=== PATIENT | female | born 1990 | race Caucasian/White ===

== ENCOUNTER 2016-06-07 18:05 | Emergency (ER) | payer OTHER ==
[2016-06-07 18:31] VITALS: BP 116/65
[2016-06-07] MEDS ORDERED: NAPROXEN 500 MG TABLET PO STA (19:05)
[2016-06-07] MEDS ORDERED: DIPHTH,PERTUSS(ACELL),TET TOX 0.5 ML DISP.SYRIN. VAX IM ONE (19:30)
[2016-06-07] MEDS ORDERED: HYDROCODONE/APAP 5/325MG TABLET. PO ONE (19:30)
--- NOTE | 2016-06-07 19:31 | PHYS DOC ---
Past Medical History Past Medical History: No Pertinent History Past Surgical History: Cholecystectomy, Tubal ligation Alcohol Use: None Drug Use: None Adult General Chief Complaint Chief Complaint: TOE PROBLEM HPI HPI Patient is a 25 year old female who presents with moderate pain to the right great toe after a heavy lamp fell on it 3 days ago. Patient still has black socks stuck on the toe for 3 days. Review of Systems Review of Systems Constitutional: Denies fever or chills [] Eyes: Denies change in visual acuity, redness, or eye pain [] HENT: Denies nasal congestion or sore throat [] Musculoskeletal: Right great toe pain Integument: Denies rash or skin lesions [] Neurologic: Denies headache, focal weakness or sensory changes [] Endocrine: Denies polyuria or polydipsia [] Current Medications Current Medications Current Medications Medications (Trade) Dose Ordered Sig/Jocelyne Start Time Stop Time Status Last Admin Dose Admin Acetaminophen/ Hydrocodone Bitart (Lortab 5/325) 1 tab 1X ONCE 06/07/16 19:30 06/07/16 19:31 DC 06/07/16 19:27 1 TAB Diphtheria/ Tetanus/Acell Pertussis (Boostrix) 0.5 ml ONCE ONCE 06/07/16 19:30 06/07/16 19:31 DC 06/07/16 19:28 0.5 ML Naproxen (Naprosyn) 500 mg 1X STAT 06/07/16 19:05 06/07/16 19:17 DC 06/07/16 19:27 500 MG Allergies Allergies Allergies Coded Allergies Type Severity Reaction Last Updated Verified No Known Drug Allergies 06/07/16 No Physical Exam Physical Exam Constitutional: Well developed, well nourished, no acute distress, non-toxic appearance. [] HENT: Normocephalic, atraumatic, bilateral external ears normal, oropharynx moist, no oral exudates, nose normal. [] Abdomen: Bowel sounds normal, soft, no tenderness, no masses, no pulsatile masses. [] Skin: Please see musculoskeletal Back: No tenderness, no CVA tenderness. [] Extremities: Right great toe distal and with the lack socks stuck on the skin. There is draining around the socks. Tenderness on palpation of the distal end of the right great toe. Limited range of motion to the right toe due to pain. + 2 right pedal pulse. Cap refill less than 2 seconds the right lower extremity. Sensation intact to the right lower extremity. Neurologic: Alert and oriented X 3, normal motor function, normal sensory function, no focal deficits noted. [] Psychologic: Affect normal, judgement normal, mood normal. [] Current Patient Data Vital Signs Vital Signs Date Time Temp Pulse Resp B/P Pulse Ox O2 Delivery O2 Flow Rate FiO2 06/07/16 19:27 18 Room Air 06/07/16 18:31 95.2 117 97 95.2 EKG EKG [] Radiology/Procedures Radiology/Procedures [] Course & Med Decision Making Course & Med Decision Making Pertinent Labs and Imaging studies reviewed. (See chart for details) Patient is in the ED with right great toe pain after lamp fell on it 3 days ago. She unfortunately left a piece of socks stuck on the toe for three days. There is draining yellow in color coming from underneath the nailed. I removed the socks. Patient was given tetanus in the ED. Right foot x-rays interpreted by Dr. Cosby was suspicious for fracture of the great toe. Patient was provided orthopedic shoe in the ED. Discharged on Keflex. Follow-up with orthopedic doctor on Thursday. Dragon Disclaimer Dragon Disclaimer This electronic medical record was generated, in whole or in part, using a voice recognition dictation system. Departure Departure Impression: Primary Impression: Toe fracture, right Additional Impression: Toe infection Disposition: 01 HOME, SELF-CARE Condition: STABLE Referrals: NO PCP (PCP) ASPEN AWAD II, MD Call the orthopedic doctor on Thursday and set up a follow-up appointment Patient Instructions: Skin Infections, Toe Fracture Additional Instructions: You were seen for right great toe injury. Your toe x-rays is suspicious for a fracture. Wear the orthopedic shoe. Keep the toe clean and dry. You have infection underneath the toe nail. Soak it in Epsom salts once or twice a day. Take the prescribed antibiotics until completed. Call the orthopedic doctor on Thursday and set up a follow-up appointment. Scripts Naproxen 500 Mg Tablet.dr1 Tab PO BID #60 TAB Ref 1 Prov:MUTUNGACARO LAP POLISHER 06/07/16 Hydrocodone/Apap 5-325 ([place] 5-325 Tablet)1 Each Tablet1 Tab PO Q6-8HRS PRN PAIN #20 TAB Prov:MUTUNGA,CARO LAP [employer]ER 06/07/16 Cephalexin 500 Mg Tablet1 Tab PO QID #40 TAB Prov:CARO HENDRICKS APRN 06/07/16 Problem Qualifiers Primary Impression: Toe fracture, right Encounter type: initial encounter Toe: great toe Fracture type: open Phalanx: distal Fracture alignment: nondisplaced Qualified Code: S92.424B - Nondisplaced fracture of distal phalanx of right great toe, initial encounter for open fracture CARO HENDRICKS APRN Jun 07, 2016 19:31
[2016-06-07] MEDS ORDERED: NAPR500T8 PO (19:52)
[2016-06-07] MEDS ORDERED: CEPH500T PO (19:52)
[2016-06-07] MEDS ORDERED: HYDR-971 PO (19:52)
--- NOTE | 2016-06-08 10:13 | RAD ---
Three-view right foot radiographs 06/07/2016 Clinical history: Dropped heavy item on anterior foot. AP, lateral and oblique digital radiographs of the right foot were obtained. No fracture or dislocation of the right foot is seen. No radiopaque foreign body is noted. Mild hallux valgus deformity is noted. Mild degenerative changes are seen involving the first MTP joint. Impression: No fracture or dislocation of the right foot is seen.
== END 2016-06-07 20:00 | disposition home or self-care (01) ==
LOC: ER 18:05
DX: S92.424B Nondisplaced fracture of distal phalanx of right great toe, initial encounter for open fracture (principal); L08.89 Other specified local infections of the skin and subcutaneous tissue; M20.11 Hallux valgus (acquired), right foot; W20.8XXA Other cause of strike by thrown, projected or falling object, initial encounter; Y93.89 Activity, other specified; Y99.8 Other external cause status; Y92.89 Other specified places as the place of occurrence of the external cause
CPT/HCPCS: 73630; 90471; 90715; 99284-25

== ENCOUNTER 2016-06-21 18:22 | Emergency (ER) | payer OTHER ==
[~2016-06-21 18:22] MED LIST: CEPH500T PO; HYDR-971 PO; NAPR500T8 PO
[2016-06-21 18:27] VITALS: BP 131/74
--- NOTE | 2016-06-21 18:39 | PHYS DOC ---
Past Medical History Past Medical History: No Pertinent History Past Surgical History: Cholecystectomy, Tubal ligation Alcohol Use: None Drug Use: None Adult General Chief Complaint Chief Complaint: TOE PROBLEM HPI HPI Patient is a 25 year old female presents emergency Department with complaint of ongoing right great toe pain that is been increasing since she was seen here approximately one and half weeks ago for a crush injury to her right great toe resulting in a fracture. Patient states that her toenail has been from the nail bed and is been snagging on things and causing her more pain. She states that she is completed the Keflex that was prescribed. She states that she did not follow up with an orthopedic doctor as recommended. Review of Systems Review of Systems Constitutional: Denies fever or chills [] Eyes: Denies change in visual acuity, redness, or eye pain [] HENT: Denies nasal congestion or sore throat [] Respiratory: Denies cough or shortness of breath [] Cardiovascular: No additional information not addressed in HPI [] GI: Denies abdominal pain, nausea, vomiting, bloody stools or diarrhea [] : Denies dysuria or hematuria [] Musculoskeletal: Denies back pain or joint pain [] Integument: Denies rash or skin lesions [] Neurologic: Denies headache, focal weakness or sensory changes [] Endocrine: Denies polyuria or polydipsia [] Current Medications Current Medications Current Medications Medications (Trade) Dose Ordered Sig/Jocelyne Start Time Stop Time Status Last Admin Dose Admin Bupivacaine HCl (Marcaine 0.25%) 10 ml 1X ONCE 06/21/16 18:45 06/21/16 18:46 DC 06/21/16 18:45 10 ML Allergies Allergies Allergies Coded Allergies Type Severity Reaction Last Updated Verified No Known Drug Allergies 06/07/16 No Physical Exam Physical Exam Constitutional: Well developed, well nourished, no acute distress, non-toxic appearance. [] HENT: Normocephalic, atraumatic, bilateral external ears normal, oropharynx moist, no oral exudates, nose normal. [] Eyes: PERRLA, EOMI, conjunctiva normal, no discharge. [] Neck: Normal range of motion, no tenderness, supple, no stridor. [] Cardiovascular:Heart rate regular rhythm, no murmur [] Lungs & Thorax: Bilateral breath sounds clear to auscultation [] Abdomen: Bowel sounds normal, soft, no tenderness, no masses, no pulsatile masses. [] Skin: Warm, dry, no erythema, no rash. [] Back: No tenderness, no CVA tenderness. [] Extremities: Right great toe with bruising along the dorsum over the nail matrix region. The toenail is from the nail bed except at the base were somewhat still adherent. There is a moderate amount of serous drainage. There is no gross erythema, heat to the touch, fusiform swelling or ascending lymphangitis. Neurologic: Alert and oriented X 3, normal motor function, normal sensory function, no focal deficits noted. [] Psychologic: Affect normal, judgement normal, mood normal. [] Current Patient Data Vital Signs Vital Signs Date Time Temp Pulse Resp B/P (MAP) Pulse Ox O2 Delivery O2 Flow Rate FiO2 06/21/16 18:27 97.7 90 16 99 Room Air 97.7 EKG EKG [] Radiology/Procedures Radiology/Procedures Procedure note: Digital block of right great toe was achieved with 0.25% Marcaine. The cuticle was pushed back away from the surface of the toenail. Negative traction was applied until the toenail was removed. Toenail is removed in 1 whole piece. Nail bed was already well granulated. Nail bed was cleansed with Betadine and rinsed with saline. A nonstick dressing was applied and bandaged. Patient tolerated the procedure well. Course & Med Decision Making Course & Med Decision Making Patient requested the nail removed. We discussed how this process will take place. She verbalizes understanding of the and verbalizes desire to proceed. Lanion Disclaimer Therese Disclaimer This electronic medical record was generated, in whole or in part, using a voice recognition dictation system. Departure Departure Impression: Primary Impression: Toenail avulsion Disposition: HOME, SELF-CARE Condition: IMPROVED Referrals: NO PCP (PCP) Patient Instructions: Nail Avulsion Injury, Toenail Removal Additional Instructions: 1. Review the discharge instructions provided for self-care and reasons to return to the emergency department. Keep the toenail covered during periods of activity for the next 3-4 days. Apply a thin code of antibiotic ointment 2-3 times a day. 2. Take the medication as prescribed. 3. Use the pamphlet provided for assistance in finding a primary care doctor to follow-up with if there is any questions or concerns. Scripts Hydrocodone/Apap 5-325 (NOR[place] 5-325 TABLET) 1 Each Tablet 1 TAB PO PRN Q6HRS Y for PAIN, #15 TAB 0 Refills Prov: JOSUE GONZALEZ 06/21/16 JOSUE GONZALEZ June 21, 2016 18:39
[2016-06-21] MEDS ORDERED: BUPIVACAINE 0.25% 50 ML VIAL. IJ ONE (18:45)
[2016-06-21] MEDS ORDERED: HYDR-971 PO (20:22)
== END 2016-06-21 20:30 | disposition home or self-care (01) ==
LOC: ER 18:22
DX: S91.201A Unspecified open wound of right great toe with damage to nail, initial encounter (principal); W23.0XXA Caught, crushed, jammed, or pinched between moving objects, initial encounter; Y93.89 Activity, other specified; Y92.89 Other specified places as the place of occurrence of the external cause; Y99.8 Other external cause status
CPT/HCPCS: 11730; 99284; J3490

== ENCOUNTER 2016-08-30 21:31 | Emergency (ER) | payer OTHER ==
[~2016-08-30] VITALS: Ht 172.7 cm; Wt 106.6 kg
--- NOTE | 2016-08-30 23:01 | PHYS DOC ---
Past Medical History Past Medical History: Other Additional Past Medical Histor: PCOS, uterine fibroids Past Surgical History: Cholecystectomy, Tubal ligation Alcohol Use: None Drug Use: None Adult General Chief Complaint Chief Complaint: ABDOMINAL PAIN HPI HPI Patient is a 26 year old female who presents ambulatory to the ED with her with the complaint of bilateral lower abdomen/pelvic pain since just her day. Patient states she has a history of PCOs, and states this pain is typical for ovarian cyst pain that she has experienced in the past. She has had her tubes tied. She has not missed a menstrual period. She states she is not on any hormones or other therapy to try to help her ovarian cysts. She moved to the area recently from [place]. She does not have a INCREMENT MANAGER doctor. She's had no spotting or bleeding. No UTI symptoms. No fever or chills. It hurts about the same on both sides, maybe a little worse on the right. She does still have her appendix. She states usually when she has a flareup of pain like this, she goes to the ER and she is given pain medicine and a prescription for pain pills. Previously this has been in [place] where she lived before. She has taken ibuprofen and Tylenol for the pain without much relief. Review of Systems Review of Systems Constitutional: Denies fever or chills [] Respiratory: Denies cough or shortness of breath [] Cardiovascular: Denies chest pain GI: As in history of present illness : Denies dysuria or hematuria [] Musculoskeletal: Denies back pain or joint pain [] Integument: Denies rash or skin lesions [] Current Medications Current Medications Current Medications Medications (Trade) Dose Ordered Sig/[facility] Start Time Stop Time Status Last Admin Dose Admin Morphine Sulfate 10 mg 1X ONCE 08/30/16 23:15 08/30/16 23:16 DC 08/30/16 23:07 10 MG Allergies Allergies Allergies Coded Allergies Type Severity Reaction Last Updated Verified No Known Drug Allergies 06/07/16 No Physical Exam Physical Exam Constitutional: Obese female, appears uncomfortable, moving around on the cart without difficulty however HENT: Normocephalic, atraumatic, bilateral external ears normal, nose normal. [ ] Eyes: conjunctiva normal, no discharge. [] Neck: Normal range of motion, no stridor. [] Cardiovascular:Heart rate regular rhythm, no murmur [] Lungs & Thorax: Bilateral breath sounds clear to auscultation [] Abdomen: Bowel sounds normal, soft, nondistended, no masses, no pulsatile masses. Tenderness to palpation in the lower abdomen bilaterally without rebound or guarding. The tenderness is in the low abdomen/pelvis area. There is no tenderness specifically at McBurney's point. No rebound or guarding in the right lower quadrant. No palpable masses. Skin: Warm, dry, no erythema, no rash. [] Extremities: No tenderness, no cyanosis, no clubbing, ROM intact, no edema. [] Neurologic: Alert and oriented X 3, normal motor function, normal sensory function, no focal deficits noted. [] Current Patient Data Vital Signs Vital Signs Date Time Temp Pulse Resp B/P (MAP) Pulse Ox O2 Delivery O2 Flow Rate FiO2 08/30/16 23:11 69 18 103/61 (75) 99 Room Air 08/30/16 21:40 97.7 97.7 Lab Values Laboratory Tests Test 08/30/16 20:49 POC Urine HCG, Qualitative Hcg negative (Negative) EKG EKG [] Radiology/Procedures Radiology/Procedures [] Course & Med Decision Making Course & Med Decision Making Pertinent Labs and Imaging studies reviewed. (See chart for details) Urine test negative. 26-year-old female presents with bilateral lower abdomen/pelvic pain that is typical for a exacerbation of ovarian cyst pain that she has had in the past. Status post BTL. test negative. I discussed with the patient and her that since she does still have her appendix, I caution her that if she ever has pain that is localized to the right lower quadrant to consider that that might be something different. Discussed with the patient and her that she should see a INCREMENT MANAGER doctor and see if there is any treatment that could help her chronic pain problems such as something that might control her ovarian cysts. She stated her previous INCREMENT MANAGER doctor wanted to give her hysterectomy but her insurance denied it. I encouraged her to find a new INCREMENT MANAGER doctor here since she has recently relocated to the area. I also told the patient that for this chronic, recurrent pain, I would not recommend use of opiate pain medications on a chronic basis. We gave her one injection of pain medicine here in the ED and I encouraged her to use ibuprofen on a regular basis for its prostaglandin inhibition effects as well as pain relief. [] Dragon Disclaimer Dragon Disclaimer This electronic medical record was generated, in whole or in part, using a voice recognition dictation system. Departure Departure Impression: Primary Impression: Pelvic pain Additional Impression: Ovarian cyst Disposition: HOME, SELF-CARE Condition: STABLE Referrals: NO PCP (PCP) Patient Instructions: Pelvic Pain, Female, [id number] Additional Instructions: As we discussed, the treatment usually recommended for pelvic pain is anti- inflammatory pain relievers such as ibuprofen, 800 mg every 6-8 hours. While you 're having pain, keep taking ibuprofen regularly to keep your pain under control. You had a pain shot here, no driving for 12 hours because of that medication Make a INCREMENT MANAGER appointment as soon as possible to see if there is some way to manage your pain with medications, as discussed. Problem Qualifiers ARMANI HELLER MD Aug 30, 2016 23:01
[2016-08-30 23:11] VITALS: BP 103/61
[2016-08-30] MEDS ORDERED: MORPHINE SULFATE 10 MG/ML VIAL. IM ONE (23:15)
== END 2016-08-30 23:27 | disposition home or self-care (01) ==
LOC: ER 21:31
DX: N83.209 Unspecified ovarian cyst, unspecified side (principal); R10.2 Pelvic and perineal pain; E28.2 Polycystic ovarian syndrome; Z90.49 Acquired absence of other specified parts of digestive tract; Z98.51 Tubal ligation status
CPT/HCPCS: 81025; 96372; 99283; J2270

== ENCOUNTER 2016-09-02 19:03 | Emergency (ER) | payer SELFPAY ==
[~2016-09-02] VITALS: Ht 172.7 cm; Wt 106.6 kg
[2016-09-02 19:45] LABS: BILIRUBIN,URINE NEGATIVE (NEG); GLUCOSE,URINE NEGATIVE (NEG); NITRITE,URINE NEGATIVE (NEG); PROTEIN,URINE NEGATIVE (NEG-TRACE); UROBILINOGEN,URINE 0.2 mg/dL (0.2 mg/dL)
[2016-09-02 19:50] LABS: BASO % 0 % (0-3); EOS % 4 % (0-3); HEMATOCRIT 36.5 % (36.0-47.0); HEMOGLOBIN 12.1 g/dL (12.0-15.5); LYMPH # 2.1 x10^3/uL (1.0-4.8); LYMPH % 19 % (24-48); MEAN CORPUSCULAR HEMOGLOBIN 29 pg (25-35); MEAN CORPUSCULAR HGB CONC 33 g/dL (31-37); MEAN CORPUSCULAR VOLUME 88 fL (79-100); MONO % 7 % (0-9); NEUT % 70 % (31-73); PLATELET COUNT 303 x10^3/uL (140-400); RED BLOOD COUNT 4.16 x10^6/uL (3.50-5.40); RED CELL DISTRIBUTION WIDTH 13.7 % (11.5-14.5); WHITE BLOOD COUNT 10.9 x10^3/uL (4.0-11.0)
[2016-09-02 19:56] LABS: BACTERIA,URINE 0 /HPF (0-FEW); RBC,URINE OCC /HPF (0-2); SQUAMOUS EPITHELIAL CELL,UR FEW /LPF; WBC,URINE 0 /HPF (0-4)
[2016-09-02 20:11] LABS: CALCIUM 9.3 mg/dL (8.5-10.1); CREATININE 0.7 mg/dL (0.6-1.0); GFR 99.6; POTASSIUM 3.9 mmol/L (3.5-5.1)
[2016-09-02] MEDS ORDERED: ONDANSETRON PF 4 MG/2 ML VIAL. IV ONE (20:15)
[2016-09-02] MEDS ORDERED: KETOROLAC TROMETHAMINE 30 MG/ML INJ. IV ONE (20:15)
[2016-09-02 20:16] LABS: ALBUMIN 3.5 g/dL (3.4-5.0); ALBUMIN/GLOBULIN RATIO 0.9 (1.0-1.7); TOTAL BILIRUBIN 0.1 mg/dL (0.2-1.0); TOTAL PROTEIN 7.5 g/dL (6.4-8.2)
--- NOTE | 2016-09-02 20:58 | RAD ---
Ultrasound pelvis complete and transvaginal ultrasound HISTORY: Bilateral pelvic pain, negative hCG Sonographic examination of the pelvis was performed by transabdominal and endovaginal technique and multiple static images were obtained. Ultrasound pelvis complete transabdominal: The uterus appears normal and measures 5.7 x 8.7 x 5.0 cm. The left ovary appears normal and measures 2.3 x 4.3 x 2.6 cm. The endometrium appears normal measures 13 mm in thickness. The right ovary appears normal measures 2.1 x 2.9 x 1.6 cm. Interrogation of the right lower quadrant shows no focal normality. The appendix is not identified. Transvaginal ultrasound pelvis: The uterus is better seen and appears normal. The ovaries are better seen with normal blood flow and appear normal. IMPRESSION: Negative examination. Electronically signed by: Juan Velasquez III, MD (09/02/2016 8:54 PM) [facility]
[2016-09-02] MEDS ORDERED: IOHEXOL 300 MG/ML 75 ML VIAL IV ONE (21:15)
[2016-09-02] MEDS ORDERED: fentaNYL PF VIAL 100 MCG/2 ML VIAL IV PRN (21:15)
--- NOTE | 2016-09-02 22:11 | RAD ---
CT SCAN OF THE ABDOMEN AND PELVIS WITH IV CONTRAST. History: Right lower quadrant pain Comparison:None. Procedure: Contiguous axial images of the abdomen and pelvis were performed after the administration of 75 cc of Isovue 370 IV contrast and oral contrast. CT Abdomen with contrast: Findings: Liver: Unremarkable Spleen: Unremarkable Pancreas: Unremarkable Adrenal Glands: Unremarkable Kidneys: Unremarkable There is no mass or lymphadenopathy. There is no free air. There is no free fluid. There has been prior cholecystectomy. Impression: No acute findings. End Impression CT Pelvis with Contrast: Findings: The urinary bladder appears normal. There is no free fluid. There is no lymphadenopathy. The appendix is normal. Impression: No acute findings. PQRS Compliance Statement: One or more of the following individualized dose reduction techniques were utilized for this examination: 1. Automated exposure control 2. Adjustment of the mA and/or kV according to patient size 3. Use of iterative reconstruction technique Electronically signed by: Juan Velasquez III, MD (09/02/2016 10:07 PM) [facility]
[2016-09-02 22:15] VITALS: BP 126/78
--- NOTE | 2016-09-02 22:31 | PHYS DOC ---
Past Medical History Past Medical History: Uterine Fibroids, Other Additional Past Medical Histor: PCOS Past Surgical History: Cholecystectomy, Tubal ligation Alcohol Use: None Drug Use: None Adult General Chief Complaint Chief Complaint: ABDOMINAL PAIN HPI HPI Patient is a 26 year old female who presents with abdominal pain. Patient reports onset of pain 3 days ago. She reports bilateral lower abdominal pain worse in the right lower quadrant. She denies fevers or chills, nausea or vomiting, diarrhea or constipation, dysuria or hematuria, vaginal discharge. She reports vaginal spotting today not requiring use of any pads. She reports history of ovarian cysts and states this feels similar to previous pain. History of cholecystectomy and tubal ligation. Has an appointment with a supervising nurse in 3 weeks. Review of Systems Review of Systems Constitutional: Denies fever or chills Eyes: Denies change in visual acuity HENT: Denies nasal congestion or sore throat Respiratory: Denies cough or shortness of breath Cardiovascular: Denies chest pain or edema GI: Reports abdominal pain, denies nausea, vomiting, or diarrhea : Denies dysuria or hematuria Musculoskeletal: Denies back pain or joint pain Integument: Denies rash or skin lesions Neurologic: Denies headache, focal weakness or sensory changes Current Medications Current Medications Current Medications Medications (Trade) Dose Ordered Sig/Jocelyne Start Time Stop Time Status Last Admin Dose Admin Fentanyl Citrate (Fentanyl 2ml Vial) 50 mcg PRN Q15MIN PRN 09/02/16 21:15 09/02/16 22:57 DC 09/02/16 21:18 50 MCG Iohexol (Omnipaque 300 Mg/ml) 75 ml 1X ONCE 09/02/16 21:15 09/02/16 21:16 DC 09/02/16 21:28 75 ML Ketorolac Tromethamine (Toradol) 30 mg 1X ONCE 09/02/16 20:15 09/02/16 20:16 DC 09/02/16 20:14 30 MG Ondansetron HCl (Zofran) 4 mg 1X ONCE 09/02/16 20:15 09/02/16 20:16 DC 09/02/16 20:14 4 MG Allergies Allergies Allergies Coded Allergies Type Severity Reaction Last Updated Verified No Known Drug Allergies 06/07/16 No Physical Exam Physical Exam Constitutional: Obese, no acute distress, non-toxic appearance. HENT: Normocephalic, atraumatic, bilateral external ears normal, oropharynx moist, nose normal. Eyes: PERRLA, EOMI, conjunctiva normal, no discharge. Neck: supple, no stridor. Cardiovascular: RRR, no murmurs, no edema. Lungs & Thorax: LCTAB, no wheezing, no respiratory distress. Abdomen: soft, right greater than left lower quadrant tenderness, no rebound or guarding, no masses or pulsatile masses, nondistended. : normal appearing female external genitalia, normal appearing cervix with closed os, small amount of blood, no CMT, right adnexal tenderness, no left adnexal tenderness. Skin: Warm, dry, no erythema, no rash. Back: No CVA tenderness. Extremities: No tenderness, no edema. Neurologic: Alert and oriented X 3, no focal deficits noted. Psychologic: Affect normal, judgement normal, mood normal. Current Patient Data Vital Signs Vital Signs Date Time Temp Pulse Resp B/P (MAP) Pulse Ox O2 Delivery O2 Flow Rate FiO2 09/02/16 22:15 80 18 126/78 (94) 98 Room Air 09/02/16 19:20 99.0 99.0 Lab Values Laboratory Tests Test 09/02/16 18:26 09/02/16 19:06 09/02/16 19:44 POC Urine HCG, Qualitative Hcg negative (Negative) Urine Collection Type Unknown Urine Color Yellow Urine Clarity Clear Urine pH 6.0 Urine Specific [place] >=1.030 Urine Protein Negative mg/dL (NEG-TRACE) Urine Glucose (UA) Negative mg/dL (NEG) Urine Ketones (Stick) Negative mg/dL (NEG) Urine Blood Negative (NEG) Urine Nitrite Negative (NEG) Urine Bilirubin Negative (NEG) Urine Urobilinogen Dipstick 0.2 mg/dL (0.2 mg/dL) Urine Leukocyte Esterase Negative (NEG) Urine RBC Occ /HPF (0-2) Urine WBC 0 /HPF (0-4) Urine Squamous Epithelial Cells Few /LPF Urine Bacteria 0 /HPF (0-FEW) Urine Mucus Mod /LPF White Blood Count 10.9 x10^3/uL (4.0-11.0) Red Blood Count 4.16 x10^6/uL (3.50-5.40) Hemoglobin 12.1 g/dL (12.0-15.5) Hematocrit 36.5 % (36.0-47.0) Mean Corpuscular Volume 88 fL (79-100) Mean Corpuscular Hemoglobin 29 pg (25-35) Mean Corpuscular Hemoglobin Concent 33 g/dL (31-37) Red Cell Distribution Width 13.7 % (11.5-14.5) Platelet Count 303 x10^3/uL (140-400) Neutrophils (%) (Auto) 70 % (31-73) Lymphocytes (%) (Auto) 19 % (24-48) L Monocytes (%) (Auto) 7 % (0-9) Eosinophils (%) (Auto) 4 % (0-3) H Basophils (%) (Auto) 0 % (0-3) Neutrophils # (Auto) 7.6 x10^3uL (1.8-7.7) Lymphocytes # (Auto) 2.1 x10^3/uL (1.0-4.8) Monocytes # (Auto) 0.7 x10^3/uL (0.0-1.1) Eosinophils # (Auto) 0.5 x10^3/uL (0.0-0.7) Basophils # (Auto) 0.0 x10^3/uL (0.0-0.2) Sodium Level 140 mmol/L (136-145) Potassium Level 3.9 mmol/L (3.5-5.1) Chloride Level 105 mmol/L (98-107) Carbon Dioxide Level 29 mmol/L (21-32) Anion Gap 6 (6-14) Blood Urea Nitrogen 12 mg/dL (7-20) Creatinine 0.7 mg/dL (0.6-1.0) Estimated GFR (Cockcroft-Gault) 99.6 BUN/Creatinine Ratio 17 (6-20) Glucose Level 121 mg/dL (70-99) H Calcium Level 9.3 mg/dL (8.5-10.1) Total Bilirubin 0.1 mg/dL (0.2-1.0) L Aspartate Amino Transferase (AST) 31 U/L (15-37) Alanine Aminotransferase (ALT) 100 U/L (14-59) H Alkaline Phosphatase 80 U/L (46-116) Total Protein 7.5 g/dL (6.4-8.2) Albumin 3.5 g/dL (3.4-5.0) Albumin/Globulin Ratio 0.9 (1.0-1.7) L Laboratory Tests 09/02/16 19:44 Laboratory Tests 09/02/16 19:44 Microbiology 09/02/16 Wet Prep - Final, Complete EKG EKG [] Radiology/Procedures Radiology/Procedures PROCEDURE: CT ABD PELV W/ IV CONTRST ONLY CT SCAN OF THE ABDOMEN AND PELVIS WITH IV CONTRAST. History: Right lower quadrant pain Comparison:None. Procedure: Contiguous axial images of the abdomen and pelvis were performed after the administration of 75 cc of Isovue 370 IV contrast and oral contrast. CT Abdomen with contrast: Findings: Liver: Unremarkable Spleen: Unremarkable Pancreas: Unremarkable Adrenal Glands: Unremarkable Kidneys: Unremarkable There is no mass or lymphadenopathy. There is no free air. There is no free fluid. There has been prior cholecystectomy. Impression: No acute findings. End Impression CT Pelvis with Contrast: Findings: The urinary bladder appears normal. There is no free fluid. There is no lymphadenopathy. The appendix is normal. Impression: No acute findings. PQRS Compliance Statement: One or more of the following individualized dose reduction techniques were utilized for this examination: 1. Automated exposure control 2. Adjustment of the mA and/or kV according to patient size 3. Use of iterative reconstruction technique Electronically signed by: Jose Luis Velasquez III, MD (09/02/2016 10:07 PM) [facility] DICTATED and SIGNED BY: JOSE LUIS VELASQUEZ III, MD DATE: 09/02/162202 Course & Med Decision Making Course & Med Decision Making Pertinent Labs and Imaging studies reviewed. (See chart for details) The patient presents with abdominal pain. Gave pain medication, IV fluids, antiemetics. Ultrasound shows no evidence of ovarian pathology. Given right lower quadrant pain recommended CT to evaluate for appendicitis as they were unable to visualize the appendix on ultrasound. She had ongoing pain and wished to proceed. CT showed no evidence of appendicitis or other acute process. She felt better. Workup did not demonstrate acute cause of symptoms. Recommend rest , by mouth hydration, Tylenol or ibuprofen for pain, keep follow-up appointment with gynecology. Follow-up with primary care if not improving in 2-3 days. Return to the emergency department for high fever, severe pain, uncontrolled vomiting, any otherwise worsening condition. [] Dragon Disclaimer Dragon Disclaimer This electronic medical record was generated, in whole or in part, using a voice recognition dictation system. Departure Departure Impression: Primary Impression: Abdominal pain Disposition: HOME, SELF-CARE Condition: STABLE Referrals: NO PCP (PCP) Patient Instructions: Abdominal Pain, [id number] Additional Instructions: You were seen in the emergency department today for abdominal pain. Tests did not show a serious cause of symptoms. Please rest, drink clear liquids, take Tylenol or ibuprofen for pain. Follow-up with your primary care doctor in 2-3 days if not improving. Return to the emergency department for high fever, severe pain, uncontrolled vomiting, any otherwise worsening condition. ANDRIA LEVY MD Sep 02, 2016 22:30
== END 2016-09-02 22:30 | disposition home or self-care (01) ==
LOC: ER 19:03
DX: R10.31 Right lower quadrant pain (principal); R10.32 Left lower quadrant pain; E28.2 Polycystic ovarian syndrome; Z90.49 Acquired absence of other specified parts of digestive tract; Z98.51 Tubal ligation status
CPT/HCPCS: 36415; 74177; 76856; 80053; 81001; 81025; 85027; 87491; 87591; 96374; 96375; 99285; J1885; J2405; J3010; Q0111; Q9967

== ENCOUNTER 2017-09-03 14:39 | Emergency (ER) | payer OTHER ==
[2017-09-03 15:07] LABS: URINE HCG POC HCG NEGATIVE (Negative)
[2017-09-03 15:13] LABS: ADD MAN DIFF? NO
[2017-09-03 15:15] LABS: BASO % 0 % (0-3); EOS # 0.3 x10^3/uL (0.0-0.7); EOS % 3 % (0-3); HEMATOCRIT 35.1 % (36.0-47.0); HEMOGLOBIN 11.9 g/dL (12.0-15.5); LYMPH # 0.9 x10^3/uL (1.0-4.8); LYMPH % 9 % (24-48); MEAN CORPUSCULAR HEMOGLOBIN 30 pg (25-35); MEAN CORPUSCULAR HGB CONC 34 g/dL (31-37); MEAN CORPUSCULAR VOLUME 90 fL (79-100); MONO # 0.5 x10^3/uL (0.0-1.1); MONO % 5 % (0-9); NEUT # 8.7 x10^3uL (1.8-7.7); NEUT % 83 % (31-73); PLATELET COUNT 232 x10^3/uL (140-400); RED CELL DISTRIBUTION WIDTH 13.7 % (11.5-14.5); WHITE BLOOD COUNT 10.6 x10^3/uL (4.0-11.0)
[2017-09-03 15:18] LABS: BILIRUBIN,URINE NEGATIVE (NEG); CLARITY,URINE CLEAR; COLOR,URINE YELLOW; GLUCOSE,URINE NEGATIVE (NEG); NITRITE,URINE POSITIVE (NEG); PROTEIN,URINE NEGATIVE (NEG-TRACE)
[2017-09-03 15:24] LABS: BACTERIA,URINE MOD /HPF (0-FEW); SQUAMOUS EPITHELIAL CELL,UR OCC /LPF; WBC,URINE >40 /HPF (0-4)
[2017-09-03 15:25] LABS: ANION GAP 9 (6-14); BLOOD UREA NITROGEN 7 mg/dL (7-20); BUN/CREATININE RATIO 9 (6-20); CARBON DIOXIDE 27 mmol/L (21-32); CHLORIDE 105 mmol/L (98-107); CREATININE 0.8 mg/dL (0.6-1.0); GFR 84.8; GLUCOSE 106 mg/dL (70-99); POTASSIUM 3.2 mmol/L (3.5-5.1); SODIUM 141 mmol/L (136-145)
[2017-09-03 15:30] LABS: ALBUMIN 2.9 g/dL (3.4-5.0); ALBUMIN/GLOBULIN RATIO 0.7 (1.0-1.7); ALK PHOS 105 U/L (46-116); ALT (SGPT) 93 U/L (14-59); AST (SGOT) 63 U/L (15-37); LIPASE 289 U/L (73-393); TOTAL BILIRUBIN 0.3 mg/dL (0.2-1.0); TOTAL PROTEIN 6.8 g/dL (6.4-8.2)
[2017-09-03] MEDS: KETOROLAC 30 MG/ML INJ. IV (15:32)
[2017-09-03] MEDS: fentaNYL PF VIAL 100 MCG/2 ML VIAL IV ×2 (15:33→16:30)
[2017-09-03] MEDS: IV NORMAL SALINE 1000ML BAG 1,000 ML IV (15:33)
[2017-09-03] MEDS: POTASSIUM CHLORIDE 20 MEQ TABLET.ER. PO (16:18)
== END 2017-09-03 16:53 | disposition home or self-care (01) ==
LOC: ER 16:53
DX: R10.9 Unspecified abdominal pain (principal); R30.0 Dysuria; E28.2 Polycystic ovarian syndrome; Z90.49 Acquired absence of other specified parts of digestive tract; Z98.51 Tubal ligation status
CPT/HCPCS: 36415; 74176; 80053; 81001; 81025; 83690; 85025; 96365; 96375; 96376; 99285-25; J0690; J1885; J3010; J7030

== ENCOUNTER 2017-09-04 19:17 | Inpatient (IN) | payer OTHER ==
[2017-09-04] MEDS ORDERED: IV NORMAL SALINE 500ML BAG 500 ML IV (19:45)
[2017-09-04 19:51] LABS: BILIRUBIN,URINE NEGATIVE (NEG); CLARITY,URINE CLEAR; COLOR,URINE YELLOW; GLUCOSE,URINE NEGATIVE (NEG); NITRITE,URINE NEGATIVE (NEG); PH,URINE 6.5; PROTEIN,URINE NEGATIVE (NEG-TRACE)
[2017-09-04] MEDS ORDERED: ACETAMINOPHEN 325 MG TABLET. PO (20:00)
[2017-09-04] MEDS: PIPERACILLIN/TAZOBACTAM 4.5 GM in IV NORMAL SALINE 100ML 100 ML IV (20:05)
[2017-09-04 20:06] LABS: ADD MAN DIFF? NO
[2017-09-04] MEDS: IV NORMAL SALINE 1000ML BAG 1,000 ML IV ×2 (20:06→22:39)
[2017-09-04 20:08] LABS: BASO % 0 % (0-3); EOS # 0.1 x10^3/uL (0.0-0.7); EOS % 1 % (0-3); HEMATOCRIT 34.6 % (36.0-47.0); HEMOGLOBIN 11.8 g/dL (12.0-15.5); LYMPH # 0.7 x10^3/uL (1.0-4.8); LYMPH % 10 % (24-48); MEAN CORPUSCULAR HEMOGLOBIN 30 pg (25-35); MEAN CORPUSCULAR HGB CONC 34 g/dL (31-37); MEAN CORPUSCULAR VOLUME 89 fL (79-100); MONO # 0.6 x10^3/uL (0.0-1.1); MONO % 9 % (0-9); NEUT # 5.7 x10^3uL (1.8-7.7); NEUT % 80 % (31-73); PLATELET COUNT 210 x10^3/uL (140-400); RED BLOOD COUNT 3.87 x10^6/uL (3.50-5.40); RED CELL DISTRIBUTION WIDTH 13.6 % (11.5-14.5); WHITE BLOOD COUNT 7.1 x10^3/uL (4.0-11.0)
[2017-09-04] MEDS: MORPHINE SULFATE 10 MG/ML VIAL. IV (20:14)
[2017-09-04] MEDS: ACETAMINOPHEN 500 MG TABLET PO (20:14)
[2017-09-04] MEDS: IBUPROFEN 800 MG TABLET. PO (20:14)
[2017-09-04 20:16] LABS: BACTERIA,URINE 0 /HPF (0-FEW); SQUAMOUS EPITHELIAL CELL,UR MOD /LPF; YEAST,URINE PRESENT /HPF
[2017-09-04 20:19] LABS: ANION GAP 8 (6-14); BLOOD UREA NITROGEN 5 mg/dL (7-20); BUN/CREATININE RATIO 6 (6-20); CALCIUM 8.5 mg/dL (8.5-10.1); CARBON DIOXIDE 27 mmol/L (21-32); CHLORIDE 101 mmol/L (98-107); CREATININE 0.8 mg/dL (0.6-1.0); GFR 84.8; GLUCOSE 135 mg/dL (70-99); POTASSIUM 3.8 mmol/L (3.5-5.1); SODIUM 136 mmol/L (136-145)
[2017-09-04 20:24] LABS: ALBUMIN 2.8 g/dL (3.4-5.0); ALBUMIN/GLOBULIN RATIO 0.8 (1.0-1.7); ALK PHOS 97 U/L (46-116); ALT (SGPT) 65 U/L (14-59); AST (SGOT) 28 U/L (15-37); TOTAL BILIRUBIN 0.3 mg/dL (0.2-1.0); TOTAL PROTEIN 6.4 g/dL (6.4-8.2)
[2017-09-04 20:27] LABS: LACTIC ACID 1.5 mmol/L (0.4-2.0)
[2017-09-04 20:42] LABS: PROCALCITONIN 1.53 ng/mL (0.00-0.10)
[2017-09-04] MEDS: MORPHINE SULFATE 4 MG/ML DISP.SYRIN. IV (22:40)
[2017-09-05] MEDS: PIPERACILLIN/TAZOBACTAM 4.5 GM in IV NORMAL SALINE 100ML 100 ML IV ×2 (00:21→06:08)
[2017-09-05] MEDS: IV NORMAL SALINE 1000ML BAG 1,000 ML IV ×2 (01:45→10:08)
[2017-09-05] MEDS: ONDANSETRON PF 4 MG/2 ML VIAL. IV ×3 (03:13→20:17)
[2017-09-05] MEDS: MORPHINE SULFATE 4 MG/ML DISP.SYRIN. IV (03:13)
[2017-09-05 08:31] LABS: ADD MAN DIFF? NO
[2017-09-05 08:43] LABS: BASO % 0 % (0-3); EOS # 0.1 x10^3/uL (0.0-0.7); EOS % 3 % (0-3); HEMATOCRIT 33.3 % (36.0-47.0); HEMOGLOBIN 11.4 g/dL (12.0-15.5); LYMPH # 0.6 x10^3/uL (1.0-4.8); LYMPH % 17 % (24-48); MEAN CORPUSCULAR HEMOGLOBIN 31 pg (25-35); MEAN CORPUSCULAR HGB CONC 34 g/dL (31-37); MEAN CORPUSCULAR VOLUME 90 fL (79-100); MONO # 0.5 x10^3/uL (0.0-1.1); MONO % 15 % (0-9); NEUT # 2.4 x10^3uL (1.8-7.7); NEUT % 66 % (31-73); PLATELET COUNT 193 x10^3/uL (140-400); RED BLOOD COUNT 3.69 x10^6/uL (3.50-5.40); RED CELL DISTRIBUTION WIDTH 13.8 % (11.5-14.5); WHITE BLOOD COUNT 3.7 x10^3/uL (4.0-11.0)
[2017-09-05 08:56] LABS: ANION GAP 5 (6-14); BLOOD UREA NITROGEN 5 mg/dL (7-20); CALCIUM 8.2 mg/dL (8.5-10.1); CARBON DIOXIDE 28 mmol/L (21-32); CHLORIDE 106 mmol/L (98-107); CREATININE 0.6 mg/dL (0.6-1.0); GFR 118.2; GLUCOSE 95 mg/dL (70-99); POTASSIUM 4.1 mmol/L (3.5-5.1); SODIUM 139 mmol/L (136-145)
[2017-09-05] MEDS ORDERED: hydrALAZINE 20 MG/ML VIAL. IVP (10:00)
[2017-09-05] MEDS: cefTRIAXone IV Push 1 GM VIAL. IVP (10:26)
[2017-09-05] MEDS: MORPHINE SULFATE 2 MG/ML DISP.SYRIN. IV (10:34)
[2017-09-05] MEDS: ENOXAPARIN 40 MG/0.4 ML SYRINGE. SQ (12:41)
[2017-09-05] MEDS: ACETAMINOPHEN 325 MG TABLET. PO (15:11)
[2017-09-05] MEDS: DOCUSATE SODIUM 100 MG CAPSULE. PO (19:10)
[2017-09-05] MEDS: traMADol 50 MG TABLET PO (19:10)
[2017-09-05] MEDS: LACTOBACILLUS RHAMNOSUS GG 1 CAPSULE. PO (20:11)
[2017-09-06] MEDS: IV NORMAL SALINE 1000ML BAG 1,000 ML IV (02:40)
[2017-09-06] MEDS: ACETAMINOPHEN 325 MG TABLET. PO ×2 (02:44→08:13)
[2017-09-06] MEDS: DOCUSATE SODIUM 100 MG CAPSULE. PO (08:13)
[2017-09-06] MEDS: LACTOBACILLUS RHAMNOSUS GG 1 CAPSULE. PO (08:13)
[2017-09-06 10:18] LABS: ADD MAN DIFF? NO
[2017-09-06 10:21] LABS: BASO % 0 % (0-3); EOS # 0.2 x10^3/uL (0.0-0.7); EOS % 5 % (0-3); HEMATOCRIT 34.4 % (36.0-47.0); HEMOGLOBIN 11.2 g/dL (12.0-15.5); LYMPH # 0.8 x10^3/uL (1.0-4.8); LYMPH % 21 % (24-48); MEAN CORPUSCULAR HEMOGLOBIN 30 pg (25-35); MEAN CORPUSCULAR HGB CONC 33 g/dL (31-37); MEAN CORPUSCULAR VOLUME 92 fL (79-100); MONO # 0.5 x10^3/uL (0.0-1.1); MONO % 14 % (0-9); NEUT # 2.3 x10^3uL (1.8-7.7); NEUT % 61 % (31-73); PLATELET COUNT 199 x10^3/uL (140-400); RED BLOOD COUNT 3.73 x10^6/uL (3.50-5.40); WHITE BLOOD COUNT 3.8 x10^3/uL (4.0-11.0)
[2017-09-06] MEDS: cefTRIAXone IV Push 1 GM VIAL. IVP (10:29)
[2017-09-06 10:35] LABS: ANION GAP 8 (6-14); BLOOD UREA NITROGEN 4 mg/dL (7-20); CALCIUM 8.9 mg/dL (8.5-10.1); CARBON DIOXIDE 25 mmol/L (21-32); CHLORIDE 106 mmol/L (98-107); CREATININE 0.7 mg/dL (0.6-1.0); GFR 98.9; GLUCOSE 120 mg/dL (70-99); POTASSIUM 3.9 mmol/L (3.5-5.1); SODIUM 139 mmol/L (136-145)
[2017-09-06] MEDS: CEFPODOXIME PROXETIL 100 MG TABLET. PO (11:23)
[2017-09-06] MEDS ORDERED: OXYBUTYNIN CHLORIDE 5 MG TABLET PO (14:00)
== END 2017-09-06 12:27 | disposition home or self-care (01) | DRG 872 ==
LOC: 5 SOUTH 20:40 → ER 19:17 → 5 SOUTH 19:59
DX: A41.9 Sepsis, unspecified organism (principal); N10 Acute pyelonephritis; Z98.51 Tubal ligation status; Z82.49 Family history of ischemic heart disease and other diseases of the circulatory system; Z90.49 Acquired absence of other specified parts of digestive tract; E28.2 Polycystic ovarian syndrome
CPT/HCPCS: 36415; 80048; 80053; 81001; 83605; 84145; 85025; 87040; 96365; 96375; 99285; 99285-25; 99406; J0696; J1650; J1956; J2270; J2405; J2543; J7030

== ENCOUNTER 2017-11-12 17:15 | Emergency (ER) | payer OTHER ==
[2017-09-06 11:00] VITALS: BP 98/64
[~2017-11-12 17:15] MED LIST changes: +CEFP100T PO; +CIPR500T94 PO; +OXYB5TAB7 PO
[2017-11-13] MEDS ORDERED: METH4TAB2 PO (18:14)
== END 2017-11-12 18:55 | disposition left against medical advice (07) ==
LOC: ER 17:15
DX: R22.0 Localized swelling, mass and lump, head (principal); R22.1 Localized swelling, mass and lump, neck; Z53.21 Procedure and treatment not carried out due to patient leaving prior to being seen by health care provider

== ENCOUNTER 2017-11-13 16:28 | Emergency (ER) | payer OTHER ==
[~2017-11-13] VITALS: Ht 170.2 cm; Wt 101.6 kg
[2017-11-13 17:45] VITALS: BP 136/86
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
[2017-11-13] MEDS ORDERED: METH4TAB2 PO (18:14)
[2017-11-13] MEDS ORDERED: predniSONE 20 MG TABLET PO ONE (18:15)
== END 2017-11-13 18:30 | disposition home or self-care (01) ==
LOC: ER 16:28
DX: M54.2 Cervicalgia (principal); R22.0 Localized swelling, mass and lump, head
CPT/HCPCS: 99283; J7512

== ENCOUNTER 2018-01-11 19:31 | Emergency (ER) | payer OTHER ==
[~2018-01-11] VITALS: Ht 175.3 cm; Wt 101.6 kg
[~2018-01-11 19:31] MED LIST changes: +HYDR-3164 PO; -HYDR-971 PO; +METH4TAB2 PO
--- NOTE | 2018-01-11 20:24 | PHYS DOC ---
Past Medical History Past Medical History: Uterine Fibroids, Other Additional Past Medical Histor: PCOS Past Surgical History: Cholecystectomy, Tubal ligation Alcohol Use: None Drug Use: None Adult General Chief Complaint Chief Complaint: RIB PAIN HPI HPI 27-year-old female presents to ER with complaints of left upper abdominal pain which started yesterday. Patient reports she has had intermittent nausea denying any vomiting or diarrhea episodes. She reports she's had decreased appetite. Review of Systems Review of Systems Constitutional: Denies fever or chills [] Eyes: Denies change in visual acuity, redness, or eye pain [] HENT: Denies nasal congestion or sore throat [] Respiratory: Denies cough or shortness of breath [] Cardiovascular: No additional information not addressed in HPI [] GI: Denies abdominal pain, nausea, vomiting, bloody stools or diarrhea [] : Denies dysuria or hematuria [] Musculoskeletal: Denies back pain or joint pain [] Integument: Denies rash or skin lesions [] Neurologic: Denies headache, focal weakness or sensory changes [] Endocrine: Denies polyuria or polydipsia [] All other systems were reviewed and found to be within normal limits, except as documented in this note. Current Medications Current Medications Current Medications Medications (Trade) Dose Ordered Sig/Jocelyne Start Time Stop Time Status Last Admin Dose Admin Dicyclomine HCl (Bentyl) 20 mg 1X ONCE 01/11/18 20:30 01/11/18 20:31 DC 01/11/18 20:45 20 MG Info (CONTRAST GIVEN -- Rx MONITORING) 1 each PRN DAILY PRN 01/11/18 21:45 01/13/18 21:44 Iohexol (Omnipaque 300 Mg/ml) 75 ml 1X ONCE 01/11/18 22:00 01/11/18 22:01 DC 01/11/18 21:58 75 ML Ketorolac Tromethamine (Toradol 15mg Vial) 15 mg 1X ONCE 01/11/18 22:00 01/11/18 22:01 DC 01/11/18 21:39 15 MG Sodium Chloride 1,000 ml @ 1,000 mls/hr 1X ONCE 01/11/18 20:30 01/11/18 21:29 DC 01/11/18 20:46 1,000 MLS/HR Allergies Allergies Allergies Coded Allergies Type Severity Reaction Last Updated Verified No Known Drug Allergies 06/07/16 No Physical Exam Physical Exam Constitutional: Well developed, well nourished, no acute distress, non-toxic appearance. [] HENT: Normocephalic, atraumatic, bilateral external ears normal, oropharynx moist, no oral exudates, nose normal. [] Eyes: PERRLA, EOMI, conjunctiva normal, no discharge. [] Neck: Normal range of motion, no tenderness, supple, no stridor. [] Cardiovascular:Heart rate regular rhythm, no murmur [] Lungs & Thorax: Bilateral breath sounds clear to auscultation [] Abdomen: Bowel sounds normal, soft, no tenderness, no masses, no pulsatile masses. [] Skin: Warm, dry, no erythema, no rash. [] Back: No tenderness, no CVA tenderness. [] Extremities: No tenderness, no cyanosis, no clubbing, ROM intact, no edema. [] Neurologic: Alert and oriented X 3, normal motor function, normal sensory function, no focal deficits noted. [] Psychologic: Affect normal, judgement normal, mood normal. [] Current Patient Data Vital Signs Vital Signs Date Time Temp Pulse Resp B/P (MAP) Pulse Ox O2 Delivery O2 Flow Rate FiO2 01/11/18 20:20 98.4 105 18 133/94 (107) 99 Room Air 98.4 Lab Values Laboratory Tests Test 01/11/18 20:20 01/11/18 20:30 01/11/18 20:40 Urine Collection Type Unknown Urine Color Yellow Urine Clarity Clear Urine pH 6.5 Urine Specific [place] >=1.030 Urine Protein Negative mg/dL (NEG-TRACE) Urine Glucose (UA) Negative mg/dL (NEG) Urine Ketones (Stick) Negative mg/dL (NEG) Urine Blood Negative (NEG) Urine Nitrite Negative (NEG) Urine Bilirubin Negative (NEG) Urine Urobilinogen Dipstick 1.0 mg/dL (0.2 mg/dL) Urine Leukocyte Esterase Negative (NEG) Urine RBC 0 /HPF (0-2) Urine WBC 1-4 /HPF (0-4) Urine Squamous Epithelial Cells Few /LPF Urine Bacteria Few /HPF (0-FEW) Urine Mucus Slight /LPF POC Urine HCG, Qualitative Hcg negative (Negative) White Blood Count 7.8 x10^3/uL (4.0-11.0) Red Blood Count 4.36 x10^6/uL (3.50-5.40) Hemoglobin 13.0 g/dL (12.0-15.5) Hematocrit 38.4 % (36.0-47.0) Mean Corpuscular Volume 88 fL (79-100) Mean Corpuscular Hemoglobin 30 pg (25-35) Mean Corpuscular Hemoglobin Concent 34 g/dL (31-37) Red Cell Distribution Width 13.4 % (11.5-14.5) Platelet Count 286 x10^3/uL (140-400) Neutrophils (%) (Auto) 65 % (31-73) Lymphocytes (%) (Auto) 25 % (24-48) Monocytes (%) (Auto) 7 % (0-9) Eosinophils (%) (Auto) 2 % (0-3) Basophils (%) (Auto) 0 % (0-3) Neutrophils # (Auto) 5.1 x10^3uL (1.8-7.7) Lymphocytes # (Auto) 2.0 x10^3/uL (1.0-4.8) Monocytes # (Auto) 0.5 x10^3/uL (0.0-1.1) Eosinophils # (Auto) 0.2 x10^3/uL (0.0-0.7) Basophils # (Auto) 0.0 x10^3/uL (0.0-0.2) Sodium Level 139 mmol/L (136-145) Potassium Level 4.0 mmol/L (3.5-5.1) Chloride Level 103 mmol/L (98-107) Carbon Dioxide Level 28 mmol/L (21-32) Anion Gap 8 (6-14) Blood Urea Nitrogen 14 mg/dL (7-20) Creatinine 0.8 mg/dL (0.6-1.0) Estimated GFR (Cockcroft-Gault) 84.8 BUN/Creatinine Ratio 18 (6-20) Glucose Level 103 mg/dL (70-99) H Calcium Level 9.7 mg/dL (8.5-10.1) Total Bilirubin 0.3 mg/dL (0.2-1.0) Aspartate Amino Transferase (AST) 15 U/L (15-37) Alanine Aminotransferase (ALT) 29 U/L (14-59) Alkaline Phosphatase 69 U/L (46-116) Total Protein 8.2 g/dL (6.4-8.2) Albumin 3.8 g/dL (3.4-5.0) Albumin/Globulin Ratio 0.9 (1.0-1.7) L Lipase 188 U/L (73-393) Laboratory Tests 01/11/18 20:40 Laboratory Tests 01/11/18 20:40 EKG EKG [] Radiology/Procedures Radiology/Procedures [] Course & Med Decision Making Course & Med Decision Making Pertinent Labs and Imaging studies reviewed. (See chart for details) 2249: Discussed test results with pt and her mother- Labs NL and CT abd/pelvis. Patient reports following dose of Toradol her left side pain has improved. During discussion patient reports she has been taking Tizanidine and again for the past few days due to muscle strains. Patient reports she does have young children at home so possibly left side abdomen pain could be related to muscle strain versus GI issue. Discussed if symptoms persist patient to follow-up with her primary care physician for reevaluation and further care. During discussion patient is in no visible distress remains nontoxic in appearance. Will provide patient with prescription for Bentyl and patient has prescription for Tizanidine. Education provided on signs and symptoms to return to ER for an discharge instructions were discussed. Dragon Disclaimer Dragon Disclaimer This electronic medical record was generated, in whole or in part, using a voice recognition dictation system. Departure Departure Impression: Primary Impression: Abdominal pain Additional Impression: Muscle strain Disposition: 01 HOME, SELF-CARE Condition: STABLE Referrals: RUFINO BENDER (PCP) Patient Instructions: Abdominal Pain (Nonspecific), Muscle Strain Additional Instructions: As discussed if symptoms persist follow-up with primary doctor for re- evaluation. You can take you prescribed Tizanidine as prescribed along with over the counter Ibuprofen and/or tylenol as directed on container. Warm compress to affected area every 3-4 hours for 20-30 minutes. Scripts Dicyclomine Hcl (DICYCLOMINE HCL) 10 Mg Capsule 1 CAP PO TID PRN for PAIN, #10 CAP 0 Refills Prov: DESHAUN HOGAN APRN 01/11/18 Problem Qualifiers DESHAUN HOGAN APRN Jan 11, 2018 20:24
[2018-01-11] MEDS ORDERED: IV NORMAL SALINE 1000ML BAG 1,000 ML IV ONE (20:30)
[2018-01-11] MEDS ORDERED: DICYCLOMINE 20 MG/2 ML AMPUL. IM ONE (20:30)
[2018-01-11 20:40] LABS: BILIRUBIN,URINE NEGATIVE (NEG); CLARITY,URINE CLEAR; COLOR,URINE YELLOW; NITRITE,URINE NEGATIVE (NEG); PH,URINE 6.5; PROTEIN,URINE NEGATIVE (NEG-TRACE)
[2018-01-11 20:50] LABS: BACTERIA,URINE FEW /HPF (0-FEW); RBC,URINE 0 /HPF (0-2); SQUAMOUS EPITHELIAL CELL,UR FEW /LPF
[2018-01-11 21:00] LABS: BASO % 0 % (0-3); EOS # 0.2 x10^3/uL (0.0-0.7); EOS % 2 % (0-3); HEMATOCRIT 38.4 % (36.0-47.0); LYMPH % 25 % (24-48); MEAN CORPUSCULAR HEMOGLOBIN 30 pg (25-35); MEAN CORPUSCULAR HGB CONC 34 g/dL (31-37); MEAN CORPUSCULAR VOLUME 88 fL (79-100); MONO # 0.5 x10^3/uL (0.0-1.1); MONO % 7 % (0-9); NEUT # 5.1 x10^3uL (1.8-7.7); NEUT % 65 % (31-73); PLATELET COUNT 286 x10^3/uL (140-400); RED BLOOD COUNT 4.36 x10^6/uL (3.50-5.40); RED CELL DISTRIBUTION WIDTH 13.4 % (11.5-14.5); WHITE BLOOD COUNT 7.8 x10^3/uL (4.0-11.0)
[2018-01-11 21:11] LABS: CALCIUM 9.7 mg/dL (8.5-10.1); CREATININE 0.8 mg/dL (0.6-1.0); GFR 84.8
[2018-01-11 21:15] LABS: ALBUMIN 3.8 g/dL (3.4-5.0); ALBUMIN/GLOBULIN RATIO 0.9 (1.0-1.7); TOTAL BILIRUBIN 0.3 mg/dL (0.2-1.0); TOTAL PROTEIN 8.2 g/dL (6.4-8.2)
[2018-01-11] MEDS ORDERED: CONTRAST GIVEN. MC PRN (21:45)
[2018-01-11] MEDS ORDERED: IOHEXOL 300 MG/ML 100ML VIAL. IV ONE (22:00)
[2018-01-11] MEDS ORDERED: KETOROLAC 15 MG/ML VIAL. IV ONE (22:00)
--- NOTE | 2018-01-11 22:41 | RAD ---
CT SCAN OF THE ABDOMEN AND PELVIS WITH IV CONTRAST. History: Left-sided abdominal pain Comparison: September 03, 2017. Procedure: Contiguous axial images of the abdomen and pelvis were performed after the administration of 75 cc of Isovue 370 IV contrast and without oral contrast. CT Abdomen with contrast: Findings: Liver: Unremarkable Spleen: Unremarkable Pancreas: Unremarkable Adrenal Glands: Unremarkable Kidneys: Unremarkable There is no mass or lymphadenopathy. There is no free air. There is no free fluid. Impression: No acute findings. End Impression CT Pelvis with Contrast: Findings: The appendix is normal. The urinary bladder appears normal. There is no free fluid. There are a few mildly enlarged lymph nodes along the iliac chain on the left. The uterus and ovaries appear within normal limits. Impression: Mild lymphadenopathy along the iliac chain on the left was likely present previously but is better seen with IV contrast. This could be reactive. No other findings. PQRS Compliance Statement: One or more of the following individualized dose reduction techniques were utilized for this examination: 1. Automated exposure control 2. Adjustment of the mA and/or kV according to patient size 3. Use of iterative reconstruction technique Electronically signed by: Juan Velasquez III, MD (01/11/2018 10:37 PM) [employer]
[2018-01-11 22:57] VITALS: BP 124/63
[2018-01-11] MEDS ORDERED: DICY10CA3 PO (22:59)
== END 2018-01-11 23:10 | disposition home or self-care (01) ==
LOC: ER 19:31
DX: S39.011A Strain of muscle, fascia and tendon of abdomen, initial encounter (principal); X58.XXXA Exposure to other specified factors, initial encounter; Y93.89 Activity, other specified; Y92.89 Other specified places as the place of occurrence of the external cause; Y99.8 Other external cause status
CPT/HCPCS: 36415; 74177; 80053; 81001; 81025; 83690; 85025; 96372; 96374; 99284; J0500; J1885; J7030; Q9967

== ENCOUNTER 2018-01-27 09:05 | Emergency (ER) | payer OTHER ==
[~2018-01-27] VITALS: Ht 170.2 cm; Wt 108.4 kg
[~2018-01-27 09:05] MED LIST changes: +DICY10CA3 PO
[2018-01-27 10:04] LABS: CALCIUM 8.8 mg/dL (8.5-10.1); CREATININE 0.7 mg/dL (0.6-1.0); GFR 98.9; POTASSIUM 3.9 mmol/L (3.5-5.1)
[2018-01-27 10:06] LABS: BASO % 0 % (0-3); EOS # 0.2 x10^3/uL (0.0-0.7); EOS % 1 % (0-3); HEMATOCRIT 39.1 % (36.0-47.0); HEMOGLOBIN 13.2 g/dL (12.0-15.5); LYMPH # 0.4 x10^3/uL (1.0-4.8); LYMPH % 3 % (24-48); MEAN CORPUSCULAR HEMOGLOBIN 30 pg (25-35); MEAN CORPUSCULAR HGB CONC 34 g/dL (31-37); MEAN CORPUSCULAR VOLUME 88 fL (79-100); MONO # 0.5 x10^3/uL (0.0-1.1); MONO % 4 % (0-9); NEUT # 11.6 x10^3uL (1.8-7.7); NEUT % 91 % (31-73); PLATELET COUNT 306 x10^3/uL (140-400); RED BLOOD COUNT 4.44 x10^6/uL (3.50-5.40); RED CELL DISTRIBUTION WIDTH 13.6 % (11.5-14.5); WHITE BLOOD COUNT 12.7 x10^3/uL (4.0-11.0)
[2018-01-27 10:09] LABS: BILIRUBIN,URINE NEGATIVE (NEG); CLARITY,URINE CLEAR; COLOR,URINE YELLOW; NITRITE,URINE NEGATIVE (NEG); PH,URINE 6.5; PROTEIN,URINE NEGATIVE (NEG-TRACE); UROBILINOGEN,URINE 0.2 mg/dL (0.2 mg/dL)
[2018-01-27 10:09] LABS: ALBUMIN 3.9 g/dL (3.4-5.0); ALBUMIN/GLOBULIN RATIO 0.9 (1.0-1.7); MAGNESIUM 1.4 mg/dL (1.8-2.4); TOTAL BILIRUBIN 0.4 mg/dL (0.2-1.0); TOTAL PROTEIN 8.3 g/dL (6.4-8.2)
[2018-01-27] MEDS: IV NORMAL SALINE 1000ML BAG 1,000 ML IV ONE (10:11)
[2018-01-27] MEDS: ONDANSETRON PF 4 MG/2 ML VIAL. IV ONE (10:12)
[2018-01-27 10:19] LABS: SQUAMOUS EPITHELIAL CELL,UR OCC /LPF
[2018-01-27 10:20] LABS: BACTERIA,URINE FEW /HPF (0-FEW); RBC,URINE OCC /HPF (0-2); WBC,URINE OCC /HPF (0-4)
[2018-01-27 10:57] LABS: % BANDS 3 % (0-9); % LYMPHS 2 % (24-48); % MONOS 4 % (0-10); % SEGS 91 % (35-66); PLT ESTIMATE ADEQUATE (ADEQUATE)
[2018-01-27] MEDS: MORPHINE SULFATE 4 MG/ML VIAL. IV ONE (11:09)
[2018-01-27] MEDS ORDERED: ONDA4TAB12 PO (11:46)
--- NOTE | 2018-01-27 11:47 | PHYS DOC ---
Past Medical History Past Medical History: Depression, Uterine Fibroids, Other Additional Past Medical Histor: PCOS, ADD, Past Surgical History: Cholecystectomy, Tubal ligation Alcohol Use: None Drug Use: None Adult General Chief Complaint Chief Complaint: NAUSEA/VOMITING/DIARRHA HPI HPI Patient is a 27 year old female who presents to the emergency room with complaints of nausea and vomiting since 1:00 this morning. She states that she finished antibiotics for a recent urinary tract infection 4 days ago. The last time she felt like this she had become septic from a urinary tract infection. Patient denies any diarrhea or measured fever, states that she has felt hot and had cold chills. She complains of left upper abdominal pain and left flank pain that also started this morning. PT states she has lost track of how many times she has vomited. Review of Systems Review of Systems Constitutional: Denies fever or chills [] HENT: Denies nasal congestion or sore throat [] Respiratory: Denies cough or shortness of breath [] GI: See history of present illness : Denies dysuria or hematuria; see history of present illness [] Musculoskeletal: Reports left lower back pain Integument: Denies rash or skin lesions [] Neurologic: Denies headache, focal weakness or sensory changes [] Complete systems were reviewed and found to be within normal limits, except as documented in this note. Current Medications Current Medications Current Medications Medications (Trade) Dose Ordered Sig/Jocelyne Start Time Stop Time Status Last Admin Dose Admin Morphine Sulfate (Morphine Sulfate) 4 mg 1X ONCE 01/27/18 10:45 01/27/18 10:46 DC 01/27/18 11:09 4 MG Ondansetron HCl (Zofran) 4 mg 1X ONCE 01/27/18 09:45 01/27/18 09:55 DC 01/27/18 10:12 4 MG Sodium Chloride 1,000 ml @ 1,000 mls/hr 1X ONCE 01/27/18 09:45 01/27/18 10:44 DC 01/27/18 10:11 1,000 MLS/HR Allergies Allergies Allergies Coded Allergies Type Severity Reaction Last Updated Verified No Known Drug Allergies 06/07/16 No Physical Exam Physical Exam Constitutional: Well developed, well nourished, no acute distress, ill appearing. [] HENT: Normocephalic, atraumatic, bilateral external ears normal, oropharynx moist, no oral exudates, nose normal. [] Eyes: conjunctiva normal, no discharge. [] Neck: Normal range of motion, no tenderness, supple, no stridor. [] Cardiovascular:Heart rate regular rhythm, no murmur [] Lungs & Thorax: Bilateral breath sounds clear to auscultation [] Abdomen: Bowel sounds normal, soft, LUQ tenderness, no masses, no pulsatile masses. [] Skin: Warm, dry, no erythema, no rash. [] Back: No bony tenderness L CVA tenderness. [] Extremities: No cyanosis, ROM intact, no edema. [] Neurologic: Alert and oriented X 3, normal motor function, normal sensory function, no focal deficits noted. [] Psychologic: Affect normal, judgement normal, mood normal. [] Current Patient Data Vital Signs Vital Signs Date Time Temp Pulse Resp B/P (MAP) Pulse Ox O2 Delivery O2 Flow Rate FiO2 01/27/18 12:11 97 96/55 (69) 99 Room Air 01/27/18 11:45 12 01/27/18 09:24 98.0 98.0 Lab Values Laboratory Tests Test 01/27/18 09:25 01/27/18 09:33 01/27/18 09:45 Urine Collection Type Unknown Urine Color Yellow Urine Clarity Clear Urine pH 6.5 Urine Specific [place] 1.025 Urine Protein Negative mg/dL (NEG-TRACE) Urine Glucose (UA) Negative mg/dL (NEG) Urine Ketones (Stick) Negative mg/dL (NEG) Urine Blood Trace (NEG) Urine Nitrite Negative (NEG) Urine Bilirubin Negative (NEG) Urine Urobilinogen Dipstick 0.2 mg/dL (0.2 mg/dL) Urine Leukocyte Esterase Negative (NEG) Urine RBC Occ /HPF (0-2) Urine WBC Occ /HPF (0-4) Urine Squamous Epithelial Cells Occ /LPF Urine Bacteria Few /HPF (0-FEW) POC Urine HCG, Qualitative Hcg negative (Negative) White Blood Count 12.7 x10^3/uL (4.0-11.0) H Red Blood Count 4.44 x10^6/uL (3.50-5.40) Hemoglobin 13.2 g/dL (12.0-15.5) Hematocrit 39.1 % (36.0-47.0) Mean Corpuscular Volume 88 fL (79-100) Mean Corpuscular Hemoglobin 30 pg (25-35) Mean Corpuscular Hemoglobin Concent 34 g/dL (31-37) Red Cell Distribution Width 13.6 % (11.5-14.5) Platelet Count 306 x10^3/uL (140-400) Neutrophils (%) (Auto) 91 % (31-73) H Lymphocytes (%) (Auto) 3 % (24-48) L Monocytes (%) (Auto) 4 % (0-9) Eosinophils (%) (Auto) 1 % (0-3) Basophils (%) (Auto) 0 % (0-3) Neutrophils # (Auto) 11.6 x10^3uL (1.8-7.7) H Lymphocytes # (Auto) 0.4 x10^3/uL (1.0-4.8) L Monocytes # (Auto) 0.5 x10^3/uL (0.0-1.1) Eosinophils # (Auto) 0.2 x10^3/uL (0.0-0.7) Basophils # (Auto) 0.0 x10^3/uL (0.0-0.2) Segmented Neutrophils % 91 % (35-66) H Band Neutrophils % 3 % (0-9) Lymphocytes % 2 % (24-48) L Monocytes % 4 % (0-10) Platelet Estimate Adequate (ADEQUATE) Sodium Level 135 mmol/L (136-145) L Potassium Level 3.9 mmol/L (3.5-5.1) Chloride Level 101 mmol/L (98-107) Carbon Dioxide Level 25 mmol/L (21-32) Anion Gap 9 (6-14) Blood Urea Nitrogen 11 mg/dL (7-20) Creatinine 0.7 mg/dL (0.6-1.0) Estimated GFR (Cockcroft-Gault) 98.9 BUN/Creatinine Ratio 16 (6-20) Glucose Level 111 mg/dL (70-99) H Lactic Acid Level 2.0 mmol/L (0.4-2.0) Calcium Level 8.8 mg/dL (8.5-10.1) Magnesium Level 1.4 mg/dL (1.8-2.4) L Total Bilirubin 0.4 mg/dL (0.2-1.0) Aspartate Amino Transferase (AST) 28 U/L (15-37) Alanine Aminotransferase (ALT) 50 U/L (14-59) Alkaline Phosphatase 67 U/L (46-116) Total Protein 8.3 g/dL (6.4-8.2) H Albumin 3.9 g/dL (3.4-5.0) Albumin/Globulin Ratio 0.9 (1.0-1.7) L Amylase Level 51 U/L (25-115) Lipase 195 U/L (73-393) Laboratory Tests 01/27/18 09:45 Laboratory Tests 01/27/18 09:45 EKG EKG [] Radiology/Procedures Radiology/Procedures [] Course & Med Decision Making Course & Med Decision Making Pertinent Labs and Imaging studies reviewed. (See chart for details) Dx: gastroenteritis, nausea and vomiting UA negative for UTI, Na 135, Mg 1.4, WBC 12.7. lactic acid 2.0. laboratory findings not concerning for acute infection, sepsis, or severe dehydration. Pt was given 1L NS, 4 mg of zofran, and 4 mg of morphine in the ER. Reports feeling better after these medications. Prescription written for zofran. Diet recommendations given. Patient verbalized an understanding of home care, medications, follow-up, and return to ED instructions and was in agreement with the plan of care. Staff Physician Addendum: I was working in the ER during the course of this patient's visit. I was available for consultation as needed, but I was not directly involved in the care of this patient. Dragon Disclaimer Dragon Disclaimer This electronic medical record was generated, in whole or in part, using a voice recognition dictation system. Departure Departure Impression: Primary Impression: Gastroenteritis Additional Impression: Nausea & vomiting Disposition: 01 HOME, SELF-CARE Condition: IMPROVED Referrals: RUFINO BENDER (PCP) Patient Instructions: Viral Gastroenteritis, [id number] Additional Instructions: Fill prescriptions and use them as directed. Recommend clear fluids for the next 24 hours. Then you may advance to bland foods such as bananas, rice, applesauce, and dry toast. Follow-up with your primary care doctor in the next 1 -2 days. Return to the emergency room if your symptoms worsen. Scripts Ondansetron (ONDANSETRON ODT) 4 Mg Tab.rapdis 1 TAB PO PRN Q6-8HRS PRN for NAUSEA/VOMITING for 4 Days, #16 TAB 0 Refills Prov: RUFINO BURNS APRN 01/27/18 Problem Qualifiers Additional Impression: Nausea & vomiting Vomiting type: unspecified Vomiting Intractability: non-intractable Qualified Codes: R11.2 - Nausea with vomiting, unspecified RUFINO BURNS APRN Jan 27, 2018 11:47 KATY CASANOVA MD Jan 27, 2018 18:06
[2018-01-27 12:11] VITALS: BP 96/55
== END 2018-01-27 12:30 | disposition home or self-care (01) ==
LOC: ER 09:05
DX: K52.9 Noninfective gastroenteritis and colitis, unspecified (principal); N39.0 Urinary tract infection, site not specified; E28.2 Polycystic ovarian syndrome; Z98.51 Tubal ligation status; Z90.49 Acquired absence of other specified parts of digestive tract
CPT/HCPCS: 36415; 80053; 81001; 81025; 82150; 83605; 83690; 83735; 85007; 85025; 96361; 96374; 96375; 99283; J2270; J2405; J7030

== ENCOUNTER 2018-03-30 20:12 | Inpatient (IN) | payer OTHER ==
[~2018-03-30] VITALS: Ht 172.7 cm; Wt 116.6 kg
[~2018-03-30 20:12] MED LIST changes: +ONDA4TAB12 PO
[2018-03-30] MEDS ORDERED: MORPHINE SULFATE 4 MG/ML VIAL. IV ONE ×2 (21:30→23:15)
[2018-03-30] MEDS ORDERED: ONDANSETRON PF 4 MG/2 ML VIAL. IV ONE (21:30)
[2018-03-30 21:36] LABS: BASO % 0 % (0-3); EOS # 0.3 x10^3/uL (0.0-0.7); EOS % 4 % (0-3); HEMATOCRIT 39.2 % (36.0-47.0); HEMOGLOBIN 12.8 g/dL (12.0-15.5); LYMPH % 24 % (24-48); MEAN CORPUSCULAR HEMOGLOBIN 29 pg (25-35); MEAN CORPUSCULAR HGB CONC 33 g/dL (31-37); MEAN CORPUSCULAR VOLUME 88 fL (79-100); MONO # 0.6 x10^3/uL (0.0-1.1); MONO % 7 % (0-9); NEUT # 5.4 x10^3uL (1.8-7.7); NEUT % 65 % (31-73); PLATELET COUNT 332 x10^3/uL (140-400); RED BLOOD COUNT 4.44 x10^6/uL (3.50-5.40); WHITE BLOOD COUNT 8.4 x10^3/uL (4.0-11.0)
[2018-03-30 21:38] LABS: BILIRUBIN,URINE NEGATIVE (NEG); CLARITY,URINE CLEAR; COLOR,URINE YELLOW; NITRITE,URINE NEGATIVE (NEG); PROTEIN,URINE NEGATIVE (NEG-TRACE); UROBILINOGEN,URINE 0.2 mg/dL (0.2 mg/dL)
[2018-03-30 21:44] LABS: BACTERIA,URINE FEW /HPF (0-FEW); SQUAMOUS EPITHELIAL CELL,UR MOD /LPF
[2018-03-30 21:45] LABS: RBC,URINE >40 /HPF (0-2)
[2018-03-30 21:48] LABS: CALCIUM 9.4 mg/dL (8.5-10.1); CREATININE 0.6 mg/dL (0.6-1.0); GFR 118.2; POTASSIUM 3.9 mmol/L (3.5-5.1)
--- NOTE | 2018-03-30 21:51 | PHYS DOC ---
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 Pain is unchanged and is described as dull and cramping. It is not worse with position change or palpation. It is not associated with diarrhea or constipation. No urinary frequency urgency or burning. Patient scheduled to follow-up with her GI specialist tomorrow. However, patient developed left lower lumbar back pain starting this evening radiating around to left groin prompting her to visit the emergency department today. She is unsure of the pain is related to cramping since time of biopsy. Does report history of pyelonephritis and is concerned she may be developing an upper earache tract infection. No fever, chills, sweats. No nausea or vomiting. Patient is currently on her menstrual period. History of tubal ligation.[] Review of Systems Review of Systems ROS as per HPI. All other systems were reviewed and found to be within normal limits, except as documented in this note. Current Medications Current Medications Current Medications Medications (Trade) Dose Ordered Sig/Jocelyne Start Time Stop Time Status Last Admin Dose Admin Morphine Sulfate (Morphine Sulfate) 4 mg 1X ONCE 03/30/18 21:30 03/30/18 21:32 DC Ondansetron HCl (Zofran) 4 mg 1X ONCE 03/30/18 21:30 03/30/18 21:32 DC Allergies Allergies Allergies Coded Allergies Type Severity Reaction Last Updated Verified No Known Drug Allergies 06/07/16 No Physical Exam Physical Exam Constitutional: Well developed, well nourished, no acute distress, non-toxic appearance. [] HENT: Normocephalic, atraumatic, bilateral external ears normal, oropharynx moist, nose normal. [] Eyes: PERRLA, EOMI, conjunctiva normal. [] Neck: Normal range of motion, no tenderness. [] Cardiovascular:Heart rate regular rhythm, no murmur [] Lungs & Thorax: Bilateral breath sounds clear to auscultation [] Abdomen: Bowel sounds normal, soft, LLQ pain, mild TTP, . [] Skin: Warm, dry, no erythema. [] Back: No midlines tenderness. Left CVA, lower lumbar paravertebral TTP. [] Extremities: No tenderness, no edema. [] Neurologic: Alert and oriented X 3, normal motor function, normal sensory function, no focal deficits noted. [] Psychologic: Affect normal, judgement normal, mood normal. [] Current Patient Data Vital Signs Vital Signs Date Time Temp Pulse Resp B/P (MAP) Pulse Ox O2 Delivery O2 Flow Rate FiO2 03/30/18 21:00 98.3 82 20 119/68 (85) 98 Room Air 98.3 Lab Values Laboratory Tests Test 03/30/18 21:10 03/30/18 21:25 POC Urine HCG, Qualitative Hcg negative (Negative) White Blood Count 8.4 x10^3/uL (4.0-11.0) Red Blood Count 4.44 x10^6/uL (3.50-5.40) Hemoglobin 12.8 g/dL (12.0-15.5) Hematocrit 39.2 % (36.0-47.0) Mean Corpuscular Volume 88 fL (79-100) Mean Corpuscular Hemoglobin 29 pg (25-35) Mean Corpuscular Hemoglobin Concent 33 g/dL (31-37) Red Cell Distribution Width 14.0 % (11.5-14.5) Platelet Count 332 x10^3/uL (140-400) Neutrophils (%) (Auto) 65 % (31-73) Lymphocytes (%) (Auto) 24 % (24-48) Monocytes (%) (Auto) 7 % (0-9) Eosinophils (%) (Auto) 4 % (0-3) H Basophils (%) (Auto) 0 % (0-3) Neutrophils # (Auto) 5.4 x10^3uL (1.8-7.7) Lymphocytes # (Auto) 2.0 x10^3/uL (1.0-4.8) Monocytes # (Auto) 0.6 x10^3/uL (0.0-1.1) Eosinophils # (Auto) 0.3 x10^3/uL (0.0-0.7) Basophils # (Auto) 0.0 x10^3/uL (0.0-0.2) Laboratory Tests 03/30/18 21:25 EKG EKG [] Radiology/Procedures Radiology/Procedures [] Course & Med Decision Making Course & Med Decision Making Pertinent Labs and Imaging studies reviewed. (See chart for details) [] Dragon Disclaimer Dragon Disclaimer This electronic medical record was generated, in whole or in part, using a voice recognition dictation system. Departure Departure Referrals: UNKNOWN PCP NAME (PCP) SILVA ROOT DO Mar 30, 2018 21:51
[2018-03-30] MEDS ORDERED: IV NORMAL SALINE 1000ML BAG 1,000 ML IV ONE (23:15)
--- NOTE | 2018-03-30 23:45 | RAD ---
CT scan of the abdomen and pelvis without contrast 03/30/2018 CLINICAL HISTORY: Left flank pain. TECHNIQUE: Unenhanced, contiguous, 2 mm axial sections were obtained through abdomen and pelvis. One or more of the following individualized dose reduction techniques were utilized for this study: 1. Automated exposure control. 2. Adjustment of the mA and/or kV according to patient size. 3. Use of iterative reconstruction technique. FINDINGS: Comparison study is dated 01/11/2018. The absence of oral and intravenous contrast limits the study for the detection of solid organ and bowel pathology. Images through the lung bases demonstrate minimal dependent subsegmental atelectasis bilaterally. The liver, spleen, pancreas, and adrenal glands are within normal limits. No renal or ureteral calculus is seen. There is no evidence of obstruction of either collecting system. The abdominal aorta tapers normally. Surgical clips are seen within the gallbladder fossa consistent with a cholecystectomy. Air and stool is seen throughout the colon. The appendix is well-visualized and is within normal limits. Dilated fluid-filled jejunal loops are seen within the left mid abdomen which could reflect a focal ileus versus a partial small bowel obstruction. Images through the pelvis demonstrate the urinary bladder distended with urine. No adnexal mass is seen. No free fluid is noted. Minimal S-shaped curvature of the thoracolumbar spine is seen. IMPRESSION: Dilated fluid-filled jejunal loops are seen within the left mid abdomen which could reflect a focal ileus versus a partial small bowel obstruction. Electronically signed by: Roge Juarez MD (03/30/2018 11:42 PM) [facility]
[2018-03-31] MEDS ORDERED: ONDANSETRON PF 4 MG/2 ML VIAL. IV PRN (01:00)
[2018-03-31 01:45] VITALS: BP 110/59
[2018-03-31] MEDS: IV NORMAL SALINE 1000ML BAG 1,000 ML IV SCH ×4 (02:28→22:12)
--- NOTE | 2018-03-31 03:00 | NUR ---
Received report from Ayanna NAVAS, in the Emergency Department. Patient arrived to [address] [place] [address] 550 @ 0120 hours via wheelchair and by herself. 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 Patient primary complaint of abdominal pain in the LLQ and at admission she rates it to be 7/10 on the pain scale. Patient pleasant and positive throughout admission process. Conducted head to toe assessment of patient and documented. Patients bed placed into the lowest position, bed locked and call light placed within reach. Will continue to monitor the patient.
[2018-03-31] MEDS ORDERED: SPIR25TA PO (03:16)
[2018-03-31] MEDS ORDERED: NORE-88 PO (03:16)
[2018-03-31] MEDS ORDERED: SERT50TA PO (03:16)
[2018-03-31] MEDS ORDERED: ATOM80CA PO (03:16)
[2018-03-31] MEDS: MORPHINE SULFATE 4 MG/ML VIAL. IV PRN ×5 (05:15→18:35)
[2018-03-31 07:00] VITALS: BP 99/68
[2018-03-31] MEDS ORDERED: NON FORMULARY ITEM (Atomoxetine Hcl (Strattera) 1 CAP) PO PRN (08:45)
[2018-03-31] MEDS: NORETH A ET ESTRA PO SCH (09:00)
[2018-03-31] MEDS: OXYBUTYNIN CHLORIDE 5 MG TABLET PO SCH ×3 (09:00→21:00)
[2018-03-31] MEDS: SPIRONOLACTONE 25 MG TABLET PO SCH (09:00)
[2018-03-31] MEDS: NAPROXEN 500 MG TABLET PO SCH ×2 (09:00→17:00)
[2018-03-31] MEDS: HYDROcodone/APAP 5/325MG 1 TAB TABLET PO SCH ×2 (09:00→22:12)
[2018-03-31] MEDS: SERTRALINE 50 MG TABLET. PO SCH (09:00)
[2018-03-31] MEDS: FE FUMARATE PO SCH (09:00)
--- NOTE | 2018-03-31 10:19 | PDOC1 ---
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 Imaging at the ER shows ileus versus partial SBO and has been admitted henceforth. Nothing by mouth and IV fluids running. Blood pressure on the low side hence, normal saline running at 1 50 mL an hour. I have provided a copy of the CAT scan and discussed the diagnosis and treatment. GS has also been consulted. Agrees with nothing by mouth IV fluid. Once SBO/ileus has resolved then we'll follow up with for her PCO S and multiple endocrine neoplasia. She is still having significant abdominal pain and requiring pain medicines every 2 hours. dw fam member too at bedside Claims ever since she had the endoscopic removal of her colon cancer some 2 -3 weeks ago at , she has been having abdominal pain and issues with her abdomen So far no flatness and belching yet. is kaplan of her abd pain post cscope Past Medical History Endocrine: Other (multiple endocrine neoplasia and PCO S) Past Surgical History Past Surgical History: Cholecystectomy, Tubal Ligation Family History Family History: Hypertension Social History Smoke: No ALCOHOL: none Drugs: None Current Medications Current Medications Current Medications Morphine Sulfate (Morphine Sulfate) 4 mg 1X ONCE IV Last administered on at 21:50; Start 03/30/18 at 21:30; Stop 03/30/18 at 21:32; Status DC Ondansetron HCl (Zofran) 4 mg 1X ONCE IV Last administered on 03/30/18at 21:50 ; Start 03/30/18 at 21:30; Stop 03/30/18 at 21:32; Status DC Morphine Sulfate (Morphine Sulfate) 4 mg 1X ONCE IV Last administered on at 23:09; Start 03/30/18 at 23:15; Stop 03/30/18 at 23:16; Status DC Sodium Chloride 1,000 ml @ 1,000 mls/hr 1X ONCE IV Last administered on at 23:09; Start 03/30/18 at 23:15; Stop 03/31/18 at 00:14; Status DC Ondansetron HCl (Zofran) 4 mg PRN Q8HRS PRN IV NAUSEA/VOMITING; Start 03/31/18 at 01:00; Stop 03/31/18 at 08:44; Status DC Morphine Sulfate (Morphine Sulfate) 2 mg PRN Q2HR PRN IV PAIN Last administered on 03/31/18at 08:43; Start 03/31/18 at 01:00; Stop 04/01/18 at 00:59 Sodium Chloride 1,000 ml @ 150 mls/hr Q6H40M IV Last administered on at 08:44; Start 03/31/18 at 01:00; Stop 04/01/18 at 00:59 Ondansetron HCl (Zofran) 4 mg PRN Q6HRS PRN IV NAUSEA/VOMITING; Start 03/31/18 at 08:45 Acetaminophen/ Hydrocodone Bitart (Lortab 5/325) 1 tab PRN Q4HRS PRN PO PAIN; Start 03/31/18 at 08:45 Famotidine (Pepcid Vial) 20 mg QHS IVP ; Start 03/31/18 at 21:00 Dicyclomine HCl (Bentyl) 10 mg PRN TID PRN PO CRAMPS; Start 03/31/18 at 08:45 Acetaminophen/ Hydrocodone Bitart (Lortab 5/325) 1 tab BID PO ; Start 03/31/18 at 09:00 Ondansetron HCl (Zofran Odt) 4 mg PRN Q6HRS PRN PO NAUSEA/VOMITING; Start 03/31 at 08:45 Oxybutynin Chloride (Ditropan) 5 mg [id number] PO ; Start 03/31/18 at 09:00 Sertraline HCl (Zoloft) 50 mg DAILY PO ; Start 03/31/18 at 09:00 Non-Formulary Medication (Atomoxetine Hcl (Strattera)) 1 cap DAILYWBKFT PRN PO ADHD; Start 03/31/18 at 08:45; Status UNV Naproxen (Naprosyn) 500 mg BIDWMEALS PO ; Start 03/31/18 at 09:00 Non-Formulary Medication (Noreth A-Et Estra/Fe Fumarate (Loestrin Fe 1.5-30 Tablet)) 1 tab DAILY PO ; Start 03/31/18 at 09:00; Status UNV Spironolactone (Aldactone) 25 mg DAILY PO ; Start 03/31/18 at 09:00 Active Scripts Active Ondansetron Odt (Ondansetron) 4 Mg Tab.rapdis 1 Tab PO PRN Q6-8HRS PRN 4 Days Dicyclomine Hcl 10 Mg Capsule 1 Cap PO TID PRN Medrol (Methylprednisolone) 4 Mg Tab.ds.pk 1 Pkg PO UD Oxybutynin Chloride 5 Mg Tablet 5 Mg PO [id number] Cefpodoxime Proxetil 100 Mg Tablet 200 Mg PO BID 7 Days [place] 5-325 Tablet (Acetaminophen/Hydrocodone Bitart) 1 Each Tablet 1 Tab PO BID Naproxen 500 Mg Tablet.dr 1 Tab PO BID Reported Loestrin Fe 1.5-30 Tablet (Noreth A-Et Estra/Fe Fumarate) 1 Each Tablet 1 Tab PO DAILY Aldactone (Spironolactone) 25 Mg Tablet 25 Mg PO DAILY Strattera (Atomoxetine Hcl) 80 Mg Capsule 1 Cap PO DAILYWBKFT PRN Zoloft (Sertraline Hcl) 50 Mg Tablet 1 Tab PO DAILY PRN Allergies Allergies: Coded Allergies: No Known Drug Allergies (Unverified , 06/07/16) ROS Review of System abd pain otherwise the rest of ROS 14 point negative Physical Exam General: Alert, Oriented X3, Cooperative, No acute distress HEENT: Atraumatic, PERRLA Lungs: Clear to auscultation, Normal air movement Heart: S1S2, RRR, no thrills, no rubs, no gallops, no murmurs Cardiovascular: S1, S2 Breasts: Normal, Rt breast nml w/o mass, Lt breast nml w/o mass, Nipples normal Abdomen: Soft, Other (hypoactive bowel sounds, tenderness left lower quadrant area mostly) Rectal Exam: not examined PELVIC: Nml ext genitalia Extremities: No clubbing, No cyanosis, No edema, Normal pulses, No tenderness/ swelling Skin: No rashes, No breakdown, No significant lesion Neuro: Normal gait, Normal speech, Strength at 5/5 X4 ext, Normal tone, Sensation intact, Cranial nerves 3-12 NL, Reflexes 2+ Psych/Mental Status: Mental status NL, Mood NL Vitals Vitals Vital Signs Date Time Temp Pulse Resp B/P (MAP) Pulse Ox O2 Delivery O2 Flow Rate FiO2 03/31/18 08:43 20 93 Room Air 03/31/18 07:00 98.3 72 99/68 (78) 98.3 Labs Labs Laboratory Tests Test 03/30/18 20:20 03/30/18 21:10 03/30/18 21:25 Urine Collection Type Unknown Urine Color Yellow Urine Clarity Clear Urine pH 7.0 Urine Specific [place] 1.020 Urine Protein Negative mg/dL (NEG-TRACE) Urine Glucose (UA) Negative mg/dL (NEG) Urine Ketones (Stick) Negative mg/dL (NEG) Urine Blood Large (NEG) Urine Nitrite Negative (NEG) Urine Bilirubin Negative (NEG) Urine Urobilinogen Dipstick 0.2 mg/dL (0.2 mg/dL) Urine Leukocyte Esterase Small (NEG) Urine RBC >40 /HPF (0-2) Urine WBC 1-4 /HPF (0-4) Urine Squamous Epithelial Cells Mod /LPF Urine Bacteria Few /HPF (0-FEW) Urine Mucus Mod /LPF Bedside Urine HCG, Qualitative Hcg negative (Negative) White Blood Count 8.4 x10^3/uL (4.0-11.0) Red Blood Count 4.44 x10^6/uL (3.50-5.40) Hemoglobin 12.8 g/dL (12.0-15.5) Hematocrit 39.2 % (36.0-47.0) Mean Corpuscular Volume 88 fL (79-100) Mean Corpuscular Hemoglobin 29 pg (25-35) Mean Corpuscular Hemoglobin Concent 33 g/dL (31-37) Red Cell Distribution Width 14.0 % (11.5-14.5) Platelet Count 332 x10^3/uL (140-400) Neutrophils (%) (Auto) 65 % (31-73) Lymphocytes (%) (Auto) 24 % (24-48) Monocytes (%) (Auto) 7 % (0-9) Eosinophils (%) (Auto) 4 % (0-3) Basophils (%) (Auto) 0 % (0-3) Neutrophils # (Auto) 5.4 x10^3uL (1.8-7.7) Lymphocytes # (Auto) 2.0 x10^3/uL (1.0-4.8) Monocytes # (Auto) 0.6 x10^3/uL (0.0-1.1) Eosinophils # (Auto) 0.3 x10^3/uL (0.0-0.7) Basophils # (Auto) 0.0 x10^3/uL (0.0-0.2) Sodium Level 139 mmol/L (136-145) Potassium Level 3.9 mmol/L (3.5-5.1) Chloride Level 102 mmol/L (98-107) Carbon Dioxide Level 29 mmol/L (21-32) Anion Gap 8 (6-14) Blood Urea Nitrogen 12 mg/dL (7-20) Creatinine 0.6 mg/dL (0.6-1.0) Estimated GFR (Cockcroft-Gault) 118.2 Glucose Level 98 mg/dL (70-99) Calcium Level 9.4 mg/dL (8.5-10.1) Laboratory Tests Test 03/30/18 20:20 03/30/18 21:10 03/30/18 21:25 Urine Collection Type Unknown Urine Color Yellow Urine Clarity Clear Urine pH 7.0 Urine Specific [place] 1.020 Urine Protein Negative mg/dL (NEG-TRACE) Urine Glucose (UA) Negative mg/dL (NEG) Urine Ketones (Stick) Negative mg/dL (NEG) Urine Blood Large (NEG) Urine Nitrite Negative (NEG) Urine Bilirubin Negative (NEG) Urine Urobilinogen Dipstick 0.2 mg/dL (0.2 mg/dL) Urine Leukocyte Esterase Small (NEG) Urine RBC >40 /HPF (0-2) Urine WBC 1-4 /HPF (0-4) Urine Squamous Epithelial Cells Mod /LPF Urine Bacteria Few /HPF (0-FEW) Urine Mucus Mod /LPF Bedside Urine HCG, Qualitative Hcg negative (Negative) White Blood Count 8.4 x10^3/uL (4.0-11.0) Red Blood Count 4.44 x10^6/uL (3.50-5.40) Hemoglobin 12.8 g/dL (12.0-15.5) Hematocrit 39.2 % (36.0-47.0) Mean Corpuscular Volume 88 fL (79-100) Mean Corpuscular Hemoglobin 29 pg (25-35) Mean Corpuscular Hemoglobin Concent 33 g/dL (31-37) Red Cell Distribution Width 14.0 % (11.5-14.5) Platelet Count 332 x10^3/uL (140-400) Neutrophils (%) (Auto) 65 % (31-73) Lymphocytes (%) (Auto) 24 % (24-48) Monocytes (%) (Auto) 7 % (0-9) Eosinophils (%) (Auto) 4 % (0-3) Basophils (%) (Auto) 0 % (0-3) Neutrophils # (Auto) 5.4 x10^3uL (1.8-7.7) Lymphocytes # (Auto) 2.0 x10^3/uL (1.0-4.8) Monocytes # (Auto) 0.6 x10^3/uL (0.0-1.1) Eosinophils # (Auto) 0.3 x10^3/uL (0.0-0.7) Basophils # (Auto) 0.0 x10^3/uL (0.0-0.2) Sodium Level 139 mmol/L (136-145) Potassium Level 3.9 mmol/L (3.5-5.1) Chloride Level 102 mmol/L (98-107) Carbon Dioxide Level 29 mmol/L (21-32) Anion Gap 8 (6-14) Blood Urea Nitrogen 12 mg/dL (7-20) Creatinine 0.6 mg/dL (0.6-1.0) Estimated GFR (Cockcroft-Gault) 118.2 Glucose Level 98 mg/dL (70-99) Calcium Level 9.4 mg/dL (8.5-10.1) VTE Prophylaxis Ordered VTE Prophylaxis Devices: Yes VTE Pharmacological Prophylaxi: Yes Assessment/Plan Assessment/Plan Ileus versus partial SBO, dilated jejunal loops, left lower quadrant pain 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
--- NOTE | 2018-03-31 10:53 | PDOC2 ---
CONSULT Date of Consult Date of Consult DATE: 03/31/18 TIME: 10:48 Reason for Consult Reason for Consult: Abdominal pain Referring Physician Referring Physician: Adrianna Identification/Chief Complaint Chief Complaint Abdominal pain left lower quadrant Source Source: Patient History of Present Illness Reason for Visit: 27-year-old female with a history of colon polyps multiple colonoscopies last colonoscopy was January 2018 which was found to have a large polyp which was incompletely removed. She subsequently had endoscopic ultrasound and further removal of polyp proximally 2 weeks ago at since that time she has had left lower quadrant abdominal pain described as crampy in nature most of the time has been having some blood per rectum. Denies any nausea or vomiting. She came to the emergency department due to worsening pain last bowel movement was 2 days ago denies passing any gas. CT scan shows dilated loops of small bowel consistent with ileus or obstruction no free air Past Medical History Cardiovascular: No pertinent hx Pulmonary: No pertinent hx GI: Other (colon polyps) Heme/Onc: No pertinent hx Hepatobiliary: No pertinent hx Psych: No pertinent hx Rheumatologic: No pertinent hx Infectious disease: No pertinent hx ENT: No pertinent hx Renal/: No pertinent hx Endocrine: No pertinent hx, Other (multiple endocrine neoplasia and PCO S) Dermatology: No pertinent hx Past Surgical History Past Surgical History: Cholecystectomy, Tubal Ligation, Other Family History Family History: Hypertension Social History No ALCOHOL: none Drugs: None Current Medications Current Medications Current Medications Morphine Sulfate (Morphine Sulfate) 4 mg 1X ONCE IV Last administered on at 21:50; Start 03/30/18 at 21:30; Stop 03/30/18 at 21:32; Status DC Ondansetron HCl (Zofran) 4 mg 1X ONCE IV Last administered on 03/30/18at 21:50 ; Start 03/30/18 at 21:30; Stop 03/30/18 at 21:32; Status DC Morphine Sulfate (Morphine Sulfate) 4 mg 1X ONCE IV Last administered on at 23:09; Start 03/30/18 at 23:15; Stop 03/30/18 at 23:16; Status DC Sodium Chloride 1,000 ml @ 1,000 mls/hr 1X ONCE IV Last administered on at 23:09; Start 03/30/18 at 23:15; Stop 03/31/18 at 00:14; Status DC Ondansetron HCl (Zofran) 4 mg PRN Q8HRS PRN IV NAUSEA/VOMITING; Start 03/31/18 at 01:00; Stop 03/31/18 at 08:44; Status DC Morphine Sulfate (Morphine Sulfate) 2 mg PRN Q2HR PRN IV PAIN Last administered on 03/31/18at 08:43; Start 03/31/18 at 01:00; Stop 04/01/18 at 00:59 Sodium Chloride 1,000 ml @ 150 mls/hr Q6H40M IV Last administered on at 08:44; Start 03/31/18 at 01:00; Stop 04/01/18 at 00:59 Ondansetron HCl (Zofran) 4 mg PRN Q6HRS PRN IV NAUSEA/VOMITING; Start 03/31/18 at 08:45 Acetaminophen/ Hydrocodone Bitart (Lortab 5/325) 1 tab PRN Q4HRS PRN PO PAIN; Start 03/31/18 at 08:45 Famotidine (Pepcid Vial) 20 mg QHS IVP ; Start 03/31/18 at 21:00 Dicyclomine HCl (Bentyl) 10 mg PRN TID PRN PO CRAMPS; Start 03/31/18 at 08:45 Acetaminophen/ Hydrocodone Bitart (Lortab 5/325) 1 tab BID PO ; Start 03/31/18 at 09:00 Ondansetron HCl (Zofran Odt) 4 mg PRN Q6HRS PRN PO NAUSEA/VOMITING; Start 03/31 at 08:45 Oxybutynin Chloride (Ditropan) 5 mg [id number] PO ; Start 03/31/18 at 09:00 Sertraline HCl (Zoloft) 50 mg DAILY PO ; Start 03/31/18 at 09:00 Non-Formulary Medication (Atomoxetine Hcl (Strattera)) 1 cap DAILYWBKFT PRN PO ADHD; Start 03/31/18 at 08:45; Status UNV Naproxen (Naprosyn) 500 mg BIDWMEALS PO ; Start 03/31/18 at 09:00 Non-Formulary Medication (Noreth A-Et Estra/Fe Fumarate (Loestrin Fe 1.5-30 Tablet)) 1 tab DAILY PO ; Start 03/31/18 at 09:00; Status UNV Spironolactone (Aldactone) 25 mg DAILY PO ; Start 03/31/18 at 09:00 Active Scripts Active Ondansetron Odt (Ondansetron) 4 Mg Tab.rapdis 1 Tab PO PRN Q6-8HRS PRN 4 Days Dicyclomine Hcl 10 Mg Capsule 1 Cap PO TID PRN Medrol (Methylprednisolone) 4 Mg Tab.ds.pk 1 Pkg PO UD Oxybutynin Chloride 5 Mg Tablet 5 Mg PO [id number] Cefpodoxime Proxetil 100 Mg Tablet 200 Mg PO BID 7 Days [place] 5-325 Tablet (Acetaminophen/Hydrocodone Bitart) 1 Each Tablet 1 Tab PO BID Naproxen 500 Mg Tablet.dr 1 Tab PO BID Reported Loestrin Fe 1.5-30 Tablet (Noreth A-Et Estra/Fe Fumarate) 1 Each Tablet 1 Tab PO DAILY Aldactone (Spironolactone) 25 Mg Tablet 25 Mg PO DAILY Strattera (Atomoxetine Hcl) 80 Mg Capsule 1 Cap PO DAILYWBKFT PRN Zoloft (Sertraline Hcl) 50 Mg Tablet 1 Tab PO DAILY PRN Allergies Allergies: Coded Allergies: No Known Drug Allergies (Unverified , 06/07/16) ROS Genitourinary: YES Pain Physical Exam General: Alert, Oriented X3, Cooperative, mild distress HEENT: Atraumatic, PERRLA, EOMI Lungs: Clear to auscultation, Normal air movement Heart: Regular rate, No murmurs Abdomen: Normal bowel sounds, Soft, Other (tender palpation left lower quadrant ) Extremities: No edema Skin: No significant lesion Neuro: Normal speech Psych/Mental Status: Mental status NL Vitals VITALS Vital Signs Date Time Temp Pulse Resp B/P (MAP) Pulse Ox O2 Delivery O2 Flow Rate FiO2 03/31/18 08:43 20 93 Room Air 03/31/18 07:00 98.3 72 99/68 (78) 98.3 Labs Labs Laboratory Tests Test 03/30/18 20:20 03/30/18 21:10 03/30/18 21:25 Urine Collection Type Unknown Urine Color Yellow Urine Clarity Clear Urine pH 7.0 Urine Specific [place] 1.020 Urine Protein Negative mg/dL (NEG-TRACE) Urine Glucose (UA) Negative mg/dL (NEG) Urine Ketones (Stick) Negative mg/dL (NEG) Urine Blood Large (NEG) Urine Nitrite Negative (NEG) Urine Bilirubin Negative (NEG) Urine Urobilinogen Dipstick 0.2 mg/dL (0.2 mg/dL) Urine Leukocyte Esterase Small (NEG) Urine RBC >40 /HPF (0-2) Urine WBC 1-4 /HPF (0-4) Urine Squamous Epithelial Cells Mod /LPF Urine Bacteria Few /HPF (0-FEW) Urine Mucus Mod /LPF Bedside Urine HCG, Qualitative Hcg negative (Negative) White Blood Count 8.4 x10^3/uL (4.0-11.0) Red Blood Count 4.44 x10^6/uL (3.50-5.40) Hemoglobin 12.8 g/dL (12.0-15.5) Hematocrit 39.2 % (36.0-47.0) Mean Corpuscular Volume 88 fL (79-100) Mean Corpuscular Hemoglobin 29 pg (25-35) Mean Corpuscular Hemoglobin Concent 33 g/dL (31-37) Red Cell Distribution Width 14.0 % (11.5-14.5) Platelet Count 332 x10^3/uL (140-400) Neutrophils (%) (Auto) 65 % (31-73) Lymphocytes (%) (Auto) 24 % (24-48) Monocytes (%) (Auto) 7 % (0-9) Eosinophils (%) (Auto) 4 % (0-3) Basophils (%) (Auto) 0 % (0-3) Neutrophils # (Auto) 5.4 x10^3uL (1.8-7.7) Lymphocytes # (Auto) 2.0 x10^3/uL (1.0-4.8) Monocytes # (Auto) 0.6 x10^3/uL (0.0-1.1) Eosinophils # (Auto) 0.3 x10^3/uL (0.0-0.7) Basophils # (Auto) 0.0 x10^3/uL (0.0-0.2) Sodium Level 139 mmol/L (136-145) Potassium Level 3.9 mmol/L (3.5-5.1) Chloride Level 102 mmol/L (98-107) Carbon Dioxide Level 29 mmol/L (21-32) Anion Gap 8 (6-14) Blood Urea Nitrogen 12 mg/dL (7-20) Creatinine 0.6 mg/dL (0.6-1.0) Estimated GFR (Cockcroft-Gault) 118.2 Glucose Level 98 mg/dL (70-99) Calcium Level 9.4 mg/dL (8.5-10.1) Laboratory Tests Test 03/30/18 20:20 03/30/18 21:10 03/30/18 21:25 Urine Collection Type Unknown Urine Color Yellow Urine Clarity Clear Urine pH 7.0 Urine Specific [place] 1.020 Urine Protein Negative mg/dL (NEG-TRACE) Urine Glucose (UA) Negative mg/dL (NEG) Urine Ketones (Stick) Negative mg/dL (NEG) Urine Blood Large (NEG) Urine Nitrite Negative (NEG) Urine Bilirubin Negative (NEG) Urine Urobilinogen Dipstick 0.2 mg/dL (0.2 mg/dL) Urine Leukocyte Esterase Small (NEG) Urine RBC >40 /HPF (0-2) Urine WBC 1-4 /HPF (0-4) Urine Squamous Epithelial Cells Mod /LPF Urine Bacteria Few /HPF (0-FEW) Urine Mucus Mod /LPF Bedside Urine HCG, Qualitative Hcg negative (Negative) White Blood Count 8.4 x10^3/uL (4.0-11.0) Red Blood Count 4.44 x10^6/uL (3.50-5.40) Hemoglobin 12.8 g/dL (12.0-15.5) Hematocrit 39.2 % (36.0-47.0) Mean Corpuscular Volume 88 fL (79-100) Mean Corpuscular Hemoglobin 29 pg (25-35) Mean Corpuscular Hemoglobin Concent 33 g/dL (31-37) Red Cell Distribution Width 14.0 % (11.5-14.5) Platelet Count 332 x10^3/uL (140-400) Neutrophils (%) (Auto) 65 % (31-73) Lymphocytes (%) (Auto) 24 % (24-48) Monocytes (%) (Auto) 7 % (0-9) Eosinophils (%) (Auto) 4 % (0-3) Basophils (%) (Auto) 0 % (0-3) Neutrophils # (Auto) 5.4 x10^3uL (1.8-7.7) Lymphocytes # (Auto) 2.0 x10^3/uL (1.0-4.8) Monocytes # (Auto) 0.6 x10^3/uL (0.0-1.1) Eosinophils # (Auto) 0.3 x10^3/uL (0.0-0.7) Basophils # (Auto) 0.0 x10^3/uL (0.0-0.2) Sodium Level 139 mmol/L (136-145) Potassium Level 3.9 mmol/L (3.5-5.1) Chloride Level 102 mmol/L (98-107) Carbon Dioxide Level 29 mmol/L (21-32) Anion Gap 8 (6-14) Blood Urea Nitrogen 12 mg/dL (7-20) Creatinine 0.6 mg/dL (0.6-1.0) Estimated GFR (Cockcroft-Gault) 118.2 Glucose Level 98 mg/dL (70-99) Calcium Level 9.4 mg/dL (8.5-10.1) Images Images CT as in history of present illness Assessment/Plan Assessment/Plan Left lower quadrant abdominal pain with ileus possibly secondary to colon procedure Agree with conservative therapy nothing by mouth monitor Requesting consult from ADAN CLEVELAND MD Mar 31, 2018 10:53
[2018-03-31 11:00] VITALS: BP 99/54
--- NOTE | 2018-03-31 11:01 | PDOC2 ---
GI CONSULT Reason For Consult: abd pain, colon polyp HPI: HPI: 27 y/o female - case d/w Dr. Zelaya. Reportedly had colonoscopy @ [facility] in 2017 and then EUS/endoscopic resection of neuroendocrine tumor on 03/12/18. Came to [facility] w/ LLQ/mid abd pain (cramping, pressure, stabbing) that wraps around to left back. Pain present since procedure on 03/12 - worse yesterday. Last stooled on Thursday - says has seen red blood with each stool since procedure. Not passing gas today. Denies reflux/heartburn, dysphagia, n/v, diarrhea, constipation, and melena. Some decreased appetite. No previous EGD. Also had a colonoscopy in 2010 for bleeding - thinks probably normal except hemorrhoids. S/p cholecystectomy for stone. No liver, pancreas, or PUD history. Lab unrevealing except UA +blood. On CT report: dilated fluid-filled jejunal loops within the left mid abdomen. PMH: PMH: depression, anxiety, ADD tubal ligation, cholecystectomy, endoscopic resection of neuroendocrine tumor FH: Family History: No pertinent hx (denies GI cancers, PUD, or GB disease) Social History: Smoke: No ALCOHOL: none Drugs: None ROS: GEN: Denies fevers, chills, sweats HEENT: Denies blurred vision, sore throat CV: Denies chest pain RESP: Denies shortness of air, cough GI: Per HPI : Denies hematuria, dysuria ENDO: Denies weight changes NEURO: Denies confusion, dizziness MSK: Denies weakness, joint pain/swelling SKIN: Denies jaundice, pruritus Vitals: Vitals: Vital Signs Date Time Temp Pulse Resp B/P (MAP) Pulse Ox O2 Delivery O2 Flow Rate FiO2 03/31/18 08:43 20 93 Room Air 03/31/18 07:00 98.3 72 99/68 (78) 98.3 Labs: Labs: Laboratory Tests Test 03/30/18 20:20 03/30/18 21:10 03/30/18 21:25 Urine Collection Type Unknown Urine Color Yellow Urine Clarity Clear Urine pH 7.0 Urine Specific [place] 1.020 Urine Protein Negative mg/dL (NEG-TRACE) Urine Glucose (UA) Negative mg/dL (NEG) Urine Ketones (Stick) Negative mg/dL (NEG) Urine Blood Large (NEG) Urine Nitrite Negative (NEG) Urine Bilirubin Negative (NEG) Urine Urobilinogen Dipstick 0.2 mg/dL (0.2 mg/dL) Urine Leukocyte Esterase Small (NEG) Urine RBC >40 /HPF (0-2) Urine WBC 1-4 /HPF (0-4) Urine Squamous Epithelial Cells Mod /LPF Urine Bacteria Few /HPF (0-FEW) Urine Mucus Mod /LPF Bedside Urine HCG, Qualitative Hcg negative (Negative) White Blood Count 8.4 x10^3/uL (4.0-11.0) Red Blood Count 4.44 x10^6/uL (3.50-5.40) Hemoglobin 12.8 g/dL (12.0-15.5) Hematocrit 39.2 % (36.0-47.0) Mean Corpuscular Volume 88 fL (79-100) Mean Corpuscular Hemoglobin 29 pg (25-35) Mean Corpuscular Hemoglobin Concent 33 g/dL (31-37) Red Cell Distribution Width 14.0 % (11.5-14.5) Platelet Count 332 x10^3/uL (140-400) Neutrophils (%) (Auto) 65 % (31-73) Lymphocytes (%) (Auto) 24 % (24-48) Monocytes (%) (Auto) 7 % (0-9) Eosinophils (%) (Auto) 4 % (0-3) Basophils (%) (Auto) 0 % (0-3) Neutrophils # (Auto) 5.4 x10^3uL (1.8-7.7) Lymphocytes # (Auto) 2.0 x10^3/uL (1.0-4.8) Monocytes # (Auto) 0.6 x10^3/uL (0.0-1.1) Eosinophils # (Auto) 0.3 x10^3/uL (0.0-0.7) Basophils # (Auto) 0.0 x10^3/uL (0.0-0.2) Sodium Level 139 mmol/L (136-145) Potassium Level 3.9 mmol/L (3.5-5.1) Chloride Level 102 mmol/L (98-107) Carbon Dioxide Level 29 mmol/L (21-32) Anion Gap 8 (6-14) Blood Urea Nitrogen 12 mg/dL (7-20) Creatinine 0.6 mg/dL (0.6-1.0) Estimated GFR (Cockcroft-Gault) 118.2 Glucose Level 98 mg/dL (70-99) Calcium Level 9.4 mg/dL (8.5-10.1) Allergies: Coded Allergies: No Known Drug Allergies (Unverified , 06/07/16) Medications: Current Medications Medications (Trade) Dose Ordered Sig/Jocelyne Route PRN Reason Start Time Stop Time Status Last Admin Dose Admin Morphine Sulfate (Morphine Sulfate) 4 mg 1X ONCE IV 03/30/18 21:30 03/30/18 21:32 DC 03/30/18 21:50 Ondansetron HCl (Zofran) 4 mg 1X ONCE IV 03/30/18 21:30 03/30/18 21:32 DC 03/30/18 21:50 Morphine Sulfate (Morphine Sulfate) 4 mg 1X ONCE IV 03/30/18 23:15 03/30/18 23:16 DC 03/30/18 23:09 Sodium Chloride 1,000 ml @ 1,000 mls/hr 1X ONCE IV 03/30/18 23:15 03/31/18 00:14 DC 03/30/18 23:09 Morphine Sulfate (Morphine Sulfate) 2 mg PRN Q2HR PRN IV PAIN 03/31/18 01:00 04/01/18 00:59 03/31/18 08:43 Sodium Chloride 1,000 ml @ 150 mls/hr Q6H40M IV 03/31/18 01:00 04/01/18 00:59 03/31/18 08:44 Imaging: Imaging: CT A/P IMPRESSION: Dilated fluid-filled jejunal loops are seen within the left mid abdomen which could reflect a focal ileus versus a partial small bowel obstruction. PE: GEN: NAD HEENT: Atraumatic, PERRL LUNGS: CTAB HEART: RRR ABD: occasional gurgle, S/ND, tenderness left mid suprapubic area EXTREMITY: No edema SKIN: No rashes, no jaundice NEURO/PSYCH: A & O 3 A/P: A/P: Lower abd pain, blood in stools Recent endoscopic resection of neuroendocrine tumor @ (?rectum) Abnormal CT CRC screen - recent colonoscopy @ [facility] S/p cholecystectomy -- Will review CT w/ Dr. Montes - remain NPO for now. Family bringing records. DONAVON [place] Mar 31, 2018 11:01
--- NOTE | 2018-03-31 12:56 | NUR ---
SW following for discharge planning. Discussed with RN, RN advised no SW needs at this time. SW will continue to follow.
--- NOTE | 2018-03-31 14:32 | NUR ---
DISCHARGE INSTRUCTIONS GIVEN TO PATIENT AND AT THE BEDSIDE, QUESTIONS AND CONCERNS ANSWERED, PATIENT/ VERBALIZED UNDERSTANDING OF DISCHARGE INFORMATION INCLUDING TAKING ALL MEDICATIONS INSTRUCTED, PRESCRIPTION GIVEN TO PATIENT FOR CIPRO. PATIENT ENCOURAGED TO FOLLOW UP WITH HIS PRIMARY PROVIDER AND DR. SANTOS INSTRUCTED, PATIENT AGREED. Addendum: 04/05/18 at 0804 by ELLIE ROGERS RN PLEASE DISREGARD THE NOTE ABOVE, IT WAS ENTERED IN ERROR ON THE WRONG PATIENT.
[2018-03-31 15:00] VITALS: BP 100/45
[2018-03-31] MEDS: ONDANSETRON PF 4 MG/2 ML VIAL. IV PRN ×2 (16:06→22:12)
[2018-03-31 19:00] VITALS: BP 107/77
[2018-03-31] MEDS: FAMOTIDINE 20 MG/2 ML VIAL IVP SCH (20:07)
[2018-03-31] MEDS: ONDANSETRON ODT 4 MG TAB.RAPDIS. PO PRN (21:05)
[2018-03-31 23:00] VITALS: BP 121/64
[2018-04-01 03:00] VITALS: BP 124/52
[2018-04-01] MEDS: ONDANSETRON PF 4 MG/2 ML VIAL. IV PRN ×2 (04:12→10:58)
[2018-04-01] MEDS: HYDROcodone/APAP 5/325MG 1 TAB TABLET PO PRN ×3 (04:20→17:30)
[2018-04-01 06:16] LABS: BASO % 0 % (0-3); EOS # 0.1 x10^3/uL (0.0-0.7); EOS % 2 % (0-3); HEMATOCRIT 34.4 % (36.0-47.0); HEMOGLOBIN 11.3 g/dL (12.0-15.5); LYMPH # 0.9 x10^3/uL (1.0-4.8); LYMPH % 21 % (24-48); MEAN CORPUSCULAR HEMOGLOBIN 29 pg (25-35); MEAN CORPUSCULAR HGB CONC 33 g/dL (31-37); MEAN CORPUSCULAR VOLUME 89 fL (79-100); MONO # 0.4 x10^3/uL (0.0-1.1); MONO % 10 % (0-9); NEUT # 2.9 x10^3uL (1.8-7.7); NEUT % 67 % (31-73); PLATELET COUNT 259 x10^3/uL (140-400); RED BLOOD COUNT 3.88 x10^6/uL (3.50-5.40); WHITE BLOOD COUNT 4.3 x10^3/uL (4.0-11.0)
[2018-04-01 06:20] LABS: CALCIUM 8.3 mg/dL (8.5-10.1); CREATININE 0.6 mg/dL (0.6-1.0); GFR 118.2; POTASSIUM 3.9 mmol/L (3.5-5.1)
[2018-04-01 07:00] VITALS: BP 111/88
[2018-04-01] MEDS: HYDROcodone/APAP 5/325MG 1 TAB TABLET PO SCH ×2 (07:56→20:05)
[2018-04-01] MEDS: IV NORMAL SALINE 1000ML BAG 1,000 ML IV SCH ×2 (08:00→13:35)
[2018-04-01] MEDS: NAPROXEN 500 MG TABLET PO SCH (08:00)
[2018-04-01] MEDS: NORETH A ET ESTRA PO SCH (09:00)
[2018-04-01] MEDS: OXYBUTYNIN CHLORIDE 5 MG TABLET PO SCH ×3 (09:00→20:04)
[2018-04-01] MEDS: SERTRALINE 50 MG TABLET. PO SCH (09:00)
[2018-04-01] MEDS: FE FUMARATE PO SCH (09:00)
[2018-04-01] MEDS: SPIRONOLACTONE 25 MG TABLET PO SCH (09:00)
--- NOTE | 2018-04-01 09:29 | PDOC ---
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 Obesity, BMI 39.5 History of Present Illness History of Present Illness Still abdominal pain lower quadrant or left lower side, needing pain medicines every 2 hours Pain medicine is working though Emesis last night No fever, no white count no flatus, no belching yet Ambulating but is causing some pain on left lower quadrant side Plan: maintain nothing by mouth, so for elective lytes okay Maintain IV fluids since nothing by mouth Continue present pain management Appreciate GI and GS Vitals Vitals Vital Signs Date Time Temp Pulse Resp B/P (MAP) Pulse Ox O2 Delivery O2 Flow Rate FiO2 04/01/18 09:08 99 Room Air 04/01/18 07:00 98.3 70 17 111/88 (96) 98.3 Physical Exam General: Alert, Oriented X3, Cooperative, mild distress Heart: Regular rate, No murmurs Abdomen: Normal bowel sounds, Soft, Other (tender palpation left lower quadrant ) Extremities: No edema Skin: No significant lesion Labs LABS Laboratory Tests Test 04/01/18 05:20 White Blood Count 4.3 x10^3/uL (4.0-11.0) Red Blood Count 3.88 x10^6/uL (3.50-5.40) Hemoglobin 11.3 g/dL (12.0-15.5) Hematocrit 34.4 % (36.0-47.0) Mean Corpuscular Volume 89 fL (79-100) Mean Corpuscular Hemoglobin 29 pg (25-35) Mean Corpuscular Hemoglobin Concent 33 g/dL (31-37) Red Cell Distribution Width 14.0 % (11.5-14.5) Platelet Count 259 x10^3/uL (140-400) Neutrophils (%) (Auto) 67 % (31-73) Lymphocytes (%) (Auto) 21 % (24-48) Monocytes (%) (Auto) 10 % (0-9) Eosinophils (%) (Auto) 2 % (0-3) Basophils (%) (Auto) 0 % (0-3) Neutrophils # (Auto) 2.9 x10^3uL (1.8-7.7) Lymphocytes # (Auto) 0.9 x10^3/uL (1.0-4.8) Monocytes # (Auto) 0.4 x10^3/uL (0.0-1.1) Eosinophils # (Auto) 0.1 x10^3/uL (0.0-0.7) Basophils # (Auto) 0.0 x10^3/uL (0.0-0.2) Sodium Level 139 mmol/L (136-145) Potassium Level 3.9 mmol/L (3.5-5.1) Chloride Level 105 mmol/L (98-107) Carbon Dioxide Level 24 mmol/L (21-32) Anion Gap 10 (6-14) Blood Urea Nitrogen 6 mg/dL (7-20) Creatinine 0.6 mg/dL (0.6-1.0) Estimated GFR (Cockcroft-Gault) 118.2 Glucose Level 93 mg/dL (70-99) Calcium Level 8.3 mg/dL (8.5-10.1) Review of Systems Review of Systems Abdominal pain, emesis, the rest of ROS 14 point negative Comment Review of Relevant I have reviewed the following items stacy (where applicable) has been applied. Labs Laboratory Tests Test 03/30/18 20:20 03/30/18 21:10 03/30/18 21:25 04/01/18 05:20 Urine Collection Type Unknown Urine Color Yellow Urine Clarity Clear Urine pH 7.0 Urine Specific [place] 1.020 Urine Protein Negative mg/dL (NEG-TRACE) Urine Glucose (UA) Negative mg/dL (NEG) Urine Ketones (Stick) Negative mg/dL (NEG) Urine Blood Large (NEG) Urine Nitrite Negative (NEG) Urine Bilirubin Negative (NEG) Urine Urobilinogen Dipstick 0.2 mg/dL (0.2 mg/dL) Urine Leukocyte Esterase Small (NEG) Urine RBC >40 /HPF (0-2) Urine WBC 1-4 /HPF (0-4) Urine Squamous Epithelial Cells Mod /LPF Urine Bacteria Few /HPF (0-FEW) Urine Mucus Mod /LPF Bedside Urine HCG, Qualitative Hcg negative (Negative) White Blood Count 8.4 x10^3/uL (4.0-11.0) 4.3 x10^3/uL (4.0-11.0) Red Blood Count 4.44 x10^6/uL (3.50-5.40) 3.88 x10^6/uL (3.50-5.40) Hemoglobin 12.8 g/dL (12.0-15.5) 11.3 g/dL (12.0-15.5) Hematocrit 39.2 % (36.0-47.0) 34.4 % (36.0-47.0) Mean Corpuscular Volume 88 fL (79-100) 89 fL (79-100) Mean Corpuscular Hemoglobin 29 pg (25-35) 29 pg (25-35) Mean Corpuscular Hemoglobin Concent 33 g/dL (31-37) 33 g/dL (31-37) Red Cell Distribution Width 14.0 % (11.5-14.5) 14.0 % (11.5-14.5) Platelet Count 332 x10^3/uL (140-400) 259 x10^3/uL (140-400) Neutrophils (%) (Auto) 65 % (31-73) 67 % (31-73) Lymphocytes (%) (Auto) 24 % (24-48) 21 % (24-48) Monocytes (%) (Auto) 7 % (0-9) 10 % (0-9) Eosinophils (%) (Auto) 4 % (0-3) 2 % (0-3) Basophils (%) (Auto) 0 % (0-3) 0 % (0-3) Neutrophils # (Auto) 5.4 x10^3uL (1.8-7.7) 2.9 x10^3uL (1.8-7.7) Lymphocytes # (Auto) 2.0 x10^3/uL (1.0-4.8) 0.9 x10^3/uL (1.0-4.8) Monocytes # (Auto) 0.6 x10^3/uL (0.0-1.1) 0.4 x10^3/uL (0.0-1.1) Eosinophils # (Auto) 0.3 x10^3/uL (0.0-0.7) 0.1 x10^3/uL (0.0-0.7) Basophils # (Auto) 0.0 x10^3/uL (0.0-0.2) 0.0 x10^3/uL (0.0-0.2) Sodium Level 139 mmol/L (136-145) 139 mmol/L (136-145) Potassium Level 3.9 mmol/L (3.5-5.1) 3.9 mmol/L (3.5-5.1) Chloride Level 102 mmol/L (98-107) 105 mmol/L (98-107) Carbon Dioxide Level 29 mmol/L (21-32) 24 mmol/L (21-32) Anion Gap 8 (6-14) 10 (6-14) Blood Urea Nitrogen 12 mg/dL (7-20) 6 mg/dL (7-20) Creatinine 0.6 mg/dL (0.6-1.0) 0.6 mg/dL (0.6-1.0) Estimated GFR (Cockcroft-Gault) 118.2 118.2 Glucose Level 98 mg/dL (70-99) 93 mg/dL (70-99) Calcium Level 9.4 mg/dL (8.5-10.1) 8.3 mg/dL (8.5-10.1) Laboratory Tests Test 04/01/18 05:20 White Blood Count 4.3 x10^3/uL (4.0-11.0) Red Blood Count 3.88 x10^6/uL (3.50-5.40) Hemoglobin 11.3 g/dL (12.0-15.5) Hematocrit 34.4 % (36.0-47.0) Mean Corpuscular Volume 89 fL (79-100) Mean Corpuscular Hemoglobin 29 pg (25-35) Mean Corpuscular Hemoglobin Concent 33 g/dL (31-37) Red Cell Distribution Width 14.0 % (11.5-14.5) Platelet Count 259 x10^3/uL (140-400) Neutrophils (%) (Auto) 67 % (31-73) Lymphocytes (%) (Auto) 21 % (24-48) Monocytes (%) (Auto) 10 % (0-9) Eosinophils (%) (Auto) 2 % (0-3) Basophils (%) (Auto) 0 % (0-3) Neutrophils # (Auto) 2.9 x10^3uL (1.8-7.7) Lymphocytes # (Auto) 0.9 x10^3/uL (1.0-4.8) Monocytes # (Auto) 0.4 x10^3/uL (0.0-1.1) Eosinophils # (Auto) 0.1 x10^3/uL (0.0-0.7) Basophils # (Auto) 0.0 x10^3/uL (0.0-0.2) Sodium Level 139 mmol/L (136-145) Potassium Level 3.9 mmol/L (3.5-5.1) Chloride Level 105 mmol/L (98-107) Carbon Dioxide Level 24 mmol/L (21-32) Anion Gap 10 (6-14) Blood Urea Nitrogen 6 mg/dL (7-20) Creatinine 0.6 mg/dL (0.6-1.0) Estimated GFR (Cockcroft-Gault) 118.2 Glucose Level 93 mg/dL (70-99) Calcium Level 8.3 mg/dL (8.5-10.1) Medications Current Medications Morphine Sulfate (Morphine Sulfate) 4 mg 1X ONCE IV Last administered on at 21:50; Start 03/30/18 at 21:30; Stop 03/30/18 at 21:32; Status DC Ondansetron HCl (Zofran) 4 mg 1X ONCE IV Last administered on 03/30/18at 21:50 ; Start 03/30/18 at 21:30; Stop 03/30/18 at 21:32; Status DC Morphine Sulfate (Morphine Sulfate) 4 mg 1X ONCE IV Last administered on at 23:09; Start 03/30/18 at 23:15; Stop 03/30/18 at 23:16; Status DC Sodium Chloride 1,000 ml @ 1,000 mls/hr 1X ONCE IV Last administered on at 23:09; Start 03/30/18 at 23:15; Stop 03/31/18 at 00:14; Status DC Ondansetron HCl (Zofran) 4 mg PRN Q8HRS PRN IV NAUSEA/VOMITING; Start 03/31/18 at 01:00; Stop 03/31/18 at 08:44; Status DC Morphine Sulfate (Morphine Sulfate) 2 mg PRN Q2HR PRN IV PAIN Last administered on 03/31/18at 18:35; Start 03/31/18 at 01:00; Stop 04/01/18 at 00:59 ; Status DC Sodium Chloride 1,000 ml @ 150 mls/hr Q6H40M IV Last administered on at 22:12; Start 03/31/18 at 01:00; Stop 04/01/18 at 00:59; Status DC Ondansetron HCl (Zofran) 4 mg PRN Q6HRS PRN IV NAUSEA/VOMITING Last administered on 04/01/18at 04:12; Start 03/31/18 at 08:45 Acetaminophen/ Hydrocodone Bitart (Lortab 5/325) 1 tab PRN Q4HRS PRN PO PAIN Last administered on 04/01/18at 04:20; Start 03/31/18 at 08:45 Famotidine (Pepcid Vial) 20 mg QHS IVP Last administered on 03/31/18at 20:07; Start 03/31/18 at 21:00 Dicyclomine HCl (Bentyl) 10 mg PRN TID PRN PO CRAMPS; Start 03/31/18 at 08:45 Acetaminophen/ Hydrocodone Bitart (Lortab 5/325) 1 tab BID PO Last administered on 04/01/18at 07:56; Start 03/31/18 at 09:00 Ondansetron HCl (Zofran Odt) 4 mg PRN Q6HRS PRN PO NAUSEA/VOMITING Last administered on 03/31/18at 21:05; Start 03/31/18 at 08:45 Oxybutynin Chloride (Ditropan) 5 mg [id number] PO ; Start 03/31/18 at 09:00 Sertraline HCl (Zoloft) 50 mg DAILY PO ; Start 03/31/18 at 09:00 Non-Formulary Medication (Atomoxetine Hcl (Strattera)) 1 cap DAILYWBKFT PRN PO ADHD; Start 03/31/18 at 08:45; Status UNV Naproxen (Naprosyn) 500 mg BIDWMEALS PO ; Start 03/31/18 at 09:00 Non-Formulary Medication (Noreth A-Et Estra/Fe Fumarate (Loestrin Fe 1.5-30 Tablet)) 1 tab DAILY PO ; Start 03/31/18 at 09:00; Status UNV Spironolactone (Aldactone) 25 mg DAILY PO ; Start 03/31/18 at 09:00 Sodium Chloride 1,000 ml @ 100 mls/hr Q10H IV ; Start 04/01/18 at 08:00 Active Scripts Active Ondansetron Odt (Ondansetron) 4 Mg Tab.rapdis 1 Tab PO PRN Q6-8HRS PRN 4 Days Dicyclomine Hcl 10 Mg Capsule 1 Cap PO TID PRN Medrol (Methylprednisolone) 4 Mg Tab.ds.pk 1 Pkg PO UD Oxybutynin Chloride 5 Mg Tablet 5 Mg PO [id number] Cefpodoxime Proxetil 100 Mg Tablet 200 Mg PO BID 7 Days Delta 5-325 Tablet (Acetaminophen/Hydrocodone Bitart) 1 Each Tablet 1 Tab PO BID Naproxen 500 Mg Tablet.dr 1 Tab PO BID Reported Loestrin Fe 1.5-30 Tablet (Noreth A-Et Estra/Fe Fumarate) 1 Each Tablet 1 Tab PO DAILY Aldactone (Spironolactone) 25 Mg Tablet 25 Mg PO DAILY Strattera (Atomoxetine Hcl) 80 Mg Capsule 1 Cap PO DAILYWBKFT PRN Zoloft (Sertraline Hcl) 50 Mg Tablet 1 Tab PO DAILY PRN Vitals/I & O Vital Sign - Last 24 Hours 03/31/18 03/31/18 03/31/18 03/31/18 11:00 11:27 14:15 15:00 Temp 98.1 98.0 98.1 98.0 Pulse 71 77 Resp 17 20 20 16 B/P (MAP) 99/54 (69) 100/45 (63) Pulse Ox 98 98 94 98 O2 Delivery Room Air Room Air Room Air Room Air 03/31/18 03/31/18 03/31/18 03/31/18 18:35 19:00 19:15 20:00 Temp 98.6 98.6 Pulse 83 Resp 18 18 15 B/P (MAP) 107/77 (87) Pulse Ox 96 98 O2 Delivery Room Air Room Air Room Air Room Air 03/31/18 03/31/18 03/31/18 04/01/18 22:12 23:00 23:22 03:00 Temp 98.4 98.4 98.4 98.4 Pulse 83 80 Resp 17 18 14 18 B/P (MAP) 121/64 (83) 124/52 (76) Pulse Ox 98 99 99 O2 Delivery Room Air Room Air Room Air 04/01/18 04/01/18 04/01/18 04/01/18 04:20 05:29 07:00 07:56 Temp 98.3 98.3 Pulse 70 Resp 17 15 17 B/P (MAP) 111/88 (96) Pulse Ox 99 99 99 O2 Delivery Room Air Room Air Room Air Room Air 04/01/18 09:08 Pulse Ox 99 O2 Delivery Room Air Intake and Output 03/31/18 03/31/18 04/01/18 15:00 23:00 07:00 Intake Total 250 ml 0 ml Output Total 800 ml 1400 ml Balance -550 ml 0 ml -1400 ml ZOYA GRAVES MD Apr 01, 2018 09:29
--- NOTE | 2018-04-01 09:52 | PDOC ---
Subjective: Subjective: Mid abd pain is better w/ Lortab. Bilious emesis last night - most recently around 12:30 a.m. No flatus, stools, or bleeding. Objective: Objective: No records received from . Vital Signs: Vital Signs Date Time Temp Pulse Resp B/P (MAP) Pulse Ox O2 Delivery O2 Flow Rate FiO2 04/01/18 09:08 99 Room Air 04/01/18 07:00 98.3 70 17 111/88 (96) 98.3 Labs: Laboratory Tests Test 04/01/18 05:20 White Blood Count 4.3 x10^3/uL Red Blood Count 3.88 x10^6/uL Hemoglobin 11.3 g/dL Hematocrit 34.4 % Mean Corpuscular Volume 89 fL Mean Corpuscular Hemoglobin 29 pg Mean Corpuscular Hemoglobin Concent 33 g/dL Red Cell Distribution Width 14.0 % Platelet Count 259 x10^3/uL Neutrophils (%) (Auto) 67 % Lymphocytes (%) (Auto) 21 % Monocytes (%) (Auto) 10 % Eosinophils (%) (Auto) 2 % Basophils (%) (Auto) 0 % Neutrophils # (Auto) 2.9 x10^3uL Lymphocytes # (Auto) 0.9 x10^3/uL Monocytes # (Auto) 0.4 x10^3/uL Eosinophils # (Auto) 0.1 x10^3/uL Basophils # (Auto) 0.0 x10^3/uL Sodium Level 139 mmol/L Potassium Level 3.9 mmol/L Chloride Level 105 mmol/L Carbon Dioxide Level 24 mmol/L Anion Gap 10 Blood Urea Nitrogen 6 mg/dL Creatinine 0.6 mg/dL Estimated GFR (Cockcroft-Gault) 118.2 Glucose Level 93 mg/dL Calcium Level 8.3 mg/dL PE: GEN: NAD LUNGS: CTAB HEART: RRR ABD: quiet, tender mostly just to lower left of umbilicus NEURO/PSYCH: A & O 3 A/P: Mid abd pain, vomiting 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 Montes. DONAVON B[place]ING[place]AM Apr 01, 2018 09:52
[2018-04-01 11:00] VITALS: BP 110/71
--- NOTE | 2018-04-01 11:04 | RAD ---
Single view of the abdomen 04/01/2018 INDICATION: Follow-up small bowel obstruction COMPARISON STUDY: CT of the abdomen March 30, 2018. FINDINGS: The bowel gas pattern is nonobstructive. No gross pneumoperitoneum is identified. Prior cholecystectomy noted. Probable small clip noted in the pelvis. No acute osseous changes are seen. IMPRESSION: Nonobstructive bowel gas pattern Electronically signed by: Marco Sim MD (04/01/2018 11:01 AM) [id number]
[2018-04-01] MEDS ORDERED: BISACODYL 10 MG SUPP.RECT. PR ONE (11:15)
[2018-04-01] MEDS: fentaNYL PF VIAL 100 MCG/2 ML VIAL IV PRN ×4 (11:33→21:31)
--- NOTE | 2018-04-01 11:54 | NUR ---
SW following. Discussed with RN, RN advised no SW needs. Pt is independent. SW will continue to follow.
--- NOTE | 2018-04-01 12:16 | PDOC ---
SURGICAL PROGRESS NOTE Subjective Asleep, did not wake Vital Signs Vital Signs Date Time Temp Pulse Resp B/P (MAP) Pulse Ox O2 Delivery O2 Flow Rate FiO2 04/01/18 11:33 Room Air 04/01/18 11:00 98.3 76 16 110/71 (84) 98 98.3 I&O Intake and Output 04/01/18 07:00 Intake Total 250 ml Output Total 2200 ml Balance -1950 ml Intake Oral 250 ml Output Urine Total 2200 ml # Voids 4 PATIENT HAS A PATTERSON: No Labs Laboratory Tests Test 03/30/18 20:20 03/30/18 21:10 03/30/18 21:25 04/01/18 05:20 Urine Collection Type Unknown Urine Color Yellow Urine Clarity Clear Urine pH 7.0 Urine Specific [place] 1.020 Urine Protein Negative mg/dL (NEG-TRACE) Urine Glucose (UA) Negative mg/dL (NEG) Urine Ketones (Stick) Negative mg/dL (NEG) Urine Blood Large (NEG) Urine Nitrite Negative (NEG) Urine Bilirubin Negative (NEG) Urine Urobilinogen Dipstick 0.2 mg/dL (0.2 mg/dL) Urine Leukocyte Esterase Small (NEG) Urine RBC >40 /HPF (0-2) Urine WBC 1-4 /HPF (0-4) Urine Squamous Epithelial Cells Mod /LPF Urine Bacteria Few /HPF (0-FEW) Urine Mucus Mod /LPF Bedside Urine HCG, Qualitative Hcg negative (Negative) White Blood Count 8.4 x10^3/uL (4.0-11.0) 4.3 x10^3/uL (4.0-11.0) Red Blood Count 4.44 x10^6/uL (3.50-5.40) 3.88 x10^6/uL (3.50-5.40) Hemoglobin 12.8 g/dL (12.0-15.5) 11.3 g/dL (12.0-15.5) Hematocrit 39.2 % (36.0-47.0) 34.4 % (36.0-47.0) Mean Corpuscular Volume 88 fL (79-100) 89 fL (79-100) Mean Corpuscular Hemoglobin 29 pg (25-35) 29 pg (25-35) Mean Corpuscular Hemoglobin Concent 33 g/dL (31-37) 33 g/dL (31-37) Red Cell Distribution Width 14.0 % (11.5-14.5) 14.0 % (11.5-14.5) Platelet Count 332 x10^3/uL (140-400) 259 x10^3/uL (140-400) Neutrophils (%) (Auto) 65 % (31-73) 67 % (31-73) Lymphocytes (%) (Auto) 24 % (24-48) 21 % (24-48) Monocytes (%) (Auto) 7 % (0-9) 10 % (0-9) Eosinophils (%) (Auto) 4 % (0-3) 2 % (0-3) Basophils (%) (Auto) 0 % (0-3) 0 % (0-3) Neutrophils # (Auto) 5.4 x10^3uL (1.8-7.7) 2.9 x10^3uL (1.8-7.7) Lymphocytes # (Auto) 2.0 x10^3/uL (1.0-4.8) 0.9 x10^3/uL (1.0-4.8) Monocytes # (Auto) 0.6 x10^3/uL (0.0-1.1) 0.4 x10^3/uL (0.0-1.1) Eosinophils # (Auto) 0.3 x10^3/uL (0.0-0.7) 0.1 x10^3/uL (0.0-0.7) Basophils # (Auto) 0.0 x10^3/uL (0.0-0.2) 0.0 x10^3/uL (0.0-0.2) Sodium Level 139 mmol/L (136-145) 139 mmol/L (136-145) Potassium Level 3.9 mmol/L (3.5-5.1) 3.9 mmol/L (3.5-5.1) Chloride Level 102 mmol/L (98-107) 105 mmol/L (98-107) Carbon Dioxide Level 29 mmol/L (21-32) 24 mmol/L (21-32) Anion Gap 8 (6-14) 10 (6-14) Blood Urea Nitrogen 12 mg/dL (7-20) 6 mg/dL (7-20) Creatinine 0.6 mg/dL (0.6-1.0) 0.6 mg/dL (0.6-1.0) Estimated GFR (Cockcroft-Gault) 118.2 118.2 Glucose Level 98 mg/dL (70-99) 93 mg/dL (70-99) Calcium Level 9.4 mg/dL (8.5-10.1) 8.3 mg/dL (8.5-10.1) Laboratory Tests Test 04/01/18 05:20 White Blood Count 4.3 x10^3/uL (4.0-11.0) Red Blood Count 3.88 x10^6/uL (3.50-5.40) Hemoglobin 11.3 g/dL (12.0-15.5) Hematocrit 34.4 % (36.0-47.0) Mean Corpuscular Volume 89 fL (79-100) Mean Corpuscular Hemoglobin 29 pg (25-35) Mean Corpuscular Hemoglobin Concent 33 g/dL (31-37) Red Cell Distribution Width 14.0 % (11.5-14.5) Platelet Count 259 x10^3/uL (140-400) Neutrophils (%) (Auto) 67 % (31-73) Lymphocytes (%) (Auto) 21 % (24-48) Monocytes (%) (Auto) 10 % (0-9) Eosinophils (%) (Auto) 2 % (0-3) Basophils (%) (Auto) 0 % (0-3) Neutrophils # (Auto) 2.9 x10^3uL (1.8-7.7) Lymphocytes # (Auto) 0.9 x10^3/uL (1.0-4.8) Monocytes # (Auto) 0.4 x10^3/uL (0.0-1.1) Eosinophils # (Auto) 0.1 x10^3/uL (0.0-0.7) Basophils # (Auto) 0.0 x10^3/uL (0.0-0.2) Sodium Level 139 mmol/L (136-145) Potassium Level 3.9 mmol/L (3.5-5.1) Chloride Level 105 mmol/L (98-107) Carbon Dioxide Level 24 mmol/L (21-32) Anion Gap 10 (6-14) Blood Urea Nitrogen 6 mg/dL (7-20) Creatinine 0.6 mg/dL (0.6-1.0) Estimated GFR (Cockcroft-Gault) 118.2 Glucose Level 93 mg/dL (70-99) Calcium Level 8.3 mg/dL (8.5-10.1) Assessment/Plan Noted episode of vomiting last night Abd films are improved with non specific bowel gas pattern If patient feels like taking liquids would advance to clear liquids ADAN MICHELE MD Apr 01, 2018 12:16
--- NOTE | 2018-04-01 13:28 | PDOC ---
G I PROGRESS NOTE Subjective Pain better with pain meds; recurs when they wear off. Some emesis earlier. Relates no other family members with MEN; this was mentioned to her by [facility] oncologist. Objective Brought in copies of last procedure given to her; reviewed these. Had band- assisted EMR (variceal band around lesion creating pseudopolyp, then snare). Clipped after. Physical Exam Lungs clear. RRR Abdomen soft. Remains tender left suprapubic tending toward LLQ, but not getting there. Bowel sounds present. Review of Relevant I have reviewed the following items stacy (where applicable) has been applied. Labs Laboratory Tests Test 03/30/18 20:20 03/30/18 21:10 03/30/18 21:25 04/01/18 05:20 Urine Collection Type Unknown Urine Color Yellow Urine Clarity Clear Urine pH 7.0 Urine Specific [place] 1.020 Urine Protein Negative mg/dL (NEG-TRACE) Urine Glucose (UA) Negative mg/dL (NEG) Urine Ketones (Stick) Negative mg/dL (NEG) Urine Blood Large (NEG) Urine Nitrite Negative (NEG) Urine Bilirubin Negative (NEG) Urine Urobilinogen Dipstick 0.2 mg/dL (0.2 mg/dL) Urine Leukocyte Esterase Small (NEG) Urine RBC >40 /HPF (0-2) Urine WBC 1-4 /HPF (0-4) Urine Squamous Epithelial Cells Mod /LPF Urine Bacteria Few /HPF (0-FEW) Urine Mucus Mod /LPF Bedside Urine HCG, Qualitative Hcg negative (Negative) White Blood Count 8.4 x10^3/uL (4.0-11.0) 4.3 x10^3/uL (4.0-11.0) Red Blood Count 4.44 x10^6/uL (3.50-5.40) 3.88 x10^6/uL (3.50-5.40) Hemoglobin 12.8 g/dL (12.0-15.5) 11.3 g/dL (12.0-15.5) Hematocrit 39.2 % (36.0-47.0) 34.4 % (36.0-47.0) Mean Corpuscular Volume 88 fL (79-100) 89 fL (79-100) Mean Corpuscular Hemoglobin 29 pg (25-35) 29 pg (25-35) Mean Corpuscular Hemoglobin Concent 33 g/dL (31-37) 33 g/dL (31-37) Red Cell Distribution Width 14.0 % (11.5-14.5) 14.0 % (11.5-14.5) Platelet Count 332 x10^3/uL (140-400) 259 x10^3/uL (140-400) Neutrophils (%) (Auto) 65 % (31-73) 67 % (31-73) Lymphocytes (%) (Auto) 24 % (24-48) 21 % (24-48) Monocytes (%) (Auto) 7 % (0-9) 10 % (0-9) Eosinophils (%) (Auto) 4 % (0-3) 2 % (0-3) Basophils (%) (Auto) 0 % (0-3) 0 % (0-3) Neutrophils # (Auto) 5.4 x10^3uL (1.8-7.7) 2.9 x10^3uL (1.8-7.7) Lymphocytes # (Auto) 2.0 x10^3/uL (1.0-4.8) 0.9 x10^3/uL (1.0-4.8) Monocytes # (Auto) 0.6 x10^3/uL (0.0-1.1) 0.4 x10^3/uL (0.0-1.1) Eosinophils # (Auto) 0.3 x10^3/uL (0.0-0.7) 0.1 x10^3/uL (0.0-0.7) Basophils # (Auto) 0.0 x10^3/uL (0.0-0.2) 0.0 x10^3/uL (0.0-0.2) Sodium Level 139 mmol/L (136-145) 139 mmol/L (136-145) Potassium Level 3.9 mmol/L (3.5-5.1) 3.9 mmol/L (3.5-5.1) Chloride Level 102 mmol/L (98-107) 105 mmol/L (98-107) Carbon Dioxide Level 29 mmol/L (21-32) 24 mmol/L (21-32) Anion Gap 8 (6-14) 10 (6-14) Blood Urea Nitrogen 12 mg/dL (7-20) 6 mg/dL (7-20) Creatinine 0.6 mg/dL (0.6-1.0) 0.6 mg/dL (0.6-1.0) Estimated GFR (Cockcroft-Gault) 118.2 118.2 Glucose Level 98 mg/dL (70-99) 93 mg/dL (70-99) Calcium Level 9.4 mg/dL (8.5-10.1) 8.3 mg/dL (8.5-10.1) Laboratory Tests Test 04/01/18 05:20 White Blood Count 4.3 x10^3/uL (4.0-11.0) Red Blood Count 3.88 x10^6/uL (3.50-5.40) Hemoglobin 11.3 g/dL (12.0-15.5) Hematocrit 34.4 % (36.0-47.0) Mean Corpuscular Volume 89 fL (79-100) Mean Corpuscular Hemoglobin 29 pg (25-35) Mean Corpuscular Hemoglobin Concent 33 g/dL (31-37) Red Cell Distribution Width 14.0 % (11.5-14.5) Platelet Count 259 x10^3/uL (140-400) Neutrophils (%) (Auto) 67 % (31-73) Lymphocytes (%) (Auto) 21 % (24-48) Monocytes (%) (Auto) 10 % (0-9) Eosinophils (%) (Auto) 2 % (0-3) Basophils (%) (Auto) 0 % (0-3) Neutrophils # (Auto) 2.9 x10^3uL (1.8-7.7) Lymphocytes # (Auto) 0.9 x10^3/uL (1.0-4.8) Monocytes # (Auto) 0.4 x10^3/uL (0.0-1.1) Eosinophils # (Auto) 0.1 x10^3/uL (0.0-0.7) Basophils # (Auto) 0.0 x10^3/uL (0.0-0.2) Sodium Level 139 mmol/L (136-145) Potassium Level 3.9 mmol/L (3.5-5.1) Chloride Level 105 mmol/L (98-107) Carbon Dioxide Level 24 mmol/L (21-32) Anion Gap 10 (6-14) Blood Urea Nitrogen 6 mg/dL (7-20) Creatinine 0.6 mg/dL (0.6-1.0) Estimated GFR (Cockcroft-Gault) 118.2 Glucose Level 93 mg/dL (70-99) Calcium Level 8.3 mg/dL (8.5-10.1) Vitals/I & O Vital Sign - Last 24 Hours 03/31/18 03/31/18 03/31/18 03/31/18 14:15 15:00 18:35 19:00 Temp 98.0 98.6 98.0 98.6 Pulse 77 83 Resp 20 16 18 18 B/P (MAP) 100/45 (63) 107/77 (87) Pulse Ox 94 98 96 O2 Delivery Room Air Room Air Room Air Room Air 03/31/18 03/31/18 03/31/18 03/31/18 19:15 20:00 22:12 23:00 Temp 98.4 98.4 Pulse 83 Resp 15 17 18 B/P (MAP) 121/64 (83) Pulse Ox 98 98 99 O2 Delivery Room Air Room Air Room Air Room Air 03/31/18 04/01/18 04/01/18 04/01/18 23:22 03:00 04:20 05:29 Temp 98.4 98.4 Pulse 80 Resp 14 18 17 15 B/P (MAP) 124/52 (76) Pulse Ox 99 99 99 O2 Delivery Room Air Room Air Room Air 04/01/18 04/01/18 04/01/18 04/01/18 07:00 07:56 08:00 09:08 Temp 98.3 98.3 Pulse 70 Resp 17 B/P (MAP) 111/88 (96) Pulse Ox 99 99 O2 Delivery Room Air Room Air Room Air Room Air 04/01/18 04/01/18 04/01/18 11:00 11:33 12:17 Temp 98.3 98.3 Pulse 76 Resp 16 B/P (MAP) 110/71 (84) Pulse Ox 98 O2 Delivery Room Air Room Air Room Air Intake and Output 03/31/18 03/31/18 04/01/18 15:00 23:00 07:00 Intake Total 250 ml 0 ml Output Total 800 ml 1400 ml Balance -550 ml 0 ml -1400 ml Images Todays abdominal films: Single view of the abdomen 04/01/2018 INDICATION: Follow-up small bowel obstruction COMPARISON STUDY: CT of the abdomen March 30, 2018. FINDINGS: The bowel gas pattern is nonobstructive. No gross pneumoperitoneum is identified. Prior cholecystectomy noted. Probable small clip noted in the pelvis. No acute osseous changes are seen. IMPRESSION: Nonobstructive bowel gas pattern Assessment Abdominal pain, etc. 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 Suspect pain due to full thickness injury w/o overt perf. Conceivable a tiny amount of air may have entered the peritoneal cavity; this is generally irritating and may have provoked an ileus. Seems some better. Plan of Care: Continue current Tx, Mgmt Plan of Care Note Try clears; advance if tolerated. If tolerates diet, oral pain meds and home? KRANTHI MARTÍNEZ MD Apr 01, 2018 13:28
[2018-04-01 15:00] VITALS: BP 109/67
[2018-04-01 19:00] VITALS: BP 107/66
[2018-04-01] MEDS: FAMOTIDINE 20 MG/2 ML VIAL IVP SCH (20:05)
[2018-04-01 23:00] VITALS: BP 105/57
[2018-04-02] MEDS: IV NORMAL SALINE 1000ML BAG 1,000 ML IV SCH ×3 (00:46→23:02)
[2018-04-02] MEDS: fentaNYL PF VIAL 100 MCG/2 ML VIAL IV PRN ×8 (00:46→23:02)
[2018-04-02 03:00] VITALS: BP 113/69
[2018-04-02] MEDS: HYDROcodone/APAP 5/325MG 1 TAB TABLET PO PRN ×2 (05:44→13:13)
[2018-04-02 07:00] VITALS: BP 105/70
[2018-04-02] MEDS: SERTRALINE 50 MG TABLET. PO SCH (08:20)
[2018-04-02] MEDS: OXYBUTYNIN CHLORIDE 5 MG TABLET PO SCH ×3 (08:20→20:30)
[2018-04-02] MEDS: SPIRONOLACTONE 25 MG TABLET PO SCH (08:20)
[2018-04-02] MEDS: FE FUMARATE PO SCH (08:21)
[2018-04-02] MEDS: NORETH A ET ESTRA PO SCH (08:21)
--- NOTE | 2018-04-02 09:18 | PDOC ---
SURGICAL PROGRESS NOTE Subjective Patient in the shower. Nurse states that her pain is improved and she is tolerating clears Vital Signs Vital Signs Date Time Temp Pulse Resp B/P (MAP) Pulse Ox O2 Delivery O2 Flow Rate FiO2 04/02/18 08:21 Room Air 04/02/18 07:00 97.8 71 16 105/70 (82) 98 97.8 I&O Intake and Output 04/02/18 07:00 Intake Total 1795 ml Output Total 0 ml Balance 1795 ml Intake Oral 1300 ml IV Total 495 ml Output Urine Total 0 ml # Voids 7 PATIENT HAS A PATTERSON: No Labs Laboratory Tests Test 04/01/18 05:20 White Blood Count 4.3 x10^3/uL (4.0-11.0) Red Blood Count 3.88 x10^6/uL (3.50-5.40) Hemoglobin 11.3 g/dL (12.0-15.5) Hematocrit 34.4 % (36.0-47.0) Mean Corpuscular Volume 89 fL (79-100) Mean Corpuscular Hemoglobin 29 pg (25-35) Mean Corpuscular Hemoglobin Concent 33 g/dL (31-37) Red Cell Distribution Width 14.0 % (11.5-14.5) Platelet Count 259 x10^3/uL (140-400) Neutrophils (%) (Auto) 67 % (31-73) Lymphocytes (%) (Auto) 21 % (24-48) Monocytes (%) (Auto) 10 % (0-9) Eosinophils (%) (Auto) 2 % (0-3) Basophils (%) (Auto) 0 % (0-3) Neutrophils # (Auto) 2.9 x10^3uL (1.8-7.7) Lymphocytes # (Auto) 0.9 x10^3/uL (1.0-4.8) Monocytes # (Auto) 0.4 x10^3/uL (0.0-1.1) Eosinophils # (Auto) 0.1 x10^3/uL (0.0-0.7) Basophils # (Auto) 0.0 x10^3/uL (0.0-0.2) Sodium Level 139 mmol/L (136-145) Potassium Level 3.9 mmol/L (3.5-5.1) Chloride Level 105 mmol/L (98-107) Carbon Dioxide Level 24 mmol/L (21-32) Anion Gap 10 (6-14) Blood Urea Nitrogen 6 mg/dL (7-20) Creatinine 0.6 mg/dL (0.6-1.0) Estimated GFR (Cockcroft-Gault) 118.2 Glucose Level 93 mg/dL (70-99) Calcium Level 8.3 mg/dL (8.5-10.1) Assessment/Plan Status post rectal polypectomy postprocedural ileus appears to be resolving KUBs improved No surgical plans at this time ADAN MICHELE MD Apr 02, 2018 09:18
[2018-04-02] MEDS: BISACODYL 10 MG SUPP.RECT. PR PRN (09:29)
[2018-04-02] MEDS: HYDROcodone/APAP 5/325MG 1 TAB TABLET PO SCH ×2 (09:29→20:30)
--- NOTE | 2018-04-02 10:49 | NUR ---
SW following. Discussed with RN, RN advised no SW needs.
[2018-04-02 10:59] VITALS: BP 102/61
--- NOTE | 2018-04-02 11:01 | PDOC ---
G I PROGRESS NOTE Subjective Tolerated clears well. Denies N or V. Pain better. Does complain of pc LQ cramping and urge to stool, but no stool. Physical Exam Lungs clear. RRR Abdomen soft, not distended. Less tender than yesterday in left suprapubic/LLQ area. Review of Relevant I have reviewed the following items stacy (where applicable) has been applied. Labs Laboratory Tests Test 04/01/18 05:20 White Blood Count 4.3 x10^3/uL (4.0-11.0) Red Blood Count 3.88 x10^6/uL (3.50-5.40) Hemoglobin 11.3 g/dL (12.0-15.5) Hematocrit 34.4 % (36.0-47.0) Mean Corpuscular Volume 89 fL (79-100) Mean Corpuscular Hemoglobin 29 pg (25-35) Mean Corpuscular Hemoglobin Concent 33 g/dL (31-37) Red Cell Distribution Width 14.0 % (11.5-14.5) Platelet Count 259 x10^3/uL (140-400) Neutrophils (%) (Auto) 67 % (31-73) Lymphocytes (%) (Auto) 21 % (24-48) Monocytes (%) (Auto) 10 % (0-9) Eosinophils (%) (Auto) 2 % (0-3) Basophils (%) (Auto) 0 % (0-3) Neutrophils # (Auto) 2.9 x10^3uL (1.8-7.7) Lymphocytes # (Auto) 0.9 x10^3/uL (1.0-4.8) Monocytes # (Auto) 0.4 x10^3/uL (0.0-1.1) Eosinophils # (Auto) 0.1 x10^3/uL (0.0-0.7) Basophils # (Auto) 0.0 x10^3/uL (0.0-0.2) Sodium Level 139 mmol/L (136-145) Potassium Level 3.9 mmol/L (3.5-5.1) Chloride Level 105 mmol/L (98-107) Carbon Dioxide Level 24 mmol/L (21-32) Anion Gap 10 (6-14) Blood Urea Nitrogen 6 mg/dL (7-20) Creatinine 0.6 mg/dL (0.6-1.0) Estimated GFR (Cockcroft-Gault) 118.2 Glucose Level 93 mg/dL (70-99) Calcium Level 8.3 mg/dL (8.5-10.1) Microbiology 03/30/18 Urine Culture - Final, Complete 03/30/18 Urine Culture Result 1 (PATRIZIA) - Final, Complete Vitals/I & O Vital Sign - Last 24 Hours 04/01/18 04/01/18 04/01/18 04/01/18 11:00 11:33 13:35 15:00 Temp 98.3 98.2 98.3 98.2 Pulse 76 74 Resp 16 18 B/P (MAP) 110/71 (84) 109/67 (81) Pulse Ox 98 97 O2 Delivery Room Air Room Air Room Air Room Air 04/01/18 04/01/18 04/01/18 04/01/18 15:21 15:28 17:30 18:46 Pulse Ox 98 98 O2 Delivery Room Air Room Air Room Air 04/01/18 04/01/18 04/01/18 04/01/18 19:00 20:04 20:05 21:31 Temp 98.8 98.8 Pulse 62 Resp 20 20 20 B/P (MAP) 107/66 (80) Pulse Ox 97 O2 Delivery Room Air Room Air Room Air Room Air 04/01/18 04/01/18 04/02/18 04/02/18 21:32 23:00 00:46 03:00 Temp 98.6 98.2 98.6 98.2 Pulse 69 80 Resp 20 20 20 20 B/P (MAP) 105/57 (73) 113/69 (84) Pulse Ox 99 98 O2 Delivery Room Air Room Air Room Air Room Air 04/02/18 04/02/18 04/02/18 04/02/18 03:51 04:25 05:44 07:00 Temp 97.8 97.8 Pulse 71 Resp 20 20 20 16 B/P (MAP) 105/70 (82) Pulse Ox 98 O2 Delivery Room Air Room Air Room Air 04/02/18 04/02/18 04/02/18 04/02/18 08:00 08:19 08:21 09:28 O2 Delivery Room Air Room Air Room Air Room Air 04/02/18 09:29 O2 Delivery Room Air Intake and Output 04/01/18 04/01/18 04/02/18 15:00 23:00 07:00 Intake Total 800 ml 995 ml Output Total 0 ml Balance 0 ml 800 ml 995 ml Assessment Pain after therapeutic rectal intervention; believe current issues related to procedure, but not specific intervention needed. Current pc complaints may be related to some degree of rectal irritation from procedure. Likely had full thickness injury to rectum w/o overt perf from procedure. Plan of Care: Continue current Tx, Mgmt Plan of Care Note If can advance diet and take oral pain meds, no objection to considering for discharge and f/u at . KRANTHI MARTÍNEZ MD Apr 02, 2018 11:01
--- NOTE | 2018-04-02 11:19 | PDOC ---
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 History of Present Illness History of Present Illness Still abdominal pain lower quadrant or left lower side, needing pain medicines every 2 hours Pain medicine is working though Emesis last night No fever, no white count no flatus, no belching yet Ambulating but is causing some pain on left lower quadrant side Plan: maintain nothing by mouth, so for elective lytes okay Maintain IV fluids since nothing by mouth Continue present pain management Appreciate GI and GS Vitals Vitals Vital Signs Date Time Temp Pulse Resp B/P (MAP) Pulse Ox O2 Delivery O2 Flow Rate FiO2 04/02/18 10:59 98.9 63 18 102/61 (75) 100 Room Air 98.9 Physical Exam General: Alert, Oriented X3, Cooperative, mild distress Heart: Regular rate, Normal S1, Normal S2, No murmurs Lungs: Clear Abdomen: Normal bowel sounds, Soft, Other (tender palpation left lower quadrant ) Extremities: No cyanosis, No edema Skin: No breakdown, No significant lesion Labs LABS CLINICAL HISTORY: Left flank pain. TECHNIQUE: Unenhanced, contiguous, 2 mm axial sections were obtained through abdomen and pelvis. One or more of the following individualized dose reduction techniques were utilized for this study: 1. Automated exposure control. 2. Adjustment of the mA and/or kV according to patient size. 3. Use of iterative reconstruction technique. FINDINGS: Comparison study is dated 01/11/2018. The absence of oral and intravenous contrast limits the study for the detection of solid organ and bowel pathology. Images through the lung bases demonstrate minimal dependent subsegmental atelectasis bilaterally. The liver, spleen, pancreas, and adrenal glands are within normal limits. No renal or ureteral calculus is seen. There is no evidence of obstruction of either collecting system. The abdominal aorta tapers normally. Surgical clips are seen within the gallbladder fossa consistent with a cholecystectomy. Air and stool is seen throughout the colon. The appendix is well-visualized and is within normal limits. Dilated fluid-filled jejunal loops are seen within the left mid abdomen which could reflect a focal ileus versus a partial small bowel obstruction. Images through the pelvis demonstrate the urinary bladder distended with urine. No adnexal mass is seen. No free fluid is noted. Minimal S-shaped curvature of the thoracolumbar spine is seen. IMPRESSION: Dilated fluid-filled jejunal loops are seen within the left mid abdomen which could reflect a focal ileus versus a partial small bowel obstruction. Electronically signed by: Roge Grewal MD (03/30/2018 11:42 PM) [facility] DICTATED and SIGNED BY: ROGE GREWAL MD DATE: 03/30/18 8896 Comment Review of Relevant I have reviewed the following items stacy (where applicable) has been applied. Labs Laboratory Tests Test 04/01/18 05:20 White Blood Count 4.3 x10^3/uL (4.0-11.0) Red Blood Count 3.88 x10^6/uL (3.50-5.40) Hemoglobin 11.3 g/dL (12.0-15.5) Hematocrit 34.4 % (36.0-47.0) Mean Corpuscular Volume 89 fL (79-100) Mean Corpuscular Hemoglobin 29 pg (25-35) Mean Corpuscular Hemoglobin Concent 33 g/dL (31-37) Red Cell Distribution Width 14.0 % (11.5-14.5) Platelet Count 259 x10^3/uL (140-400) Neutrophils (%) (Auto) 67 % (31-73) Lymphocytes (%) (Auto) 21 % (24-48) Monocytes (%) (Auto) 10 % (0-9) Eosinophils (%) (Auto) 2 % (0-3) Basophils (%) (Auto) 0 % (0-3) Neutrophils # (Auto) 2.9 x10^3uL (1.8-7.7) Lymphocytes # (Auto) 0.9 x10^3/uL (1.0-4.8) Monocytes # (Auto) 0.4 x10^3/uL (0.0-1.1) Eosinophils # (Auto) 0.1 x10^3/uL (0.0-0.7) Basophils # (Auto) 0.0 x10^3/uL (0.0-0.2) Sodium Level 139 mmol/L (136-145) Potassium Level 3.9 mmol/L (3.5-5.1) Chloride Level 105 mmol/L (98-107) Carbon Dioxide Level 24 mmol/L (21-32) Anion Gap 10 (6-14) Blood Urea Nitrogen 6 mg/dL (7-20) Creatinine 0.6 mg/dL (0.6-1.0) Estimated GFR (Cockcroft-Gault) 118.2 Glucose Level 93 mg/dL (70-99) Calcium Level 8.3 mg/dL (8.5-10.1) Microbiology 03/30/18 Urine Culture - Final, Complete 03/30/18 Urine Culture Result 1 (PATRIZIA) - Final, Complete Medications Current Medications Morphine Sulfate (Morphine Sulfate) 4 mg 1X ONCE IV Last administered on at 21:50; Start 03/30/18 at 21:30; Stop 03/30/18 at 21:32; Status DC Ondansetron HCl (Zofran) 4 mg 1X ONCE IV Last administered on 03/30/18at 21:50 ; Start 03/30/18 at 21:30; Stop 03/30/18 at 21:32; Status DC Morphine Sulfate (Morphine Sulfate) 4 mg 1X ONCE IV Last administered on at 23:09; Start 03/30/18 at 23:15; Stop 03/30/18 at 23:16; Status DC Sodium Chloride 1,000 ml @ 1,000 mls/hr 1X ONCE IV Last administered on at 23:09; Start 03/30/18 at 23:15; Stop 03/31/18 at 00:14; Status DC Ondansetron HCl (Zofran) 4 mg PRN Q8HRS PRN IV NAUSEA/VOMITING; Start 03/31/18 at 01:00; Stop 03/31/18 at 08:44; Status DC Morphine Sulfate (Morphine Sulfate) 2 mg PRN Q2HR PRN IV PAIN Last administered on 03/31/18at 18:35; Start 03/31/18 at 01:00; Stop 04/01/18 at 00:59 ; Status DC Sodium Chloride 1,000 ml @ 150 mls/hr Q6H40M IV Last administered on at 22:12; Start 03/31/18 at 01:00; Stop 04/01/18 at 00:59; Status DC Ondansetron HCl (Zofran) 4 mg PRN Q6HRS PRN IV NAUSEA/VOMITING Last administered on 04/01/18 10:58; Start 03/31/18 at 08:45 Acetaminophen/ Hydrocodone Bitart (Lortab 5/325) 1 tab PRN Q4HRS PRN PO PAIN Last administered on 04/02/18 05:44; Start 03/31/18 at 08:45 Famotidine (Pepcid Vial) 20 mg QHS IVP Last administered on 04/01/18 20:05; Start 03/31/18 at 21:00 Dicyclomine HCl (Bentyl) 10 mg PRN TID PRN PO CRAMPS; Start 03/31/18 at 08:45 Acetaminophen/ Hydrocodone Bitart (Lortab 5/325) 1 tab BID PO Last administered on 04/02/18 09:29; Start 03/31/18 at 09:00 Ondansetron HCl (Zofran Odt) 4 mg PRN Q6HRS PRN PO NAUSEA/VOMITING Last administered on 03/31/18 21:05; Start 03/31/18 at 08:45 Oxybutynin Chloride (Ditropan) 5 mg PQS250 PO Last administered on 04/02/18 08 :20; Start 03/31/18 at 09:00 Sertraline HCl (Zoloft) 50 mg DAILY PO Last administered on 04/02/18 08:20; Start 03/31/18 at 09:00 Non-Formulary Medication (Atomoxetine Hcl (Strattera)) 1 cap DAILYWBKFT PRN PO ADHD; Start 03/31/18 at 08:45; Status UNV Naproxen (Naprosyn) 500 mg BIDWMEALS PO ; Start 03/31/18 at 09:00; Stop at 11:07; Status DC Non-Formulary Medication (Noreth A-Et Estra/Fe Fumarate (Loestrin Fe 1.5-30 Tablet)) 1 tab DAILY PO ; Start 03/31/18 at 09:00; Status UNV Spironolactone (Aldactone) 25 mg DAILY PO Last administered on 04/02/18 08:20 ; Start 03/31/18 at 09:00 Sodium Chloride 1,000 ml @ 100 mls/hr Q10H IV Last administered on 04/02/18at 00:46; Start 04/01/18 at 08:00 Fentanyl Citrate (Fentanyl 2ml Vial) 50 mcg PRN Q2HR PRN IV PAIN Last administered on 04/02/18at 10:55; Start 04/01/18 at 11:15 Bisacodyl (Dulcolax Supp) 10 mg 1X ONCE NC Last administered on 04/01/18at 11: 33; Start 04/01/18 at 11:15; Stop 04/01/18 at 11:16; Status DC Bisacodyl (Dulcolax Supp) 10 mg PRN DAILY PRN NC CONSTIPATION Last administered on 04/02/18at 09:29; Start 04/01/18 at 11:15 Active Scripts Active Ondansetron Odt (Ondansetron) 4 Mg Tab.rapdis 1 Tab PO PRN Q6-8HRS PRN 4 Days Dicyclomine Hcl 10 Mg Capsule 1 Cap PO TID PRN Medrol (Methylprednisolone) 4 Mg Tab.ds.pk 1 Pkg PO UD Oxybutynin Chloride 5 Mg Tablet 5 Mg PO [id number] Cefpodoxime Proxetil 100 Mg Tablet 200 Mg PO BID 7 Days [place] 5-325 Tablet (Acetaminophen/Hydrocodone Bitart) 1 Each Tablet 1 Tab PO BID Naproxen 500 Mg Tablet.dr 1 Tab PO BID Reported Loestrin Fe 1.5-30 Tablet (Noreth A-Et Estra/Fe Fumarate) 1 Each Tablet 1 Tab PO DAILY Aldactone (Spironolactone) 25 Mg Tablet 25 Mg PO DAILY Strattera (Atomoxetine Hcl) 80 Mg Capsule 1 Cap PO DAILYWBKFT PRN Zoloft (Sertraline Hcl) 50 Mg Tablet 1 Tab PO DAILY PRN Vitals/I & O Vital Sign - Last 24 Hours 04/01/18 04/01/18 04/01/18 04/01/18 11:33 13:35 15:00 15:21 Temp 98.2 98.2 Pulse 74 Resp 18 B/P (MAP) 109/67 (81) Pulse Ox 97 98 O2 Delivery Room Air Room Air Room Air 04/01/18 04/01/18 04/01/18 04/01/18 15:28 17:30 18:46 19:00 Temp 98.8 98.8 Pulse 62 Resp 20 B/P (MAP) 107/66 (80) Pulse Ox 98 97 O2 Delivery Room Air Room Air Room Air Room Air 04/01/18 04/01/18 04/01/18 04/01/18 20:04 20:05 21:31 21:32 Resp 20 20 20 O2 Delivery Room Air Room Air Room Air 04/01/18 04/02/18 04/02/18 04/02/18 23:00 00:46 03:00 03:51 Temp 98.6 98.2 98.6 98.2 Pulse 69 80 Resp 20 20 20 20 B/P (MAP) 105/57 (73) 113/69 (84) Pulse Ox 99 98 O2 Delivery Room Air Room Air Room Air Room Air 04/02/18 04/02/18 04/02/18 04/02/18 04:25 05:44 07:00 08:00 Temp 97.8 97.8 Pulse 71 Resp 20 20 16 B/P (MAP) 105/70 (82) Pulse Ox 98 O2 Delivery Room Air Room Air Room Air 04/02/18 04/02/18 04/02/18 04/02/18 08:19 08:21 09:28 09:29 O2 Delivery Room Air Room Air Room Air Room Air 04/02/18 04/02/18 04/02/18 10:55 10:58 10:59 Temp 98.9 98.9 Pulse 63 Resp 18 B/P (MAP) 102/61 (75) Pulse Ox 100 O2 Delivery Room Air Room Air Room Air Intake and Output 04/01/18 04/01/18 04/02/18 15:00 23:00 07:00 Intake Total 800 ml 995 ml Output Total 0 ml Balance 0 ml 800 ml 995 ml ADAN MORILLO MD Apr 02, 2018 11:19
[2018-04-02] MEDS: ONDANSETRON PF 4 MG/2 ML VIAL. IV PRN (13:13)
[2018-04-02] MEDS: CIPROFLOXACIN 0.3% OPHTH SOLUTION 5ML BOTTLE. OD SCH ×4 (14:22→23:04)
[2018-04-02 15:00] VITALS: BP 124/84
[2018-04-02] MEDS: PANTOPRAZOLE IV PUSH 40 MG VIAL. IVP SCH (16:54)
[2018-04-02 19:00] VITALS: BP 114/58
[2018-04-02 23:00] VITALS: BP 109/70
[2018-04-03] MEDS: fentaNYL PF VIAL 100 MCG/2 ML VIAL IV PRN ×9 (02:10→21:15)
[2018-04-03] MEDS: CIPROFLOXACIN 0.3% OPHTH SOLUTION 5ML BOTTLE. OD SCH ×7 (02:12→20:29)
[2018-04-03 03:00] VITALS: BP 91/61
[2018-04-03 04:14] LABS: BASO % 1 % (0-3); EOS # 0.4 x10^3/uL (0.0-0.7); EOS % 8 % (0-3); HEMATOCRIT 33.5 % (36.0-47.0); HEMOGLOBIN 10.9 g/dL (12.0-15.5); LYMPH # 1.6 x10^3/uL (1.0-4.8); LYMPH % 29 % (24-48); MEAN CORPUSCULAR HEMOGLOBIN 29 pg (25-35); MEAN CORPUSCULAR HGB CONC 33 g/dL (31-37); MEAN CORPUSCULAR VOLUME 90 fL (79-100); MONO # 0.4 x10^3/uL (0.0-1.1); MONO % 7 % (0-9); NEUT % 56 % (31-73); PLATELET COUNT 240 x10^3/uL (140-400); RED BLOOD COUNT 3.74 x10^6/uL (3.50-5.40); RED CELL DISTRIBUTION WIDTH 13.7 % (11.5-14.5); WHITE BLOOD COUNT 5.4 x10^3/uL (4.0-11.0)
[2018-04-03 05:13] LABS: CALCIUM 8.7 mg/dL (8.5-10.1); CREATININE 0.6 mg/dL (0.6-1.0); GFR 118.2; POTASSIUM 3.9 mmol/L (3.5-5.1)
[2018-04-03] MEDS: PANTOPRAZOLE IV PUSH 40 MG VIAL. IVP SCH (06:08)
[2018-04-03 07:00] VITALS: BP 108/40
[2018-04-03] MEDS: NORETH A ET ESTRA PO SCH (07:33)
[2018-04-03] MEDS: FE FUMARATE PO SCH (07:33)
[2018-04-03] MEDS: OXYBUTYNIN CHLORIDE 5 MG TABLET PO SCH ×3 (07:34→20:35)
[2018-04-03] MEDS: SERTRALINE 50 MG TABLET. PO SCH (07:34)
[2018-04-03] MEDS: SPIRONOLACTONE 25 MG TABLET PO SCH (07:34)
[2018-04-03] MEDS: HYDROcodone/APAP 5/325MG 1 TAB TABLET PO SCH ×2 (07:34→20:29)
[2018-04-03] MEDS: IV NORMAL SALINE 1000ML BAG 1,000 ML IV SCH ×2 (09:42→20:30)
--- NOTE | 2018-04-03 09:42 | PDOC ---
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 History of Present Illness History of Present Illness Still abdominal pain lower quadrant or left lower side, Poor by mouth intake NO emesis but nauseated No fever, no white count no flatus, no belching yet Ambulating but is causing some pain on left lower quadrant side Plan: so for elective lytes okay Maintain IV fluids since poor pO Continue present pain management Appreciate GI and GS NO GS needs Liquid diet then ADAT Vitals Vitals Vital Signs Date Time Temp Pulse Resp B/P (MAP) Pulse Ox O2 Delivery O2 Flow Rate FiO2 04/03/18 08:59 Room Air 04/03/18 07:00 98.3 69 18 108/40 (62) 96 98.3 Physical Exam General: Alert, Oriented X3, Cooperative, mild distress Heart: Regular rate, Normal S1, Normal S2, No murmurs Lungs: Clear Abdomen: Normal bowel sounds, Soft, Other (tender palpation left lower quadrant ) Extremities: No cyanosis, No edema Skin: No breakdown, No significant lesion Labs LABS Laboratory Tests Test 04/03/18 03:25 White Blood Count 5.4 x10^3/uL (4.0-11.0) Red Blood Count 3.74 x10^6/uL (3.50-5.40) Hemoglobin 10.9 g/dL (12.0-15.5) Hematocrit 33.5 % (36.0-47.0) Mean Corpuscular Volume 90 fL (79-100) Mean Corpuscular Hemoglobin 29 pg (25-35) Mean Corpuscular Hemoglobin Concent 33 g/dL (31-37) Red Cell Distribution Width 13.7 % (11.5-14.5) Platelet Count 240 x10^3/uL (140-400) Neutrophils (%) (Auto) 56 % (31-73) Lymphocytes (%) (Auto) 29 % (24-48) Monocytes (%) (Auto) 7 % (0-9) Eosinophils (%) (Auto) 8 % (0-3) Basophils (%) (Auto) 1 % (0-3) Neutrophils # (Auto) 3.0 x10^3uL (1.8-7.7) Lymphocytes # (Auto) 1.6 x10^3/uL (1.0-4.8) Monocytes # (Auto) 0.4 x10^3/uL (0.0-1.1) Eosinophils # (Auto) 0.4 x10^3/uL (0.0-0.7) Basophils # (Auto) 0.0 x10^3/uL (0.0-0.2) Sodium Level 139 mmol/L (136-145) Potassium Level 3.9 mmol/L (3.5-5.1) Chloride Level 106 mmol/L (98-107) Carbon Dioxide Level 24 mmol/L (21-32) Anion Gap 9 (6-14) Blood Urea Nitrogen 6 mg/dL (7-20) Creatinine 0.6 mg/dL (0.6-1.0) Estimated GFR (Cockcroft-Gault) 118.2 Glucose Level 96 mg/dL (70-99) Calcium Level 8.7 mg/dL (8.5-10.1) Review of Systems Review of Systems abd Pain, nausea, the rest of ROS 14 point negative Comment Review of Relevant I have reviewed the following items stacy (where applicable) has been applied. Labs Laboratory Tests Test 04/03/18 03:25 White Blood Count 5.4 x10^3/uL (4.0-11.0) Red Blood Count 3.74 x10^6/uL (3.50-5.40) Hemoglobin 10.9 g/dL (12.0-15.5) Hematocrit 33.5 % (36.0-47.0) Mean Corpuscular Volume 90 fL (79-100) Mean Corpuscular Hemoglobin 29 pg (25-35) Mean Corpuscular Hemoglobin Concent 33 g/dL (31-37) Red Cell Distribution Width 13.7 % (11.5-14.5) Platelet Count 240 x10^3/uL (140-400) Neutrophils (%) (Auto) 56 % (31-73) Lymphocytes (%) (Auto) 29 % (24-48) Monocytes (%) (Auto) 7 % (0-9) Eosinophils (%) (Auto) 8 % (0-3) Basophils (%) (Auto) 1 % (0-3) Neutrophils # (Auto) 3.0 x10^3uL (1.8-7.7) Lymphocytes # (Auto) 1.6 x10^3/uL (1.0-4.8) Monocytes # (Auto) 0.4 x10^3/uL (0.0-1.1) Eosinophils # (Auto) 0.4 x10^3/uL (0.0-0.7) Basophils # (Auto) 0.0 x10^3/uL (0.0-0.2) Sodium Level 139 mmol/L (136-145) Potassium Level 3.9 mmol/L (3.5-5.1) Chloride Level 106 mmol/L (98-107) Carbon Dioxide Level 24 mmol/L (21-32) Anion Gap 9 (6-14) Blood Urea Nitrogen 6 mg/dL (7-20) Creatinine 0.6 mg/dL (0.6-1.0) Estimated GFR (Cockcroft-Gault) 118.2 Glucose Level 96 mg/dL (70-99) Calcium Level 8.7 mg/dL (8.5-10.1) Laboratory Tests Test 04/03/18 03:25 White Blood Count 5.4 x10^3/uL (4.0-11.0) Red Blood Count 3.74 x10^6/uL (3.50-5.40) Hemoglobin 10.9 g/dL (12.0-15.5) Hematocrit 33.5 % (36.0-47.0) Mean Corpuscular Volume 90 fL (79-100) Mean Corpuscular Hemoglobin 29 pg (25-35) Mean Corpuscular Hemoglobin Concent 33 g/dL (31-37) Red Cell Distribution Width 13.7 % (11.5-14.5) Platelet Count 240 x10^3/uL (140-400) Neutrophils (%) (Auto) 56 % (31-73) Lymphocytes (%) (Auto) 29 % (24-48) Monocytes (%) (Auto) 7 % (0-9) Eosinophils (%) (Auto) 8 % (0-3) Basophils (%) (Auto) 1 % (0-3) Neutrophils # (Auto) 3.0 x10^3uL (1.8-7.7) Lymphocytes # (Auto) 1.6 x10^3/uL (1.0-4.8) Monocytes # (Auto) 0.4 x10^3/uL (0.0-1.1) Eosinophils # (Auto) 0.4 x10^3/uL (0.0-0.7) Basophils # (Auto) 0.0 x10^3/uL (0.0-0.2) Sodium Level 139 mmol/L (136-145) Potassium Level 3.9 mmol/L (3.5-5.1) Chloride Level 106 mmol/L (98-107) Carbon Dioxide Level 24 mmol/L (21-32) Anion Gap 9 (6-14) Blood Urea Nitrogen 6 mg/dL (7-20) Creatinine 0.6 mg/dL (0.6-1.0) Estimated GFR (Cockcroft-Gault) 118.2 Glucose Level 96 mg/dL (70-99) Calcium Level 8.7 mg/dL (8.5-10.1) Microbiology 03/30/18 Urine Culture - Final, Complete 03/30/18 Urine Culture Result 1 (PATRIZIA) - Final, Complete Medications Current Medications Morphine Sulfate (Morphine Sulfate) 4 mg 1X ONCE IV Last administered on at 21:50; Start 03/30/18 at 21:30; Stop 03/30/18 at 21:32; Status DC Ondansetron HCl (Zofran) 4 mg 1X ONCE IV Last administered on 03/30/18at 21:50 ; Start 03/30/18 at 21:30; Stop 03/30/18 at 21:32; Status DC Morphine Sulfate (Morphine Sulfate) 4 mg 1X ONCE IV Last administered on at 23:09; Start 03/30/18 at 23:15; Stop 03/30/18 at 23:16; Status DC Sodium Chloride 1,000 ml @ 1,000 mls/hr 1X ONCE IV Last administered on at 23:09; Start 03/30/18 at 23:15; Stop 03/31/18 at 00:14; Status DC Ondansetron HCl (Zofran) 4 mg PRN Q8HRS PRN IV NAUSEA/VOMITING; Start 03/31/18 at 01:00; Stop 03/31/18 at 08:44; Status DC Morphine Sulfate (Morphine Sulfate) 2 mg PRN Q2HR PRN IV PAIN Last administered on 03/31/18 18:35; Start 03/31/18 at 01:00; Stop 04/01/18 at 00:59 ; Status DC Sodium Chloride 1,000 ml @ 150 mls/hr Q6H40M IV Last administered on 22:12; Start 03/31/18 at 01:00; Stop 04/01/18 at 00:59; Status DC Ondansetron HCl (Zofran) 4 mg PRN Q6HRS PRN IV NAUSEA/VOMITING Last administered on 04/02/18 13:13; Start 03/31/18 at 08:45 Acetaminophen/ Hydrocodone Bitart (Lortab 5/325) 1 tab PRN Q4HRS PRN PO PAIN Last administered on 04/02/18 13:13; Start 03/31/18 at 08:45 Famotidine (Pepcid Vial) 20 mg QHS IVP Last administered on 04/01/18 20:05; Start 03/31/18 at 21:00; Stop 04/02/18 at 17:17; Status DC Dicyclomine HCl (Bentyl) 10 mg PRN TID PRN PO CRAMPS; Start 03/31/18 at 08:45 Acetaminophen/ Hydrocodone Bitart (Lortab 5/325) 1 tab BID PO Last administered on 04/02/18 09:29; Start 03/31/18 at 09:00 Ondansetron HCl (Zofran Odt) 4 mg PRN Q6HRS PRN PO NAUSEA/VOMITING Last administered on 03/31/18 21:05; Start 03/31/18 at 08:45 Oxybutynin Chloride (Ditropan) 5 mg [id number] PO Last administered on 04/02/18 14 :21; Start 03/31/18 at 09:00 Sertraline HCl (Zoloft) 50 mg DAILY PO Last administered on 04/02/18 08:20; Start 03/31/18 at 09:00 Non-Formulary Medication (Atomoxetine Hcl (Strattera)) 1 cap DAILYWBKFT PRN PO ADHD; Start 03/31/18 at 08:45; Status UNV Naproxen (Naprosyn) 500 mg BIDWMEALS PO ; Start 03/31/18 at 09:00; Stop at 11:07; Status DC Non-Formulary Medication (Noreth A-Et Estra/Fe Fumarate (Loestrin Fe 1.5-30 Tablet)) 1 tab DAILY PO ; Start 03/31/18 at 09:00; Status UNV Spironolactone (Aldactone) 25 mg DAILY PO Last administered on 04/02/18at 08:20 ; Start 03/31/18 at 09:00 Sodium Chloride 1,000 ml @ 100 mls/hr Q10H IV Last administered on 04/02/18at 23:02; Start 04/01/18 at 08:00 Fentanyl Citrate (Fentanyl 2ml Vial) 50 mcg PRN Q2HR PRN IV PAIN Last administered on 04/03/18at 06:31; Start 04/01/18 at 11:15 Bisacodyl (Dulcolax Supp) 10 mg 1X ONCE AL Last administered on 04/01/18at 11: 33; Start 04/01/18 at 11:15; Stop 04/01/18 at 11:16; Status DC Bisacodyl (Dulcolax Supp) 10 mg PRN DAILY PRN [place] CONSTIPATION Last administered on 04/02/18at 09:29; Start 04/01/18 at 11:15 Ciprofloxacin (Ciloxan Ophth) 2 drop Q3HRS OD Last administered on 04/03/18at 06 :11; Start 04/02/18 at 15:00 Pantoprazole Sodium (PROTONIX VIAL for IV PUSH) 40 mg DAILYAC IVP Last administered on 04/03/18at 06:08; Start 04/02/18 at 16:30 Active Scripts Active Ondansetron Odt (Ondansetron) 4 Mg Tab.rapdis 1 Tab PO PRN Q6-8HRS PRN 4 Days Dicyclomine Hcl 10 Mg Capsule 1 Cap PO TID PRN Medrol (Methylprednisolone) 4 Mg Tab.ds.pk 1 Pkg PO UD Oxybutynin Chloride 5 Mg Tablet 5 Mg PO [id number] Cefpodoxime Proxetil 100 Mg Tablet 200 Mg PO BID 7 Days [place] 5-325 Tablet (Acetaminophen/Hydrocodone Bitart) 1 Each Tablet 1 Tab PO BID Naproxen 500 Mg Tablet.dr 1 Tab PO BID Reported Loestrin Fe 1.5-30 Tablet (Noreth A-Et Estra/Fe Fumarate) 1 Each Tablet 1 Tab PO DAILY Aldactone (Spironolactone) 25 Mg Tablet 25 Mg PO DAILY Strattera (Atomoxetine Hcl) 80 Mg Capsule 1 Cap PO DAILYWBKFT PRN Zoloft (Sertraline Hcl) 50 Mg Tablet 1 Tab PO DAILY PRN Vitals/I & O Vital Sign - Last 24 Hours 04/02/18 04/02/18 04/02/18 04/02/18 10:55 10:58 10:59 13:13 Temp 98.9 98.9 Pulse 63 Resp 18 B/P (MAP) 102/61 (75) Pulse Ox 100 O2 Delivery Room Air Room Air Room Air Room Air 04/02/18 04/02/18 04/02/18 04/02/18 14:23 14:58 15:00 18:10 Temp 98.1 98.1 Pulse 64 Resp 18 B/P (MAP) 124/84 (97) Pulse Ox 98 O2 Delivery Room Air Room Air Room Air Room Air 04/02/18 04/02/18 04/02/18 04/02/18 19:00 20:00 20:21 23:00 Temp 98.1 98.1 98.1 98.1 Pulse 61 76 Resp 18 20 19 B/P (MAP) 114/58 (76) 109/70 (83) Pulse Ox 98 98 97 O2 Delivery Room Air Room Air Room Air Room Air 04/02/18 04/03/18 04/03/18 04/03/18 23:02 02:10 03:00 04:13 Temp 98.0 98.0 Pulse 85 Resp 20 20 17 20 B/P (MAP) 91/61 (71) Pulse Ox 98 98 98 98 O2 Delivery Room Air Room Air Room Air Room Air 04/03/18 04/03/18 04/03/18 04/03/18 04:43 06:31 07:00 08:59 Temp 98.3 98.3 Pulse 69 Resp 20 18 18 B/P (MAP) 108/40 (62) Pulse Ox 98 98 96 O2 Delivery Room Air Room Air Room Air Intake and Output 204/02/18 04/03/18 14:59 22:59 06:59 Intake Total 1470 ml 1100 ml Output Total 0 ml Balance 1470 ml 1100 ml ZOYA GRAVES MD Apr 03, 2018 09:42
[2018-04-03 10:46] VITALS: BP 107/44
[2018-04-03] MEDS: BISACODYL 10 MG SUPP.RECT. PR PRN (11:29)
--- NOTE | 2018-04-03 11:57 | PDOC ---
SURGICAL PROGRESS NOTE Subjective Khari for Dr Garcia Crowder had some stomach upset with clear liquids last stool was six days ago Vital Signs Vital Signs Date Time Temp Pulse Resp B/P (MAP) Pulse Ox O2 Delivery O2 Flow Rate FiO2 04/03/18 11:29 Room Air 04/03/18 10:46 98.4 71 18 107/44 (65) 96 98.4 I&O Intake and Output 04/03/18 07:00 Intake Total 2570 ml Output Total 0 ml Balance 2570 ml Intake Oral 470 ml IV Total 2100 ml Output Urine Total 0 ml # Voids 2 PATIENT HAS A PATTERSON: No General: Alert, Oriented X3, Cooperative, No acute distress Abdomen: Soft Labs Laboratory Tests Test 04/03/18 03:25 White Blood Count 5.4 x10^3/uL (4.0-11.0) Red Blood Count 3.74 x10^6/uL (3.50-5.40) Hemoglobin 10.9 g/dL (12.0-15.5) Hematocrit 33.5 % (36.0-47.0) Mean Corpuscular Volume 90 fL (79-100) Mean Corpuscular Hemoglobin 29 pg (25-35) Mean Corpuscular Hemoglobin Concent 33 g/dL (31-37) Red Cell Distribution Width 13.7 % (11.5-14.5) Platelet Count 240 x10^3/uL (140-400) Neutrophils (%) (Auto) 56 % (31-73) Lymphocytes (%) (Auto) 29 % (24-48) Monocytes (%) (Auto) 7 % (0-9) Eosinophils (%) (Auto) 8 % (0-3) Basophils (%) (Auto) 1 % (0-3) Neutrophils # (Auto) 3.0 x10^3uL (1.8-7.7) Lymphocytes # (Auto) 1.6 x10^3/uL (1.0-4.8) Monocytes # (Auto) 0.4 x10^3/uL (0.0-1.1) Eosinophils # (Auto) 0.4 x10^3/uL (0.0-0.7) Basophils # (Auto) 0.0 x10^3/uL (0.0-0.2) Sodium Level 139 mmol/L (136-145) Potassium Level 3.9 mmol/L (3.5-5.1) Chloride Level 106 mmol/L (98-107) Carbon Dioxide Level 24 mmol/L (21-32) Anion Gap 9 (6-14) Blood Urea Nitrogen 6 mg/dL (7-20) Creatinine 0.6 mg/dL (0.6-1.0) Estimated GFR (Cockcroft-Gault) 118.2 Glucose Level 96 mg/dL (70-99) Calcium Level 8.7 mg/dL (8.5-10.1) Laboratory Tests Test 04/03/18 03:25 White Blood Count 5.4 x10^3/uL (4.0-11.0) Red Blood Count 3.74 x10^6/uL (3.50-5.40) Hemoglobin 10.9 g/dL (12.0-15.5) Hematocrit 33.5 % (36.0-47.0) Mean Corpuscular Volume 90 fL (79-100) Mean Corpuscular Hemoglobin 29 pg (25-35) Mean Corpuscular Hemoglobin Concent 33 g/dL (31-37) Red Cell Distribution Width 13.7 % (11.5-14.5) Platelet Count 240 x10^3/uL (140-400) Neutrophils (%) (Auto) 56 % (31-73) Lymphocytes (%) (Auto) 29 % (24-48) Monocytes (%) (Auto) 7 % (0-9) Eosinophils (%) (Auto) 8 % (0-3) Basophils (%) (Auto) 1 % (0-3) Neutrophils # (Auto) 3.0 x10^3uL (1.8-7.7) Lymphocytes # (Auto) 1.6 x10^3/uL (1.0-4.8) Monocytes # (Auto) 0.4 x10^3/uL (0.0-1.1) Eosinophils # (Auto) 0.4 x10^3/uL (0.0-0.7) Basophils # (Auto) 0.0 x10^3/uL (0.0-0.2) Sodium Level 139 mmol/L (136-145) Potassium Level 3.9 mmol/L (3.5-5.1) Chloride Level 106 mmol/L (98-107) Carbon Dioxide Level 24 mmol/L (21-32) Anion Gap 9 (6-14) Blood Urea Nitrogen 6 mg/dL (7-20) Creatinine 0.6 mg/dL (0.6-1.0) Estimated GFR (Cockcroft-Gault) 118.2 Glucose Level 96 mg/dL (70-99) Calcium Level 8.7 mg/dL (8.5-10.1) Assessment/Plan ileus/SBO s/p endoscopic rectal polypectomy no new surg recs ZACHERY ESPINAL MD Apr 03, 2018 11:57
[2018-04-03 14:54] VITALS: BP 110/71
[2018-04-03] MEDS: DOCUSATE SODIUM 100 MG CAPSULE. PO SCH (16:40)
[2018-04-03 19:00] VITALS: BP 103/51
[2018-04-03] MEDS: ONDANSETRON PF 4 MG/2 ML VIAL. IV PRN (19:01)
[2018-04-03 23:00] VITALS: BP 97/45
[2018-04-04] MEDS: CIPROFLOXACIN 0.3% OPHTH SOLUTION 5ML BOTTLE. OD SCH ×8 (00:05→21:31)
[2018-04-04] MEDS: fentaNYL PF VIAL 100 MCG/2 ML VIAL IV PRN ×8 (00:33→23:14)
[2018-04-04 03:00] VITALS: BP 107/67
[2018-04-04] MEDS: DICYCLOMINE HCL 10 MG CAPSULE PO PRN ×2 (06:09→14:30)
[2018-04-04 07:00] VITALS: BP 112/67
[2018-04-04] MEDS: HYDROcodone/APAP 5/325MG 1 TAB TABLET PO SCH ×2 (08:24→21:31)
[2018-04-04] MEDS: SPIRONOLACTONE 25 MG TABLET PO SCH (08:25)
[2018-04-04] MEDS: SERTRALINE 50 MG TABLET. PO SCH (08:25)
[2018-04-04] MEDS: ONDANSETRON ODT 4 MG TAB.RAPDIS. PO PRN (08:25)
[2018-04-04] MEDS: PANTOPRAZOLE IV PUSH 40 MG VIAL. IVP SCH (08:26)
[2018-04-04] MEDS: OXYBUTYNIN CHLORIDE 5 MG TABLET PO SCH ×3 (08:26→21:30)
[2018-04-04] MEDS: DOCUSATE SODIUM 100 MG CAPSULE. PO SCH (08:26)
[2018-04-04] MEDS: IV NORMAL SALINE 1000ML BAG 1,000 ML IV SCH (08:42)
--- NOTE | 2018-04-04 08:42 | NUR ---
Fluids NS started at this time, due to previous bag still remaining.
[2018-04-04] MEDS: NORETH A ET ESTRA PO SCH (08:44)
[2018-04-04] MEDS: FE FUMARATE PO SCH (08:44)
--- NOTE | 2018-04-04 09:05 | PDOC ---
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 History of Present Illness History of Present Illness Still no BM-last BM 6 days ago - (claims not narc dependent) Still abdominal pain lower quadrant or left lower side, Poor by mouth intake on liq diet NO emesis but nauseated No fever, no white count HAs flatus now Ambulating but is causing some pain on left lower quadrant side Plan: so for elective lytes okay Fleet enema now Current IVF to consume Possibly home tomorrow when eating more and moves a BM, and pain much more tolerable Dw RN at bedside Vitals Vitals Vital Signs Date Time Temp Pulse Resp B/P (MAP) Pulse Ox O2 Delivery O2 Flow Rate FiO2 04/04/18 08:24 99 Room Air 04/04/18 07:00 97.8 61 16 112/67 (82) 97.8 Physical Exam General: Alert, Oriented X3, Cooperative, No acute distress Heart: Regular rate, Normal S1, Normal S2, No murmurs Lungs: Clear Abdomen: Soft Extremities: No cyanosis, No edema Skin: No breakdown, No significant lesion Review of Systems Review of Systems Constipated, lower abdominal pain, nausea, the rest of ROS negative, poor by mouth Comment Review of Relevant I have reviewed the following items stacy (where applicable) has been applied. Labs Laboratory Tests Test 04/03/18 03:25 White Blood Count 5.4 x10^3/uL (4.0-11.0) Red Blood Count 3.74 x10^6/uL (3.50-5.40) Hemoglobin 10.9 g/dL (12.0-15.5) Hematocrit 33.5 % (36.0-47.0) Mean Corpuscular Volume 90 fL (79-100) Mean Corpuscular Hemoglobin 29 pg (25-35) Mean Corpuscular Hemoglobin Concent 33 g/dL (31-37) Red Cell Distribution Width 13.7 % (11.5-14.5) Platelet Count 240 x10^3/uL (140-400) Neutrophils (%) (Auto) 56 % (31-73) Lymphocytes (%) (Auto) 29 % (24-48) Monocytes (%) (Auto) 7 % (0-9) Eosinophils (%) (Auto) 8 % (0-3) Basophils (%) (Auto) 1 % (0-3) Neutrophils # (Auto) 3.0 x10^3uL (1.8-7.7) Lymphocytes # (Auto) 1.6 x10^3/uL (1.0-4.8) Monocytes # (Auto) 0.4 x10^3/uL (0.0-1.1) Eosinophils # (Auto) 0.4 x10^3/uL (0.0-0.7) Basophils # (Auto) 0.0 x10^3/uL (0.0-0.2) Sodium Level 139 mmol/L (136-145) Potassium Level 3.9 mmol/L (3.5-5.1) Chloride Level 106 mmol/L (98-107) Carbon Dioxide Level 24 mmol/L (21-32) Anion Gap 9 (6-14) Blood Urea Nitrogen 6 mg/dL (7-20) Creatinine 0.6 mg/dL (0.6-1.0) Estimated GFR (Cockcroft-Gault) 118.2 Glucose Level 96 mg/dL (70-99) Calcium Level 8.7 mg/dL (8.5-10.1) Microbiology 03/30/18 Urine Culture - Final, Complete 03/30/18 Urine Culture Result 1 (PATRIZIA) - Final, Complete Medications Current Medications Morphine Sulfate (Morphine Sulfate) 4 mg 1X ONCE IV Last administered on at 21:50; Start 03/30/18 at 21:30; Stop 03/30/18 at 21:32; Status DC Ondansetron HCl (Zofran) 4 mg 1X ONCE IV Last administered on 03/30/18at 21:50 ; Start 03/30/18 at 21:30; Stop 03/30/18 at 21:32; Status DC Morphine Sulfate (Morphine Sulfate) 4 mg 1X ONCE IV Last administered on at 23:09; Start 03/30/18 at 23:15; Stop 03/30/18 at 23:16; Status DC Sodium Chloride 1,000 ml @ 1,000 mls/hr 1X ONCE IV Last administered on 23:09; Start 03/30/18 at 23:15; Stop 03/31/18 at 00:14; Status DC Ondansetron HCl (Zofran) 4 mg PRN Q8HRS PRN IV NAUSEA/VOMITING; Start 03/31/18 at 01:00; Stop 03/31/18 at 08:44; Status DC Morphine Sulfate (Morphine Sulfate) 2 mg PRN Q2HR PRN IV PAIN Last administered on 03/31/18 18:35; Start 03/31/18 at 01:00; Stop 04/01/18 at 00:59 ; Status DC Sodium Chloride 1,000 ml @ 150 mls/hr Q6H40M IV Last administered on 22:12; Start 03/31/18 at 01:00; Stop 04/01/18 at 00:59; Status DC Ondansetron HCl (Zofran) 4 mg PRN Q6HRS PRN IV NAUSEA/VOMITING Last administered on 04/03/18at 19:01; Start 03/31/18 at 08:45 Acetaminophen/ Hydrocodone Bitart (Lortab 5/325) 1 tab PRN Q4HRS PRN PO PAIN Last administered on 04/02/18 13:13; Start 03/31/18 at 08:45 Famotidine (Pepcid Vial) 20 mg QHS IVP Last administered on 04/01/18 20:05; Start 03/31/18 at 21:00; Stop 04/02/18 at 17:17; Status DC Dicyclomine HCl (Bentyl) 10 mg PRN TID PRN PO CRAMPS Last administered on 06:09; Start 03/31/18 at 08:45 Acetaminophen/ Hydrocodone Bitart (Lortab 5/325) 1 tab BID PO Last administered on 04/04/18 08:24; Start 03/31/18 at 09:00 Ondansetron HCl (Zofran Odt) 4 mg PRN Q6HRS PRN PO NAUSEA/VOMITING Last administered on 04/04/18 08:25; Start 03/31/18 at 08:45 Oxybutynin Chloride (Ditropan) 5 mg [id number] PO Last administered on 04/04/18 08 :26; Start 03/31/18 at 09:00 Sertraline HCl (Zoloft) 50 mg DAILY PO Last administered on 04/04/18 08:25; Start 03/31/18 at 09:00 Non-Formulary Medication (Atomoxetine Hcl (Strattera)) 1 cap DAILYWBKFT PRN PO ADHD; Start 03/31/18 at 08:45; Status UNV Naproxen (Naprosyn) 500 mg BIDWMEALS PO ; Start 03/31/18 at 09:00; Stop at 11:07; Status DC Non-Formulary Medication (Noreth A-Et Estra/Fe Fumarate (Loestrin Fe 1.5-30 Tablet)) 1 tab DAILY PO ; Start 03/31/18 at 09:00; Status UNV Spironolactone (Aldactone) 25 mg DAILY PO Last administered on 04/04/18 08:25 ; Start 03/31/18 at 09:00 Sodium Chloride 1,000 ml @ 100 mls/hr Q10H IV Last administered on 04/04/18 08:42; Start 04/01/18 at 08:00 Fentanyl Citrate (Fentanyl 2ml Vial) 50 mcg PRN Q2HR PRN IV PAIN Last administered on 04/04/18 05:41; Start 04/01/18 at 11:15 Bisacodyl (Dulcolax Supp) 10 mg 1X ONCE [place] Last administered on 04/01/18 11: 33; Start 04/01/18 at 11:15; Stop 04/01/18 at 11:16; Status DC Bisacodyl (Dulcolax Supp) 10 mg PRN DAILY PRN [place] CONSTIPATION Last administered on 04/03/18 11:29; Start 04/01/18 at 11:15 Ciprofloxacin (Ciloxan Ophth) 2 drop Q3HRS OD Last administered on 04/04/18 08 :27; Start 04/02/18 at 15:00 Pantoprazole Sodium (PROTONIX VIAL for IV PUSH) 40 mg DAILYAC IVP Last administered on 04/04/18 08:26; Start 04/02/18 at 16:30 Docusate Sodium (Colace) 100 mg DAILY PO Last administered on 2/17/19at 08:26; Start 04/03/18 at 16:30 Simethicone (Gas-X) 80 mg PRN AFTMEALHC PRN PO GAS / BLOATING; Start 04/03/18 at 15:15 Active Scripts Active Ondansetron Odt (Ondansetron) 4 Mg Tab.rapdis 1 Tab PO PRN Q6-8HRS PRN 4 Days Dicyclomine Hcl 10 Mg Capsule 1 Cap PO TID PRN Medrol (Methylprednisolone) 4 Mg Tab.ds.pk 1 Pkg PO UD Oxybutynin Chloride 5 Mg Tablet 5 Mg PO [id number] Cefpodoxime Proxetil 100 Mg Tablet 200 Mg PO BID 7 Days [place] 5-325 Tablet (Acetaminophen/Hydrocodone Bitart) 1 Each Tablet 1 Tab PO BID Naproxen 500 Mg Tablet. 1 Tab PO BID Reported Loestrin Fe 1.5-30 Tablet (Noreth A-Et Estra/Fe Fumarate) 1 Each Tablet 1 Tab PO DAILY Aldactone (Spironolactone) 25 Mg Tablet 25 Mg PO DAILY Strattera (Atomoxetine Hcl) 80 Mg Capsule 1 Cap PO DAILYWBKFT PRN Zoloft (Sertraline Hcl) 50 Mg Tablet 1 Tab PO DAILY PRN Vitals/I & O Vital Sign - Last 24 Hours 04/03/18 04/03/18 04/03/18 04/03/18 09:43 10:46 12:22 14:30 Temp 98.4 98.4 Pulse 71 Resp 18 B/P (MAP) 107/44 (65) Pulse Ox 96 O2 Delivery Room Air Room Air Room Air Room Air 04/03/18 04/03/18 04/03/18 04/03/18 14:54 16:42 18:56 19:00 Temp 98.4 98.4 98.4 98.4 Pulse 66 67 Resp 18 18 B/P (MAP) 110/71 (84) 103/51 (68) Pulse Ox 96 97 O2 Delivery Room Air Room Air Room Air 04/03/18 04/03/18 04/03/18 04/03/18 20:00 20:29 21:15 21:34 Resp 15 16 15 Pulse Ox 96 96 96 O2 Delivery Room Air Room Air Room Air Room Air 04/03/18 04/04/18 04/04/18 04/04/18 23:00 00:33 03:00 03:02 Temp 98.2 97.9 98.2 97.9 Pulse 61 58 Resp 18 17 18 15 B/P (MAP) 97/45 (62) 107/67 (80) Pulse Ox 99 96 94 96 O2 Delivery Room Air Room Air 04/04/18 04/04/18 04/04/18 04/04/18 05:41 06:09 07:00 08:24 Temp 97.8 97.8 Pulse 61 Resp 17 17 16 B/P (MAP) 112/67 (82) Pulse Ox 96 96 99 99 O2 Delivery Room Air Room Air Room Air Room Air Intake and Output 04/03/18 04/03/18 04/04/18 15:00 23:00 07:00 Intake Total 1000 ml 120 ml Balance 1000 ml 120 ml ZOYA GRAVES MD Apr 04, 2018 09:05
[2018-04-04] MEDS ORDERED: SODIUM PHOSPHATES 19/7GM 133 ML ENEMA. PR ONE (09:15)
--- NOTE | 2018-04-04 10:57 | PDOC ---
SURGICAL PROGRESS NOTE Subjective Khari for Dr Zelaya feels better tolerating full liquids Vital Signs Vital Signs Date Time Temp Pulse Resp B/P (MAP) Pulse Ox O2 Delivery O2 Flow Rate FiO2 04/04/18 09:51 99 Room Air 04/04/18 07:00 97.8 61 16 112/67 (82) 97.8 I&O Intake and Output 04/04/18 06:59 Intake Total 1120 ml Balance 1120 ml Intake Oral 120 ml IV Total 1000 ml # Voids 2 PATIENT HAS A PATTERSON: No General: Alert, Oriented X3, No acute distress Labs Laboratory Tests Test 04/03/18 03:25 White Blood Count 5.4 x10^3/uL (4.0-11.0) Red Blood Count 3.74 x10^6/uL (3.50-5.40) Hemoglobin 10.9 g/dL (12.0-15.5) Hematocrit 33.5 % (36.0-47.0) Mean Corpuscular Volume 90 fL (79-100) Mean Corpuscular Hemoglobin 29 pg (25-35) Mean Corpuscular Hemoglobin Concent 33 g/dL (31-37) Red Cell Distribution Width 13.7 % (11.5-14.5) Platelet Count 240 x10^3/uL (140-400) Neutrophils (%) (Auto) 56 % (31-73) Lymphocytes (%) (Auto) 29 % (24-48) Monocytes (%) (Auto) 7 % (0-9) Eosinophils (%) (Auto) 8 % (0-3) Basophils (%) (Auto) 1 % (0-3) Neutrophils # (Auto) 3.0 x10^3uL (1.8-7.7) Lymphocytes # (Auto) 1.6 x10^3/uL (1.0-4.8) Monocytes # (Auto) 0.4 x10^3/uL (0.0-1.1) Eosinophils # (Auto) 0.4 x10^3/uL (0.0-0.7) Basophils # (Auto) 0.0 x10^3/uL (0.0-0.2) Sodium Level 139 mmol/L (136-145) Potassium Level 3.9 mmol/L (3.5-5.1) Chloride Level 106 mmol/L (98-107) Carbon Dioxide Level 24 mmol/L (21-32) Anion Gap 9 (6-14) Blood Urea Nitrogen 6 mg/dL (7-20) Creatinine 0.6 mg/dL (0.6-1.0) Estimated GFR (Cockcroft-Gault) 118.2 Glucose Level 96 mg/dL (70-99) Calcium Level 8.7 mg/dL (8.5-10.1) Assessment/Plan s/p rectal polypectomy no new surgical recs ZACHERY ESPINAL MD Apr 04, 2018 10:57
[2018-04-04 11:00] VITALS: BP 104/59
[2018-04-04 15:00] VITALS: BP 106/57
--- NOTE | 2018-04-04 15:01 | NUR ---
Patient diet attempted to advance to GI Soft diet; however, patient did not tolerate the GI Soft diet and complained of severe abdominal cramping. See eMar for pain medication history. Diet back to clear liquid, as tolerated.
[2018-04-04] MEDS: HYDROcodone/APAP 5/325MG 1 TAB TABLET PO PRN (17:47)
[2018-04-04 19:00] VITALS: BP 104/60
[2018-04-04 22:40] VITALS: BP 109/73
[2018-04-05] MEDS: fentaNYL PF VIAL 100 MCG/2 ML VIAL IV PRN ×2 (02:45→05:39)
[2018-04-05] MEDS: CIPROFLOXACIN 0.3% OPHTH SOLUTION 5ML BOTTLE. OD SCH ×8 (02:45→21:11)
[2018-04-05 02:55] VITALS: BP 112/65
[2018-04-05 07:00] VITALS: BP 102/60
[2018-04-05] MEDS: PANTOPRAZOLE IV PUSH 40 MG VIAL. IVP SCH (07:55)
--- NOTE | 2018-04-05 08:42 | PDOC ---
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 History of Present Illness History of Present Illness 04/04: Still abdominal pain lower quadrant or left lower side, poor by mouth intake on liq diet. No emesis but nauseated. No fever, no white count. Has flatus now. Ambulating but is causing some pain on left lower quadrant side Advanced diet yesterday to GI soft with pain. Had a small liquid BM. Had an appetite, so this morning advanced to full liquid from clear liquid. Pain is all LLQ with radiation to the back. No GI labs ordered Plan: Labs today Current IVF Dw RN at bedside If can advance diet and take oral pain meds, no objection to considering for discharge and f/u at [facility]. Vitals Vitals Vital Signs Date Time Temp Pulse Resp B/P (MAP) Pulse Ox O2 Delivery O2 Flow Rate FiO2 04/05/18 07:00 97.5 65 16 102/60 (74) 97 Room Air 97.5 Physical Exam General: Alert, Oriented X3, No acute distress Heart: Regular rate, Normal S1, Normal S2, No murmurs Lungs: Clear Abdomen: Soft, Other (LLQ pain) Extremities: No cyanosis, No edema Skin: No breakdown, No significant lesion Comment Review of Relevant I have reviewed the following items stacy (where applicable) has been applied. Labs Microbiology 03/30/18 Urine Culture - Final, Complete 03/30/18 Urine Culture Result 1 (PATRIZIA) - Final, Complete Medications Current Medications Morphine Sulfate (Morphine Sulfate) 4 mg 1X ONCE IV Last administered on at 21:50; Start 03/30/18 at 21:30; Stop 03/30/18 at 21:32; Status DC Ondansetron HCl (Zofran) 4 mg 1X ONCE IV Last administered on 03/30/18at 21:50 ; Start 03/30/18 at 21:30; Stop 03/30/18 at 21:32; Status DC Morphine Sulfate (Morphine Sulfate) 4 mg 1X ONCE IV Last administered on 23:09; Start 03/30/18 at 23:15; Stop 03/30/18 at 23:16; Status DC Sodium Chloride 1,000 ml @ 1,000 mls/hr 1X ONCE IV Last administered on 23:09; Start 03/30/18 at 23:15; Stop 03/31/18 at 00:14; Status DC Ondansetron HCl (Zofran) 4 mg PRN Q8HRS PRN IV NAUSEA/VOMITING; Start 03/31/18 at 01:00; Stop 03/31/18 at 08:44; Status DC Morphine Sulfate (Morphine Sulfate) 2 mg PRN Q2HR PRN IV PAIN Last administered on 03/31/18 18:35; Start 03/31/18 at 01:00; Stop 04/01/18 at 00:59 ; Status DC Sodium Chloride 1,000 ml @ 150 mls/hr Q6H40M IV Last administered on 22:12; Start 03/31/18 at 01:00; Stop 04/01/18 at 00:59; Status DC Ondansetron HCl (Zofran) 4 mg PRN Q6HRS PRN IV NAUSEA/VOMITING Last administered on 04/03/18 19:01; Start 03/31/18 at 08:45 Acetaminophen/ Hydrocodone Bitart (Lortab 5/325) 1 tab PRN Q4HRS PRN PO PAIN Last administered on 04/04/18 17:47; Start 03/31/18 at 08:45 Famotidine (Pepcid Vial) 20 mg QHS IVP Last administered on 04/01/18at 20:05; Start 03/31/18 at 21:00; Stop 04/02/18 at 17:17; Status DC Dicyclomine HCl (Bentyl) 10 mg PRN TID PRN PO CRAMPS Last administered on 14:30; Start 03/31/18 at 08:45 Acetaminophen/ Hydrocodone Bitart (Lortab 5/325) 1 tab BID PO Last administered on 04/04/18 21:31; Start 03/31/18 at 09:00 Ondansetron HCl (Zofran Odt) 4 mg PRN Q6HRS PRN PO NAUSEA/VOMITING Last administered on 04/04/18 08:25; Start 03/31/18 at 08:45 Oxybutynin Chloride (Ditropan) 5 mg [id number] PO Last administered on 04/04/18 21 :30; Start 03/31/18 at 09:00 Sertraline HCl (Zoloft) 50 mg DAILY PO Last administered on 04/04/18 08:25; Start 03/31/18 at 09:00 Non-Formulary Medication (Atomoxetine Hcl (Strattera)) 1 cap DAILYWBKFT PRN PO ADHD; Start 03/31/18 at 08:45; Status UNV Naproxen (Naprosyn) 500 mg BIDWMEALS PO ; Start 03/31/18 at 09:00; Stop at 11:07; Status DC Non-Formulary Medication (Noreth A-Et Estra/Fe Fumarate (Loestrin Fe 1.5-30 Tablet)) 1 tab DAILY PO ; Start 03/31/18 at 09:00; Status UNV Spironolactone (Aldactone) 25 mg DAILY PO Last administered on 04/04/18 08:25 ; Start 03/31/18 at 09:00 Sodium Chloride 1,000 ml @ 100 mls/hr Q10H IV Last administered on 04/04/18 08:42; Start 04/01/18 at 08:00; Stop 04/04/18 at 09:04; Status DC Fentanyl Citrate (Fentanyl 2ml Vial) 50 mcg PRN Q2HR PRN IV PAIN Last administered on 04/05/18 05:39; Start 04/01/18 at 11:15 Bisacodyl (Dulcolax Supp) 10 mg 1X ONCE MI Last administered on 04/01/18 11: 33; Start 04/01/18 at 11:15; Stop 04/01/18 at 11:16; Status DC Bisacodyl (Dulcolax Supp) 10 mg PRN DAILY PRN MI CONSTIPATION Last administered on 04/03/18 11:29; Start 04/01/18 at 11:15 Ciprofloxacin (Ciloxan Ophth) 2 drop Q3HRS OD Last administered on 04/05/18 05 :39; Start 04/02/18 at 15:00 Pantoprazole Sodium (PROTONIX VIAL for IV PUSH) 40 mg DAILYAC IVP Last administered on 04/05/18at 07:55; Start 04/02/18 at 16:30 Docusate Sodium (Colace) 100 mg DAILY PO Last administered on 04/04/18at 08:26; Start 04/03/18 at 16:30 Simethicone (Gas-X) 80 mg PRN AFTMEALHC PRN PO GAS / BLOATING; Start 04/03/18 at 15:15 Sodium Monofluorophosphate (Fleet Adult) 133 ml 1X ONCE MI Last administered on 04/04/18at 10:39; Start 04/04/18 at 09:15; Stop 04/04/18 at 09:16; Status DC Active Scripts Active Ondansetron Odt (Ondansetron) 4 Mg Tab.rapdis 1 Tab PO PRN Q6-8HRS PRN 4 Days Dicyclomine Hcl 10 Mg Capsule 1 Cap PO TID PRN Medrol (Methylprednisolone) 4 Mg Tab.ds.pk 1 Pkg PO UD Oxybutynin Chloride 5 Mg Tablet 5 Mg PO [id number] Cefpodoxime Proxetil 100 Mg Tablet 200 Mg PO BID 7 Days Martinez 5-325 Tablet (Acetaminophen/Hydrocodone Bitart) 1 Each Tablet 1 Tab PO BID Naproxen 500 Mg Tablet. 1 Tab PO BID Reported Loestrin Fe 1.5-30 Tablet (Noreth A-Et Estra/Fe Fumarate) 1 Each Tablet 1 Tab PO DAILY Aldactone (Spironolactone) 25 Mg Tablet 25 Mg PO DAILY Strattera (Atomoxetine Hcl) 80 Mg Capsule 1 Cap PO DAILYWBKFT PRN Zoloft (Sertraline Hcl) 50 Mg Tablet 1 Tab PO DAILY PRN Vitals/I & O Vital Sign - Last 24 Hours 04/04/18 04/04/18 04/04/18 04/04/18 09:24 09:51 11:00 13:08 Temp 98.2 98.2 Pulse 62 Resp 16 B/P (MAP) 104/59 (74) Pulse Ox 99 99 95 O2 Delivery Room Air Room Air Room Air 04/04/18 04/04/18 04/04/18 04/04/18 15:00 16:51 17:21 17:47 Temp 97.9 97.9 Pulse 62 B/P (MAP) 106/57 (73) Pulse Ox 98 98 98 98 O2 Delivery Room Air Room Air Room Air 04/04/18 04/04/18 04/04/18 04/04/18 18:47 19:00 20:30 20:33 Temp 98.0 98.0 Pulse 63 Resp 18 20 B/P (MAP) 104/60 (75) Pulse Ox 98 96 O2 Delivery Room Air Room Air Room Air Room Air 04/04/18 04/04/18 04/04/18 04/04/18 21:31 22:31 22:40 23:14 Temp 98.4 98.4 Pulse 73 Resp 20 20 17 20 B/P (MAP) 109/73 (85) Pulse Ox 98 O2 Delivery Room Air Room Air Room Air Room Air 04/05/18 04/05/18 04/05/18 04/05/18 02:45 02:55 05:39 06:09 Temp 97.9 97.9 Pulse 63 Resp 20 18 20 18 B/P (MAP) 112/65 (81) Pulse Ox 97 O2 Delivery Room Air Room Air Room Air Room Air 04/05/18 07:00 Temp 97.5 97.5 Pulse 65 Resp 16 B/P (MAP) 102/60 (74) Pulse Ox 97 O2 Delivery Room Air Intake and Output 04/04/18 04/04/18 04/05/18 14:59 22:59 06:59 Intake Total 50 ml 120 ml Output Total 0 ml Balance 50 ml 120 ml GINI OCHOA MD Apr 05, 2018 08:42
[2018-04-05] MEDS: NORETH A ET ESTRA PO SCH (09:00)
[2018-04-05] MEDS: FE FUMARATE PO SCH (09:00)
[2018-04-05] MEDS: HYDROcodone/APAP 5/325MG 1 TAB TABLET PO PRN ×2 (09:03→13:15)
[2018-04-05] MEDS: DICYCLOMINE HCL 10 MG CAPSULE PO PRN (09:03)
--- NOTE | 2018-04-05 09:30 | PDOC ---
SURGICAL PROGRESS NOTE Subjective significant LLQ pain + nausea no stool, had some liquid return after enema yesterday Vital Signs Vital Signs Date Time Temp Pulse Resp B/P (MAP) Pulse Ox O2 Delivery O2 Flow Rate FiO2 04/05/18 09:03 20 97 Room Air 04/05/18 07:00 97.5 65 102/60 (74) 97.5 I&O Intake and Output 04/05/18 06:59 Intake Total 170 ml Output Total 0 ml Balance 170 ml Intake Oral 120 ml IV Total 50 ml Output Urine Total 0 ml # Voids 4 # Bowel Movements 1 General: Alert, Oriented X3, Cooperative, No acute distress Abdomen: Soft, Other (moderate LLQ TTP) Assessment/Plan will check xrays JESSICA BOWLES APRN Apr 05, 2018 09:30
[2018-04-05] MEDS ORDERED: fentaNYL PF VIAL 100 MCG/2 ML VIAL IV ONE (10:00)
--- NOTE | 2018-04-05 10:53 | RAD ---
Acute abdomen series with chest, 3 views, 04/05/2018: HISTORY: Worsening pain, ileus Comparison is made to a study from 04/01/2018. There are surgical clips in the right upper quadrant compatible with a prior cholecystectomy. There is a persistent linear radiopacity projected over the rectum which may also be a surgical clip. Correlation with the patient's interventional history is suggested. There is a moderate amount gas in the right colon. There is a moderate amount of stool in the rectum. Several small air-fluid levels in the left upper quadrant probably lie in small bowel. These bowel loops do not appear to be significantly dilated. No free air is present in the abdomen. There is no evidence organomegaly. The heart size is normal. The lungs are clear. There is no evidence of pleural fluid. IMPRESSION: Several left upper abdominal air-fluid levels probably lie in small bowel, suggesting a mild localized ileus. Partial obstruction cannot be excluded. Electronically signed by: Mason Godwin MD (04/05/2018 10:50 AM) [facility]
[2018-04-05 11:00] VITALS: BP 89/50
[2018-04-05] MEDS: DOCUSATE SODIUM 100 MG CAPSULE. PO SCH (11:08)
[2018-04-05] MEDS: SPIRONOLACTONE 25 MG TABLET PO SCH (11:09)
[2018-04-05] MEDS: SERTRALINE 50 MG TABLET. PO SCH (11:09)
[2018-04-05] MEDS: OXYBUTYNIN CHLORIDE 5 MG TABLET PO SCH ×3 (11:12→21:09)
[2018-04-05 11:15] LABS: ALBUMIN 3.4 g/dL (3.4-5.0); ALBUMIN/GLOBULIN RATIO 0.9 (1.0-1.7); CALCIUM 9.6 mg/dL (8.5-10.1); CREATININE 0.6 mg/dL (0.6-1.0); GFR 118.2; TOTAL BILIRUBIN 0.4 mg/dL (0.2-1.0); TOTAL PROTEIN 7.1 g/dL (6.4-8.2)
--- NOTE | 2018-04-05 13:35 | NUR ---
SW following. Discussed with RN, RN advised no SW needs.
[2018-04-05 15:00] VITALS: BP 105/72
[2018-04-05] MEDS: MORPHINE SULFATE 4 MG/ML VIAL. IV PRN ×2 (15:17→19:46)
--- NOTE | 2018-04-05 16:40 | PDOC ---
G I PROGRESS NOTE Subjective Did not tolerate attempts to advance diet. Constipated w/o response to enema. Physical Exam Lungs clear. RRR Abdomen soft, moisture machine tender left suprapubic. Review of Relevant I have reviewed the following items stacy (where applicable) has been applied. Labs Laboratory Tests Test 04/05/18 10:50 Sodium Level 140 mmol/L (136-145) Potassium Level 4.0 mmol/L (3.5-5.1) Chloride Level 103 mmol/L (98-107) Carbon Dioxide Level 27 mmol/L (21-32) Anion Gap 10 (6-14) Blood Urea Nitrogen 7 mg/dL (7-20) Creatinine 0.6 mg/dL (0.6-1.0) Estimated GFR (Cockcroft-Gault) 118.2 BUN/Creatinine Ratio 12 (6-20) Glucose Level 91 mg/dL (70-99) Calcium Level 9.6 mg/dL (8.5-10.1) Total Bilirubin 0.4 mg/dL (0.2-1.0) Aspartate Amino Transf (AST/SGOT) 33 U/L (15-37) Alanine Aminotransferase (ALT/SGPT) 148 U/L (14-59) Alkaline Phosphatase 81 U/L (46-116) Total Protein 7.1 g/dL (6.4-8.2) Albumin 3.4 g/dL (3.4-5.0) Albumin/Globulin Ratio 0.9 (1.0-1.7) Lipase 171 U/L (73-393) Thyroid Stimulating Hormone (TSH) 1.532 uIU/mL (0.358-3.74) Laboratory Tests Test 04/05/18 10:50 Sodium Level 140 mmol/L (136-145) Potassium Level 4.0 mmol/L (3.5-5.1) Chloride Level 103 mmol/L (98-107) Carbon Dioxide Level 27 mmol/L (21-32) Anion Gap 10 (6-14) Blood Urea Nitrogen 7 mg/dL (7-20) Creatinine 0.6 mg/dL (0.6-1.0) Estimated GFR (Cockcroft-Gault) 118.2 BUN/Creatinine Ratio 12 (6-20) Glucose Level 91 mg/dL (70-99) Calcium Level 9.6 mg/dL (8.5-10.1) Total Bilirubin 0.4 mg/dL (0.2-1.0) Aspartate Amino Transf (AST/SGOT) 33 U/L (15-37) Alanine Aminotransferase (ALT/SGPT) 148 U/L (14-59) Alkaline Phosphatase 81 U/L (46-116) Total Protein 7.1 g/dL (6.4-8.2) Albumin 3.4 g/dL (3.4-5.0) Albumin/Globulin Ratio 0.9 (1.0-1.7) Lipase 171 U/L (73-393) Thyroid Stimulating Hormone (TSH) 1.532 uIU/mL (0.358-3.74) Microbiology 03/30/18 Urine Culture - Final, Complete 03/30/18 Urine Culture Result 1 (PATRIZIA) - Final, Complete Vitals/I & O Vital Sign - Last 24 Hours 04/04/18 04/04/18 04/04/18 04/04/18 16:51 17:21 17:47 18:47 Pulse Ox 98 98 98 98 O2 Delivery Room Air Room Air 04/04/18 04/04/18 04/04/18 04/04/18 19:00 20:30 20:33 21:31 Temp 98.0 98.0 Pulse 63 Resp 18 20 20 B/P (MAP) 104/60 (75) Pulse Ox 96 O2 Delivery Room Air Room Air Room Air Room Air 04/04/18 04/04/18 04/04/18 04/05/18 22:31 22:40 23:14 02:45 Temp 98.4 98.4 Pulse 73 Resp 20 17 20 20 B/P (MAP) 109/73 (85) Pulse Ox 98 O2 Delivery Room Air Room Air Room Air Room Air 04/05/18 04/05/18 04/05/18 04/05/18 02:55 05:39 06:09 07:00 Temp 97.9 97.5 97.9 97.5 Pulse 63 65 Resp 18 20 18 16 B/P (MAP) 112/65 (81) 102/60 (74) Pulse Ox 97 97 O2 Delivery Room Air Room Air Room Air Room Air 04/05/18 04/05/18 04/05/18 04/05/18 08:00 09:03 09:54 10:03 Resp 20 16 Pulse Ox 97 O2 Delivery Room Air Room Air Room Air Room Air 04/05/18 04/05/18 04/05/18 04/05/18 10:24 11:00 13:15 14:15 Temp 98.2 98.2 Pulse 54 Resp 16 15 12 16 B/P (MAP) 89/50 (63) Pulse Ox 96 O2 Delivery Room Air Room Air Room Air 04/05/18 04/05/18 04/05/18 15:00 15:17 15:47 Pulse 66 Resp 18 14 14 B/P (MAP) 105/72 (83) Pulse Ox 95 O2 Delivery Room Air Room Air Intake and Output 04/04/18 04/04/18 04/05/18 15:00 23:00 07:00 Intake Total 50 ml 120 ml Output Total 0 ml Balance 50 ml 120 ml Images Stool in rectum on KUB. Assessment Pain after rectal cap-assisted EMR; likely full-thickness burn but no free perf on imaging. Secondary ileus as well. Plan of Care: Continue current Tx, Mgmt Plan of Care Note Try rectal suppository. KRANTHI MARTÍNEZ MD Apr 05, 2018 16:40
[2018-04-05] MEDS ORDERED: BISACODYL 10 MG SUPP.RECT. PR ONE (16:45)
[2018-04-05] MEDS ORDERED: METHYLNALTREXONE 12 MG/0.6 ML VIAL. SQ ONE (16:45)
[2018-04-05 19:00] VITALS: BP 109/70
[2018-04-05] MEDS ORDERED: IBUPROFEN 400 MG TABLET. PO PRN (21:00)
[2018-04-05] MEDS: POLYETHYLENE GLYCOL 3350 17 GM PACKET. PO PRN (21:22)
[2018-04-05] MEDS: SIMETHICONE 80 MG TAB.CHEW PO PRN (21:42)
[2018-04-05] MEDS: HYDROcodone/APAP 7.5/325MG 1 TAB TABLET PO PRN (22:54)
[2018-04-05 23:00] VITALS: BP 92/44
[2018-04-06] VITALS (8 sets, daily range): BP systolic 91–100; BP diastolic 43–61
[2018-04-06] MEDS: CIPROFLOXACIN 0.3% OPHTH SOLUTION 5ML BOTTLE. OD SCH ×8 (00:42→20:37)
[2018-04-06] MEDS: MORPHINE SULFATE 4 MG/ML VIAL. IV PRN ×5 (00:42→21:44)
[2018-04-06] MEDS: HYDROcodone/APAP 7.5/325MG 1 TAB TABLET PO PRN ×4 (03:00→19:48)
[2018-04-06] MEDS: ONDANSETRON PF 4 MG/2 ML VIAL. IV PRN ×2 (05:14→16:13)
[2018-04-06] MEDS: POLYETHYLENE GLYCOL 3350 17 GM PACKET. PO PRN (05:14)
--- NOTE | 2018-04-06 07:55 | PDOC ---
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 History of Present Illness History of Present Illness 04/04: Still abdominal pain lower quadrant or left lower side, poor by mouth intake on liq diet. No emesis but nauseated. No fever, no white count. Has flatus now. Ambulating but is causing some pain on left lower quadrant side 04/05:Advanced diet yesterday to GI soft with pain. Had a small liquid BM. Had an appetite, so this morning advanced to full liquid from clear liquid, but did not tolerate it well. Pain is all LLQ with radiation to the back. No GI labs ordered. Relistor last night helped her feel like a BM and this plus miralax and suppository did not help. She wishes to advance diet today. ALT was up just a bit. Now she has not had a BM for some time and with her pain this constipation is the most likely culprit, needs BM for discharge home. Discussed trying tramadol and upping her hydrocodone for pain rather than IV morphine and fentanyl as well. Plan: Labs today Current IVF Dw RN at bedside If can advance diet and take oral pain meds, no objection to considering for discharge and f/u at [facility]. Vitals Vitals Vital Signs Date Time Temp Pulse Resp B/P (MAP) Pulse Ox O2 Delivery O2 Flow Rate FiO2 04/06/18 07:00 98.1 75 17 99/61 (74) 97 Room Air 98.1 Physical Exam General: Alert, Oriented X3, Cooperative, No acute distress Heart: Regular rate, Normal S1, Normal S2, No murmurs Lungs: Clear Abdomen: Soft, Other (moderate LLQ TTP) Extremities: No cyanosis, No edema Skin: No breakdown, No significant lesion Labs LABS Laboratory Tests Test 04/05/18 10:50 04/05/18 16:20 Sodium Level 140 mmol/L (136-145) Potassium Level 4.0 mmol/L (3.5-5.1) Chloride Level 103 mmol/L (98-107) Carbon Dioxide Level 27 mmol/L (21-32) Anion Gap 10 (6-14) Blood Urea Nitrogen 7 mg/dL (7-20) Creatinine 0.6 mg/dL (0.6-1.0) Estimated GFR (Cockcroft-Gault) 118.2 BUN/Creatinine Ratio 12 (6-20) Glucose Level 91 mg/dL (70-99) Calcium Level 9.6 mg/dL (8.5-10.1) Total Bilirubin 0.4 mg/dL (0.2-1.0) Aspartate Amino Transf (AST/SGOT) 33 U/L (15-37) Alanine Aminotransferase (ALT/SGPT) 148 U/L (14-59) Alkaline Phosphatase 81 U/L (46-116) Total Protein 7.1 g/dL (6.4-8.2) Albumin 3.4 g/dL (3.4-5.0) Albumin/Globulin Ratio 0.9 (1.0-1.7) Lipase 171 U/L (73-393) Thyroid Stimulating Hormone (TSH) 1.532 uIU/mL (0.358-3.74) Hepatitis A IgM Antibody Nonreactive (Nonreactive) Hepatitis B Surface Antigen Nonreactive (Nonreactive) Hepatitis B Core IgM Antibody Nonreactive (Nonreactive) Hepatitis C IgG Antibody Nonreactive (Nonreactive) Ferritin 46 ng/mL (8-252) Comment Review of Relevant I have reviewed the following items stacy (where applicable) has been applied. Labs Laboratory Tests Test 04/05/18 10:50 04/05/18 16:20 Sodium Level 140 mmol/L (136-145) Potassium Level 4.0 mmol/L (3.5-5.1) Chloride Level 103 mmol/L (98-107) Carbon Dioxide Level 27 mmol/L (21-32) Anion Gap 10 (6-14) Blood Urea Nitrogen 7 mg/dL (7-20) Creatinine 0.6 mg/dL (0.6-1.0) Estimated GFR (Cockcroft-Gault) 118.2 BUN/Creatinine Ratio 12 (6-20) Glucose Level 91 mg/dL (70-99) Calcium Level 9.6 mg/dL (8.5-10.1) Total Bilirubin 0.4 mg/dL (0.2-1.0) Aspartate Amino Transf (AST/SGOT) 33 U/L (15-37) Alanine Aminotransferase (ALT/SGPT) 148 U/L (14-59) Alkaline Phosphatase 81 U/L (46-116) Total Protein 7.1 g/dL (6.4-8.2) Albumin 3.4 g/dL (3.4-5.0) Albumin/Globulin Ratio 0.9 (1.0-1.7) Lipase 171 U/L (73-393) Thyroid Stimulating Hormone (TSH) 1.532 uIU/mL (0.358-3.74) Hepatitis A IgM Antibody Nonreactive (Nonreactive) Hepatitis B Surface Antigen Nonreactive (Nonreactive) Hepatitis B Core IgM Antibody Nonreactive (Nonreactive) Hepatitis C IgG Antibody Nonreactive (Nonreactive) Ferritin 46 ng/mL (8-252) Laboratory Tests Test 04/05/18 10:50 04/05/18 16:20 Sodium Level 140 mmol/L (136-145) Potassium Level 4.0 mmol/L (3.5-5.1) Chloride Level 103 mmol/L (98-107) Carbon Dioxide Level 27 mmol/L (21-32) Anion Gap 10 (6-14) Blood Urea Nitrogen 7 mg/dL (7-20) Creatinine 0.6 mg/dL (0.6-1.0) Estimated GFR (Cockcroft-Gault) 118.2 BUN/Creatinine Ratio 12 (6-20) Glucose Level 91 mg/dL (70-99) Calcium Level 9.6 mg/dL (8.5-10.1) Total Bilirubin 0.4 mg/dL (0.2-1.0) Aspartate Amino Transf (AST/SGOT) 33 U/L (15-37) Alanine Aminotransferase (ALT/SGPT) 148 U/L (14-59) Alkaline Phosphatase 81 U/L (46-116) Total Protein 7.1 g/dL (6.4-8.2) Albumin 3.4 g/dL (3.4-5.0) Albumin/Globulin Ratio 0.9 (1.0-1.7) Lipase 171 U/L (73-393) Thyroid Stimulating Hormone (TSH) 1.532 uIU/mL (0.358-3.74) Hepatitis A IgM Antibody Nonreactive (Nonreactive) Hepatitis B Surface Antigen Nonreactive (Nonreactive) Hepatitis B Core IgM Antibody Nonreactive (Nonreactive) Hepatitis C IgG Antibody Nonreactive (Nonreactive) Ferritin 46 ng/mL (8-252) Microbiology 03/30/18 Urine Culture - Final, Complete 03/30/18 Urine Culture Result 1 (PATRIZIA) - Final, Complete Medications Current Medications Morphine Sulfate (Morphine Sulfate) 4 mg 1X ONCE IV Last administered on 21:50; Start 03/30/18 at 21:30; Stop 03/30/18 at 21:32; Status DC Ondansetron HCl (Zofran) 4 mg 1X ONCE IV Last administered on 03/30/18at 21:50 ; Start 03/30/18 at 21:30; Stop 03/30/18 at 21:32; Status DC Morphine Sulfate (Morphine Sulfate) 4 mg 1X ONCE IV Last administered on at 23:09; Start 03/30/18 at 23:15; Stop 03/30/18 at 23:16; Status DC Sodium Chloride 1,000 ml @ 1,000 mls/hr 1X ONCE IV Last administered on at 23:09; Start 03/30/18 at 23:15; Stop 03/31/18 at 00:14; Status DC Ondansetron HCl (Zofran) 4 mg PRN Q8HRS PRN IV NAUSEA/VOMITING; Start 03/31/18 at 01:00; Stop 03/31/18 at 08:44; Status DC Morphine Sulfate (Morphine Sulfate) 2 mg PRN Q2HR PRN IV PAIN Last administered on 03/31/18at 18:35; Start 03/31/18 at 01:00; Stop 04/01/18 at 00:59 ; Status DC Sodium Chloride 1,000 ml @ 150 mls/hr Q6H40M IV Last administered on 22:12; Start 03/31/18 at 01:00; Stop 04/01/18 at 00:59; Status DC Ondansetron HCl (Zofran) 4 mg PRN Q6HRS PRN IV NAUSEA/VOMITING Last administered on 04/06/18at 05:14; Start 03/31/18 at 08:45 Acetaminophen/ Hydrocodone Bitart (Lortab 5/325) 1 tab PRN Q4HRS PRN PO PAIN Last administered on 04/05/18at 13:15; Start 03/31/18 at 08:45; Stop 04/05/18 at 22:43; Status DC Famotidine (Pepcid Vial) 20 mg QHS IVP Last administered on 04/01/18at 20:05; Start 03/31/18 at 21:00; Stop 04/02/18 at 17:17; Status DC Dicyclomine HCl (Bentyl) 10 mg PRN TID PRN PO CRAMPS Last administered on 09:03; Start 03/31/18 at 08:45 Acetaminophen/ Hydrocodone Bitart (Lortab 5/325) 1 tab BID PO Last administered on 04/04/18 21:31; Start 03/31/18 at 09:00; Stop 04/05/18 at 08:50 ; Status DC Ondansetron HCl (Zofran Odt) 4 mg PRN Q6HRS PRN PO NAUSEA/VOMITING Last administered on 04/04/18 08:25; Start 03/31/18 at 08:45 Oxybutynin Chloride (Ditropan) 5 mg [id number] PO Last administered on 04/05/18 21 :09; Start 03/31/18 at 09:00 Sertraline HCl (Zoloft) 50 mg DAILY PO Last administered on 04/05/18 11:09; Start 03/31/18 at 09:00 Non-Formulary Medication (Atomoxetine Hcl (Strattera)) 1 cap DAILYWBKFT PRN PO ADHD; Start 03/31/18 at 08:45; Status UNV Naproxen (Naprosyn) 500 mg BIDWMEALS PO ; Start 03/31/18 at 09:00; Stop at 11:07; Status DC Non-Formulary Medication (Noreth A-Et Estra/Fe Fumarate (Loestrin Fe 1.5-30 Tablet)) 1 tab DAILY PO ; Start 03/31/18 at 09:00; Stop 04/06/18 at 07:16; Status DC Spironolactone (Aldactone) 25 mg DAILY PO Last administered on 04/05/18 11:09 ; Start 03/31/18 at 09:00 Sodium Chloride 1,000 ml @ 100 mls/hr Q10H IV Last administered on 04/04/18at 08:42; Start 04/01/18 at 08:00; Stop 04/04/18 at 09:04; Status DC Fentanyl Citrate (Fentanyl 2ml Vial) 50 mcg PRN Q2HR PRN IV PAIN Last administered on 04/05/18 05:39; Start 04/01/18 at 11:15; Stop 04/05/18 at 08:50 ; Status DC Bisacodyl (Dulcolax Supp) 10 mg 1X ONCE [place] Last administered on 04/01/18 11: 33; Start 04/01/18 at 11:15; Stop 04/01/18 at 11:16; Status DC Bisacodyl (Dulcolax Supp) 10 mg PRN DAILY PRN [place] CONSTIPATION Last administered on 04/03/18 11:29; Start 04/01/18 at 11:15 Ciprofloxacin (Ciloxan Ophth) 2 drop Q3HRS OD Last administered on 04/06/18 05 :15; Start 04/02/18 at 15:00 Pantoprazole Sodium (PROTONIX VIAL for IV PUSH) 40 mg DAILYAC IVP Last administered on 04/05/18 07:55; Start 04/02/18 at 16:30 Docusate Sodium (Colace) 100 mg DAILY PO Last administered on 04/05/18 11:08; Start 04/03/18 at 16:30 Simethicone (Gas-X) 80 mg PRN AFTMEALHC PRN PO GAS / BLOATING Last administered on 04/05/18 21:42; Start 04/03/18 at 15:15 Sodium Monofluorophosphate (Fleet Adult) 133 ml 1X ONCE [place] Last administered on 04/04/18 10:39; Start 04/04/18 at 09:15; Stop 04/04/18 at 09:16; Status DC Fentanyl Citrate (Fentanyl 2ml Vial) 50 mcg 1X ONCE IV Last administered on 09:54; Start 04/05/18 at 10:00; Stop 04/05/18 at 10:01; Status DC Morphine Sulfate (Morphine Sulfate) 4 mg PRN Q4HRS PRN IV PAIN Last administered on 04/05/18 19:46; Start 04/05/18 at 14:30; Stop 04/05/18 at 22:43 ; Status DC Methylnaltrexone [place] (Relistor) 12 mg 1X ONCE SQ Last administered on 04/05 17:29; Start 04/05/18 at 16:45; Stop 04/05/18 at 16:52; Status DC Bisacodyl (Dulcolax Supp) 10 mg 1X ONCE [place] Last administered on 04/05/18 17: 30; Start 04/05/18 at 16:45; Stop 04/05/18 at 16:52; Status DC Ibuprofen (Motrin) 400 mg PRN Q6HRS PRN PO INFLAMMATION Last administered on 21:09; Start 04/05/18 at 21:00 Polyethylene Glycol (miraLAX PACKET) 17 gm PRN DAILY PRN PO CONSTIPATION 1ST CHOICE Last administered on 04/06/18 05:14; Start 04/05/18 at 21:00 Morphine Sulfate (Morphine Sulfate) 4 mg PRN Q2HR PRN IV SEVERE PAIN Last administered on 04/06/18 05:16; Start 04/05/18 at 22:45 Acetaminophen/ Hydrocodone Bitart (Lortab 7.5/325) 1 tab PRN Q4HRS PRN PO MODERATE PAIN Last administered on 04/06/18 03:00; Start 04/05/18 at 22:45 Active Scripts Active Ondansetron Odt (Ondansetron) 4 Mg Tab.rapdis 1 Tab PO PRN Q6-8HRS PRN 4 Days Dicyclomine Hcl 10 Mg Capsule 1 Cap PO TID PRN Medrol (Methylprednisolone) 4 Mg Tab.ds.pk 1 Pkg PO UD Oxybutynin Chloride 5 Mg Tablet 5 Mg PO [id number] Cefpodoxime Proxetil 100 Mg Tablet 200 Mg PO BID 7 Days Dora 5-325 Tablet (Acetaminophen/Hydrocodone Bitart) 1 Each Tablet 1 Tab PO BID Naproxen 500 Mg Tablet.dr 1 Tab PO BID Reported Loestrin Fe 1.5-30 Tablet (Noreth A-Et Estra/Fe Fumarate) 1 Each Tablet 1 Tab PO DAILY Aldactone (Spironolactone) 25 Mg Tablet 25 Mg PO DAILY Strattera (Atomoxetine Hcl) 80 Mg Capsule 1 Cap PO DAILYWBKFT PRN Zoloft (Sertraline Hcl) 50 Mg Tablet 1 Tab PO DAILY PRN Vitals/I & O Vital Sign - Last 24 Hours 04/05/18 04/05/18 04/05/18 04/05/18 08:00 09:03 09:54 10:03 Resp 20 16 Pulse Ox 97 O2 Delivery Room Air Room Air Room Air Room Air 04/05/18 04/05/18 04/05/18 04/05/18 10:24 11:00 13:15 14:15 Temp 98.2 98.2 Pulse 54 Resp 16 15 12 16 B/P (MAP) 89/50 (63) Pulse Ox 96 O2 Delivery Room Air Room Air Room Air 04/05/18 04/05/18 04/05/18 04/05/18 15:00 15:17 19:00 19:46 Temp 98.0 98.0 Pulse 66 61 Resp 18 14 16 17 B/P (MAP) 105/72 (83) 109/70 (83) Pulse Ox 95 98 95 O2 Delivery Room Air Room Air Room Air Room Air 04/05/18 04/05/18 04/05/18 04/05/18 20:00 20:30 22:54 23:00 Temp 98.2 98.2 Pulse 61 Resp 15 15 18 B/P (MAP) 92/44 (60) Pulse Ox 95 95 96 O2 Delivery Room Air Room Air Room Air Room Air 04/06/18 04/06/18 04/06/18 04/06/18 00:40 00:42 03:00 03:02 Temp 98.1 98.1 Pulse 80 61 Resp 15 16 17 B/P (MAP) 91/51 (64) 98/59 (72) Pulse Ox 96 96 98 O2 Delivery Room Air Room Air Room Air 04/06/18 04/06/18 04/06/18 04/06/18 04:00 05:15 05:16 05:48 Pulse 72 Resp 15 18 15 B/P (MAP) 100/60 (73) Pulse Ox 98 98 98 O2 Delivery Room Air Room Air Room Air 04/06/18 07:00 Temp 98.1 98.1 Pulse 75 Resp 17 B/P (MAP) 99/61 (74) Pulse Ox 97 O2 Delivery Room Air Intake and Output 04/05/18 04/05/18 04/06/18 15:00 23:00 07:00 Intake Total 240 ml 350 ml Balance 240 ml 350 ml GINI OCHOA MD Apr 06, 2018 07:55
[2018-04-06] MEDS: PANTOPRAZOLE IV PUSH 40 MG VIAL. IVP SCH (07:57)
[2018-04-06] MEDS: DOCUSATE SODIUM 100 MG CAPSULE. PO SCH (08:30)
[2018-04-06] MEDS: DICYCLOMINE HCL 10 MG CAPSULE PO PRN (08:30)
[2018-04-06] MEDS: OXYBUTYNIN CHLORIDE 5 MG TABLET PO SCH ×3 (08:30→20:37)
[2018-04-06] MEDS: SPIRONOLACTONE 25 MG TABLET PO SCH (08:30)
[2018-04-06] MEDS: SERTRALINE 50 MG TABLET. PO SCH (08:30)
--- NOTE | 2018-04-06 09:53 | PDOC ---
JESSICA BOWLES BOILER/CHILLER TECHNICIAN 04/06/18 0953: SURGICAL PROGRESS NOTE Subjective feels better today + flatus, no stool tolerating diet, would like to advance diet Vital Signs Vital Signs Date Time Temp Pulse Resp B/P (MAP) Pulse Ox O2 Delivery O2 Flow Rate FiO2 04/06/18 08:30 18 Room Air 04/06/18 07:00 98.1 75 99/61 (74) 97 98.1 I&O Intake and Output 04/06/18 07:00 Intake Total 590 ml Balance 590 ml Intake Oral 590 ml # Voids 2 General: Alert, Oriented X3, Cooperative, No acute distress Abdomen: Soft, No tenderness Labs Laboratory Tests Test 04/05/18 10:50 04/05/18 16:20 Sodium Level 140 mmol/L (136-145) Potassium Level 4.0 mmol/L (3.5-5.1) Chloride Level 103 mmol/L (98-107) Carbon Dioxide Level 27 mmol/L (21-32) Anion Gap 10 (6-14) Blood Urea Nitrogen 7 mg/dL (7-20) Creatinine 0.6 mg/dL (0.6-1.0) Estimated GFR (Cockcroft-Gault) 118.2 BUN/Creatinine Ratio 12 (6-20) Glucose Level 91 mg/dL (70-99) Calcium Level 9.6 mg/dL (8.5-10.1) Total Bilirubin 0.4 mg/dL (0.2-1.0) Aspartate Amino Transf (AST/SGOT) 33 U/L (15-37) Alanine Aminotransferase (ALT/SGPT) 148 U/L (14-59) Alkaline Phosphatase 81 U/L (46-116) Total Protein 7.1 g/dL (6.4-8.2) Albumin 3.4 g/dL (3.4-5.0) Albumin/Globulin Ratio 0.9 (1.0-1.7) Lipase 171 U/L (73-393) Thyroid Stimulating Hormone (TSH) 1.532 uIU/mL (0.358-3.74) Hepatitis A IgM Antibody Nonreactive (Nonreactive) Hepatitis B Surface Antigen Nonreactive (Nonreactive) Hepatitis B Core IgM Antibody Nonreactive (Nonreactive) Hepatitis C IgG Antibody Nonreactive (Nonreactive) Ferritin 46 ng/mL (8-252) Laboratory Tests Test 04/05/18 10:50 04/05/18 16:20 Sodium Level 140 mmol/L (136-145) Potassium Level 4.0 mmol/L (3.5-5.1) Chloride Level 103 mmol/L (98-107) Carbon Dioxide Level 27 mmol/L (21-32) Anion Gap 10 (6-14) Blood Urea Nitrogen 7 mg/dL (7-20) Creatinine 0.6 mg/dL (0.6-1.0) Estimated GFR (Cockcroft-Gault) 118.2 BUN/Creatinine Ratio 12 (6-20) Glucose Level 91 mg/dL (70-99) Calcium Level 9.6 mg/dL (8.5-10.1) Total Bilirubin 0.4 mg/dL (0.2-1.0) Aspartate Amino Transf (AST/SGOT) 33 U/L (15-37) Alanine Aminotransferase (ALT/SGPT) 148 U/L (14-59) Alkaline Phosphatase 81 U/L (46-116) Total Protein 7.1 g/dL (6.4-8.2) Albumin 3.4 g/dL (3.4-5.0) Albumin/Globulin Ratio 0.9 (1.0-1.7) Lipase 171 U/L (73-393) Thyroid Stimulating Hormone (TSH) 1.532 uIU/mL (0.358-3.74) Hepatitis A IgM Antibody Nonreactive (Nonreactive) Hepatitis B Surface Antigen Nonreactive (Nonreactive) Hepatitis B Core IgM Antibody Nonreactive (Nonreactive) Hepatitis C IgG Antibody Nonreactive (Nonreactive) Ferritin 46 ng/mL (8-252) Assessment/Plan xray stable gi following no surgical recs, available as needed ADAN MICHELE MD 04/06/18 1021: SURGICAL PROGRESS NOTE Assessment/Plan Agree with Ely's assessment and plan. JESSICA BOWLES APRN Apr 06, 2018 09:53 ADAN MICHELE MD Apr 06, 2018 10:21
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
[2018-04-06] MEDS ORDERED: METHYLNALTREXONE 12 MG/0.6 ML VIAL. SQ ONE (13:30)
[2018-04-06] MEDS ORDERED: MAGNESIUM CITRATE 296 ML SOLUTION. PO ONE (13:30)
--- NOTE | 2018-04-06 14:17 | NUR ---
SW following. Discussed with RN, RN advised no SW needs at this time. SW will continue to follow.
[2018-04-07] MEDS: HYDROcodone/APAP 7.5/325MG 1 TAB TABLET PO PRN ×5 (01:04→20:42)
[2018-04-07 03:00] VITALS: BP 98/52
[2018-04-07] MEDS: MORPHINE SULFATE 4 MG/ML VIAL. IV PRN ×4 (03:50→22:44)
[2018-04-07] MEDS: CIPROFLOXACIN 0.3% OPHTH SOLUTION 5ML BOTTLE. OD SCH ×3 (03:50→06:00)
[2018-04-07 07:00] VITALS: BP 103/63
--- NOTE | 2018-04-07 07:25 | PDOC ---
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 History of Present Illness History of Present Illness 04/04: Still abdominal pain lower quadrant or left lower side, poor by mouth intake on liq diet. No emesis but nauseated. No fever, no white count. Has flatus now. Ambulating but is causing some pain on left lower quadrant side 04/05:Advanced diet yesterday to GI soft with pain. Had a small liquid BM. Had an appetite, so this morning advanced to full liquid from clear liquid, but did not tolerate it well. Pain is all LLQ with radiation to the back. No GI labs ordered. 04/06: Relistor last night helped her feel like a BM and this plus miralax and suppository did not help. She wishes to advance diet today. ALT was up just a bit. Now she has not had a BM for some time and with her pain this constipation is the most likely culprit, needs BM for discharge home. Discussed trying tramadol and upping her hydrocodone for pain rather than IV morphine and fentanyl as well. Overnight no BM, now has had relistor x2, mag citrate x2, dulcolax and enema daily. Bentyl, lortab and morphine improve her LLQ pain. Amitiza and Lactulose on order this morning. Her pain is still 8/10 in LLQ 30 minutes after eating. No nausea after diet yesterday. Plan: BM prior to d/c home likely today Nausea control Transaminitis - TSH, Ferritin, hepatitis serology all negative. Likely this is 2 /2 NAFLD/PAEZ - needs GI f/u PCOS - I have recommended starting metformin if she can tolerate in addition to her aldactone Current IVF Yan RN and her boyfriend at bedside If can advance diet and take oral pain meds, no objection to considering for discharge and f/u at . Vitals Vitals Vital Signs Date Time Temp Pulse Resp B/P (MAP) Pulse Ox O2 Delivery O2 Flow Rate FiO2 04/07/18 07:00 98.3 73 18 103/63 (76) 94 Room Air 98.3 Physical Exam General: Alert, Oriented X3, Cooperative, No acute distress Heart: Regular rate, Normal S1, Normal S2, No murmurs Lungs: Clear Abdomen: Soft, No tenderness Extremities: No cyanosis, No edema Skin: No breakdown, No significant lesion Comment Review of Relevant I have reviewed the following items stacy (where applicable) has been applied. Labs Laboratory Tests Test 04/05/18 10:50 04/05/18 16:20 Sodium Level 140 mmol/L (136-145) Potassium Level 4.0 mmol/L (3.5-5.1) Chloride Level 103 mmol/L (98-107) Carbon Dioxide Level 27 mmol/L (21-32) Anion Gap 10 (6-14) Blood Urea Nitrogen 7 mg/dL (7-20) Creatinine 0.6 mg/dL (0.6-1.0) Estimated GFR (Cockcroft-Gault) 118.2 BUN/Creatinine Ratio 12 (6-20) Glucose Level 91 mg/dL (70-99) Calcium Level 9.6 mg/dL (8.5-10.1) Total Bilirubin 0.4 mg/dL (0.2-1.0) Aspartate Amino Transf (AST/SGOT) 33 U/L (15-37) Alanine Aminotransferase (ALT/SGPT) 148 U/L (14-59) Alkaline Phosphatase 81 U/L (46-116) Total Protein 7.1 g/dL (6.4-8.2) Albumin 3.4 g/dL (3.4-5.0) Albumin/Globulin Ratio 0.9 (1.0-1.7) Lipase 171 U/L (73-393) Thyroid Stimulating Hormone (TSH) 1.532 uIU/mL (0.358-3.74) Hepatitis A IgM Antibody Nonreactive (Nonreactive) Hepatitis B Surface Antigen Nonreactive (Nonreactive) Hepatitis B Core IgM Antibody Nonreactive (Nonreactive) Hepatitis C IgG Antibody Nonreactive (Nonreactive) Ferritin 46 ng/mL (8-252) Microbiology 03/30/18 Urine Culture - Final, Complete 03/30/18 Urine Culture Result 1 (PATRIZIA) - Final, Complete Medications Current Medications Morphine Sulfate (Morphine Sulfate) 4 mg 1X ONCE IV Last administered on at 21:50; Start 03/30/18 at 21:30; Stop 03/30/18 at 21:32; Status DC Ondansetron HCl (Zofran) 4 mg 1X ONCE IV Last administered on 03/30/18at 21:50 ; Start 03/30/18 at 21:30; Stop 03/30/18 at 21:32; Status DC Morphine Sulfate (Morphine Sulfate) 4 mg 1X ONCE IV Last administered on at 23:09; Start 03/30/18 at 23:15; Stop 03/30/18 at 23:16; Status DC Sodium Chloride 1,000 ml @ 1,000 mls/hr 1X ONCE IV Last administered on at 23:09; Start 03/30/18 at 23:15; Stop 03/31/18 at 00:14; Status DC Ondansetron HCl (Zofran) 4 mg PRN Q8HRS PRN IV NAUSEA/VOMITING; Start 03/31/18 at 01:00; Stop 03/31/18 at 08:44; Status DC Morphine Sulfate (Morphine Sulfate) 2 mg PRN Q2HR PRN IV PAIN Last administered on 03/31/18 18:35; Start 03/31/18 at 01:00; Stop 04/01/18 at 00:59 ; Status DC Sodium Chloride 1,000 ml @ 150 mls/hr Q6H40M IV Last administered on 22:12; Start 03/31/18 at 01:00; Stop 04/01/18 at 00:59; Status DC Ondansetron HCl (Zofran) 4 mg PRN Q6HRS PRN IV NAUSEA/VOMITING Last administered on 04/06/18at 16:13; Start 03/31/18 at 08:45 Acetaminophen/ Hydrocodone Bitart (Lortab 5/325) 1 tab PRN Q4HRS PRN PO PAIN Last administered on 04/05/18 13:15; Start 03/31/18 at 08:45; Stop 04/05/18 at 22:43; Status DC Famotidine (Pepcid Vial) 20 mg QHS IVP Last administered on 04/01/18at 20:05; Start 03/31/18 at 21:00; Stop 04/02/18 at 17:17; Status DC Dicyclomine HCl (Bentyl) 10 mg PRN TID PRN PO CRAMPS Last administered on 08:30; Start 03/31/18 at 08:45 Acetaminophen/ Hydrocodone Bitart (Lortab 5/325) 1 tab BID PO Last administered on 04/04/18at 21:31; Start 03/31/18 at 09:00; Stop 04/05/18 at 08:50 ; Status DC Ondansetron HCl (Zofran Odt) 4 mg PRN Q6HRS PRN PO NAUSEA/VOMITING Last administered on 04/04/18 08:25; Start 03/31/18 at 08:45 Oxybutynin Chloride (Ditropan) 5 mg [id number] PO Last administered on 04/06/18 20 :37; Start 03/31/18 at 09:00 Sertraline HCl (Zoloft) 50 mg DAILY PO Last administered on 04/06/18 08:30; Start 03/31/18 at 09:00 Non-Formulary Medication (Atomoxetine Hcl (Strattera)) 1 cap DAILYWBKFT PRN PO ADHD; Start 03/31/18 at 08:45; Status UNV Naproxen (Naprosyn) 500 mg BIDWMEALS PO ; Start 03/31/18 at 09:00; Stop at 11:07; Status DC Non-Formulary Medication (Noreth A-Et Estra/Fe Fumarate (Loestrin Fe 1.5-30 Tablet)) 1 tab DAILY PO ; Start 03/31/18 at 09:00; Stop 04/06/18 at 07:16; Status DC Spironolactone (Aldactone) 25 mg DAILY PO Last administered on 04/06/18 08:30 ; Start 03/31/18 at 09:00 Sodium Chloride 1,000 ml @ 100 mls/hr Q10H IV Last administered on 04/04/18 08:42; Start 04/01/18 at 08:00; Stop 04/04/18 at 09:04; Status DC Fentanyl Citrate (Fentanyl 2ml Vial) 50 mcg PRN Q2HR PRN IV PAIN Last administered on 04/05/18 05:39; Start 04/01/18 at 11:15; Stop 04/05/18 at 08:50 ; Status DC Bisacodyl (Dulcolax Supp) 10 mg 1X ONCE VA Last administered on 04/01/18 11: 33; Start 04/01/18 at 11:15; Stop 04/01/18 at 11:16; Status DC Bisacodyl (Dulcolax Supp) 10 mg PRN DAILY PRN VA CONSTIPATION Last administered on 04/03/18 11:29; Start 04/01/18 at 11:15 Ciprofloxacin (Ciloxan Ophth) 2 drop Q3HRS OD Last administered on 04/07/18 03 :50; Start 04/02/18 at 15:00 Pantoprazole Sodium (PROTONIX VIAL for IV PUSH) 40 mg DAILYAC IVP Last administered on 04/06/18 07:57; Start 04/02/18 at 16:30; Stop 04/06/18 at 11:19 ; Status DC Docusate Sodium (Colace) 100 mg DAILY PO Last administered on 04/06/18 08:30; Start 04/03/18 at 16:30 Simethicone (Gas-X) 80 mg PRN AFTMEALHC PRN PO GAS / BLOATING Last administered on 04/05/18 21:42; Start 04/03/18 at 15:15 Sodium Monofluorophosphate (Fleet Adult) 133 ml 1X ONCE VA Last administered on 04/04/18 10:39; Start 04/04/18 at 09:15; Stop 04/04/18 at 09:16; Status DC Fentanyl Citrate (Fentanyl 2ml Vial) 50 mcg 1X ONCE IV Last administered on 09:54; Start 04/05/18 at 10:00; Stop 04/05/18 at 10:01; Status DC Morphine Sulfate (Morphine Sulfate) 4 mg PRN Q4HRS PRN IV PAIN Last administered on 04/05/18 19:46; Start 04/05/18 at 14:30; Stop 04/05/18 at 22:43 ; Status DC Methylnaltrexone [place] (Relistor) 12 mg 1X ONCE SQ Last administered on 04/05 17:29; Start 04/05/18 at 16:45; Stop 04/05/18 at 16:52; Status DC Bisacodyl (Dulcolax Supp) 10 mg 1X ONCE VA Last administered on 04/05/18 17: 30; Start 04/05/18 at 16:45; Stop 04/05/18 at 16:52; Status DC Ibuprofen (Motrin) 400 mg PRN Q6HRS PRN PO INFLAMMATION Last administered on 21:09; Start 04/05/18 at 21:00 Polyethylene Glycol (miraLAX PACKET) 17 gm PRN DAILY PRN PO CONSTIPATION 1ST CHOICE Last administered on 04/06/18 05:14; Start 04/05/18 at 21:00 Morphine Sulfate (Morphine Sulfate) 4 mg PRN Q2HR PRN IV SEVERE PAIN Last administered on 04/07/18 03:50; Start 04/05/18 at 22:45 Acetaminophen/ Hydrocodone Bitart (Lortab 7.5/325) 1 tab PRN Q4HRS PRN PO MODERATE PAIN Last administered on 04/07/18 01:04; Start 04/05/18 at 22:45 Pantoprazole Sodium (Protonix) 40 mg DAILYAC PO ; Start 04/07/18 at 07:30 Methylnaltrexone [place] (Relistor) 12 mg 1X ONCE SQ Last administered on 04/06 13:51; Start 04/06/18 at 13:30; Stop 04/06/18 at 13:31; Status DC Magnesium Citrate (Citroma) 296 ml 1X ONCE PO Last administered on 04/06/18 13:50; Start 04/06/18 at 13:30; Stop 04/06/18 at 13:31; Status DC Active Scripts Active Ondansetron Odt (Ondansetron) 4 Mg Tab.rapdis 1 Tab PO PRN Q6-8HRS PRN 4 Days Dicyclomine Hcl 10 Mg Capsule 1 Cap PO TID PRN Medrol (Methylprednisolone) 4 Mg Tab.ds.pk 1 Pkg PO UD Oxybutynin Chloride 5 Mg Tablet 5 Mg PO [id number] Cefpodoxime Proxetil 100 Mg Tablet 200 Mg PO BID 7 Days [place] 5-325 Tablet (Acetaminophen/Hydrocodone Bitart) 1 Each Tablet 1 Tab PO BID Naproxen 500 Mg Tablet. 1 Tab PO BID Reported Loestrin Fe 1.5-30 Tablet (Noreth A-Et Estra/Fe Fumarate) 1 Each Tablet 1 Tab PO DAILY Aldactone (Spironolactone) 25 Mg Tablet 25 Mg PO DAILY Strattera (Atomoxetine Hcl) 80 Mg Capsule 1 Cap PO DAILYWBKFT PRN Zoloft (Sertraline Hcl) 50 Mg Tablet 1 Tab PO DAILY PRN Vitals/I & O Vital Sign - Last 24 Hours 04/06/18 04/06/18 04/06/18 04/06/18 08:00 08:30 09:30 10:28 Resp 18 20 18 Pulse Ox 97 O2 Delivery Room Air Room Air Room Air 04/06/18 04/06/18 04/06/18 04/06/18 10:53 11:01 12:41 14:49 Temp 98.0 98.0 98.0 98.0 Pulse 66 64 Resp 18 16 18 B/P (MAP) 98/43 (61) 91/51 (64) Pulse Ox 95 95 98 O2 Delivery Room Air Room Air Room Air Room Air 04/06/18 04/06/18 04/06/18 04/06/18 17:19 17:49 19:00 19:48 Temp 98.1 98.1 Pulse 74 Resp 18 14 18 B/P (MAP) 100/ Pulse Ox 92 98 O2 Delivery Room Air Room Air Room Air Room Air 04/06/18 04/06/18 04/06/18 04/06/18 20:00 20:49 21:44 22:37 Temp 98.2 98.2 Pulse 68 Resp 18 B/P (MAP) 95/46 (62) Pulse Ox 98 98 94 O2 Delivery Room Air Room Air Room Air Room Air 04/07/18 04/07/18 04/07/18 04/07/18 01:04 03:00 03:50 07:00 Temp 98.2 98.3 98.2 98.3 Pulse 89 73 Resp 18 18 B/P (MAP) 98/52 (67) 103/63 (76) Pulse Ox 94 95 94 94 O2 Delivery Room Air Room Air Room Air Room Air Intake and Output 04/06/18 04/06/18 04/07/18 14:59 22:59 06:59 Intake Total 300 ml 350 ml 300 ml Balance 300 ml 350 ml 300 ml GINI OCHOA MD Apr 07, 2018 07:25
[2018-04-07] MEDS: LUBIPROSTONE 8 MCG CAPSULE PO SCH ×2 (07:40→17:13)
[2018-04-07] MEDS: POLYETHYLENE GLYCOL 3350 17 GM PACKET. PO PRN (07:40)
[2018-04-07] MEDS: PANTOPRAZOLE 40 MG TABLET.DR. PO SCH (07:40)
[2018-04-07] MEDS: OXYBUTYNIN CHLORIDE 5 MG TABLET PO SCH ×3 (07:41→20:42)
[2018-04-07] MEDS: DICYCLOMINE HCL 10 MG CAPSULE PO PRN ×2 (07:41→16:18)
[2018-04-07] MEDS: SERTRALINE 50 MG TABLET. PO SCH (07:41)
[2018-04-07] MEDS: DOCUSATE SODIUM 100 MG CAPSULE. PO SCH (07:41)
[2018-04-07] MEDS: SPIRONOLACTONE 25 MG TABLET PO SCH (07:41)
[2018-04-07] MEDS: ONDANSETRON ODT 4 MG TAB.RAPDIS. PO PRN (07:49)
[2018-04-07] MEDS ORDERED: MAGNESIUM CITRATE 296 ML SOLUTION. PO ONE (08:00)
[2018-04-07] MEDS ORDERED: LACTULOSE 20 GM/30 ML SOLUTION. PO PRN (09:30)
[2018-04-07 10:27] VITALS: BP 94/52
--- NOTE | 2018-04-07 11:21 | PDOC ---
Subjective: Subjective: Still no stools after multiple meds (including Mag Citrate x 2, Relistor x 2, enema, suppository). Recurrence of lower abd pain now - "cramping" - similar to previous. Flatus yesterday, none today. Nausea, no vomiting - ate breakfast. Objective: Vital Signs: Vital Signs Date Time Temp Pulse Resp B/P (MAP) Pulse Ox O2 Delivery O2 Flow Rate FiO2 04/07/18 10:27 98.1 68 18 94/52 (66) 96 Room Air 98.1 PE: GEN: uncomfortable - rocking back and forth in bed, heating pad on abd LUNGS: CTAB HEART: RRR ABD: quiet, tender to left below umbilicus as before NEURO/PSYCH: A & O 3 A/P: Lower abd pain after rectal cap-assisted EMR Ileus -- Recheck abd series. DONAVON B[place] Apr 07, 2018 11:21
--- NOTE | 2018-04-07 12:33 | RAD ---
Acute abdomen series with chest, 3 views, 04/07/2018: HISTORY: Abdominal pain, constipation, colon cancer Comparison is made to a study from 04/05/2018. There is a moderate amount of stool in the left colon. There is a moderate amount of gas with associated air-fluid levels in the right colon and small bowel. No free air seen in the abdomen. There is no evidence organomegaly. A radiopacity compatible with a surgical clip is again noted projected over the rectal region. The heart size is normal. The lungs are clear. There is no evidence of pleural fluid. IMPRESSION: Air-fluid levels in the right colon and small bowel suggest left colonic obstruction which may be due to inspissated stool or the history of colonic neoplasm, versus an ileus. Electronically signed by: Mason Godwin MD (04/07/2018 12:30 PM) [facility]
[2018-04-07] MEDS ORDERED: CONTRAST GIVEN. MC PRN (13:30)
[2018-04-07] MEDS ORDERED: IOHEXOL 300 MG/ML 100ML VIAL. IV ONE (13:30)
[2018-04-07] MEDS ORDERED: IOHEXOL 240 MG/ML 50ML VIAL. PO ONE (13:30)
--- NOTE | 2018-04-07 13:47 | NUR ---
SW following for discharge planning. Discussed with RN, awaiting bowel movement so pt can discharge. No SW needs.
[2018-04-07] MEDS: SIMETHICONE 80 MG TAB.CHEW PO PRN ×2 (13:59→16:19)
[2018-04-07] MEDS ORDERED: MORPHINE SULFATE 4 MG/ML VIAL. IV ONE (14:30)
[2018-04-07 15:00] VITALS: BP 104/64
--- NOTE | 2018-04-07 15:02 | NUR ---
Pt started drinking contrast material @ 1430 as directed, instructed and voiced understanding of need to stop at line for additional drink prior to test.
--- NOTE | 2018-04-07 16:31 | RAD ---
CT study of the abdomen and pelvis with contrast Clinical indications: Obstipation. Status post rectal carcinoid removal. TECHNIQUE: After IV infusion of 75 cc of Omnipaque 300, helical CT scanning of the abdomen and pelvis was performed. GI contrast was administered per mouth. PQRS compliance Statement One or more of the following individualized dose reduction techniques were utilized for this study: 1. Automated exposure control 2. Adjustment of the mA and/or kV according to patient size 3. Use of iterative reconstruction technique COMPARISON: 03/30/2018. FINDINGS: No focal hepatic mass is seen. The spleen is not enlarged. The pancreas is homogeneous in appearance on this noncontrast study. The gallbladder is surgically absent. No extrahepatic biliary ductal dilatation is seen. No adrenal mass is evident. Both kidneys are normal without hydronephrosis or hydroureter. Urinary bladder wall is smooth. There is a large amount of fecal retention within the rectum and distal sigmoid colon. The rectum is distended to 9 cm transversely. There is a surgical clip in this area. No rectal wall thickening or perirectal abscess or fluid is seen. There is mild perirectal inflammation. The colon is mildly dilated proximal to the sigmoid colon. The appendix is normal. The terminal ileum is unremarkable. No small bowel dilatation is seen today. The previously seen proximal jejunal small bowel dilatation has resolved. No mesenteric edema or free intraperitoneal fluid or free intraperitoneal air is seen. No focal aneurysmal dilatation of the abdominal aorta is seen. No enlarged abdominal or pelvic lymphadenopathy is evident. Uterus and both ovaries are unremarkable. Mild atelectasis of both lung bases is seen. No lytic process is evident. IMPRESSION: Surgical clip is now present within the rectum. There is a large amount of fecal retention within the rectum and sigmoid colon. There is mild perirectal inflammation. No perirectal abscess or fluid collection or significant rectal wall thickening is evident. Electronically signed by: Romel Zendejas MD (04/07/2018 4:28 PM) [id number]
[2018-04-07] MEDS: IV RINGERS,LACTATED 1000ML 1,000 ML IV SCH (17:13)
[2018-04-07 19:00] VITALS: BP 104/64
[2018-04-07 22:42] VITALS: BP 91/51
[2018-04-07] MEDS ORDERED: diphenhydrAMINE HCL 25 MG CAPSULE PO ONE (23:30)
[2018-04-08] MEDS: HYDROcodone/APAP 7.5/325MG 1 TAB TABLET PO PRN ×4 (02:55→20:56)
[2018-04-08 03:00] VITALS: BP 104/44
[2018-04-08] MEDS: IV RINGERS,LACTATED 1000ML 1,000 ML IV SCH ×4 (03:55→19:37)
[2018-04-08] MEDS: fentaNYL PF VIAL 100 MCG/2 ML VIAL IV PRN ×6 (05:30→23:01)
[2018-04-08 07:00] VITALS: BP 95/38
[2018-04-08] MEDS: PANTOPRAZOLE 40 MG TABLET.DR. PO SCH (07:30)
[2018-04-08] MEDS: DICYCLOMINE HCL 10 MG CAPSULE PO PRN (07:41)
[2018-04-08] MEDS: LUBIPROSTONE 8 MCG CAPSULE PO SCH ×2 (08:00→16:31)
[2018-04-08] MEDS ORDERED: MIDAZOLAM HCL/PF 2 MG/2 ML VIAL. IV PRN (08:45)
[2018-04-08] MEDS ORDERED: LIDOCAINE 1% PF 2 ML VIAL. ID PRN (08:45)
[2018-04-08] MEDS ORDERED: fentaNYL PF VIAL 100 MCG/2 ML VIAL IV PRN ×2 (08:45)
[2018-04-08] MEDS: DOCUSATE SODIUM 100 MG CAPSULE. PO SCH (09:00)
[2018-04-08] MEDS: SPIRONOLACTONE 25 MG TABLET PO SCH (09:00)
[2018-04-08] MEDS: OXYBUTYNIN CHLORIDE 5 MG TABLET PO SCH ×3 (09:00→20:52)
[2018-04-08] MEDS: SIMETHICONE 80 MG TAB.CHEW PO PRN (09:08)
[2018-04-08 11:00] VITALS: BP 112/62
[2018-04-08] MEDS ORDERED: KETOROLAC 15 MG/ML VIAL. IM ONE (11:15)
[2018-04-08] MEDS ORDERED: KETOROLAC 30 MG/ML VIAL. IV PRN (11:15)
[2018-04-08 11:45] LABS: BASO % 0 % (0-3); EOS # 0.3 x10^3/uL (0.0-0.7); EOS % 7 % (0-3); HEMATOCRIT 36.3 % (36.0-47.0); HEMOGLOBIN 11.8 g/dL (12.0-15.5); LYMPH # 1.5 x10^3/uL (1.0-4.8); LYMPH % 30 % (24-48); MEAN CORPUSCULAR HEMOGLOBIN 29 pg (25-35); MEAN CORPUSCULAR HGB CONC 32 g/dL (31-37); MEAN CORPUSCULAR VOLUME 89 fL (79-100); MONO # 0.4 x10^3/uL (0.0-1.1); MONO % 8 % (0-9); NEUT # 2.8 x10^3uL (1.8-7.7); NEUT % 56 % (31-73); PLATELET COUNT 276 x10^3/uL (140-400); RED BLOOD COUNT 4.08 x10^6/uL (3.50-5.40); RED CELL DISTRIBUTION WIDTH 14.1 % (11.5-14.5)
[2018-04-08] MEDS ORDERED: KETOROLAC 15 MG/ML VIAL. IV ONE (11:45)
--- NOTE | 2018-04-08 11:52 | NUR ---
Pt fluids stopped for shower, restarted at this time. 500mL approximately remaining, non-admin current administration, will hang new bag when time.
[2018-04-08 11:58] LABS: CALCIUM 9.3 mg/dL (8.5-10.1); CREATININE 0.8 mg/dL (0.6-1.0); GFR 84.8; POTASSIUM 4.3 mmol/L (3.5-5.1)
[2018-04-08 12:04] LABS: ALBUMIN 3.5 g/dL (3.4-5.0); ALBUMIN/GLOBULIN RATIO 0.9 (1.0-1.7); TOTAL BILIRUBIN 0.3 mg/dL (0.2-1.0); TOTAL PROTEIN 7.4 g/dL (6.4-8.2)
--- NOTE | 2018-04-08 12:15 | PDOC ---
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 History of Present Illness History of Present Illness 04/04: Still abdominal pain lower quadrant or left lower side, poor by mouth intake on liq diet. No emesis but nauseated. No fever, no white count. Has flatus now. Ambulating but is causing some pain on left lower quadrant side 04/05:Advanced diet yesterday to GI soft with pain. Had a small liquid BM. Had an appetite, so this morning advanced to full liquid from clear liquid, but did not tolerate it well. Pain is all LLQ with radiation to the back. No GI labs ordered. 04/06: Relistor last night helped her feel like a BM and this plus miralax and suppository did not help. She wishes to advance diet today. ALT was up just a bit. Now she has not had a BM for some time and with her pain this constipation is the most likely culprit, needs BM for discharge home. Discussed trying tramadol and upping her hydrocodone for pain rather than IV morphine and fentanyl as well. 04/07: Overnight no BM, now has had relistor x2, mag citrate x2, dulcolax and enema daily. Bentyl, lortab and morphine improve her LLQ pain. Amitiza and Lactulose on order this morning. Her pain is still 8/10 in LLQ 30 minutes after eating. No nausea after diet yesterday. Yesterday with small bowel series showing likely left colonic obstruction. CT - Surgical clip is now present within the rectum. There is a large amount of fecal retention within the rectum and sigmoid colon. There is mild perirectal inflammation. No perirectal abscess or fluid collection or significant rectal wall thickening is evident. She is now having sharp pain in LLQ, LUQ and lower back, the last two of which are new and she is still 7/10 after lortab 7.5mg and fentanyl 25mcg. Plan: BM prior to d/c home Plan for flex sig with GI Add toradol for pain. Labs daily Nausea control Transaminitis - TSH, Ferritin, hepatitis serology all negative. Likely this is 2 /2 NAFLD/PAEZ - needs GI f/u PCOS - I have recommended starting metformin if she can tolerate in addition to her aldactone Surgical consultation [facility] records Current IVF Dw RN and her boyfriend at bedside After BM there could be a plan for discharge and f/u at [facility]. Vitals Vitals Vital Signs Date Time Temp Pulse Resp B/P (MAP) Pulse Ox O2 Delivery O2 Flow Rate FiO2 04/08/18 11:00 98.3 67 19 112/62 (79) 96 Room Air 98.3 Physical Exam General: Alert, Oriented X3, Cooperative, No acute distress Heart: Regular rate, Normal S1, Normal S2, No murmurs Lungs: Clear Abdomen: Soft, No tenderness Extremities: No cyanosis, No edema Skin: No breakdown, No significant lesion Labs LABS Laboratory Tests Test 04/08/18 11:35 White Blood Count 5.0 x10^3/uL (4.0-11.0) Red Blood Count 4.08 x10^6/uL (3.50-5.40) Hemoglobin 11.8 g/dL (12.0-15.5) Hematocrit 36.3 % (36.0-47.0) Mean Corpuscular Volume 89 fL (79-100) Mean Corpuscular Hemoglobin 29 pg (25-35) Mean Corpuscular Hemoglobin Concent 32 g/dL (31-37) Red Cell Distribution Width 14.1 % (11.5-14.5) Platelet Count 276 x10^3/uL (140-400) Neutrophils (%) (Auto) 56 % (31-73) Lymphocytes (%) (Auto) 30 % (24-48) Monocytes (%) (Auto) 8 % (0-9) Eosinophils (%) (Auto) 7 % (0-3) Basophils (%) (Auto) 0 % (0-3) Neutrophils # (Auto) 2.8 x10^3uL (1.8-7.7) Lymphocytes # (Auto) 1.5 x10^3/uL (1.0-4.8) Monocytes # (Auto) 0.4 x10^3/uL (0.0-1.1) Eosinophils # (Auto) 0.3 x10^3/uL (0.0-0.7) Basophils # (Auto) 0.0 x10^3/uL (0.0-0.2) Comment Review of Relevant I have reviewed the following items stacy (where applicable) has been applied. Labs Laboratory Tests Test 04/08/18 11:35 White Blood Count 5.0 x10^3/uL (4.0-11.0) Red Blood Count 4.08 x10^6/uL (3.50-5.40) Hemoglobin 11.8 g/dL (12.0-15.5) Hematocrit 36.3 % (36.0-47.0) Mean Corpuscular Volume 89 fL (79-100) Mean Corpuscular Hemoglobin 29 pg (25-35) Mean Corpuscular Hemoglobin Concent 32 g/dL (31-37) Red Cell Distribution Width 14.1 % (11.5-14.5) Platelet Count 276 x10^3/uL (140-400) Neutrophils (%) (Auto) 56 % (31-73) Lymphocytes (%) (Auto) 30 % (24-48) Monocytes (%) (Auto) 8 % (0-9) Eosinophils (%) (Auto) 7 % (0-3) Basophils (%) (Auto) 0 % (0-3) Neutrophils # (Auto) 2.8 x10^3uL (1.8-7.7) Lymphocytes # (Auto) 1.5 x10^3/uL (1.0-4.8) Monocytes # (Auto) 0.4 x10^3/uL (0.0-1.1) Eosinophils # (Auto) 0.3 x10^3/uL (0.0-0.7) Basophils # (Auto) 0.0 x10^3/uL (0.0-0.2) Laboratory Tests Test 04/08/18 11:35 White Blood Count 5.0 x10^3/uL (4.0-11.0) Red Blood Count 4.08 x10^6/uL (3.50-5.40) Hemoglobin 11.8 g/dL (12.0-15.5) Hematocrit 36.3 % (36.0-47.0) Mean Corpuscular Volume 89 fL (79-100) Mean Corpuscular Hemoglobin 29 pg (25-35) Mean Corpuscular Hemoglobin Concent 32 g/dL (31-37) Red Cell Distribution Width 14.1 % (11.5-14.5) Platelet Count 276 x10^3/uL (140-400) Neutrophils (%) (Auto) 56 % (31-73) Lymphocytes (%) (Auto) 30 % (24-48) Monocytes (%) (Auto) 8 % (0-9) Eosinophils (%) (Auto) 7 % (0-3) Basophils (%) (Auto) 0 % (0-3) Neutrophils # (Auto) 2.8 x10^3uL (1.8-7.7) Lymphocytes # (Auto) 1.5 x10^3/uL (1.0-4.8) Monocytes # (Auto) 0.4 x10^3/uL (0.0-1.1) Eosinophils # (Auto) 0.3 x10^3/uL (0.0-0.7) Basophils # (Auto) 0.0 x10^3/uL (0.0-0.2) Microbiology 03/30/18 Urine Culture - Final, Complete 03/30/18 Urine Culture Result 1 (PATRIZIA) - Final, Complete Medications Current Medications Morphine Sulfate (Morphine Sulfate) 4 mg 1X ONCE IV Last administered on at 21:50; Start 03/30/18 at 21:30; Stop 03/30/18 at 21:32; Status DC Ondansetron HCl (Zofran) 4 mg 1X ONCE IV Last administered on 03/30/18at 21:50 ; Start 03/30/18 at 21:30; Stop 03/30/18 at 21:32; Status DC Morphine Sulfate (Morphine Sulfate) 4 mg 1X ONCE IV Last administered on at 23:09; Start 03/30/18 at 23:15; Stop 03/30/18 at 23:16; Status DC Sodium Chloride 1,000 ml @ 1,000 mls/hr 1X ONCE IV Last administered on at 23:09; Start 03/30/18 at 23:15; Stop 03/31/18 at 00:14; Status DC Ondansetron HCl (Zofran) 4 mg PRN Q8HRS PRN IV NAUSEA/VOMITING; Start 03/31/18 at 01:00; Stop 03/31/18 at 08:44; Status DC Morphine Sulfate (Morphine Sulfate) 2 mg PRN Q2HR PRN IV PAIN Last administered on 03/31/18 18:35; Start 03/31/18 at 01:00; Stop 04/01/18 at 00:59 ; Status DC Sodium Chloride 1,000 ml @ 150 mls/hr Q6H40M IV Last administered on 22:12; Start 03/31/18 at 01:00; Stop 04/01/18 at 00:59; Status DC Ondansetron HCl (Zofran) 4 mg PRN Q6HRS PRN IV NAUSEA/VOMITING Last administered on 04/06/18 16:13; Start 03/31/18 at 08:45 Acetaminophen/ Hydrocodone Bitart (Lortab 5/325) 1 tab PRN Q4HRS PRN PO PAIN Last administered on 04/05/18 13:15; Start 03/31/18 at 08:45; Stop 04/05/18 at 22:43; Status DC Famotidine (Pepcid Vial) 20 mg QHS IVP Last administered on 04/01/18 20:05; Start 03/31/18 at 21:00; Stop 04/02/18 at 17:17; Status DC Dicyclomine HCl (Bentyl) 10 mg PRN TID PRN PO CRAMPS Last administered on 07:41; Start 03/31/18 at 08:45 Acetaminophen/ Hydrocodone Bitart (Lortab 5/325) 1 tab BID PO Last administered on 04/04/18 21:31; Start 03/31/18 at 09:00; Stop 04/05/18 at 08:50 ; Status DC Ondansetron HCl (Zofran Odt) 4 mg PRN Q6HRS PRN PO NAUSEA/VOMITING Last administered on 04/07/18 07:49; Start 03/31/18 at 08:45 Oxybutynin Chloride (Ditropan) 5 mg [id number] PO Last administered on 04/07/18 20 :42; Start 03/31/18 at 09:00 Sertraline HCl (Zoloft) 50 mg DAILY PO Last administered on 2/20/19at 07:41; Start 03/31/18 at 09:00 Non-Formulary Medication (Atomoxetine Hcl (Strattera)) 1 cap DAILYWBKFT PRN PO ADHD; Start 03/31/18 at 08:45; Status UNV Naproxen (Naprosyn) 500 mg BIDWMEALS PO ; Start 03/31/18 at 09:00; Stop at 11:07; Status DC Non-Formulary Medication (Noreth A-Et Estra/Fe Fumarate (Loestrin Fe 1.5-30 Tablet)) 1 tab DAILY PO ; Start 03/31/18 at 09:00; Stop 04/06/18 at 07:16; Status DC Spironolactone (Aldactone) 25 mg DAILY PO Last administered on 04/07/18at 07:41 ; Start 03/31/18 at 09:00 Sodium Chloride 1,000 ml @ 100 mls/hr Q10H IV Last administered on 04/04/18at 08:42; Start 04/01/18 at 08:00; Stop 04/04/18 at 09:04; Status DC Fentanyl Citrate (Fentanyl 2ml Vial) 50 mcg PRN Q2HR PRN IV PAIN Last administered on 04/05/18at 05:39; Start 04/01/18 at 11:15; Stop 04/05/18 at 08:50 ; Status DC Bisacodyl (Dulcolax Supp) 10 mg 1X ONCE RI Last administered on 04/01/18at 11: 33; Start 04/01/18 at 11:15; Stop 04/01/18 at 11:16; Status DC Bisacodyl (Dulcolax Supp) 10 mg PRN DAILY PRN RI CONSTIPATION Last administered on 04/03/18at 11:29; Start 04/01/18 at 11:15 Ciprofloxacin (Ciloxan Ophth) 2 drop Q3HRS OD Last administered on 04/07/18at 03 :50; Start 04/02/18 at 15:00; Stop 04/07/18 at 09:17; Status DC Pantoprazole Sodium (PROTONIX VIAL for IV PUSH) 40 mg DAILYAC IVP Last administered on 04/06/18at 07:57; Start 04/02/18 at 16:30; Stop 04/06/18 at 11:19 ; Status DC Docusate Sodium (Colace) 100 mg DAILY PO Last administered on 04/07/18 07:41; Start 04/03/18 at 16:30 Simethicone (Gas-X) 80 mg PRN AFTMEALHC PRN PO GAS / BLOATING Last administered on 04/08/18 09:08; Start 04/03/18 at 15:15 Sodium Monofluorophosphate (Fleet Adult) 133 ml 1X ONCE RI Last administered on 04/04/18 10:39; Start 04/04/18 at 09:15; Stop 04/04/18 at 09:16; Status DC Fentanyl Citrate (Fentanyl 2ml Vial) 50 mcg 1X ONCE IV Last administered on 09:54; Start 04/05/18 at 10:00; Stop 04/05/18 at 10:01; Status DC Morphine Sulfate (Morphine Sulfate) 4 mg PRN Q4HRS PRN IV PAIN Last administered on 04/05/18 19:46; Start 04/05/18 at 14:30; Stop 04/05/18 at 22:43 ; Status DC Methylnaltrexone [place] (Relistor) 12 mg 1X ONCE SQ Last administered on 04/05 17:29; Start 04/05/18 at 16:45; Stop 04/05/18 at 16:52; Status DC Bisacodyl (Dulcolax Supp) 10 mg 1X ONCE RI Last administered on 04/05/18 17: 30; Start 04/05/18 at 16:45; Stop 04/05/18 at 16:52; Status DC Ibuprofen (Motrin) 400 mg PRN Q6HRS PRN PO INFLAMMATION Last administered on 21:09; Start 04/05/18 at 21:00 Polyethylene Glycol (miraLAX PACKET) 17 gm PRN DAILY PRN PO CONSTIPATION 1ST CHOICE Last administered on 04/07/18 07:40; Start 04/05/18 at 21:00 Morphine Sulfate (Morphine Sulfate) 4 mg PRN Q2HR PRN IV SEVERE PAIN Last administered on 04/07/18 22:44; Start 04/05/18 at 22:45; Stop 04/07/18 at 23:15 ; Status DC Acetaminophen/ Hydrocodone Bitart (Lortab 7.5/325) 1 tab PRN Q4HRS PRN PO MODERATE PAIN Last administered on 04/08/18 07:42; Start 04/05/18 at 22:45 Pantoprazole Sodium (Protonix) 40 mg DAILYAC PO Last administered on 04/07/18 07:40; Start 04/07/18 at 07:30 Methylnaltrexone [place] (Relistor) 12 mg 1X ONCE SQ Last administered on 04/06 13:51; Start 04/06/18 at 13:30; Stop 04/06/18 at 13:31; Status DC Magnesium Citrate (Citroma) 296 ml 1X ONCE PO Last administered on 04/06/18 13:50; Start 04/06/18 at 13:30; Stop 04/06/18 at 13:31; Status DC Lubiprostone (Amitiza) 8 mcg BIDWMEALS PO Last administered on 04/07/18 17:13 ; Start 04/07/18 at 08:00 Magnesium Citrate (Citroma) 296 ml 1X ONCE PO Last administered on 04/07/18 07:41; Start 04/07/18 at 08:00; Stop 04/07/18 at 08:01; Status DC Lactulose (Lactulose) 20 gm PRN DAILY PRN PO CONSTIPATION 2ND CHOICE Last administered on 04/07/18 09:37; Start 04/07/18 at 09:30 Iohexol (Omnipaque 240 Mg/ml) 30 ml 1X ONCE PO Last administered on 04/07/18 13:30; Start 04/07/18 at 13:30; Stop 04/07/18 at 13:31; Status DC Iohexol (Omnipaque 300 Mg/ml) 75 ml 1X ONCE IV Last administered on 04/07/18 13:30; Start 04/07/18 at 13:30; Stop 04/07/18 at 13:31; Status DC Info (CONTRAST GIVEN -- Rx MONITORING) 1 each PRN DAILY PRN MC SEE COMMENTS; Start 04/07/18 at 13:30; Stop 04/09/18 at 13:29 Morphine Sulfate (Morphine Sulfate) 4 mg 1X ONCE IV Last administered on 14:33; Start 04/07/18 at 14:30; Stop 04/07/18 at 14:38; Status DC Ringer's Solution 1,000 ml @ 100 mls/hr Q10H IV Last administered on at 03:55; Start 04/07/18 at 16:45 Fentanyl Citrate (Fentanyl 2ml Vial) 25 mcg PRN Q3HRS PRN IV PAIN Last administered on 04/08/18at 09:09; Start 04/07/18 at 23:30 Diphenhydramine HCl (Benadryl) 25 mg 1X ONCE PO Last administered on at 23:28; Start 04/07/18 at 23:30; Stop 04/07/18 at 23:31; Status DC Midazolam HCl (Versed) 2 mg PRN 1X PRN IV PRIOR TO PROCEDURE; Start 04/08/18 at 08:45; Stop 04/09/18 at 08:44 Fentanyl Citrate (Fentanyl 2ml Vial) 25 mcg PRN Q5MIN PRN IV X 2 DOSES FOR PAIN ; Start 04/08/18 at 08:45; Stop 04/09/18 at 08:44 Fentanyl Citrate (Fentanyl 2ml Vial) 50 mcg PRN Q5MIN PRN IV X 2 DOSES FOR PAIN ; Start 04/08/18 at 08:45; Stop 04/09/18 at 08:44 Ringer's Solution 1,000 ml @ 125 mls/hr Q8H IV ; Start 04/08/18 at 08:44; Stop 04/08/18 at 20:43 Lidocaine HCl (Xylocaine-Mpf 1% 2ml Vial) 2 ml 1X PRN PRN ID IV START; Start at 08:45; Stop 04/09/18 at 08:44 Ketorolac Tromethamine (Toradol 15mg Vial) 15 mg 1X ONCE IM ; Start 04/08/18 at 11:15; Stop 04/08/18 at 11:16; Status Cancel Ketorolac Tromethamine (Toradol 30mg Vial) 30 mg PRN Q6HRS PRN IV PAIN; Start 04/08/18 at 11:15; Stop 04/13/18 at 11:14 Ketorolac Tromethamine (Toradol 15mg Vial) 15 mg 1X ONCE IV Last administered on 04/08/18at 11:39; Start 04/08/18 at 11:45; Stop 04/08/18 at 11:46; Status DC Active Scripts Active Ondansetron Odt (Ondansetron) 4 Mg Tab.rapdis 1 Tab PO PRN Q6-8HRS PRN 4 Days Dicyclomine Hcl 10 Mg Capsule 1 Cap PO TID PRN Medrol (Methylprednisolone) 4 Mg Tab.ds.pk 1 Pkg PO UD Oxybutynin Chloride 5 Mg Tablet 5 Mg PO [id number] Cefpodoxime Proxetil 100 Mg Tablet 200 Mg PO BID 7 Days [place] 5-325 Tablet (Acetaminophen/Hydrocodone Bitart) 1 Each Tablet 1 Tab PO BID Naproxen 500 Mg Tablet.dr 1 Tab PO BID Reported Loestrin Fe 1.5-30 Tablet (Noreth A-Et Estra/Fe Fumarate) 1 Each Tablet 1 Tab PO DAILY Aldactone (Spironolactone) 25 Mg Tablet 25 Mg PO DAILY Strattera (Atomoxetine Hcl) 80 Mg Capsule 1 Cap PO DAILYWBKFT PRN Zoloft (Sertraline Hcl) 50 Mg Tablet 1 Tab PO DAILY PRN Vitals/I & O Vital Sign - Last 24 Hours 04/07/18 04/07/18 04/07/18 04/07/18 14:33 15:00 15:03 16:19 Temp 97.8 97.8 Pulse 71 Resp 18 18 18 18 B/P (MAP) 104/64 (77) Pulse Ox 97 O2 Delivery Room Air Room Air Room Air Room Air 04/07/18 04/07/18 04/07/18 04/07/18 18:39 19:00 19:09 20:00 Temp 97.8 97.8 Pulse 71 Resp 18 18 18 B/P (MAP) 104/64 (77) Pulse Ox 97 97 O2 Delivery Room Air Room Air Room Air 04/07/18 04/07/18 04/07/18 04/07/18 20:42 22:42 22:44 23:14 Temp 98.4 98.4 Pulse 77 Resp 18 B/P (MAP) 91/51 (64) Pulse Ox 97 100 100 100 O2 Delivery Room Air Room Air Room Air Room Air 04/08/18 04/08/18 04/08/18 04/08/18 03:00 03:56 07:00 07:42 Temp 98.4 98.4 98.4 98.4 Pulse 70 72 Resp 18 16 18 B/P (MAP) 104/44 (64) 95/38 (57) Pulse Ox 99 99 94 99 O2 Delivery Room Air Room Air Room Air 04/08/18 04/08/18 04/08/18 04/08/18 08:08 08:42 09:09 09:39 Resp 18 18 18 Pulse Ox 99 O2 Delivery Room Air Room Air Room Air Room Air 04/08/18 11:00 Temp 98.3 98.3 Pulse 67 Resp 19 B/P (MAP) 112/62 (79) Pulse Ox 96 O2 Delivery Room Air Intake and Output 04/07/18 04/07/18 04/08/18 14:59 22:59 06:59 Intake Total 970 ml 300 ml Balance 970 ml 300 ml GINI OCHOA MD Apr 08, 2018 12:15
[2018-04-08] MEDS ORDERED: PROPOFOL 20 ML IV ONE ×4 (14:46→15:32)
[2018-04-08] MEDS ORDERED: SODIUM PHOSPHATES 19/7GM 133 ML ENEMA. PR ONE (15:30)
--- NOTE | 2018-04-08 15:47 | PDOC4 ---
PROCEDURE Procedure Flex sig/irrigation Indication: obstipation post-rectal cap-assisted EMR Meds: per anesthesia. Findings: NEL: lots of soft stool in rectum. --able to advance to ~splenic flexure ultimately. Soft stool distally; attempted to irrigate/fragment/aspirate as much as possible. --what mucosa seen normal. Able to identify site of EMR with clip still in place. Appeared to be healing well. --No other lesions encountered. Small amounts of formed stool remain in the distal sigmoid, but should be passable. --no retroflex. Rakan. well. IMP: fecal impaction, improved. post-EMR of rectal carcinoid, healing. REC: Golytely prep tonight. OK to feed. Thanks. KRANTHI MARTÍNEZ MD Apr 08, 2018 15:47
[2018-04-08] MEDS: SERTRALINE 50 MG TABLET. PO SCH (16:26)
[2018-04-08] MEDS ORDERED: PEG 3350/NA SULF,BICARB,CL/KCL 4,000 ML SOLUTION. PO ONE (17:00)
[2018-04-08 19:00] VITALS: BP 103/60
[2018-04-08 23:00] VITALS: BP 93/52
[2018-04-09] MEDS: HYDROcodone/APAP 7.5/325MG 1 TAB TABLET PO PRN ×4 (01:36→14:04)
[2018-04-09] MEDS: fentaNYL PF VIAL 100 MCG/2 ML VIAL IV PRN ×2 (03:13→08:05)
[2018-04-09] MEDS: IV RINGERS,LACTATED 1000ML 1,000 ML IV SCH ×2 (05:30→08:45)
[2018-04-09 07:00] VITALS: BP 89/44
[2018-04-09] MEDS: SERTRALINE 50 MG TABLET. PO SCH (08:18)
[2018-04-09] MEDS: LUBIPROSTONE 8 MCG CAPSULE PO SCH (08:18)
[2018-04-09] MEDS: SPIRONOLACTONE 25 MG TABLET PO SCH (08:18)
[2018-04-09] MEDS: DOCUSATE SODIUM 100 MG CAPSULE. PO SCH (08:20)
[2018-04-09] MEDS: PANTOPRAZOLE 40 MG TABLET.DR. PO SCH (08:20)
[2018-04-09] MEDS: OXYBUTYNIN CHLORIDE 5 MG TABLET PO SCH (08:20)
[2018-04-09 10:57] VITALS: BP 95/59
--- NOTE | 2018-04-09 11:31 | PDOC ---
Subjective: Subjective: Feels better. Still has intermittent lower abd cramping - maybe related to stooling - has had several large watery stools w/ GoLytely. Still has "sharp" LLQ pain (present since procedure @ [facility]) - also better. Tolerating PO - would like to advance. Significant other asks if she can have a banana. Objective: Vital Signs: Vital Signs Date Time Temp Pulse Resp B/P (MAP) Pulse Ox O2 Delivery O2 Flow Rate FiO2 04/09/18 10:57 98.0 61 18 95/59 (71) 96 Room Air 98.0 Imaging: Flex sig 04/08/18 NEL: lots of soft stool in rectum. --able to advance to ~splenic flexure ultimately. Soft stool distally; attempted to irrigate/fragment/aspirate as much as possible. --what mucosa seen normal. Able to identify site of EMR with clip still in place. Appeared to be healing well. --No other lesions encountered. Small amounts of formed stool remain in the distal sigmoid, but should be passable. --no retroflex. IMP: fecal impaction, improved. post-EMR of rectal carcinoid, healing. PE: GEN: NAD LUNGS: CTAB HEART: RRR ABD: NABS, S/ND, much less tender NEURO/PSYCH: A & O 3 A/P: Fecal impaction - resolved s/p felx sig and GoLytely Post-EMR of rectal carcinoid, healing -- D/w Dr. Andersen. ADAT, consider DC if tolerates. Follow-up w/ [facility]. DONAVON BIRMINGHAM Apr 09, 2018 11:31
[2018-04-09] MEDS ORDERED: CELE100C PO (12:00)
[2018-04-09] MEDS ORDERED: HYDR-2765 PO (12:00)
--- NOTE | 2018-04-09 12:02 | PDOC ---
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 History of Present Illness History of Present Illness 04/04: Still abdominal pain lower quadrant or left lower side, poor by mouth intake on liq diet. No emesis but nauseated. No fever, no white count. Has flatus now. Ambulating but is causing some pain on left lower quadrant side 04/05:Advanced diet yesterday to GI soft with pain. Had a small liquid BM. Had an appetite, so this morning advanced to full liquid from clear liquid, but did not tolerate it well. Pain is all LLQ with radiation to the back. No GI labs ordered. 04/06: Relistor last night helped her feel like a BM and this plus miralax and suppository did not help. She wishes to advance diet today. ALT was up just a bit. Now she has not had a BM for some time and with her pain this constipation is the most likely culprit, needs BM for discharge home. Discussed trying tramadol and upping her hydrocodone for pain rather than IV morphine and fentanyl as well. 04/07: Overnight no BM, now has had relistor x2, mag citrate x2, dulcolax and enema daily. Bentyl, lortab and morphine improve her LLQ pain. Amitiza and Lactulose on order this morning. Her pain is still 8/10 in LLQ 30 minutes after eating. No nausea after diet yesterday. 04/08: Yesterday with small bowel series showing likely left colonic obstruction. CT - Surgical clip is now present within the rectum. There is a large amount of fecal retention within the rectum and sigmoid colon. There is mild perirectal inflammation. No perirectal abscess or fluid collection or significant rectal wall thickening is evident. She is now having sharp pain in LLQ, LUQ and lower back, the last two of which are new and she is still 7/10 after lortab 7.5mg and fentanyl 25mcg. Had sigmoidoscopy with good stool output and miralax with more stool output. Had BM this morning. She notes still with sharp pain now, but her cramping is resolved now that she has finally had a BM. Plan: BM prior to d/c home S/p flex sig with GI Added toradol for pain. Labs daily Nausea control Transaminitis - TSH, Ferritin, hepatitis serology all negative. Likely this is 2 /2 NAFLD/PAEZ - needs GI f/u PCOS - I have recommended starting metformin if she can tolerate in addition to her aldactone Surgical consultation [facility] records Current IVF Dw RN and her boyfriend at bedside After BM there could be a plan for discharge and f/u at . Vitals Vitals Vital Signs Date Time Temp Pulse Resp B/P (MAP) Pulse Ox O2 Delivery O2 Flow Rate FiO2 04/09/18 10:57 98.0 61 18 95/59 (71) 96 Room Air 98.0 Physical Exam General: Alert, Oriented X3, Cooperative, No acute distress Heart: Regular rate, Normal S1, Normal S2, No murmurs Lungs: Clear Abdomen: Soft, No tenderness Extremities: No cyanosis, No edema Skin: No breakdown, No significant lesion Comment Review of Relevant I have reviewed the following items stacy (where applicable) has been applied. Labs Laboratory Tests Test 04/08/18 11:35 White Blood Count 5.0 x10^3/uL (4.0-11.0) Red Blood Count 4.08 x10^6/uL (3.50-5.40) Hemoglobin 11.8 g/dL (12.0-15.5) Hematocrit 36.3 % (36.0-47.0) Mean Corpuscular Volume 89 fL (79-100) Mean Corpuscular Hemoglobin 29 pg (25-35) Mean Corpuscular Hemoglobin Concent 32 g/dL (31-37) Red Cell Distribution Width 14.1 % (11.5-14.5) Platelet Count 276 x10^3/uL (140-400) Neutrophils (%) (Auto) 56 % (31-73) Lymphocytes (%) (Auto) 30 % (24-48) Monocytes (%) (Auto) 8 % (0-9) Eosinophils (%) (Auto) 7 % (0-3) Basophils (%) (Auto) 0 % (0-3) Neutrophils # (Auto) 2.8 x10^3uL (1.8-7.7) Lymphocytes # (Auto) 1.5 x10^3/uL (1.0-4.8) Monocytes # (Auto) 0.4 x10^3/uL (0.0-1.1) Eosinophils # (Auto) 0.3 x10^3/uL (0.0-0.7) Basophils # (Auto) 0.0 x10^3/uL (0.0-0.2) Sodium Level 139 mmol/L (136-145) Potassium Level 4.3 mmol/L (3.5-5.1) Chloride Level 101 mmol/L (98-107) Carbon Dioxide Level 28 mmol/L (21-32) Anion Gap 10 (6-14) Blood Urea Nitrogen 7 mg/dL (7-20) Creatinine 0.8 mg/dL (0.6-1.0) Estimated GFR (Cockcroft-Gault) 84.8 BUN/Creatinine Ratio 9 (6-20) Glucose Level 94 mg/dL (70-99) Calcium Level 9.3 mg/dL (8.5-10.1) Total Bilirubin 0.3 mg/dL (0.2-1.0) Aspartate Amino Transf (AST/SGOT) 52 U/L (15-37) Alanine Aminotransferase (ALT/SGPT) 174 U/L (14-59) Alkaline Phosphatase 101 U/L (46-116) Total Protein 7.4 g/dL (6.4-8.2) Albumin 3.5 g/dL (3.4-5.0) Albumin/Globulin Ratio 0.9 (1.0-1.7) Microbiology 03/30/18 Urine Culture - Final, Complete 03/30/18 Urine Culture Result 1 (PATRIZIA) - Final, Complete Medications Current Medications Morphine Sulfate (Morphine Sulfate) 4 mg 1X ONCE IV Last administered on at 21:50; Start 03/30/18 at 21:30; Stop 03/30/18 at 21:32; Status DC Ondansetron HCl (Zofran) 4 mg 1X ONCE IV Last administered on 03/30/18at 21:50 ; Start 03/30/18 at 21:30; Stop 03/30/18 at 21:32; Status DC Morphine Sulfate (Morphine Sulfate) 4 mg 1X ONCE IV Last administered on 23:09; Start 03/30/18 at 23:15; Stop 03/30/18 at 23:16; Status DC Sodium Chloride 1,000 ml @ 1,000 mls/hr 1X ONCE IV Last administered on at 23:09; Start 03/30/18 at 23:15; Stop 03/31/18 at 00:14; Status DC Ondansetron HCl (Zofran) 4 mg PRN Q8HRS PRN IV NAUSEA/VOMITING; Start 03/31/18 at 01:00; Stop 03/31/18 at 08:44; Status DC Morphine Sulfate (Morphine Sulfate) 2 mg PRN Q2HR PRN IV PAIN Last administered on 03/31/18 18:35; Start 03/31/18 at 01:00; Stop 04/01/18 at 00:59 ; Status DC Sodium Chloride 1,000 ml @ 150 mls/hr Q6H40M IV Last administered on 22:12; Start 03/31/18 at 01:00; Stop 04/01/18 at 00:59; Status DC Ondansetron HCl (Zofran) 4 mg PRN Q6HRS PRN IV NAUSEA/VOMITING Last administered on 04/06/18 16:13; Start 03/31/18 at 08:45 Acetaminophen/ Hydrocodone Bitart (Lortab 5/325) 1 tab PRN Q4HRS PRN PO PAIN Last administered on 04/05/18 13:15; Start 03/31/18 at 08:45; Stop 04/05/18 at 22:43; Status DC Famotidine (Pepcid Vial) 20 mg QHS IVP Last administered on 04/01/18at 20:05; Start 03/31/18 at 21:00; Stop 04/02/18 at 17:17; Status DC Dicyclomine HCl (Bentyl) 10 mg PRN TID PRN PO CRAMPS Last administered on at 07:41; Start 03/31/18 at 08:45 Acetaminophen/ Hydrocodone Bitart (Lortab 5/325) 1 tab BID PO Last administered on 04/04/18 21:31; Start 03/31/18 at 09:00; Stop 04/05/18 at 08:50 ; Status DC Ondansetron HCl (Zofran Odt) 4 mg PRN Q6HRS PRN PO NAUSEA/VOMITING Last administered on 04/07/18 07:49; Start 03/31/18 at 08:45 Oxybutynin Chloride (Ditropan) 5 mg [id number] PO Last administered on 04/09/18 08 :20; Start 03/31/18 at 09:00 Sertraline HCl (Zoloft) 50 mg DAILY PO Last administered on 04/09/18 08:18; Start 03/31/18 at 09:00 Non-Formulary Medication (Atomoxetine Hcl (Strattera)) 1 cap DAILYWBKFT PRN PO ADHD; Start 03/31/18 at 08:45; Status UNV Naproxen (Naprosyn) 500 mg BIDWMEALS PO ; Start 03/31/18 at 09:00; Stop at 11:07; Status DC Non-Formulary Medication (Noreth A-Et Estra/Fe Fumarate (Loestrin Fe 1.5-30 Tablet)) 1 tab DAILY PO ; Start 03/31/18 at 09:00; Stop 04/06/18 at 07:16; Status DC Spironolactone (Aldactone) 25 mg DAILY PO Last administered on 04/09/18 08:18 ; Start 03/31/18 at 09:00 Sodium Chloride 1,000 ml @ 100 mls/hr Q10H IV Last administered on 04/04/18 08:42; Start 04/01/18 at 08:00; Stop 04/04/18 at 09:04; Status DC Fentanyl Citrate (Fentanyl 2ml Vial) 50 mcg PRN Q2HR PRN IV PAIN Last administered on 04/05/18 05:39; Start 04/01/18 at 11:15; Stop 04/05/18 at 08:50 ; Status DC Bisacodyl (Dulcolax Supp) 10 mg 1X ONCE ND Last administered on 04/01/18 11: 33; Start 04/01/18 at 11:15; Stop 04/01/18 at 11:16; Status DC Bisacodyl (Dulcolax Supp) 10 mg PRN DAILY PRN ND CONSTIPATION Last administered on 04/03/18at 11:29; Start 04/01/18 at 11:15 Ciprofloxacin (Ciloxan Ophth) 2 drop Q3HRS OD Last administered on 04/07/18 03 :50; Start 04/02/18 at 15:00; Stop 04/07/18 at 09:17; Status DC Pantoprazole Sodium (PROTONIX VIAL for IV PUSH) 40 mg DAILYAC IVP Last administered on 04/06/18at 07:57; Start 04/02/18 at 16:30; Stop 04/06/18 at 11:19 ; Status DC Docusate Sodium (Colace) 100 mg DAILY PO Last administered on 04/07/18at 07:41; Start 04/03/18 at 16:30 Simethicone (Gas-X) 80 mg PRN AFTMEALHC PRN PO GAS / BLOATING Last administered on 04/08/18 09:08; Start 04/03/18 at 15:15 Sodium Monofluorophosphate (Fleet Adult) 133 ml 1X ONCE ND Last administered on 04/04/18at 10:39; Start 04/04/18 at 09:15; Stop 04/04/18 at 09:16; Status DC Fentanyl Citrate (Fentanyl 2ml Vial) 50 mcg 1X ONCE IV Last administered on at 09:54; Start 04/05/18 at 10:00; Stop 04/05/18 at 10:01; Status DC Morphine Sulfate (Morphine Sulfate) 4 mg PRN Q4HRS PRN IV PAIN Last administered on 04/05/18at 19:46; Start 04/05/18 at 14:30; Stop 04/05/18 at 22:43 ; Status DC Methylnaltrexone [place] (Relistor) 12 mg 1X ONCE SQ Last administered on 04/05at 17:29; Start 04/05/18 at 16:45; Stop 04/05/18 at 16:52; Status DC Bisacodyl (Dulcolax Supp) 10 mg 1X ONCE ND Last administered on 04/05/18at 17: 30; Start 04/05/18 at 16:45; Stop 04/05/18 at 16:52; Status DC Ibuprofen (Motrin) 400 mg PRN Q6HRS PRN PO INFLAMMATION Last administered on 21:09; Start 04/05/18 at 21:00 Polyethylene Glycol (miraLAX PACKET) 17 gm PRN DAILY PRN PO CONSTIPATION 1ST CHOICE Last administered on 04/07/18 07:40; Start 04/05/18 at 21:00 Morphine Sulfate (Morphine Sulfate) 4 mg PRN Q2HR PRN IV SEVERE PAIN Last administered on 04/07/18 22:44; Start 04/05/18 at 22:45; Stop 04/07/18 at 23:15 ; Status DC Acetaminophen/ Hydrocodone Bitart (Lortab 7.5/325) 1 tab PRN Q4HRS PRN PO MODERATE PAIN Last administered on 04/09/18 09:45; Start 04/05/18 at 22:45 Pantoprazole Sodium (Protonix) 40 mg DAILYAC PO Last administered on 04/09/18 08:20; Start 04/07/18 at 07:30 Methylnaltrexone [place] (Relistor) 12 mg 1X ONCE SQ Last administered on 04/06 13:51; Start 04/06/18 at 13:30; Stop 04/06/18 at 13:31; Status DC Magnesium Citrate (Citroma) 296 ml 1X ONCE PO Last administered on 04/06/18 13:50; Start 04/06/18 at 13:30; Stop 04/06/18 at 13:31; Status DC Lubiprostone (Amitiza) 8 mcg BIDWMEALS PO Last administered on 04/09/18 08:18 ; Start 04/07/18 at 08:00 Magnesium Citrate (Citroma) 296 ml 1X ONCE PO Last administered on 04/07/18 07:41; Start 04/07/18 at 08:00; Stop 04/07/18 at 08:01; Status DC Lactulose (Lactulose) 20 gm PRN DAILY PRN PO CONSTIPATION 2ND CHOICE Last administered on 04/07/18 09:37; Start 04/07/18 at 09:30 Iohexol (Omnipaque 240 Mg/ml) 30 ml 1X ONCE PO Last administered on 04/07/18 13:30; Start 04/07/18 at 13:30; Stop 04/07/18 at 13:31; Status DC Iohexol (Omnipaque 300 Mg/ml) 75 ml 1X ONCE IV Last administered on 04/07/18 13:30; Start 04/07/18 at 13:30; Stop 04/07/18 at 13:31; Status DC Info (CONTRAST GIVEN -- Rx MONITORING) 1 each PRN DAILY PRN MC SEE COMMENTS; Start 04/07/18 at 13:30; Stop 04/09/18 at 13:29 Morphine Sulfate (Morphine Sulfate) 4 mg 1X ONCE IV Last administered on at 14:33; Start 04/07/18 at 14:30; Stop 04/07/18 at 14:38; Status DC Ringer's Solution 1,000 ml @ 100 mls/hr Q10H IV Last administered on at 05:30; Start 04/07/18 at 16:45 Fentanyl Citrate (Fentanyl 2ml Vial) 25 mcg PRN Q3HRS PRN IV PAIN Last administered on 04/09/18at 08:05; Start 04/07/18 at 23:30 Diphenhydramine HCl (Benadryl) 25 mg 1X ONCE PO Last administered on at 23:28; Start 04/07/18 at 23:30; Stop 04/07/18 at 23:31; Status DC Midazolam HCl (Versed) 2 mg PRN 1X PRN IV PRIOR TO PROCEDURE; Start 04/08/18 at 08:45; Stop 04/09/18 at 08:44; Status DC Fentanyl Citrate (Fentanyl 2ml Vial) 25 mcg PRN Q5MIN PRN IV X 2 DOSES FOR PAIN ; Start 04/08/18 at 08:45; Stop 04/09/18 at 08:44; Status DC Fentanyl Citrate (Fentanyl 2ml Vial) 50 mcg PRN Q5MIN PRN IV X 2 DOSES FOR PAIN ; Start 04/08/18 at 08:45; Stop 04/09/18 at 08:44; Status DC Ringer's Solution 1,000 ml @ 125 mls/hr Q8H IV Last administered on 04/08/18at 19:37; Start 04/08/18 at 08:44; Stop 04/08/18 at 20:43; Status DC Lidocaine HCl (Xylocaine-Mpf 1% 2ml Vial) 2 ml 1X PRN PRN ID IV START; Start at 08:45; Stop 04/09/18 at 08:44; Status DC Ketorolac Tromethamine (Toradol 15mg Vial) 15 mg 1X ONCE IM ; Start 04/08/18 at 11:15; Stop 04/08/18 at 11:16; Status Cancel Ketorolac Tromethamine (Toradol 30mg Vial) 30 mg PRN Q6HRS PRN IV PAIN Last administered on 04/08/18at 22:20; Start 04/08/18 at 11:15; Stop 04/13/18 at 11:14 Ketorolac Tromethamine (Toradol 15mg Vial) 15 mg 1X ONCE IV Last administered on 04/08/18at 11:39; Start 04/08/18 at 11:45; Stop 04/08/18 at 11:46; Status DC Propofol 20 ml @ As Directed STK-MED ONCE IV ; Start 04/08/18 at 14:46; Stop at 14:47; Status DC Propofol 20 ml @ As Directed STK-MED ONCE IV ; Start 04/08/18 at 14:57; Stop at 14:58; Status DC Propofol 20 ml @ As Directed STK-MED ONCE IV ; Start 04/08/18 at 15:20; Stop at 15:21; Status DC Sodium Monofluorophosphate (Fleet Adult) 133 ml 1X ONCE ND Last administered on 04/08/18at 15:25; Start 04/08/18 at 15:30; Stop 04/08/18 at 15:31; Status DC Propofol 20 ml @ As Directed STK-MED ONCE IV ; Start 04/08/18 at 15:32; Stop at 15:33; Status DC Sodium Cl/Sod Bicarb/Potass Cl/ PEG (Golytely) 4,000 ml 1X ONCE PO Last administered on 04/08/18at 20:52; Start 04/08/18 at 17:00; Stop 04/08/18 at 17:01 ; Status DC Active Scripts Active Ondansetron Odt (Ondansetron) 4 Mg Tab.rapdis 1 Tab PO PRN Q6-8HRS PRN 4 Days Dicyclomine Hcl 10 Mg Capsule 1 Cap PO TID PRN Medrol (Methylprednisolone) 4 Mg Tab.ds.pk 1 Pkg PO UD Oxybutynin Chloride 5 Mg Tablet 5 Mg PO [id number] Cefpodoxime Proxetil 100 Mg Tablet 200 Mg PO BID 7 Days [place] 5-325 Tablet (Acetaminophen/Hydrocodone Bitart) 1 Each Tablet 1 Tab PO BID Naproxen 500 Mg Tablet.dr 1 Tab PO BID Reported Loestrin Fe 1.5-30 Tablet (Noreth A-Et Estra/Fe Fumarate) 1 Each Tablet 1 Tab PO DAILY Aldactone (Spironolactone) 25 Mg Tablet 25 Mg PO DAILY Strattera (Atomoxetine Hcl) 80 Mg Capsule 1 Cap PO DAILYWBKFT PRN Zoloft (Sertraline Hcl) 50 Mg Tablet 1 Tab PO DAILY PRN Vitals/I & O Vital Sign - Last 24 Hours 04/08/18 04/08/18 04/08/18 04/08/18 12:14 13:42 13:44 15:40 Temp 97.8 97.0 97.8 97.0 Pulse 66 70 Resp 18 20 20 B/P (MAP) 115/85 Pulse Ox 96 98 97 O2 Delivery Room Air Room Air Room Air 04/08/18 04/08/18 04/08/18 04/08/18 15:55 16:01 16:10 16:26 Pulse 78 79 Resp 16 16 16 18 B/P (MAP) 120/65 141/69 Pulse Ox 97 97 97 O2 Delivery Room Air Room Air Room Air Room Air 04/08/18 04/08/18 04/08/18 04/09/18 19:00 20:00 23:00 01:36 Temp 97.9 98.3 97.9 98.3 Pulse 58 67 Resp 18 18 20 B/P (MAP) 103/60 (74) 93/52 (66) Pulse Ox 100 100 96 O2 Delivery Room Air Room Air Room Air Room Air 04/09/18 04/09/18 04/09/18 04/09/18 03:00 03:13 03:43 05:32 Resp 20 18 20 Pulse Ox 96 O2 Delivery Room Air Room Air Room Air 04/09/18 04/09/18 04/09/18 04/09/18 06:31 07:00 08:00 08:05 Temp 98.4 98.4 Pulse 61 Resp 18 18 B/P (MAP) 89/44 (59) Pulse Ox 95 96 O2 Delivery Room Air Room Air Room Air Room Air 04/09/18 04/09/18 04/09/18 08:35 09:45 10:57 Temp 98.0 98.0 Pulse 61 Resp 18 B/P (MAP) 95/59 (71) Pulse Ox 96 O2 Delivery Room Air Room Air Room Air Intake and Output 04/08/18 04/08/18 04/09/18 15:00 23:00 07:00 Intake Total 200 ml Balance 200 ml GINI OCHOA MD Apr 09, 2018 12:02
--- NOTE | 2018-04-09 14:00 | NUR ---
Discharge Note: SUE ERNST [address] Discharge instructions and discharge home medications reviewed with Spouse and a copy given. All questions have been answered and understanding verbalized. The following instructions and handouts were given: Abdominal Pain, SBO Discontinued lines and drains: L hand peripheral IV discontinued, no bleeding or bruising,catheter tip intact. Patient discharged to home for self-care.
--- NOTE | 2018-04-25 14:33 | PDOC3 ---
Discharge Summary Visit Information Date of Admission: Mar 31, 2018 Date of Discharge: May 07, 2008 Admitting Diagnosis: SBO Final Diagnosis SBO Brief Hospital Course Allergies Allergies Coded Allergies Type Severity Reaction Last Updated Verified morphine Allergy Intermediate itching, swelling of arm proximal to IV site Yes Uncoded Allergies Type Severity Reaction Last Updated Verified adhesive/tele pads Adverse Reaction Intermediate redness and severe itching/ burning 04/09/18 Brief Hospital Course 27 y/o female - case d/w Dr. Zelaya. Reportedly had colonoscopy @ [facility] in 2017 and then EUS/endoscopic resection of neuroendocrine tumor on 03/12/18. Came to [facility] w/ LLQ/mid abd pain (cramping, pressure, stabbing) that wraps around to left back. Pain present since procedure on 03/12 - worse yesterday. Last stooled on Thursday prior to admit - says has seen red blood with each stool since procedure. Denies reflux/heartburn, dysphagia, n/v, diarrhea, constipation, and melena. Some decreased appetite. No previous EGD. Also had a colonoscopy in 2010 for bleeding - thinks probably normal except hemorrhoids. S/p cholecystectomy for stone. No liver, pancreas, or PUD history. Lab unrevealing except UA +blood. On CT report: dilated fluid-filled jejunal loops within the left mid abdomen. 04/04: Still abdominal pain lower quadrant or left lower side, poor by mouth intake on liq diet. No emesis but nauseated. No fever, no white count. Has flatus now. Ambulating but is causing some pain on left lower quadrant side 04/05:Advanced diet yesterday to GI soft with pain. Had a small liquid BM. Had an appetite, so this morning advanced to full liquid from clear liquid, but did not tolerate it well. Pain is all LLQ with radiation to the back. No GI labs ordered. 04/06: Relistor last night helped her feel like a BM and this plus miralax and suppository did not help. She wishes to advance diet today. ALT was up just a bit. Now she has not had a BM for some time and with her pain this constipation is the most likely culprit, needs BM for discharge home. Discussed trying tramadol and upping her hydrocodone for pain rather than IV morphine and fentanyl as well. 04/07: Overnight no BM, now has had relistor x2, mag citrate x2, dulcolax and enema daily. Bentyl, lortab and morphine improve her LLQ pain. Amitiza and Lactulose on order this morning. Her pain is still 8/10 in LLQ 30 minutes after eating. No nausea after diet yesterday. 04/08: Yesterday with small bowel series showing likely left colonic obstruction. CT - Surgical clip is now present within the rectum. There is a large amount of fecal retention within the rectum and sigmoid colon. There is mild perirectal inflammation. No perirectal abscess or fluid collection or significant rectal wall thickening is evident. She is now having sharp pain in LLQ, LUQ and lower back, the last two of which are new and she is still 7/10 after lortab 7.5mg and fentanyl 25mcg. Had sigmoidoscopy with good stool output and miralax with more stool output. Had BM this morning. She notes still with sharp pain now, but her cramping is resolved now that she has finally had a BM. 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 Plan: BM prior to d/c home S/p flex sig with GI Added toradol for pain. Labs daily Nausea control Transaminitis - TSH, Ferritin, hepatitis serology all negative. Likely this is 2 /2 NAFLD/PAEZ - needs GI f/u PCOS - I have recommended starting metformin if she can tolerate in addition to her aldactone Surgical consultation [facility] records Current IVF Dw RN and her boyfriend at bedside After BM there could be a plan for discharge and f/u at . Greater than 30 minutes spent on discharge including follow up Discharge Information Condition at Discharge: Improved Follow Up: Weeks (2) Disposition/Orders: D/C to Home Scheduled Celecoxib (Celebrex) 100 Mg Capsule, 100 MG PO BID for rectal pain for 30 Days, #60 Ref 0 Prescribed by: GINI OCHOA MD on 04/09/18 1200 Hydrocodone/[place]ap 5-325 ([place] 5-325 Tablet) 1 Each Tablet, 1 TAB PO BID, #15 Prescribed by: ERMELINDA SNIDER MD on 09/06/17 1038 Last Action: Continued on 03/31/18844 by ZOYA GRAVES Naproxen (Naproxen) 500 Mg Tablet.dr, 1 TAB PO BID, #60 Ref 1 Prescribed by: Yari Su APRN on 06/07/161951 Last Action: Converted on 03/31/18844 by ZOYA GRAVES Noreth A-Et Estra/Fe Fumarate (Loestrin Fe 1.5-30 Tablet) 1 Each Tablet, 1 TAB PO DAILY for CONTROL, #28 Ref 11 (Reported) Entered as Reported by: PEPE FINCH RN on 03/31/18315 Last Action: Converted on 03/31/18844 by ZOYA GRAVES Oxybutynin Chloride (Oxybutynin Chloride) 5 Mg Tablet, 5 MG PO [id number], #15 Prescribed by: ERMELINDA SNIDER MD on 09/06/17 1038 Last Action: Continued on 03/31/18844 by ZOYA GRAVES Spironolactone (Aldactone) 25 Mg Tablet, 25 MG PO DAILY for HYPERTENSION, ( Reported) Entered as Reported by: PEPE FINCH RN on 03/31/18315 Last Action: Converted on 03/31/18844 by ZOYA GRAVES Scheduled PRN Atomoxetine Hcl (Strattera) 80 Mg Capsule, 1 CAP PO DAILYWBKFT PRN for ADHD, # 30 Ref 2 (Reported) Entered as Reported by: PEPE FINCH RN on 03/31/18315 Last Action: Converted on 03/31/18844 by ZOYA GRAVES Dicyclomine Hcl (Dicyclomine Hcl) 10 Mg Capsule, 1 CAP PO TID PRN for PAIN, #10 Ref 0 Prescribed by: DESHAUN HOGAN APRN on 01/11/18 7730 Last Action: Continued on 03/31/18844 by ZOYA GRAVES Hydrocodone Bit/Acetaminophen (Hydrocodone-Apap 7.5-325 ) 1 Tab Tablet, 1 TAB PO PRN Q6HRS PRN for PAIN for 6 Days, #18 Ref 0 Prescribed by: GINI OCHOA MD on 04/09/18 1200 Ondansetron (Ondansetron Odt) 4 Mg Tab.rapdis, 1 TAB PO PRN Q6-8HRS PRN for NAUSEA/VOMITING for 4 Days, #16 Ref 0 Prescribed by: RUFINO BURNS APRN on 01/27/18 1146 Last Action: Continued on 03/31/18844 by ZOYA GRAVES Sertraline Hcl (Zoloft) 50 Mg Tablet, 1 TAB PO DAILY PRN for DEPRESSION, #30 Ref 2 (Reported) Entered as Reported by: PEPE FINCH, RN on 03/31/18 0316 Last Action: Continued on 03/31/18844 by GINI GROSSMAN MD Apr 25, 2018 14:33
== END 2018-04-09 14:00 | disposition home or self-care (01) | DRG 389 ==
LOC: ER 20:12 → 5 SOUTH 03-31
PROVIDERS: ADMIT Family Medicine; ATTEND Family Medicine
PROC: 3E1H88Z Irrigation of Lower GI using Irrigating Substance, Via Natural or Artificial Opening Endoscopic (ICD-10-PCS; principal; 2018-04-08 14:30)
DX: K56.609 Unspecified intestinal obstruction, unspecified as to partial versus complete obstruction (principal); R71.0 Precipitous drop in hematocrit; K56.41 Fecal impaction; D3A.8 Other benign neuroendocrine tumors; E28.2 Polycystic ovarian syndrome; F41.9 Anxiety disorder, unspecified; F32.9 Major depressive disorder, single episode, unspecified; Z68.39 Body mass index [BMI] 39.0-39.9, adult; E66.9 Obesity, unspecified; E31.20 Multiple endocrine neoplasia [MEN] syndrome, unspecified; Z86.010 Personal history of colon polyps; Z82.49 Family history of ischemic heart disease and other diseases of the circulatory system; Z85.038 Personal history of other malignant neoplasm of large intestine; Z90.49 Acquired absence of other specified parts of digestive tract; Z98.51 Tubal ligation status
CPT/HCPCS: 36415; 45330; 74021; 74022; 74176; 74177; 80048; 80053; 81001; 81025; 82728; 83690; 84443; 85025; 86705; 86709; 86803; 87086; 87340; 96361; 96374; 96375; 96376; C9113; J1885; J2212; J2270; J2405; J2704; J3010; J3490; J7030; J7120; Q0162; Q0163; Q9966; Q9967; 99285-25

== ENCOUNTER 2018-06-21 13:19 | Emergency (ER) | payer OTHER ==
[~2018-06-21] VITALS: Ht 172.7 cm; Wt 122.5 kg
[~2018-06-21 13:19] MED LIST changes: +ATOM80CA PO; +CELE100C PO; +HYDR-2765 PO; +NORE-88 PO; +SERT50TA PO; +SPIR25TA PO
[2018-06-21 13:33] VITALS: BP_SYST 142
--- NOTE | 2018-06-21 13:59 | PHYS DOC ---
Past Medical History Past Medical History: Anxiety, Cancer, Depression, Uterine Fibroids, Other Additional Past Medical Histor: PCOS, ADD,PTSD,COLON CA Past Surgical History: Cholecystectomy, Tubal ligation Additional Past Surgical Histo: PARTIAL COLON REMOVAL Alcohol Use: None Drug Use: None Adult General Chief Complaint Chief Complaint: WRIST PAIN [facility] HPI Patient is a 27-year-old female who presents with right wrist pain after being handcuffed last night and struggling while being handcuffed.. Patient states that she took 2 Advil at 10 AM with minimal relief. She states her pain is 8 out of 10 and throbbing and elliott. Denies any associated symptoms Review of Systems Review of Systems Constitutional: Denies fever or chills [] Eyes: Denies change in visual acuity, redness, or eye pain [] HENT: Denies nasal congestion or sore throat [] Respiratory: Denies cough or shortness of breath [] Cardiovascular: No additional information not addressed in HPI [] GI: Denies abdominal pain, nausea, vomiting, bloody stools or diarrhea [] : Denies dysuria or hematuria [] Musculoskeletal: Denies back pain or joint pain. Reports R wrist pain. Integument: Denies rash or skin lesions [] Neurologic: Denies headache, focal weakness or sensory changes [] Endocrine: Denies polyuria or polydipsia [] Complete systems were reviewed and found to be within normal limits, except as documented in this note. Current Medications Current Medications Current Medications Medications (Trade) Dose Ordered Sig/[facility] Start Time Stop Time Status Last Admin Dose Admin Acetaminophen (Tylenol) 650 mg 1X ONCE 06/21/18 14:00 06/21/18 14:01 DC 06/21/18 14:21 650 MG Ketorolac Tromethamine (Toradol 30mg Vial) 30 mg 1X ONCE 06/21/18 14:00 06/21/18 14:01 DC 06/21/18 14:21 30 MG Allergies Allergies Allergies Coded Allergies Type Severity Reaction Last Updated Verified morphine Allergy Intermediate itching, swelling of arm proximal to IV site 04/08/18 Yes Uncoded Allergies Type Severity Reaction Last Updated Verified adhesive/tele pads Adverse Reaction Intermediate redness and severe itching/burning 04/09/18 Physical Exam Physical Exam Constitutional: Well developed, well nourished, no acute distress, non-toxic appearance. [] HENT: Normocephalic, atraumatic, bilateral external ears normal, oropharynx moist, no oral exudates, nose normal. [] Eyes: PERRLA, EOMI, conjunctiva normal, no discharge. [] Neck: Normal range of motion, no tenderness, supple, no stridor. [] Cardiovascular:Heart rate regular rhythm, no murmur [] Lungs & Thorax: Bilateral breath sounds clear to auscultation [] Abdomen: Bowel sounds normal, soft, no tenderness, no masses, no pulsatile masses. [] Skin: Warm, dry, no erythema, no rash. [] Back: No tenderness, no CVA tenderness. [] Extremities: No tenderness, no cyanosis, no clubbing, ROM intact, no edema. [] Neurologic: Alert and oriented X 3, normal motor function, normal sensory function, no focal deficits noted. [] Psychologic: Affect normal, judgement normal, mood normal. [] Current Patient Data Vital Signs Vital Signs Date Time Temp Pulse Resp B/P (MAP) Pulse Ox O2 Delivery O2 Flow Rate FiO2 06/21/18 13:33 97.9 102 20 142/86 (104) 98 Room Air 97.9 Lab Values Laboratory Tests Test 06/21/18 14:15 POC Urine HCG, Qualitative Hcg negative (Negative) EKG EKG [] Radiology/Procedures Radiology/Procedures []PATIENT: SUE ERNST SACCOUNT: [id number]#: [id number] : 1990 LOCATION: ER AGE: 27 SEX: F EXAM STATUS: REG ER ORD. PHYSICIAN: KRANTHI ROBBINS APRN REASON: RIGHT WRIST PAIN SINCE LAST NIGHT, AFTER BEING PUT INTO HANDCUFFS PROCEDURE: WRIST 3V RIGHT 3 view study right wrist Clinical indications: Right wrist pain since last night after being put into handcuffs. FINDINGS: No acute fracture or dislocation or lytic process is seen. Alignment is normal. IMPRESSION: No acute fracture. Electronically signed by: Romel Zendejas MD (06/21/2018 2:22 PM) [facility] Course & Med Decision Making Course & Med Decision Making Pertinent Labs and Imaging studies reviewed. (See chart for details) Discussed signs and symptoms. Will order x-ray and pain medication. Patient is agreeable to plan of care. Imaging is unremarkable. Will d/c home to follow up with PCP. Therese Disclaimer Therese Disclaimer This electronic medical record was generated, in whole or in part, using a voice recognition dictation system. Departure Departure Impression: Primary Impression: Wrist pain, acute Disposition: HOME, SELF-CARE Condition: STABLE Referrals: UNKNOWN PCP NAME (PCP) Patient Instructions: Wrist Pain, Bwhi-[id number] Additional Instructions: Please follow up with your primary care physician. Wear your splint, and use RICE (Rest, ICE, Compression and Elevation. Problem Qualifiers Primary Impression: Wrist pain, acute Laterality: right Qualified Codes: M25.531 - Pain in right wrist KRANTHI ROBBINS APRN June 21, 2018 13:59
[2018-06-21] MEDS ORDERED: ACETAMINOPHEN 325 MG TABLET. PO ONE (14:00)
[2018-06-21] MEDS ORDERED: KETOROLAC 30 MG/ML VIAL. IM ONE (14:00)
--- NOTE | 2018-06-21 14:25 | RAD ---
3 view study right wrist Clinical indications: Right wrist pain since last night after being put into handcuffs. FINDINGS: No acute fracture or dislocation or lytic process is seen. Alignment is normal. IMPRESSION: No acute fracture. Electronically signed by: Romel Zendejas MD (06/21/2018 2:22 PM) [place] [id number]
[2018-06-21 15:06] VITALS: BP_DIAS 141
== END 2018-06-21 15:06 | disposition home or self-care (01) ==
LOC: ER 13:19
DX: M25.531 Pain in right wrist (principal); Z88.5 Allergy status to narcotic agent; Z88.8 Allergy status to other drugs, medicaments and biological substances
CPT/HCPCS: 29125; 73110; 81025; 96372; 99284; J1885

== ENCOUNTER → 2018-06-29 | Outpatient (CLI) | payer OTHER ==
[2018-06-21 13:33] VITALS: BP_SYST 142
[2018-06-21 15:06] VITALS: BP_DIAS 141
--- NOTE | 2018-06-29 16:16 | RAD ---
Examination: PELVIS W/TV History: Excessive menstruation. Fibroids. Comparison/Correlation: CT abdomen and pelvis with oral contrast 04/07/2018 Findings: Transabdominal and transvaginal pelvic ultrasound exam were performed. Transvaginal technique was utilized to better assess the adnexal structures. Uterus measures 8.3 cm x 4.9 cm by 5.7 cm. Endometrial thickness of 0.8 cm noted. Mild diffuse fibroid involvement of the myometrium is noted. Right ovary measures 4.6 cm x 3.5 cm x 4.1 cm. Left ovary measures 2.4 cm x 1.7 cm x 2.5 cm. Normal ovarian flow is present bilaterally on color Doppler imaging. Right adnexal cyst measuring 2.5 cm x 2.4 cm x 2.7 cm present. It has the appearance of a corpus luteum cyst. No left adnexal complex cysts or masses. No pelvic free fluid. Impression: Right adnexal complex cyst which appears represent a hemorrhagic corpus luteum cyst. This is not evident on the prior CT exam. Interval follow-up pelvic ultrasound in 16-20 weeks to assess resolution should be considered. Diffuse fibroid involvement of the uterus. Electronically signed by: Alberto Fong MD (06/29/2018 4:13 PM) [facility]
== END | disposition home or self-care (01) ==
LOC: US 14:53
PROVIDERS: ATTEND Obstetrics & Gynecology
DX: N83.11 Corpus luteum cyst of right ovary (principal); D25.9 Leiomyoma of uterus, unspecified; N85.8 Other specified noninflammatory disorders of uterus
CPT/HCPCS: 76830; 76856

== ENCOUNTER 2018-08-12 07:40 | Observation (INO) | payer OTHER ==
[2018-08-12] VITALS (7 sets, daily range): BP systolic 97–127; BP diastolic 59–79
[~2018-08-12] VITALS: Ht 172.7 cm; Wt 122.4 kg
[~2018-08-12 07:40] MED LIST changes: +IV RINGERS,LACTATED 1000ML 1,000 ML IV SCH; +LIDOCAINE 1% PF 2 ML VIAL. ID PRN; +ONDANSETRON PF 4 MG/2 ML VIAL. IV PRN; +ceFAZolin SODIUM 3 GM in IV DEXTROSE 5% 100ML 100 ML IV PRN; +fentaNYL PF VIAL 100 MCG/2 ML VIAL IV PRN
[2018-08-12 08:13] LABS: U PREG PATIENT NEGATIVE (NEG)
[2018-08-12 08:25] LABS: BASO % 0 % (0-3); EOS # 0.2 x10^3/uL (0.0-0.7); EOS % 4 % (0-3); HEMOGLOBIN 12.5 g/dL (12.0-15.5); LYMPH # 1.4 x10^3/uL (1.0-4.8); LYMPH % 23 % (24-48); MEAN CORPUSCULAR HEMOGLOBIN 30 pg (25-35); MEAN CORPUSCULAR HGB CONC 34 g/dL (31-37); MEAN CORPUSCULAR VOLUME 87 fL (79-100); MONO # 0.4 x10^3/uL (0.0-1.1); MONO % 7 % (0-9); NEUT # 3.9 x10^3uL (1.8-7.7); NEUT % 66 % (31-73); PLATELET COUNT 299 x10^3/uL (140-400); RED BLOOD COUNT 4.25 x10^6/uL (3.50-5.40); RED CELL DISTRIBUTION WIDTH 13.6 % (11.5-14.5)
[2018-08-12] MEDS ORDERED: ONDANSETRON PF 4 MG/2 ML VIAL. ONE (09:27)
[2018-08-12] MEDS ORDERED: DEXAMETHASONE SOD PHOS 4 MG/ML VIAL ONE (09:27)
[2018-08-12] MEDS ORDERED: LIDOCAINE 2% PF 5 ML VIAL. ONE (09:27)
[2018-08-12] MEDS ORDERED: PROPOFOL 20 ML IV ONE (09:27)
[2018-08-12] MEDS ORDERED: ROCURONIUM 50 MG/5 ML VIAL. ONE ×2 (09:28→12:39)
[2018-08-12] MEDS ORDERED: ESTROGENS, CONJ VAGINAL CREAM 30GM TUBE. ONE (10:27)
[2018-08-12] MEDS ORDERED: BUPIVACAINE-EPI 0.25%-1:200000 MPF 30 ML VIAL. ONE (10:27)
[2018-08-12] MEDS ORDERED: ISOSULFAN BLUE 50 MG/5 ML VIAL. SQ ONE (10:27)
[2018-08-12] MEDS ORDERED: SURGICEL HEMOSTAT 4X8 EACH. ONE (10:27)
[2018-08-12] MEDS ORDERED: LIDOCAINE 1%/EPI 1:100,000 20 ML VIAL. ONE ×2 (10:27→11:40)
[2018-08-12] MEDS ORDERED: fentaNYL PF VIAL 100 MCG/2 ML VIAL ONE ×3 (11:17→13:35)
[2018-08-12] MEDS ORDERED: MIDAZOLAM HCL/PF 2 MG/2 ML VIAL. ONE (11:17)
[2018-08-12] MEDS ORDERED: GLYCOPYRROLATE 1 MG/5 ML VIAL. ONE (11:43)
[2018-08-12] MEDS ORDERED: SEVOFLURANE 61 TO 120 MINUTES. IH ONE (11:43)
[2018-08-12] MEDS ORDERED: NEOSTIGMINE METHYLSULFATE 5 MG/5 ML SYRINGE. ONE (11:43)
--- NOTE | 2018-08-12 13:11 | PDOC ---
BRIEF OPERATIVE NOTE Date: Aug 12, 2018 Pre-Op Diagnosis 1. Fibroids 2. Menorrhagia 3. Dysmenorrhea 4. ROV Cyst Post-Op Diagnosis Same Procedure Performed LAVH & RSO Surgeon Dr. Antony Port Cdl A Driver Kiera Anesthesia Type: General Blood Loss 100 ml Specimens Obtained cervix, uterus, Right fallopian tube and ROV Findings enlarged, fibroid uterus, ROV cyst 3 cm size Complications none Operative Note see dictation KATHERINE ANTONY Jr, MD Aug 12, 2018 13:11
[2018-08-12] MEDS ORDERED: PROCHLORPERAZINE 10 MG/2 ML VIAL. IV PRN (13:15)
[2018-08-12] MEDS ORDERED: CALCIUM CARBONATE 500 MG TAB.CHEW PO PRN (13:15)
[2018-08-12] MEDS ORDERED: ONDANSETRON PF 4 MG/2 ML VIAL. IV PRN (13:15)
[2018-08-12] MEDS ORDERED: oxyCODONE/APAP 5/325 1 TAB TABLET PO PRN ×2 (13:15→19:00)
[2018-08-12] MEDS ORDERED: DEXTROSE 50% 25 GM / 50ML DISP.SYRIN. IV PRN (13:15)
[2018-08-12] MEDS ORDERED: diphenhydrAMINE HCL 25 MG CAPSULE PO PRN (13:15)
[2018-08-12] MEDS ORDERED: diphenhydrAMINE 50 MG/ML VIAL IV PRN (13:15)
[2018-08-12] MEDS ORDERED: 0.9 % SODIUM CHLORIDE 10 ML DISP.SYRIN. IV PRN (13:15)
[2018-08-12] MEDS ORDERED: ZOLPIDEM 5 MG TABLET. PO PRN (13:15)
[2018-08-12] MEDS: fentaNYL PF VIAL 100 MCG/2 ML VIAL IV PRN ×4 (13:24→13:56)
[2018-08-12] MEDS: PROCHLORPERAZINE 10 MG/2 ML VIAL. IV PRN ×2 (13:27→18:58)
--- NOTE | 2018-08-12 13:27 | OP ---
DATE OF SURGERY: PREOPERATIVE DIAGNOSES: 1. Fibroids. 2. Menorrhagia. 3. Dysmenorrhea. 4. Right ovarian cyst. POSTOPERATIVE DIAGNOSES: 1. Fibroids. 2. Menorrhagia. 3. Dysmenorrhea. 4. Right ovarian cyst. PROCEDURE: LAVH and RSO. SURGEON: Katherine Antony MD [employer] CONSULTANT: Kiera. ANESTHESIA: GETA. ESTIMATED BLOOD LOSS: 100 mL. COMPLICATIONS: None. FINDINGS: Enlarged fibroid uterus; right ovarian cyst, 3 cm size. SUMMARY: A 28-year-old female with long history of fibroid uterus, menorrhagia, dysmenorrhea and right ovarian cyst requiring hysterectomy. The patient was counseled on risks, benefits and expectations and voiced a clear understanding to proceed. DESCRIPTION OF PROCEDURE: The patient was taken to surgery suite and placed in dorsal lithotomy position. She was prepped with Betadine solution for vaginal prep and ChloraPrep for abdominal prep. After adequate anesthesia, bivalve speculum was placed vaginally. Anterior lip of the cervix grasped with single tooth tenaculum. The Valtchev uterine manipulator was then placed. The bivalve speculum was removed. Attention was now placed on abdomen. Small transverse skin incision made just below the umbilicus with a scalpel. The Veress needle was then placed through the infraumbilical incision site. The abdomen was allowed to insufflate up to 1-1/2 liters CO2 gas. The Veress needle was then removed, 5 mm trocar was placed. Scope was positioned. There were some abdominal wall adhesions. The uterus was enlarged with multiple fibroids. Right ovary was visualized with a 3 cm size cyst. Two additional incisions were made in the left lower quadrant with a scalpel in which 5 mm trocars were placed. With the aid of graspers and the EnSeal device, the right round ligament was coagulated and dissected. The right infundibulopelvic ligament was coagulated and dissected. The right broad ligament was coagulated and dissected down to the uterine artery. The left round ligament was then coagulated and dissected. The left utero-ovarian pedicle where there were some dense adhesions to the pelvic sidewall were coagulated and dissected with the EnSeal device down to and including the left uterine artery. We then proceeded vaginally. Weighted speculum and curved Vienna placed vaginally and the Valtchev uterine manipulator and single tooth tenaculum were removed. Dany clamps were placed on the anterior and posterior lip of the cervix. The cervix was injected with 1% lidocaine with epinephrine. The cervix was then circumscribed with Bovie cautery. The vaginal mucosa was then dissected away from the lower uterine segment using blunt dissection with a moist Ray-Linda. The parametrial tissue was clamped bilaterally with curved Stephanie clamps, cut, suture ligated with 2-0 Vicryl suture. The anterior cul-de-sac was then entered bluntly. The posterior cul-de-sac was entered sharply with curved Bhatti scissors. The long weighted speculum was placed. Uterosacral ligaments and cardinal ligaments were clamped bilaterally, cut, and suture ligated. The cervix, uterus, right fallopian tube and ovary then removed. A modified Griffin's culdoplasty was performed, incorporating the uterosacral ligaments bilaterally. The remainder of the vaginal cuff was reapproximated using 2-0 Vicryl suture in [id number] manner. Moist vaginal packing was placed. Attention was once again placed on abdomen. The abdomen was allowed to insufflate up to 1-1/2 liters CO2 gas. Scope was positioned. Suction irrigation was utilized to remove small clot and normal saline fluid was used to irrigate, the pedicles were hemostatic. The vaginal cuff was hemostatic. Small amount of normal saline was left in posterior cul-de-sac. The trocars were then removed under direct visualization. The abdomen was allowed to deflate as much as possible along with mechanical manipulation. The three skin incisions were reapproximated using 4-0 Vicryl suture in subcuticular manner. A 0.25% Marcaine with epinephrine was injected at each incision site. The patient tolerated the procedure well and was sent to recovery room in stable condition. Sponge and needle count correct x 3. KATHERINE ANTONY MD DR: ANIYAH/ramírez JOB#: [id number] / [id number]
[2018-08-12] MEDS ORDERED: KETOROLAC 30 MG/ML VIAL. IV PRN (13:45)
[2018-08-12] MEDS: HYDROmorphone 2 MG/ML VIAL IV PRN ×2 (14:17→20:39)
[2018-08-12] MEDS: KETOROLAC 30 MG/ML VIAL. IV PRN ×2 (16:00→21:39)
[2018-08-12] MEDS: GABAPENTIN 300 MG CAPSULE. PO SCH ×2 (18:54→22:00)
[2018-08-12] MEDS: oxyCODONE/APAP 5/325 1 TAB TABLET PO PRN ×2 (18:56→23:23)
[2018-08-12] MEDS: SIMETHICONE 80 MG TAB.CHEW PO PRN ×2 (20:00→21:43)
[2018-08-12] MEDS: OPIUM/BELLADONNA 30/16.2MG SUPP.RECT. PR PRN (20:24)
[2018-08-13 01:00] VITALS: BP 109/42
[2018-08-13] MEDS: GABAPENTIN 300 MG CAPSULE. PO SCH (03:13)
[2018-08-13] MEDS: oxyCODONE/APAP 5/325 1 TAB TABLET PO PRN ×3 (03:14→12:21)
[2018-08-13] MEDS: SIMETHICONE 80 MG TAB.CHEW PO PRN ×2 (03:14→08:12)
[2018-08-13] MEDS: KETOROLAC 30 MG/ML VIAL. IV PRN (04:37)
[2018-08-13] MEDS: HYDROmorphone 2 MG/ML VIAL IV PRN ×2 (05:14→10:15)
[2018-08-13 06:45] LABS: BASO % 0 % (0-3); EOS % 0 % (0-3); HEMATOCRIT 32.9 % (36.0-47.0); LYMPH # 1.3 x10^3/uL (1.0-4.8); LYMPH % 14 % (24-48); MEAN CORPUSCULAR HEMOGLOBIN 29 pg (25-35); MEAN CORPUSCULAR HGB CONC 34 g/dL (31-37); MEAN CORPUSCULAR VOLUME 87 fL (79-100); MONO # 0.8 x10^3/uL (0.0-1.1); MONO % 8 % (0-9); NEUT # 7.5 x10^3uL (1.8-7.7); NEUT % 78 % (31-73); PLATELET COUNT 279 x10^3/uL (140-400); RED BLOOD COUNT 3.76 x10^6/uL (3.50-5.40); RED CELL DISTRIBUTION WIDTH 13.8 % (11.5-14.5); WHITE BLOOD COUNT 9.7 x10^3/uL (4.0-11.0)
--- NOTE | 2018-08-13 08:49 | PDOC ---
SURGICAL PROGRESS NOTE Subjective Pt. feeling well. Pain better controlled with B&O suppository. Vital Signs Vital Signs Date Time Temp Pulse Resp B/P (MAP) Pulse Ox O2 Delivery O2 Flow Rate FiO2 08/13/18 08:27 Room Air 08/13/18 08:12 20 98 08/13/18 01:00 99.0 82 109/42 (64) 99.0 08/12/18 21:09 2.0 I&O Intake and Output 08/13/18 07:00 Intake Total 2600 ml Output Total 1525 ml Balance 1075 ml Intake Oral 800 ml IV Total 1800 ml Output Urine Total 1425 ml Estimated Blood Loss 100 ml PATIENT HAS A PATTERSON: No General: Alert, Oriented X3, Cooperative HEENT: Atraumatic Lungs: Clear to auscultation Heart: Regular rate Abdomen: Normal bowel sounds, Soft, No masses Psych/Mental Status: Mental status NL Labs Laboratory Tests Test 08/12/18 07:45 08/12/18 08:10 08/13/18 04:46 Urine Test Negative (NEG) White Blood Count 6.0 x10^3/uL (4.0-11.0) 9.7 x10^3/uL (4.0-11.0) Red Blood Count 4.25 x10^6/uL (3.50-5.40) 3.76 x10^6/uL (3.50-5.40) Hemoglobin 12.5 g/dL (12.0-15.5) 11.0 g/dL (12.0-15.5) Hematocrit 37.0 % (36.0-47.0) 32.9 % (36.0-47.0) Mean Corpuscular Volume 87 fL (79-100) 87 fL (79-100) Mean Corpuscular Hemoglobin 30 pg (25-35) 29 pg (25-35) Mean Corpuscular Hemoglobin Concent 34 g/dL (31-37) 34 g/dL (31-37) Red Cell Distribution Width 13.6 % (11.5-14.5) 13.8 % (11.5-14.5) Platelet Count 299 x10^3/uL (140-400) 279 x10^3/uL (140-400) Neutrophils (%) (Auto) 66 % (31-73) 78 % (31-73) Lymphocytes (%) (Auto) 23 % (24-48) 14 % (24-48) Monocytes (%) (Auto) 7 % (0-9) 8 % (0-9) Eosinophils (%) (Auto) 4 % (0-3) 0 % (0-3) Basophils (%) (Auto) 0 % (0-3) 0 % (0-3) Neutrophils # (Auto) 3.9 x10^3uL (1.8-7.7) 7.5 x10^3uL (1.8-7.7) Lymphocytes # (Auto) 1.4 x10^3/uL (1.0-4.8) 1.3 x10^3/uL (1.0-4.8) Monocytes # (Auto) 0.4 x10^3/uL (0.0-1.1) 0.8 x10^3/uL (0.0-1.1) Eosinophils # (Auto) 0.2 x10^3/uL (0.0-0.7) 0.0 x10^3/uL (0.0-0.7) Basophils # (Auto) 0.0 x10^3/uL (0.0-0.2) 0.0 x10^3/uL (0.0-0.2) Laboratory Tests Test 08/13/18 04:46 White Blood Count 9.7 x10^3/uL (4.0-11.0) Red Blood Count 3.76 x10^6/uL (3.50-5.40) Hemoglobin 11.0 g/dL (12.0-15.5) Hematocrit 32.9 % (36.0-47.0) Mean Corpuscular Volume 87 fL (79-100) Mean Corpuscular Hemoglobin 29 pg (25-35) Mean Corpuscular Hemoglobin Concent 34 g/dL (31-37) Red Cell Distribution Width 13.8 % (11.5-14.5) Platelet Count 279 x10^3/uL (140-400) Neutrophils (%) (Auto) 78 % (31-73) Lymphocytes (%) (Auto) 14 % (24-48) Monocytes (%) (Auto) 8 % (0-9) Eosinophils (%) (Auto) 0 % (0-3) Basophils (%) (Auto) 0 % (0-3) Neutrophils # (Auto) 7.5 x10^3uL (1.8-7.7) Lymphocytes # (Auto) 1.3 x10^3/uL (1.0-4.8) Monocytes # (Auto) 0.8 x10^3/uL (0.0-1.1) Eosinophils # (Auto) 0.0 x10^3/uL (0.0-0.7) Basophils # (Auto) 0.0 x10^3/uL (0.0-0.2) Assessment/Plan A: POD#1 s/p LAVH & LSO P: D/c home. KATHERINE DALE Jr, MD Aug 13, 2018 08:49
[2018-08-13] MEDS ORDERED: IBUP-1060 PO (08:52)
[2018-08-13] MEDS ORDERED: GABA300C18 PO (08:52)
[2018-08-13] MEDS ORDERED: DOCU-109 PO (08:52)
--- NOTE | 2018-08-13 08:53 | DISCH ---
DISCHARGE INSTRUCTIONS Condition on Discharge Condition on Discharge: Stable Activity After Discharge Activity Instructions for Disc: Activity as tolerated Lifting Instructions after Dis: No heavy lifting Driving Instructions after Dis: No driving for 2 weeks Diet after Discharge Diet after Discharge: GI Soft, Regular Diet Texture: Regular Liquid Texture: Thin Liquid Swallowing Supervision: None needed Checks after Discharge Checks after discharge: Check your Temp as needed Contacting the after DC Call your doctor for: Concerns you may have Follow-Up Follow up with: Dr. Antony in 2 weeks Treatment/Equipment after DC Adaptive Equipment Issued: None KATHERINE ANTONY Jr, MD Aug 13, 2018 08:53
[2018-08-13] MEDS: OPIUM/BELLADONNA 30/16.2MG SUPP.RECT. PR PRN (09:04)
[2018-08-13 11:00] VITALS: BP 112/54
[2018-08-13] MEDS ORDERED: BISACODYL 10 MG SUPP.RECT. PR ONE (11:00)
[2018-08-14] MEDS ORDERED: OXYC1TAB15 PO (14:48)
--- NOTE | 2018-08-16 16:57 | PDOC1 ---
History and Physical Date of Admission Date of Admission DATE: 08/12/18 TIME: 0600 Identification/Chief Complaint Chief Complaint abd pain Source Source: Patient History of Present Illness History of Present Illness 28 y/o with h/o chronic pelvic pain, menorrhagia, fibroids and ROV cyst presents for LAVH & RSO. She has h/o BTL. SHe is unresponsive to medical treatment and requires LAVH & RSO. Past Medical History Cardiovascular: No pertinent hx Pulmonary: No pertinent hx GI: Other Heme/Onc: No pertinent hx Hepatobiliary: No pertinent hx Psych: No pertinent hx Rheumatologic: No pertinent hx Infectious disease: No pertinent hx Renal/: No pertinent hx Endocrine: No pertinent hx, Other Past Surgical History Past Surgical History: Cholecystectomy, Tubal Ligation, Other Family History Family History: Hypertension Social History ALCOHOL: none Drugs: None Current Medications Current Medications Current Medications Ondansetron HCl (Zofran) 4 mg PRN Q6HRS PRN IV NAUSEA/VOMITING; Start 08/12/18 at 07:00; Stop 08/13/18 at 06:59; Status DC Fentanyl Citrate (Fentanyl 2ml Vial) 25 mcg PRN Q5MIN PRN IV MILD PAIN 1-3; Start 08/12/18 at 07:00; Stop 08/13/18 at 06:59; Status DC Fentanyl Citrate (Fentanyl 2ml Vial) 50 mcg PRN Q5MIN PRN IV MODERATE TO SEVERE PAIN Last administered on 08/12/18at 13:56; Start 08/12/18 at 07:00; Stop 08/13/18 at 06:59; Status DC Ringer's Solution 1,000 ml @ 30 mls/hr Q24H IV Last administered on 08/12/18at 08:11; Start 08/12/18 at 07:00; Stop 08/12/18 at 18:59; Status DC Lidocaine HCl (Xylocaine-Mpf 1% 2ml Vial) 2 ml PRN 1X PRN ID IV START; Start 08/12/18 at 07:00; Stop 08/13/18 at 06:59; Status DC Prochlorperazine Edisylate (Compazine) 5 mg PACU PRN PRN IV NAUSEA, MRX1 Last administered on 08/12/18at 18:58; Start 08/12/18 at 07:00; Stop 08/13/18 at 06:59; Status DC Cefazolin Sodium 3 gm/Dextrose 100 ml @ 200 mls/hr 1X PREOP PRN IV PRIOR TO PROCEDURE Last administered on 08/12/18at 11:37; Start 08/12/18 at 06:00; Stop 08/12/18 at 15:00; Status DC Propofol 20 ml @ As Directed STK-MED ONCE IV ; Start 08/12/18 at 09:27; Stop 08/12/18 at 09:28; Status DC Lidocaine HCl (Lidocaine Pf 2% Vial) 5 ml STK-MED ONCE .ROUTE ; Start 08/12/18 at 09:27; Stop 08/12/18 at 09:28; Status DC Dexamethasone Sodium Phosphate (Decadron) 4 mg STK-MED ONCE .ROUTE ; Start 08/12/18 at 09:27; Stop 08/12/18 at 09:28; Status DC Ondansetron HCl (Zofran) 4 mg STK-MED ONCE .ROUTE ; Start 08/12/18 at 09:27; Stop 08/12/18 at 09:28; Status DC Rocuronium Hutchinson (Zemuron) 50 mg STK-MED ONCE .ROUTE ; Start 08/12/18 at 09:28; Stop 08/12/18 at 09:29; Status DC Midazolam HCl (Versed) 2 mg STK-MED ONCE .ROUTE ; Start 08/12/18 at 11:17; Stop 08/12/18 at 11:18; Status DC Fentanyl Citrate (Fentanyl 2ml Vial) 100 mcg STK-MED ONCE .ROUTE ; Start 08/12/18 at 11:17; Stop 08/12/18 at 11:18; Status DC Isosulfan Blue (Isosulfan Blue) 50 mg STK-MED ONCE SQ ; Start 08/12/18 at 10:27; Stop 08/12/18 at 11:27; Status DC Estrogens Conjugated (Premarin) 30 piper STK-MED ONCE .ROUTE ; Start 08/12/18 at 10:27; Stop 08/12/18 at 11:27; Status DC Cellulose (Surgicel Hemostat 4x8) 1 each STK-MED ONCE .ROUTE ; Start 08/12/18 at 10:27; Stop 08/12/18 at 11:27; Status DC Bupivacaine HCl/ Epinephrine Bitart (Sensorcaine-Epi 0.25%-1:517105 Mpf) 30 ml STK-MED ONCE .ROUTE Last administered on 08/12/18at 12:35; Start 08/12/18 at 10:27; Stop 08/12/18 at 11:28; Status DC Lidocaine/ Epinephrine (LIDOCAINE 1%-EPI 1:100,000 Multi-Dose) 20 ml STK-MED ONCE .ROUTE ; Start 08/12/18 at 10:27; Stop 08/12/18 at 11:28; Status DC Glycopyrrolate (Robinul) 1 mg STK-MED ONCE .ROUTE ; Start 08/12/18 at 11:43; Stop 08/12/18 at 11:44; Status DC Neostigmine Methylsulfate (Neostigmine Methylsulfate) 5 mg STK-MED ONCE .ROUTE ; Start 08/12/18 at 11:43; Stop 08/12/18 at 11:44; Status DC Sevoflurane (Ultane) 60 ml STK-MED ONCE IH ; Start 08/12/18 at 11:43; Stop 08/12/18 at 11:44; Status DC Rocuronium Hutchinson (Zemuron) 50 mg STK-MED ONCE .ROUTE ; Start 08/12/18 at 12:39; Stop 08/12/18 at 12:40; Status DC Lidocaine/ Epinephrine (LIDOCAINE 1%-EPI 1:100,000 Multi-Dose) 20 ml STK-MED ONCE .ROUTE Last administered on 08/12/18at 12:42; Start 08/12/18 at 11:40; Stop 08/12/18 at 12:40; Status DC Calcium Carbonate/ Glycine (Tums) 500 mg PRN Q3HRS PRN PO HEARTBURN / GAS; Start 08/12/18 at 13:15; Stop 08/13/18 at 15:59; Status DC Simethicone (Gas-X) 80 mg PRN AFTMEALHC PRN PO GAS / BLOATING Last administered on 08/13/18at 08:12; Start 08/12/18 at 13:15; Stop 08/13/18 at 15:59; Status DC Zolpidem Tartrate (Ambien) 5 mg PRN QHS PRN PO INSOMNIA, MAY REPEAT IN 1HR Last administered on 08/12/18at 21:38; Start 08/12/18 at 13:15; Stop 08/13/18 at 15:59; Status DC Diphenhydramine HCl (Benadryl) 25 mg PRN Q6HRS PRN PO ITCHING; Start 08/12/18 at 13:15; Stop 08/13/18 at 15:59; Status DC Diphenhydramine HCl (Benadryl) 25 mg PRN Q6HRS PRN IV ITCHING; Start 08/12/18 at 13:15; Stop 08/13/18 at 15:59; Status DC Sodium Chloride (Normal Saline Flush) 3 ml QSHIFT PRN IV AFTER MEDS AND BLOOD DRAWS; Start 08/12/18 at 13:15; Stop 08/13/18 at 15:59; Status DC Dextrose (Dextrose 50%-Water Syringe) 12.5 gm PRN Q15MIN PRN IV SEE COMMENTS; Start 08/12/18 at 13:15; Stop 08/13/18 at 15:59; Status DC Oxycodone/ Acetaminophen (Percocet 5/325) 2 tab PRN Q4HRS PRN PO MODERATE PAIN, SEVERE PAIN; Start 08/12/18 at 13:15; Status UNV Ketorolac Tromethamine (Toradol 30mg Vial) 30 mg PRN Q6HRS PRN IV PAIN Last administered on 08/13/18at 04:37; Start 08/12/18 at 13:15; Stop 08/13/18 at 15:59; Status DC Gabapentin (Neurontin) 600 mg Q8HRS PO Last administered on 08/13/18at 03:13; Start 08/12/18 at 14:00; Stop 08/13/18 at 15:59; Status DC Ondansetron HCl (Zofran) 4 mg PRN Q6HRS PRN IV NAUESA, 1ST CHOICE Last administered on 08/13/18at 09:32; Start 08/12/18 at 13:15; Stop 08/13/18 at 15:59; Status DC Prochlorperazine Edisylate (Compazine) 5 mg PRN Q6HRS PRN IV N/V, 2nd Choice, MR X1; Start 08/12/18 at 13:15; Stop 08/13/18 at 15:59; Status DC Fentanyl Citrate (Fentanyl 2ml Vial) 100 mcg STK-MED ONCE .ROUTE ; Start 08/12/18 at 13:23; Stop 08/12/18 at 13:24; Status DC Fentanyl Citrate (Fentanyl 2ml Vial) 100 mcg STK-MED ONCE .ROUTE ; Start 08/12/18 at 13:35; Stop 08/12/18 at 13:36; Status DC Ketorolac Tromethamine (Toradol 30mg Vial) 30 mg PRN Q6HRS PRN IV PAIN Last administered on 08/12/18at 13:48; Start 08/12/18 at 13:45; Stop 08/12/18 at 14:16; Status DC Hydromorphone HCl (Dilaudid) 0.5 mg PRN Q10MIN PRN IV SEVERE PAIN 7-10 Last administered on 08/13/18at 10:15; Start 08/12/18 at 13:45; Stop 08/13/18 at 15:59; Status DC Oxycodone/ Acetaminophen (Percocet 5/325) 2 tab PRN Q4HRS PRN PO SEVERE PAIN Last administered on 08/13/18at 12:21; Start 08/12/18 at 14:30; Stop 08/13/18 at 15:59; Status DC Belladonna Alkaloids/Opium (B & O) 1 supp PRN Q12HR PRN MI BLADDER SPASM Last administered on 08/13/18at 09:04; Start 08/12/18 at 18:30; Stop 08/13/18 at 15:59; Status DC Oxycodone/ Acetaminophen (Percocet 5/325) 1 tab PRN Q4HRS PRN PO MODERATE PAIN; Start 08/12/18 at 19:00; Stop 08/13/18 at 15:59; Status DC Bisacodyl (Dulcolax Supp) 10 mg 1X ONCE MI Last administered on 08/13/18at 11:4 1; Start 08/13/18 at 11:00; Stop 08/13/18 at 11:04; Status DC Active Scripts Active Percocet 5-325 Mg Tablet (Oxycodone/Acetaminophen) 1 Each Tablet 1-2 Each PO PRN TID PRN pain Ibuprofen 800 Mg Tablet 800 Mg PO PRN Q6HRS PRN Colace (Docusate Sodium) 100 Mg Capsule 100 Mg PO BID Gabapentin 300 Mg Capsule 600 Mg PO Q8HRS Reported Aldactone (Spironolactone) 25 Mg Tablet 25 Mg PO DAILY Strattera (Atomoxetine Hcl) 80 Mg Capsule 1 Cap PO DAILYWBKFT PRN Zoloft (Sertraline Hcl) 50 Mg Tablet 1 Tab PO DAILY PRN Allergies Allergies: Coded Allergies: adhesive (Verified Allergy, Intermediate, ADHESIVE/TELE PADS. ITCHING/BURNING, 08/14/18) morphine (Verified Allergy, Intermediate, itching, swelling of arm proximal to IV site, 08/14/18) ROS General: YES: Fatigue; No: Chills, Night Sweats, Malaise, Appetite, Other PSYCHOLOGICAL ROS: YES: Anxiety; No: Behavioral Disorder, Concentration difficultie, Decreased libido, Depression, Disorientation, Hallucinations, Hostility, Irritablity, Memory difficulties, Mood Swings, Obsessive thoughts, Physical abuse, Sexual abuse, Sleep disturbances, Suicidal ideation, Other Eyes: No Blurry vision, No Decreased vision, No Double vision, No Dry eyes, No Excessive tearing, No Eye Pain, No Itchy Eyes, No Loss of vision, No Photophobia, No Scotomata, No Uses contacts, No Uses glasses, No Other HEENT: No: Heacaches, Visual Changes, Hearing change, Nasal congestion, Nasal discharge, Oral lesions, Sinus pain, Sore Throat, Epistaxis, Sneezing, Snoring, Tinnitus, Vertigo, Vocal changes, Other ALLERGY AND IMMUNOLOGY: No: Hives, Insect Bite Sensitivity, Itchy/Watery Eyes, Nasal Congestion, Post Nasal Drip, Seasonal Allergies, Other Hematological and Lymphatic: No: Bleeding Problems, Blood Clots, Blood Transfu sions, Brusing, Night Sweats, Pallor, Swollen Lymph Nodes, Other ENDOCRINE: No: Breast Changes, Galactorrhea, Hair Pattern Changes, Hot Flashes, Malaise/lethargy, Mood Swings, Palpitations, Polydipsia/polyuria, Skin Changes, Temperature Intolerance, Unexpected Weight Changes, Other Breast: No New/Changing Breast Lumps, No Nipple changes, No Nipple discharge, No Other Respiratory: No: Cough, Hemoptysis, Orthopnea, Pleuritic Pain, Shortness of breath, SOB with excertion, Sputum Changes, Stridor, Tachypnea, Wheezing, Other Cardiovascular: No Chest Pain, No Palpitations, No Orthopnea, No Paroxysmal Noc. Dyspnea, No Edema, No Lt Headedness, No Other Gastrointestinal: Yes Abdominal Pain Genitourinary: No Dysuria, No Frequency, No Incontinence, No Hematuria, No Retention, No Discharge, No Urgency, No Pain, No Flank Pain, No Other, No , No , No , No , No , No , No Skin: No Dry Skin, No Eczema, No Hair Changes, No Lumps, No Mole Changes, No Mottling, No Nail Changes, No Pruritus, No Rash, No Skin Lesion Changes, No Other, No Acne Physical Exam General: Alert, Oriented X3, Cooperative HEENT: Atraumatic Lungs: Clear to auscultation Heart: S1S2 Breasts: Normal Abdomen: Normal bowel sounds, Soft, No masses, Other (Pelvic: enlarged, fibroid uterus with moderate tenderness) Psych/Mental Status: Mental status NL Vitals Vitals Vital Signs Date Time Temp Pulse Resp B/P (MAP) Pulse Ox O2 Delivery O2 Flow Rate FiO2 08/13/18 12:21 20 98 Room Air 2.0 08/13/18 11:00 98.4 84 112/54 (73) 98.4 VTE Prophylaxis Ordered VTE Prophylaxis Devices: No VTE Pharmacological Prophylaxi: No Assessment/Plan Assessment/Plan A: Fibroids Menorrhagia Dysmenorrhea ROV Cyst P: LAVH & RSO. KATHERINE DALE Jr, MD Aug 16, 2018 16:57
--- NOTE | 2018-08-16 18:05 | PATHOLOGY ---
[facility] Accession Number: [id number] . 01 Material submitted: . uterus - CERVIX, UTERUS, RIGHT FALLOPIAN TUBE, RIGHT OVARY. Modifiers: right . 01 Clinical history: . Abnormal uterine bleeding . 02 Diagnosis: Uterus and attached right fallopian tube and ovary, laparoscopic assisted vaginal hysterectomy and right salpingo-oophorectomy: - Adenomyosis, uterine corpus, with mild myometrial hypertrophy (uterine weight 129 grams). - Chronic cervicitis with focal squamous metaplasia. - Nabothian cysts, cervix, small. - Weakly proliferative endometrium. - Uterine serosal adhesions. - Right paratubal cyst. - Cystic follicles of ovary, multiple, showing focal hemorrhage and regressive changes. LBQ/08/16/2018 . 02 Comment: There is no atypia or evidence of malignancy. (JPM/db; 08/16/2018) . 02 Electronically signed: . Messi Julien MD, Pathologist NPI- [id number] . 01 Gross description: . The specimen is received in formalin labeled "[place], cervix, uterus, right fallopian tube, right ovary". Received is a 129 g, 9.3 x 5.8 x 4.8 cm uterus with attached cervix and attached right adnexa weighing 12 g. The uterine serosa is pink-gregg to pink-pinzon in appearance with a moderate amount of overlying adhesions. The 1.3 cm cervical os is surrounded by light gregg, granular to pale gregg, smooth ectocervical mucosa. The uterus is oriented using the peritoneal reflection and the anterior paracervical margin is inked black. The uterus is opened laterally to reveal a pale gregg, slightly corrugated endocervical canal measuring 2.8 cm in length. The endometrial cavity is triangular measuring 4.3 cm in length by 2.9 cm in width. The endometrium is pink-gregg, glistening to slightly hemorrhagic in appearance and measures 0.1 cm in thickness. Serial sectioning reveals a gregg-pink, trabeculated myometrium measuring up to 2.2 cm in thickness with no grossly distinct nodules or lesions. . The right adnexa consists of a fimbriated fallopian tube measuring 1.5 cm in length by up to two 0.9 cm in diameter attached to a 3.5 x 2.5 x 1.8 cm ovary. The fallopian tube displays an attached paratubal cyst measuring 1.3 cm filled with clear serous fluid. Sectioning through the fallopian tube reveals a patent lumen and the fallopian tube appears grossly unremarkable. Sectioning through the ovary reveals multiple unilocular cystic structures ranging in size from 0.2 to 0.4 cm filled with blood-tinged fluid. The remaining cut surfaces display pale gregg, normal ovarian stroma. The specimen is submitted representatively as follows: . A1 12:00 cervix A2 6:00 cervix A3 serosal adhesions A4 anterior endomyometrium A5 posterior endomyometrium A6 right adnexa. (CAA; 08/13/2018) QAC/QAC . 02 Pathologist provided ICD-10: N80.0, N72, N88.8, N83.8 . 02 CPT . 820747 Specimen Comment: A courtesy copy of this report has been sent to Specimen Comment: [phone]. Specimen Comment: Report sent to Performed at: 01 [facility] [address], [place] [id number] MD Eleuterio Gaitan MD Phone: [phone] Performed at: 02 [facility] [address] [place], [place] [id number] MD Messi Julien MD Phone: [phone]
== END 2018-08-13 13:35 | disposition home or self-care (01) ==
LOC: SURG 07:40 → 3 NORTH 14:30
PROVIDERS: ADMIT Obstetrics & Gynecology; ATTEND Obstetrics & Gynecology
DX: D25.9 Leiomyoma of uterus, unspecified (principal); N92.0 Excessive and frequent menstruation with regular cycle; N83.201 Unspecified ovarian cyst, right side; N94.6 Dysmenorrhea, unspecified; G89.29 Other chronic pain; R10.2 Pelvic and perineal pain; Z82.49 Family history of ischemic heart disease and other diseases of the circulatory system; Z98.890 Other specified postprocedural states
CPT/HCPCS: 36415; 58550; 81025; 85025; 86850; 86900; 86901; 96374; 96375; 96376; A7015; G0378; G0379; J0780; J1100; J1170; J1885; J2001; J2250; J2405; J2704; J2710; J3010; J3490; J7030; J7120; 88307; Q9968

== ENCOUNTER 2018-08-14 12:30 | Emergency (ER) | payer OTHER ==
[~2018-08-14] VITALS: Ht 172.7 cm; Wt 122.5 kg
[~2018-08-14 12:30] MED LIST changes: +DOCU-109 PO; +GABA300C18 PO; +IBUP-1060 PO; -IV RINGERS,LACTATED 1000ML 1,000 ML IV SCH; -LIDOCAINE 1% PF 2 ML VIAL. ID PRN; -ONDANSETRON PF 4 MG/2 ML VIAL. IV PRN; -ceFAZolin SODIUM 3 GM in IV DEXTROSE 5% 100ML 100 ML IV PRN; -fentaNYL PF VIAL 100 MCG/2 ML VIAL IV PRN
[2018-08-14] MEDS ORDERED: fentaNYL PF VIAL 100 MCG/2 ML VIAL IV ONE (13:30)
[2018-08-14] MEDS ORDERED: ONDANSETRON PF 4 MG/2 ML VIAL. IV ONE (13:30)
[2018-08-14 13:31] LABS: BASO % 0 % (0-3); EOS # 0.4 x10^3/uL (0.0-0.7); EOS % 7 % (0-3); HEMATOCRIT 32.6 % (36.0-47.0); LYMPH # 1.6 x10^3/uL (1.0-4.8); LYMPH % 26 % (24-48); MEAN CORPUSCULAR HEMOGLOBIN 30 pg (25-35); MEAN CORPUSCULAR HGB CONC 34 g/dL (31-37); MEAN CORPUSCULAR VOLUME 88 fL (79-100); MONO # 0.4 x10^3/uL (0.0-1.1); MONO % 6 % (0-9); NEUT # 3.6 x10^3uL (1.8-7.7); NEUT % 60 % (31-73); PLATELET COUNT 247 x10^3/uL (140-400); RED BLOOD COUNT 3.71 x10^6/uL (3.50-5.40); RED CELL DISTRIBUTION WIDTH 13.8 % (11.5-14.5)
[2018-08-14 13:32] LABS: BILIRUBIN,URINE NEGATIVE (NEG); CLARITY,URINE CLEAR; COLOR,URINE YELLOW; NITRITE,URINE NEGATIVE (NEG); PROTEIN,URINE NEGATIVE (NEG-TRACE); UROBILINOGEN,URINE 0.2 mg/dL (0.2 mg/dL)
[2018-08-14 13:41] LABS: CALCIUM 8.8 mg/dL (8.5-10.1); CREATININE 0.8 mg/dL (0.6-1.0); GFR 84.2; POTASSIUM 3.4 mmol/L (3.5-5.1)
[2018-08-14 13:46] LABS: BACTERIA,URINE 0 /HPF (0-FEW); RBC,URINE 0 /HPF (0-2); SQUAMOUS EPITHELIAL CELL,UR OCC /LPF; WBC,URINE RARE /HPF (0-4)
[2018-08-14] MEDS ORDERED: oxyCODONE/APAP 5/325 1 TAB TABLET PO ONE (14:00)
[2018-08-14] MEDS ORDERED: KETOROLAC 30 MG/ML VIAL. IV ONE (14:00)
[2018-08-14 14:47] VITALS: BP 122/67
[2018-08-14] MEDS ORDERED: OXYC1TAB15 PO (14:48)
--- NOTE | 2018-08-14 14:48 | PHYS DOC ---
Past Medical History Past Medical History: Depression Additional Past Medical Histor: PCOS, ADD,PTSD,COLON CA Past Surgical History: Hysterectomy Additional Past Surgical Histo: PARTIAL COLON REMOVAL Alcohol Use: None Drug Use: None Adult General Chief Complaint Chief Complaint: ABDOMINAL PAIN HPI HPI Patient is a 28 year old f since the ER for evaluation of abdominal pain. Patient is postop day 2 from a laparoscopic hysterectomy indicated for fibroids and metromenorrhagia. Patient states that pain was controlled on the hospital with IV pain medication. Patient reports progressive pain since discharge yesterday after pain medications wore off. Reports pain at rest 2-3 out of 10 but pain increases to 78 out of 10 with movement. No fever. No nausea. No vomiting. GI bleed symptoms. Very minimal vaginal bleeding. Patient was DC'd with pain plan ibuprofen and gabapentin. Patient states that she has been noncompliant with scheduled ibuprofen and gabapentin. Review of Systems Review of Systems Constitutional: Denies fever or chills [] Eyes: Denies change in visual acuity, redness, or eye pain [] HENT: Denies nasal congestion or sore throat [] Respiratory: Denies cough or shortness of breath [] Cardiovascular: no chest pain, no palpitations, no LE edema GI: +abd pain, nausea, vomiting, bloody stools or diarrhea [] : Denies dysuria or hematuria [] Musculoskeletal: Denies back pain or joint pain [] Integument: Denies rash or skin lesions [] Neurologic: Denies headache, focal weakness or sensory changes [] Endocrine: Denies polyuria or polydipsia [] All other systems were reviewed and found to be within normal limits, except as documented in this note. Current Medications Current Medications Current Medications Medications (Trade) Dose Ordered Sig/[facility] Start Time Stop Time Status Last Admin Dose Admin Fentanyl Citrate (Fentanyl 2ml Vial) 75 mcg 1X ONCE 08/14/18 13:30 08/14/18 13:31 DC 08/14/18 13:26 75 MCG Ketorolac Tromethamine (Toradol 30mg Vial) 30 mg 1X ONCE 08/14/18 14:00 08/14/18 14:01 DC 08/14/18 14:01 30 MG Ondansetron HCl (Zofran) 8 mg 1X ONCE 08/14/18 13:30 08/14/18 13:31 DC 08/14/18 13:26 8 MG Oxycodone/ Acetaminophen (Percocet 5/325) 1 tab 1X ONCE 08/14/18 14:00 08/14/18 14:01 DC 08/14/18 14:02 1 TAB Allergies Allergies Allergies Coded Allergies Type Severity Reaction Last Updated Verified adhesive Allergy Intermediate ADHESIVE/TELE PADS. ITCHING/BURNING 08/14/18 Yes morphine Allergy Intermediate itching, swelling of arm proximal to IV site 08/14/18 Yes Physical Exam Physical Exam Constitutional: Obese, nontoxic appearing HENT: Normocephalic, atraumatic, Eyes: PERRLA, EOMI, Neck: Normal range of motion, no tenderness, supple, no stridor. [] Cardiovascular:Heart rate regular rhythm, no murmur [] Lungs & Thorax: Bilateral breath sounds clear to auscultation [] Abdomen: Arthroscopic incision sites with no surrounding erythema or discharge. Bowel sounds normal, soft, mild diffuse tenderness., no masses, no pulsatile masses. [] Skin: Warm, dry, no erythema, no rash. []Sessions as above Back: No tenderness, no CVA tenderness. [] Extremities: No tenderness, no cyanosis, no clubbing, ROM intact, no edema. [] Neurologic: Alert and oriented X 3,no focal deficits noted. [] Psychologic: Affect normal, judgement normal, mood normal. [] Current Patient Data Vital Signs Vital Signs Date Time Temp Pulse Resp B/P (MAP) Pulse Ox O2 Delivery O2 Flow Rate FiO2 08/14/18 14:47 76 18 122/67 (85) 96 08/14/18 12:46 98.6 98.6 Lab Values Laboratory Tests Test 08/14/18 12:45 08/14/18 13:15 Urine Collection Type Unknown Urine Color Yellow Urine Clarity Clear Urine pH 6.0 Urine Specific Dalton 1.020 Urine Protein Negative mg/dL (NEG-TRACE) Urine Glucose (UA) Negative mg/dL (NEG) Urine Ketones (Stick) Negative mg/dL (NEG) Urine Blood Negative (NEG) Urine Nitrite Negative (NEG) Urine Bilirubin Negative (NEG) Urine Urobilinogen Dipstick 0.2 mg/dL (0.2 mg/dL) Urine Leukocyte Esterase Negative (NEG) Urine RBC 0 /HPF (0-2) Urine WBC Rare /HPF (0-4) Urine Squamous Epithelial Cells Occ /LPF Urine Bacteria 0 /HPF (0-FEW) White Blood Count 6.0 x10^3/uL (4.0-11.0) Red Blood Count 3.71 x10^6/uL (3.50-5.40) Hemoglobin 11.0 g/dL (12.0-15.5) L Hematocrit 32.6 % (36.0-47.0) L Mean Corpuscular Volume 88 fL (79-100) Mean Corpuscular Hemoglobin 30 pg (25-35) Mean Corpuscular Hemoglobin Concent 34 g/dL (31-37) Red Cell Distribution Width 13.8 % (11.5-14.5) Platelet Count 247 x10^3/uL (140-400) Neutrophils (%) (Auto) 60 % (31-73) Lymphocytes (%) (Auto) 26 % (24-48) Monocytes (%) (Auto) 6 % (0-9) Eosinophils (%) (Auto) 7 % (0-3) H Basophils (%) (Auto) 0 % (0-3) Neutrophils # (Auto) 3.6 x10^3uL (1.8-7.7) Lymphocytes # (Auto) 1.6 x10^3/uL (1.0-4.8) Monocytes # (Auto) 0.4 x10^3/uL (0.0-1.1) Eosinophils # (Auto) 0.4 x10^3/uL (0.0-0.7) Basophils # (Auto) 0.0 x10^3/uL (0.0-0.2) Sodium Level 143 mmol/L (136-145) Potassium Level 3.4 mmol/L (3.5-5.1) L Chloride Level 106 mmol/L (98-107) Carbon Dioxide Level 28 mmol/L (21-32) Anion Gap 9 (6-14) Blood Urea Nitrogen 10 mg/dL (7-20) Creatinine 0.8 mg/dL (0.6-1.0) Estimated GFR (Cockcroft-Gault) 84.2 Glucose Level 135 mg/dL (70-99) H Calcium Level 8.8 mg/dL (8.5-10.1) Laboratory Tests 08/14/18 13:15 Laboratory Tests 08/14/18 13:15 EKG EKG [] Radiology/Procedures Radiology/Procedures [] Course & Med Decision Making Course & Med Decision Making Pertinent Labs and Imaging studies reviewed. (See chart for details) []1430: Patient with mild diffuse abdominal tenderness that is mostly present around the incision site. Incisions are healing well with no signs of abdominal infection. Patient does not have a urinary tract infection and a hemoglobin is stable. Pain controlled with PO meds in the ER. Discussed with Dr. Antony who is okay with discharge with small course of Percocet. Discussed with patient advised close follow-up with dr. Antony. ER return precautions given. Patient verbalized understanding. All questions answered. Dragon Disclaimer Dragon Disclaimer This electronic medical record was generated, in whole or in part, using a voice recognition dictation system. Departure Departure Impression: Primary Impression: Abdominal pain Disposition: HOME, SELF-CARE Condition: IMPROVED Referrals: UNKNOWN PCP NAME (PCP) Additional Instructions: Thank you for coming to [facility]. Please read the attached handouts. Please follow-up with your primary care physician. Take ibuprofen 800 mg 3 times a day with food. Continue your gabapentin as scheduled. Take the prescribed medication for uncontrolled pain only. Take MiraLAX twice a day to avoid constipation. Return to the ER if your symptoms worsen or you have any other concerns. Scripts Oxycodone/Apap 5-325 (PERCOCET 5-325 MG TABLET ) 1 Each Tablet 1-2 EACH PO PRN TID PRN for PAIN, #12 TAB pain Prov: PAMELLA LA DO 08/14/18 PAMELLA LA DO Aug 14, 2018 14:48
== END 2018-08-14 14:53 | disposition home or self-care (01) ==
LOC: ER 12:30
DX: R10.84 Generalized abdominal pain (principal); N93.9 Abnormal uterine and vaginal bleeding, unspecified; Z90.710 Acquired absence of both cervix and uterus; Z85.038 Personal history of other malignant neoplasm of large intestine; Z90.49 Acquired absence of other specified parts of digestive tract; Z88.5 Allergy status to narcotic agent; Z88.8 Allergy status to other drugs, medicaments and biological substances
CPT/HCPCS: 36415; 80048; 81001; 85025; 96374; 96375; 99284; J1885; J2405; J3010

== ENCOUNTER 2019-02-12 10:22 | Emergency (ER) | payer OTHER ==
[~2019-02-12] VITALS: Ht 172.7 cm; Wt 122.5 kg
[~2019-02-12 10:22] MED LIST changes: +OXYB5TAB10 PO; -OXYB5TAB7 PO; +OXYC1TAB15 PO
[2019-02-12 11:06] VITALS: BP 138/90
[2019-02-12] MEDS ORDERED: FAMOTIDINE 20 MG/2 ML VIAL IVP ONE (11:15)
[2019-02-12] MEDS ORDERED: ONDANSETRON PF 4 MG/2 ML VIAL. IV ONE (11:15)
[2019-02-12] MEDS ORDERED: IV NORMAL SALINE 1000ML BAG 1,000 ML IV ONE (11:15)
[2019-02-12 11:30] LABS: BASO % 0 % (0-3); EOS # 0.4 x10^3/uL (0.0-0.7); EOS % 5 % (0-3); HEMATOCRIT 35.3 % (36.0-47.0); HEMOGLOBIN 11.9 g/dL (12.0-15.5); LYMPH # 1.1 x10^3/uL (1.0-4.8); LYMPH % 15 % (24-48); MEAN CORPUSCULAR HEMOGLOBIN 29 pg (25-35); MEAN CORPUSCULAR HGB CONC 34 g/dL (31-37); MEAN CORPUSCULAR VOLUME 87 fL (79-100); MONO # 0.5 x10^3/uL (0.0-1.1); MONO % 7 % (0-9); NEUT # 5.7 x10^3/uL (1.8-7.7); NEUT % 74 % (31-73); PLATELET COUNT 248 x10^3/uL (140-400); RED BLOOD COUNT 4.08 x10^6/uL (3.50-5.40); RED CELL DISTRIBUTION WIDTH 14.5 % (11.5-14.5); WHITE BLOOD COUNT 7.8 x10^3/uL (4.0-11.0)
[2019-02-12 11:30] LABS: BILIRUBIN,URINE NEGATIVE (NEG); CLARITY,URINE CLEAR; COLOR,URINE YELLOW; NITRITE,URINE NEGATIVE (NEG); PROTEIN,URINE NEGATIVE (NEG-TRACE); UROBILINOGEN,URINE 0.2 mg/dL (0.2 mg/dL)
[2019-02-12] MEDS ORDERED: DEXAMETHASONE SOD PHOS 4 MG/ML VIAL IVP ONE (11:30)
[2019-02-12 11:39] LABS: PROTHROMBIN TIME PATIENT 16.4 SEC (11.7-14.0)
[2019-02-12 11:42] LABS: CALCIUM 8.8 mg/dL (8.5-10.1); CREATININE 0.7 mg/dL (0.6-1.0); GFR 98.3; POTASSIUM 4.3 mmol/L (3.5-5.1)
[2019-02-12 11:43] LABS: BACTERIA,URINE FEW /HPF (0-FEW); RBC,URINE TNTC /HPF (0-2); SQUAMOUS EPITHELIAL CELL,UR MANY /LPF
[2019-02-12 11:45] LABS: ALBUMIN 3.5 g/dL (3.4-5.0); ALBUMIN/GLOBULIN RATIO 0.9 (1.0-1.7); MAGNESIUM 1.5 mg/dL (1.8-2.4); TOTAL BILIRUBIN 0.3 mg/dL (0.2-1.0); TOTAL PROTEIN 7.5 g/dL (6.4-8.2)
[2019-02-12] MEDS ORDERED: fentaNYL PF VIAL 100 MCG/2 ML VIAL IV ONE (11:45)
--- NOTE | 2019-02-12 11:52 | PHYS DOC ---
Past Medical History Past Medical History: Depression Additional Past Medical Histor: PCOS, ADD,PTSD,COLON CA Past Surgical History: Hysterectomy Additional Past Surgical Histo: PARTIAL COLON REMOVAL Additional Information: Nonsmoker Alcohol Use: None Drug Use: None Adult General Chief Complaint Chief Complaint: ABDOMINAL PAIN HPI HPI Patient is a 28 year old with PMH of colon cancer, PE on Xarelto, PCOS, partial hysterectomy due to fibroids, who presents with abdominal pain, cough and acute onset hemoptysis. For her abdominal pain: pt reports having LLQ abdominal pain that is dull achy with some episodes of sharp, constant pain. Pt rates her pain as 8/10 (10=worst). She also reports some UTI symtoms with increase frequency, dysuria and incontinence. Pt also complains of 1 week constipation. She reports she was at [facility] and received an extensive workup with labs and CT abdomen which were unremakable. She was discharged with zofran and pain control. For her respiratory symptoms, pt reports she has been coughing for the past month with some subjective fever episodes, nasal congestion and this am she woke up noticing blood on her pillows and lips which she thought was from her coughing. Pt has been diagnosed with PE back in Sep by her oncologist and has been on Xaralto since then. Denies any unilateral leg pain, recent travel, chest pain, or palpitation. Review of Systems Review of Systems Constitutional: Denies fever or chills Eyes: Denies redness or eye pain HENT: Positive nasal congestion. Denies sore throat Respiratory: Postive cough and shortness of breath when coughing Cardiovascular: Denies chest pain or palpitations GI: Positive abdominal pain, nausea, and vomiting : Positive dysuria and hematuria Musculoskeletal: Denies back pain or joint pain Integument: Denies rash or skin lesions Neurologic: Denies headache, focal weakness or sensory changes Complete systems were reviewed and found to be within normal limits, except as documented in this note. Current Medications Current Medications Current Medications Medications (Trade) Dose Ordered Sig/Jocelyne Start Time Stop Time Status Last Admin Dose Admin Dexamethasone Sodium Phosphate (Decadron) 10 mg 1X ONCE 02/12/19 11:30 02/12/19 11:32 DC 02/12/19 11:54 10 MG Famotidine (Pepcid Vial) 20 mg 1X ONCE 02/12/19 11:15 02/12/19 11:16 DC 02/12/19 11:23 20 MG Fentanyl Citrate (Fentanyl 2ml Vial) 50 mcg 1X ONCE 02/12/19 11:45 02/12/19 11:49 DC 02/12/19 11:55 50 MCG Ondansetron HCl (Zofran) 4 mg 1X ONCE 02/12/19 11:15 02/12/19 11:16 DC 02/12/19 11:22 4 MG Sodium Chloride 1,000 ml @ 1,000 mls/hr 1X ONCE 02/12/19 11:15 02/12/19 12:14 DC 02/12/19 11:21 1,000 MLS/HR Allergies Allergies Allergies Coded Allergies Type Severity Reaction Last Updated Verified adhesive Allergy Intermediate ADHESIVE/TELE PADS. ITCHING/BURNING 08/14/18 Yes morphine Allergy Intermediate itching, swelling of arm proximal to IV site 08/14/18 Yes Physical Exam Physical Exam Constitutional: Well developed, well nourished, no acute distress, non-toxic appearance HENT: Normocephalic, atraumatic, oropharynx moist Eyes: PERRL, EOMI, conjunctiva normal, no discharge Neck: Normal range of motion, no tenderness, supple Cardiovascular: Heart rate normal, regular rhythm Lungs & Thorax: Bilateral breath sounds clear to auscultation, no wheezing Abdomen: Soft, mild tenderness in LLQ Skin: Warm, dry, no erythema, no rash Back: No tenderness, no CVA tenderness Extremities: No tenderness, ROM intact, no edema Neurologic: Alert and oriented X 3, normal motor function, normal sensory function, no focal deficits noted Psychologic: Affect normal, judgement normal, mood normal Current Patient Data Vital Signs Vital Signs Date Time Temp Pulse Resp B/P (MAP) Pulse Ox O2 Delivery O2 Flow Rate FiO2 02/12/19 11:55 18 98 02/12/19 11:06 98.1 78 138/90 (106) Room Air 98.1 Lab Values Laboratory Tests Test 02/12/19 10:50 02/12/19 10:56 02/12/19 11:00 Urine Collection Type Unknown Urine Color Yellow Urine Clarity Clear Urine pH 6.0 Urine Specific [place] 1.025 Urine Protein Negative mg/dL (NEG-TRACE) Urine Glucose (UA) Negative mg/dL (NEG) Urine Ketones (Stick) Negative mg/dL (NEG) Urine Blood Large (NEG) Urine Nitrite Negative (NEG) Urine Bilirubin Negative (NEG) Urine Urobilinogen Dipstick 0.2 mg/dL (0.2 mg/dL) Urine Leukocyte Esterase Negative (NEG) Urine RBC Tntc /HPF (0-2) Urine WBC 1-4 /HPF (0-4) Urine Squamous Epithelial Cells Many /LPF Urine Bacteria Few /HPF (0-FEW) Urine Mucus Marked /LPF POC Urine HCG, Qualitative Hcg negative (Negative) White Blood Count 7.8 x10^3/uL (4.0-11.0) Red Blood Count 4.08 x10^6/uL (3.50-5.40) Hemoglobin 11.9 g/dL (12.0-15.5) L Hematocrit 35.3 % (36.0-47.0) L Mean Corpuscular Volume 87 fL (79-100) Mean Corpuscular Hemoglobin 29 pg (25-35) Mean Corpuscular Hemoglobin Concent 34 g/dL (31-37) Red Cell Distribution Width 14.5 % (11.5-14.5) Platelet Count 248 x10^3/uL (140-400) Neutrophils (%) (Auto) 74 % (31-73) H Lymphocytes (%) (Auto) 15 % (24-48) L Monocytes (%) (Auto) 7 % (0-9) Eosinophils (%) (Auto) 5 % (0-3) H Basophils (%) (Auto) 0 % (0-3) Neutrophils # (Auto) 5.7 x10^3/uL (1.8-7.7) Lymphocytes # (Auto) 1.1 x10^3/uL (1.0-4.8) Monocytes # (Auto) 0.5 x10^3/uL (0.0-1.1) Eosinophils # (Auto) 0.4 x10^3/uL (0.0-0.7) Basophils # (Auto) 0.0 x10^3/uL (0.0-0.2) Prothrombin Time 16.4 SEC (11.7-14.0) H Prothrombin Time INR 1.4 (0.8-1.1) H Activated Partial Thromboplast Time 33 SEC (24-38) Sodium Level 141 mmol/L (136-145) Potassium Level 4.3 mmol/L (3.5-5.1) Chloride Level 104 mmol/L (98-107) Carbon Dioxide Level 25 mmol/L (21-32) Anion Gap 12 (6-14) Blood Urea Nitrogen 13 mg/dL (7-20) Creatinine 0.7 mg/dL (0.6-1.0) Estimated GFR (Cockcroft-Gault) 98.3 BUN/Creatinine Ratio 19 (6-20) Glucose Level 113 mg/dL (70-99) H Calcium Level 8.8 mg/dL (8.5-10.1) Magnesium Level 1.5 mg/dL (1.8-2.4) L Total Bilirubin 0.3 mg/dL (0.2-1.0) Aspartate Amino Transferase (AST) 78 U/L (15-37) H Alanine Aminotransferase (ALT) 92 U/L (14-59) H Alkaline Phosphatase 69 U/L (46-116) Total Protein 7.5 g/dL (6.4-8.2) Albumin 3.5 g/dL (3.4-5.0) Albumin/Globulin Ratio 0.9 (1.0-1.7) L Lipase 147 U/L (73-393) Laboratory Tests 02/12/19 11:00 Laboratory Tests 02/12/19 11:00 EKG EKG 11:01:24 Sinus rhythm, wandering baseline. No ST elevation. [] Radiology/Procedures Radiology/Procedures PROCEDURE: CHEST PA & LATERAL Chest, PA and Lateral: Technique: PA and lateral views of the chest were obtained. History: Shortness of breath, cough. Comparison: 04/07/2018. Findings: The heart and pulmonary vasculature appear within normal limits. Minimal bibasilar lung atelectasis or infiltrates.. The pleural margins are clear. Impression: Minimal bibasilar lung atelectasis or infiltrates.. Electronically signed by: Wade Ley MD (02/12/2019 11:57 AM) [facility] Course & Med Decision Making Course & Med Decision Making Pertinent Labs and Imaging studies reviewed. (See chart for details) Patient is a 28 year old with PMH of colon cancer, PE on Xarelto, PCOS, partial hysterectomy due to fibroids, who presents with abdominal pain, cough and acute onset hemoptysis. DDX considered: constipation, PNA, UTI, doubt acute abdomen since CT ab results at [facility] was unremarkable, consider PE however pt's vitals are stable, O2 sat high 90s, HR is normal and is currently on Xarelto. The acute episode of hemoptysis might be caused by persistent cough secondary viral URI/bronchitis irritation and pt is more prone to bleed with Xarelto. Will order labs, chest Xray, UA. Supportive care with Zofran and fluid at bedside. Pt is stable. UA without signs of infection. Hematuria noted. Patient reports interval improvement of symptoms. Sats continued to be stable. Patient denies pleuritic pain. No tachycardia noted. Hx of recent CT abd/pelvis which patient remarked was "normal". Discussed risks/benefits of repeat CT imaging including chest. Shared decision with patient to hold repeat CT imaging at this time due to exposure to radiation. Patient stable for discharge with outpatient follow-up with PCP. Patient also advised to follow closely with her oncologist for further management. Discussed findings and plan with patient and family, who acknowledge understanding and agreement. Dragon Disclaimer Dragon Disclaimer This electronic medical record was generated, in whole or in part, using a voice recognition dictation system. Departure Departure Impression: Primary Impression: Abdominal pain Additional Impressions: Hematuria Constipation Bronchitis Disposition: 01 HOME, SELF-CARE Condition: IMPROVED Referrals: VIDAL LEAVITT MD (PCP) LUIS BREWER MD Patient Instructions: Abdominal Pain (Nonspecific), Acute Bronchitis, [id number], Constipation, Adult, [id number], Hematuria, Adult Scripts Polyethylene Glycol 3350 (MIRALAX) 17 Gm Powd.pack 1 PACKET PO DAILY PRN for CONSTIPATION, #6 PACKET 0 Refills dissolve in water Prov: KRANTHI BELL DO 02/12/19 Sennosides/Docusate Sodium (Colace 2-in-1 Tablet) 1 Each Tablet 1 TAB PO QHS PRN for CONSTIPATION for 30 Days, #30 TAB 0 Refills Prov: KRANTHI BELL DO 02/12/19 Oxycodone/Apap 5-325 (PERCOCET 5-325 MG TABLET ) 1 Each Tablet 0.5-1 TAB PO PRN Q6HRS PRN for PAIN, #10 TAB 0 Refills Prov: KRANTHI BELL DO 02/12/19 Prednisone (PREDNISONE) 20 Mg Tablet 2 TAB PO DAILY, #8 TAB Start this prescription tomorrow, Thursday02/13/19 Prov: KRANTHI BELL DO 02/12/19 Problem Qualifiers Primary Impression: Abdominal pain Abdominal location: left lower quadrant Qualified Codes: R10.32 - Left lower quadrant pain Additional Impressions: Hematuria Hematuria type: unspecified type Qualified Codes: R31.9 - Hematuria, unspecified Constipation Constipation type: unspecified constipation type Qualified Codes: K59.00 - Constipation, unspecified KRANTHI BELL DO Feb 12, 2019 11:52
--- NOTE | 2019-02-12 12:00 | RAD ---
Chest, PA and Lateral: Technique: PA and lateral views of the chest were obtained. History: Shortness of breath, cough. Comparison: 04/07/2018. Findings: The heart and pulmonary vasculature appear within normal limits. Minimal bibasilar lung atelectasis or infiltrates.. The pleural margins are clear. Impression: Minimal bibasilar lung atelectasis or infiltrates.. Electronically signed by: Wade Ley MD (02/12/2019 11:57 AM) [facility]
[2019-02-12] MEDS ORDERED: POLY17PO29 PO (12:41)
[2019-02-12] MEDS ORDERED: PRED20TA PO (12:41)
[2019-02-12] MEDS ORDERED: SENN-121 PO (12:41)
[2019-02-12] MEDS ORDERED: OXYC1TAB15 PO (12:41)
--- NOTE | 2019-02-14 09:48 | EKG ---
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
== END 2019-02-12 12:50 | disposition home or self-care (01) ==
LOC: ER 10:22
DX: K59.00 Constipation, unspecified (principal); R31.9 Hematuria, unspecified; J40 Bronchitis, not specified as acute or chronic; E28.2 Polycystic ovarian syndrome; Z90.710 Acquired absence of both cervix and uterus; Z98.890 Other specified postprocedural states; Z88.5 Allergy status to narcotic agent; Z88.8 Allergy status to other drugs, medicaments and biological substances
CPT/HCPCS: 36415; 71046; 80053; 81001; 81025; 83690; 83735; 85025; 85610; 85730; 93005; 96361; 96374; 96375; 99285; J1100; J2405; J3010; J3490; J7030